=== PATIENT | female | born 1960 | race Caucasian/White ===

== ENCOUNTER 2018-09-20 00:44 | Outpatient (CLI) | payer OTHER, SELFPAY ==
--- NOTE | 2018-09-20 14:45 | DI.RAD_ITS ---
SYMPTOMS/DIAGNOSIS: SCREENING, POSTMENOPAUSAL, Z78.0 DEXA SCAN: No priors for comparison. Evaluation of the lateral spine shows no compression deformities. Evaluation of the left hip shows a total T score of -1.8 and a Z score of -1.0; this is consistent with osteopenia and an increased fracture risk. Evaluation of the lumbar spine shows a total T score of -1.8 and a Z score of - 0.5; this is also consistent with osteopenia and an increased fracture risk. IMPRESSION: Osteopenia in the lumbar spine and left hip.
--- NOTE | 2018-09-20 15:01 | DI.MAMMO_ITS ---
SYMPTOMS/DIAGNOSIS: SCREENING, Z12.31 MAMMOGRAMS: Mammograms were interpreted according to the usual protocol including computer analysis with CAD system, tomosynthesis and C view imaging. Comparison is with the prior examinations. No suspicious masses or microcalcifications are seen. There is no definite evidence of malignancy. IMPRESSION: Negative mammogram. Routine screening is recommended. Category 1, breast density B. MQSA ASSESSMENT OF FINDINGS: Negative. Category 1. Patient will receive a letter notifying them of these results. BI-RADS category B. There are scattered areas of fibroglandular density.
== END 2018-09-20 01:04 ==
PROVIDERS: PCP Family Medicine; Visit Provider Family Medicine
DX: M85.88 Other specified disorders of bone density and structure, other site (principal); Z78.0 Asymptomatic menopausal state; Z12.31 Encounter for screening mammogram for malignant neoplasm of breast
CPT/HCPCS: 77063; 77067; 77080

== ENCOUNTER 2019-05-19 18:00 | Emergency (ER) | payer OTHER, SELFPAY ==
[2019-05-19] VITALS (19 sets, daily range): BP systolic 110–129; BP diastolic 56–83; PULSE 58–69; RESP 11–22; TEMP 36.5; O2SAT 97–100
--- NOTE | 2019-05-19 18:23 | ED.GENADUL_ITS ---
Discharge Plan Disposition Patient Disposition: HOME Condition: Stable Discharge Details Chief Complaint: Dizzy/Sync Clinical Impression: Vertigo Primary Care Provider: Kaci Garcia ED Provider: Edwin Renner Home Meds and New Rx's Prescriptions: No Action No Known Home Meds RF: 0 Discharge Instructions Instructions: Vertigo (ED) Additional Instructions: Please follow-up with Dr. Garcia in clinic for recheck in next 1 to 2 weeks time. I recommended and offered admission tonight which you have elected to decline. Please return at any time for reevaluation. Return if you develop chest pain, palpitations, lightheadedness, recurrent vertigo, or any other acute concerns. Home to rest this evening. Small, frequent sips of fluids to maintain hydration. Your CAT scan of the head did not show any acute findings, this will be formally read by the in-house radiologist tomorrow. The on-call radiologist this evening recommended a nonemergent MRI follow-up that may be ordered by Dr. Garcia. Medical Decision Making 59-year-old female presents via EMS. She states that she developed a sensation of sinus pressure and drainage last night for which she took a sinus medicine. She felt generally weak today but this evening developed the abrupt onset of lightheaded sensation with spinning of the room, became diaphoretic, had a syncopal event which she sank to the ground but did not pass out. She did not turn blue, there was no tonic-clonic movements, no tongue biting, no incontinence. Family member took her blood pressure at 60/30. The patient vomited once. EMS found her in a normal sinus rhythm, they administered 300 cc of fluid and transported to the ED. Patient arrives with pulse 69, pressure 125/61. She is afebrile. Her exam is notable for 2-3 beat left horizontal nystagmus. No other focal neurologic deficits. Differential diagnosis includes sinusitis, peripheral labyrinthitis, must exclude underlying cardiogenic or vagal source of syncope. Patient placed on a shelter monitor, given a additional fluid bolus, referred for CT scan of the head, chest x-ray, laboratory testing and EKG. EKG: Normal sinus rhythm, rate of 68, the QRS is narrow, there is nonspecific half millimeter ST segment depression in leads V2 through through V6. Laboratories are notable for magnesium of 1.7, potassium of 3.2. Her troponin is negative, CBC reassuring. Patient given meclizine, parenteral magnesium and potassium supplementation. The CAT scan of her head reveals mild mucoperiosteal thickening in the paranasal sinuses but no air-fluid levels. Question of Chiari I malformation. Nonemergent MRI follow-up recommended. No other acute findings. Chest x-ray without acute disease. Patient is improved following fluids and meclizine. Her work-up has been reassuring. Nonetheless, I recommended admission overnight for monitoring on telemetry. Patient declines this. She has demonstrates decision-making capacity and clearly has the right to refuse admission. I will ask her to follow-up with primary care and place her on care management list to make an appointment. She understands return precautions to the ER. HPI General Mode of arrival: ambulatory . Date/Time Provider Initiated Documentation: 05/19/19 18:27 . Limitations to Documentation: no limitations . Information obtained by: patient . History of Present Illness 59 year old F presents to the emergency department with the chief complaint of Syncope and vertiginous feeling, improving, described as moderate, and is localized to the head. Patient reports no radiation. Patient started experiencing this minute(s) and it has been now resolved. No relieving factors improve symptom(s), No exacerbating factors reported . Patient notes diaphoresis, nausea/vomiting, syncope and weakness; denies confusion, chest pain, headaches and shortness of breath. Patient did receive the following treatments prior to arrival, other (300 cc IV fluid) Related Data Home Medications Medication Instructions Recorded Confirmed Unknown [No Known Home Meds] 05/19/19 05/19/19 Allergies Allergy/AdvReac Type Severity Reaction Status Date / Time No Known Allergies Allergy Unverified 05/19/19 18:17 General Stated Complaint: Dizzy/Sync RIVKA: 2 Review of Systems Narrative: 6 systems reviewed and otherwise negative [facility] Medical History Dermatitis DIVERTICULOSIS SESSILE SERATED ADENOMA Stress TUBULAR ADENOMA Surgical History (Updated 05/18/13 @ 09:57 by Ruth Magaña) Bone Graft & Pinning of Right Wrist Colonoscopy - IV Sedation (03/15/13) Lateral Retinacular Release, Open Right Family History Mother Heart disease Father Alcohol abuse Sister Heart disease Sister No problems noted. Brother No problems noted. Brother No problems noted. Social History Smoking/Tobacco Use Status: Current every day Alcohol Intake: current Alcohol Intake frequency: a few times a month Drug use: Never Substance use type: does not use Do you feel safe at home: Yes Exam Narrative Exam Narrative: GEN: awake, alert, oriented 3. Pleasant, well groomed, interactive. HEAD: Normocephalic, atraumatic ENT: Mucous membranes moist, oropharynx unremarkable, External ear exam unremarkable EYES: PERRL, EOMI NECK: Full ROM, no CHANEL, no menigismus CHEST/RESP: Nontender, clear to auscultation bilateral, no wheeze/rhonchi/rales CARDIOVASCULAR: RRR, no murmur, rub amarjit. 2+ Rad pulse bilateral ABDOMEN: Soft, nontender, no mass. +Bowel sounds EXT: Full ROM, no edema, no rash Neuro: Grossly normal neurologic exam, conversant, interactive. Cranial nerves II through XII intact. Left horizontal 2-3 beat nystagmus present. No dysmetria Psych: Speech fluent, thoughts congruent, affect normal Course Vital Signs Vital signs: Vital Signs Temperature 36.5 C 05/19/19 18:01 Pulse 69 05/19/19 18:01 Respiratory Rate 16 05/19/19 18:01 Blood Pressure 125/61 05/19/19 18:01 Temperature 36.5 C 05/19/19 18:01 Temperature Source Skin 05/19/19 18:01 Pulse 67 05/19/19 18:05 Pulse 67 05/19/19 18:05 Respiratory Rate 11 L 05/19/19 18:10 Respiratory Effort Non-Labored 05/19/19 18:10 Respiratory Depth Normal 05/19/19 18:10 Respiratory Pattern Normal 05/19/19 18:10 Blood Pressure 125/61 05/19/19 18:05 Blood Pressure Mean 77 05/19/19 18:05 Blood Pressure Position Supine 05/19/19 18:01 Oxygen Delivery Method Room Air 05/19/19 18:01 Oxygen Flow Rate 0 05/19/19 18:01
[2019-05-19 18:30] LABS: Abs Immature Grans 0.03 k/cumm (0.0-0.09); Absolute Basophil Count 0.03 k/cumm (0.0-0.2); Absolute Eosinophil Count 0.23 k/cumm (0.0-0.7); Absolute Lymphocyte Count 2.74 k/cumm (1.2-3.4); Absolute Monocyte Count 1.04 k/cumm (0.11-0.7); Absolute Neutrophil Count 3.89 k/cumm (1.2-6.7); Basophils % 0.4; Eosinophils % 2.9; HCT 37.8 % (36.0-46.0); HGB 12.8 g/dL (12.0-15.5); Immature Grans % 0.4; Lymphocytes % 34.4; Mean Corp. HGB Concentration 33.9 g/dL (32.0-36.0); Mean Corpuscular Hemoglobin 30.6 pg (27.0-33.0); Mean Corpuscular Volume 90.4 fL (80-95); Mean Platelet Volume 9.4 fL (8.0-11.0); Monocytes % 13.1; Neutrophils % 48.8; Platelet Count 295 x1000/uL (130-400); RBC 4.18 m/cumm (4.00-5.20); RBC Distribution Width 12.6 % (11.7-14.6); White Blood Cell Count 7.96 k/cumm (4.4-10.8)
[2019-05-19 18:43] LABS: ALT 21 U/L (14-59); AST 16 U/L (15-37); Albumin 3.6 g/dL (3.4-5.0); Alkaline Phosphatase 47 U/L (46-116); BUN 10 mg/dL (7-18); Bilirubin, Total 0.3 mg/dL (0.2-1.0); CREATININE 0.93 mg/dL (0.55-1.02); Calcium 8.8 mg/dL (8.5-10.1); Chloride 105 mmol/L (98-107); Glucose 100 mg/dL (74-106); Potassium 3.2 mmol/L (3.5-5.1); Sodium 142 mmol/L (136-145)
[2019-05-19] MEDS: Normal Saline 1,000 ML 1000 ML IV (18:47)
[2019-05-19] MEDS: Ondansetron 4 MG/2 ML VIAL IVP (18:47)
[2019-05-19] MEDS: Normal Saline Flush 10 ML SYR IVP (18:49)
[2019-05-19 18:50] LABS: Magnesium 1.7 mg/dL (1.8-2.4); Troponin I < 0.05 ng/Ml (<0.06)
[2019-05-19] MEDS: Meclizine 25 MG TAB PO (18:57)
--- NOTE | 2019-05-19 19:20 | DI.CT_ITS ---
EXAM: CT HEAD SINUS WO CLINICAL HISTORY: Frontal sinus pressure, dizziness TECHNIQUE: The exam was performed according to the usual protocol without contrast. COMPARISON: No exams were available for comparison FINDINGS: CT head: The right cerebellar tonsil extends approximately 7 millimeters below the foramen magnum. There is a normal fajardo-white matter differentiation. No intracranial hemorrhage, midline shift or mass effect is present. The ventricles are intact. The basilar cisterns are patent. The calvarium is intact. There is mild mucosal thickening in the visualized paranasal sinuses to be discussed on the CT scan o f the sinuses. The mastoid air cells are well pneumatized. CT sinus: There is mild mucosal thickening in the right frontal sinus. There is opacification of several ethmoid air cells bilaterally. There is mucosal thickening in the maxillary sinuses bilaterally right greater than left. The sphenoid sinuses are clear. Nasal septum is midline. There is obstruction of the left ostiomeatal complex. The right ostiomeata l complex is unremarkable. The orbits and retro-orbital soft tissues are unremarkable. There is artifact from the patient's dental amalgam. IMPRESSION: 1. No acute intracranial process. 2. Findings suggestive of a Chiari 1 malformation. Nonemergent MRI should be considered for further evaluation. 3. Findings suggesting chronic sinusitis. No air-fluid levels are present in the sinuses.
--- NOTE | 2019-05-19 19:30 | DI.RAD_ITS ---
EXAM: XR CHEST 2V PA LATERAL INDICATION: Syncope, dizziness. COMPARISON: RIGHT RIBS TO INCLUDE CXR from 12/08/2010 TECHNIQUE: 2D digital imaging was performed. FINDINGS: The heart size and pulmonary vasculature are within normal limits. The lungs are clear. No effusion or pneumothorax is identified. Degenerative changes are seen in the spine. There is an unchanged s coliosis of the thoracic spine. IMPRESSION: No acute pulmonary process.
[2019-05-19] MEDS: MAGNESIUM SULFATE 1 GM/100 ML BAG IVPB (19:32)
[2019-05-19] MEDS: POTASSIUM CHLORIDE/0.9% NACL 1,000 ML 150 MEQ IV (19:58)
--- NOTE | 2019-05-19 20:02 | DI.VRAD_ITS ---
PROCEDURE INFORMATION: Exam: CT Maxillofacial Without Contrast, Sinus Exam date and time: 05/19/2019 7:14 PM Age: 59 years old Clinical indication: Dizziness; Other: Frontal sinus pressure TECHNIQUE: Imaging protocol: CT Maxillofacial without contrast. Focus on the sinuses. Radiation optimization: All CT scans at this facility use at least one of these dose optimization techniques: automated exposure control; mA and/or kV adjustment per patient size (includes targeted exams where dose is matched to clinical indication); or iterative reconstruction. COMPARISON: No relevant prior studies available. FINDINGS: Frontal sinuses: There is mild mucoperiosteal thickening in the frontal sinus. Ethmoid air cells: There is mild mucoperiosteal thickening in the ethmoid sinuses. Sphenoid sinuses: The sphenoid sinuses appear clear. Maxillary sinuses: There is mild mucoperiosteal thickening in the maxillary sinuses. Orbits: The globes and intraorbital structures appear grossly intact. Nasal cavity/Septum: The nasal passages appear grossly clear. The nasal septum appears midline. Dental: The teeth are partially obscured by artifact from metallic dental work. There are large periapical lucencies in the maxilla bilaterally. Soft tissues: No asymmetric soft tissue swelling is seen in the face. Bones/joints: No acute fracture is seen through the visualized facial bones. The lower mandible is partially excluded from view. IMPRESSION: 1. Mild mucoperiosteal thickening in the paranasal sinuses but no air-fluid levels. Chronic sinusitis could have this appearance although clinical correlation is recommended. 2. Periapical lucencies in the maxilla bilaterally. Follow-up with a dentist is recommended to distinguish periapical cysts from periapical abscesses. PROCEDURE INFORMATION: Exam: CT Head Without Contrast Exam date and time: 05/19/2019 7:14 PM Age: 59 years old Clinical indication: Dizziness; Other: Frontal sinus pressure TECHNIQUE: Imaging protocol: Computed tomography of the head without contrast. Radiation optimization: All CT scans at this facility use at least one of these dose optimization techniques: automated exposure control; mA and/or kV adjustment per patient size (includes targeted exams where dose is matched to clinical indication); or iterative reconstruction. COMPARISON: No relevant prior studies available. FINDINGS: Brain: The right cerebellar tonsil extends approximately 7 mm below the foramen magnum. There is crowding of the structures at the foramen magnum, image 6 of series 2. There is mass effect upon the brainstem which demonstrates distorted morphology. No acute intracranial hemorrhage, supratentorial mass effect, supratentorial midline shift, or extra-axial collection is seen. The fajardo-white matter differentiation appears preserved. Ventricles: The ventricular system and basilar cisterns appear appropriate in size and configuration. Bones/joints: The bony calvarium appears intact. No depressed skull fracture is seen. Sinuses: There is mild mucoperiosteal thickening in the paranasal sinuses. No air-fluid levels are seen through the visualized paranasal sinuses. Mastoid air cells: The mastoid air cells appear well-aerated. Auditory system: The middle ear cavities appear clear. Orbits: The globes and intraorbital structures appear grossly intact. The globes and intraorbital structures appear grossly intact. Soft tissues: No significant scalp lesion is seen. IMPRESSION: 1. Approximately 7 mm inferior extension of the right cerebellar tonsil below the foramen magnum with crowding of structures at the foramen magnum and mass effect upon the brainstem. This appearance suggests a Chiari 1 malformation. Non emergent follow up MRI is recommended for additional evaluation. 2. No acute intracranial hemorrhage. Dictated and Authenticated by: Bryn Sifuentes MD. Ordering:NIRMALA Pineda MD
--- NOTE | 2019-05-19 20:09 | DI.VRAD_ITS ---
PROCEDURE INFORMATION: Exam: XR Chest, 2 Views Exam date and time: 05/19/2019 7:29 PM Age: 59 years old Clinical indication: Other: Dizziness TECHNIQUE: Imaging protocol: XR of the chest Views: 2 views. COMPARISON: No relevant prior studies available. FINDINGS: Lungs: The lung bhatt appear clear bilaterally. Pleural space: No pleural effusion or pneumothorax is seen. Heart/Mediastinum: Heart size is normal. The mediastinal contours appear normal. Bones/joints: There is S shaped scoliotic curvature through the visualized spine. There is focal deformity along the anterolateral aspect of the right 9th rib, suspected to represent an old fracture. IMPRESSION: No active disease is seen in the chest. Dictated and Authenticated by: Bryn Sifuentes MD. Ordering:NIRMALA Pineda MD
[2019-05-19 20:10] LABS: Bilirubin Negative (Negative); Blood Small (Negative); Clarity Clear (Clear); Glucose Negative (Negative); Ketones Negative (Negative); Leukocyte Esterase Negative (Negative); Nitrite Negative (Negative); Urobilinogen 0.2 EU/dL (Up TO 0.2)
[2019-05-19 20:27] LABS: Epithelial Cells Few HPF (Negative); WBC 0-2 HPF (0-5)
[2019-05-19 20:28] LABS: Bacteria Negative HPF (Negative); C & S Indicated? No; Casts 20-50 Hyaline LPF (Negative); Crystals Negative HPF (Negative); Mucus Moderate (Negative)
== END 2019-05-19 20:40 | disposition home or self-care (01) ==
PROVIDERS: Emergency Provider Emergency Medicine; PCP Family Medicine
DX: R42 Dizziness and giddiness (principal); R11.2 Nausea with vomiting, unspecified; H55.09 Other forms of nystagmus; E83.42 Hypomagnesemia; E87.6 Hypokalemia
CPT/HCPCS: 36415; 80053; 93005; 96361; 96365; 96375; 99285; 70450; 70486; 71046; 81003; 81015; 83735; 84443; 84484; 85025; 93010; 99284; J2405; J3360; J3475

== ENCOUNTER 2019-05-29 03:18 | Outpatient (CLI) | payer OTHER, SELFPAY ==
--- NOTE | 2019-07-03 11:20 | W.CARDEVENT ---
Date of service: 07/03/19 Time of Service: 11:20 Cardiac Event Recorder Cardiac Event Note: This is a 1 month event recorder ordered for the indication of syncope. ?Patient was in normal sinus rhythm for the majority of the recording. ?There was one episode of ventricular tachycardia which lasted 9 beats. This was not associated with the patient recorded symptoms. ?There were 6 patient triggered events which were all associated with sinus rhythm and occasional PVC. ?There were no episodes of atrial fibrillation, no pauses greater than 3 seconds and no evidence of high degree heart block.
== END 2019-05-29 03:38 ==
PROVIDERS: PCP Family Medicine; Visit Provider Family Medicine
DX: R55 Syncope and collapse (principal); I47.2 Ventricular tachycardia; I49.3 Ventricular premature depolarization
CPT/HCPCS: 93270

== ENCOUNTER 2019-06-04 15:39 | Emergency (ER) | payer OTHER, SELFPAY ==
[2019-06-04] VITALS (41 sets, daily range): BP systolic 109–142; BP diastolic 56–79; PULSE 59–75; RESP 12–23; TEMP 36.1–36.6; O2SAT 95–100
--- NOTE | 2019-06-04 16:05 | W.ED.GENAD ---
Discharge Plan Disposition Patient Disposition: HOME Condition: Good Discharge Details Chief Complaint: Palpitatns Clinical Impression: Cardiac abnormality Primary Care Provider: Kaci Garcia ED Provider: Hesham Wahl Home Meds and New Rx's Prescriptions: New metoprolol succinate 25 mg tablet extended release 24 hr 25 mg PO DAILY Qty: 30 RF: 0 No Action multivitamin Capsule 1 cap PO DAILY RF: 0 Calcium 600 + D(3) 600 mg calcium- 200 unit Capsule 2 cap PO DAILY RF: 0 Discharge Instructions Instructions: Telemetry Monitoring (GEN) Additional Instructions: At this time the correctional guard feels that the findings are new rhythm strip warrant further outpatient evaluation and do not merit inpatient admission at this time. Please take the metoprolol 25 mg daily as directed. This may certainly decrease your energy and stamina for the time being, but this is an expected side effect. Please follow-up closely at your scheduled cardiac echo test. We will be placing a cardiology referral for you. They will contact you with the appointment time. If you notice any worsening of your symptoms, or any new symptoms such as vomiting, diarrhea, fever, chills, shortness of breath, chest pain, numbness, weakness, or fainting , please return immediately to the emergency department for reevaluation. Please follow up with your primary care provider as soon as possible for reassessment and reevaluation. As always, it was a pleasure participating in your medical care today. Referrals: Fredy Ni MD [ CONSULTING PHYSICIAN] - Medical Decision Making This is a 59-year-old female with no past medical history to speak of aside for an episode of syncope 2-1/2 weeks ago. 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 Today while driving home she was contacted by her physician that there was a 9 beat run of V. tach. She had 0 symptoms whatsoever when all of this occurred. She was only made aware because of the call that was made to her. Currently she continues to remain totally asymptomatic with no episodes of no syncope or other abnormalities. Physical exam is unremarkable, bedside limited transthoracic echocardiogram does show what would appear to be a slightly dilated left ventricle, measurements being 10.2 cm x 6.6cm. While these findings may certainly be secondary to the limited nature of the study is certainly do elicit some concern for me. We will get a laboratory work-up to make sure her electrolytes are within normal limits, monitor closely while here, then contact her correctional guard. 5:41 PM Laboratory work-up has returned and is unremarkable. Magnesium, calcium, TSH, troponin and proBNP are all within normal limits. Potassium is 3.4. Will give some oral potassium supplement here. She continues to show no dysrhythmia on the monitor here. I did contact [facility] cardiology and spoke with Dr. Figueroa. I discussed the limited bedside ultrasound findings, laboratory work-up, he did review the rhythm strips and EKGs. He does feel that the dysrhythmia is certainly self-limiting and less concerning. At this time he recommends discharge with close outpatient follow-up. He does not see benefit from admission. He does recommend starting the patient on 25 mg of metoprolol succinate daily. We will start the patient on this year. Taking into account the specialist recommendations patient will be discharged, we will contact imaging to move up her scheduled echo, we will place referral for cardiology here. We will continue to monitor the patient get one repeat EKG and 3-hour troponin prior to discharge. 7:25 PM Serial EKGs are unchanged, serial troponins are normal. Patient remained stable here in the ED, no evidence of hypotension or bradycardia on the metoprolol. Per plan will discharge home, with close echo and cardiology follow-up. Discussed red flags which to return. At this time there is no clinical evidence of ACS. Discussed red flags which to return. I have extensively reviewed the treatment plan and discharge instructions with the patient. I have addressed all patient concerns at this time. The patient was made aware of what symptoms to monitor for that would warrant a return to the emergency department. Discussed the plan with the patient, they demonstrate verbal understanding and agreement with our assessment and plan at this time. EKG 15: 47 Rate 64, intervals normal, sinus rhythm, nonspecific ST depressions in V3 V4 V5 and V6, all less than 1 mm. Minimal less than 1 mm elevation in V1. Q waves appear to be present in lead II. Mild less than 1 mm elevation in aVR. No evidence of STEMI. Comparison of EKG from 03/19/2019 demonstrates near identical findings. No acute changes. EKG 18: 56 Rate 63, intervals normal, sinus rhythm, nonspecific less than 1 mm depression in V2 V3 V4 V5. Less than 1 mm of elevation in aVR. These findings are consistent with EKG both today and on 03/19/2019. EKGs were reviewed by [facility] cardiology and they are also unconcerned. HPI General Date/Time Provider Initiated Documentation: 06/04/19 15:49. HPI Narrative: This is a 59-year-old female with no past medical history to speak of except for a syncopal episode on May 19 of this past year which was less than a month ago who presents today for evaluation of cardiac monitoring abnormality. The patient was given a prolonged heart monitor after her episode of syncope. Today while driving home she was contacted by her physician stating that there was a recorded episode of 8 beats of ventricular tachycardia. The patient had no symptoms whatsoever, and states that she would not have known something occurred had no one contacted her. This all occurred roughly 4 hours ago. The patient denies any red flags of lightheadedness, chest pain, shortness of breath, arm neck or shoulder pain. She denies any other episodes of recent syncope. No other complaints at this time. She does have a sister who in her sleep in her 60s but no other family or personal history of exertional syncope or other complaints. Patient denies any IV or illicit drug use. She denies any excessive caffeine use. Related Data Home Medications Medication Instructions Recorded Confirmed calcium carbonate-vitamin D3 2 cap PO DAILY 06/04/19 06/04/19 [Calcium 600 + D(3)] metoprolol succinate 25 mg PO DAILY #30 tab 06/04/19 multivitamin 1 cap PO DAILY 06/04/19 06/04/19 Previous Rx's Medication Instructions Recorded metoprolol succinate 25 mg PO DAILY #30 tab 06/04/19 Allergies Allergy/AdvReac Type Severity Reaction Status Date / Time No Known Allergies Allergy Unverified 06/04/19 15:49 General Stated Complaint: Palpitatns RIVKA: 2 Review of Systems All systems reviewed & are unremarkable except as noted in HPI and below [facility] Surgical History (Updated 05/18/13 @ 09:57 by Ruth Magaña) Bone Graft & Pinning of Right Wrist Colonoscopy - IV Sedation (03/15/13) Lateral Retinacular Release, Open Right Social History Smoking/Tobacco Use Status: Current every day Tobacco Type: cigarettes Smoking packs per day: 0.5 Smoking cigarettes per day: 10.0 Alcohol Intake: current Alcohol Intake frequency: a few times a month Drug use: Never Substance use type: does not use Do you feel safe at home: Yes Exam Narrative Exam Narrative: 1.Const: Well-nourished, Well-developed, appearing stated age 2.Eyes: PERRL, no conjunctival injection, and symmetrical lids. 3.ENT: Atraumatic external nose and ears. Moist MM. Neck: Symmetric, trachea midline, No thyromegaly. 4.CVS: +S1/S2, No murmurs or gallops. Peripheral pulses 2+ and equal in all extremities. Brisk capillary refill in all extremities. No rubs or bruits in the carotid arteries. air saw operator is in place. 5.RESP: Unlabored respiratory effort. Clear to auscultation bilaterally. No wheezes rales or rhonchi 6.GI: Soft, Nontender/Nondistended, No hepatosplenomegaly. No guarding or rebound. 7.MSK: Normocephalic/Atraumatic, Extremities w/o deformity or ttp No cyanosis or clubbing, Normal movement of all extremities 8.Skin: Warm, Dry. No rashes or lesions. 9.Neuro: validation leader II-XII grossly intact. Sensation grossly intact, no focal neurologic deficits. 10.Psych: (AAO) x3. Appropriate mood and affect Course Vital Signs Vital signs: Vital Signs Temperature 36.6 C 06/04/19 15:45 Pulse 74 06/04/19 15:45 Respiratory Rate 17 06/04/19 15:45 Blood Pressure 126/70 06/04/19 15:45 Pulse Oximetry 100 06/04/19 15:45 Temperature 36.6 C 06/04/19 15:45 Temperature Source Temporal Artery Scan 06/04/19 15:45 Pulse 74 06/04/19 15:45 Respiratory Rate 17 06/04/19 15:45 Respiratory Effort Non-Labored 06/04/19 15:48 Blood Pressure 126/70 06/04/19 15:45 Blood Pressure Position Supine 06/04/19 15:45 Pulse Oximetry 100 06/04/19 15:45 Oxygen Delivery Method Room Air 06/04/19 15:45 Oxygen Flow Rate 0 06/04/19 15:45
[2019-06-04 16:17] LABS: Abs Immature Grans 0.02 k/cumm (0.0-0.09); Absolute Basophil Count 0.04 k/cumm (0.0-0.2); Absolute Eosinophil Count 0.24 k/cumm (0.0-0.7); Absolute Monocyte Count 0.84 k/cumm (0.11-0.7); Absolute Neutrophil Count 4.61 k/cumm (1.2-6.7); Basophils % 0.4; Eosinophils % 2.7; HCT 41.3 % (36.0-46.0); HGB 13.9 g/dL (12.0-15.5); Immature Grans % 0.2 %; Lymphocytes % 36.5; Mean Corp. HGB Concentration 33.7 g/dL (32.0-36.0); Mean Corpuscular Hemoglobin 30.9 pg (27.0-33.0); Mean Corpuscular Volume 91.8 fL (80-95); Mean Platelet Volume 9.6 fL (8.0-11.0); Monocytes % 9.3; Neutrophils % 50.9; Platelet Count 336 x1000/uL (130-400); RBC Distribution Width 12.9 % (11.7-14.6); White Blood Cell Count 9.05 k/cumm (4.4-10.8)
[2019-06-04 16:29] LABS: PTT Activated 23.1 sec (21.0-31.4)
[2019-06-04 16:31] LABS: Troponin I < 0.05 ng/Ml (<0.06)
[2019-06-04 16:36] LABS: ALT 22 U/L (14-59); AST 18 U/L (15-37); Albumin 4.1 g/dL (3.4-5.0); Alkaline Phosphatase 60 U/L (46-116); Anion Gap 9.1 mmol/L (3-11); BUN 13 mg/dL (7-18); Bilirubin, Total 0.2 mg/dL (0.2-1.0); CO2 28.9 mmol/L (21.0-32.0); CREATININE 0.76 mg/dL (0.55-1.02); Calcium 9.2 mg/dL (8.5-10.1); Chloride 105 mmol/L (98-107); Glucose 72 mg/dL (74-106); Magnesium 2.2 mg/dL (1.8-2.4); NT-proBNP 160 pg/mL (<300); Potassium 3.4 mmol/L (3.5-5.1); Sodium 143 mmol/L (136-145); TSH (W/Ref FT4) 1.98 uIU/mL (0.36-3.74)
--- NOTE | 2019-06-04 17:23 | NUR.NOTE ---
Nursing Note: [facility] Cardiology referral for this week for follow up. Also faxed the report from the holter monitor for their review. Dunia Brennan.
--- NOTE | 2019-06-04 17:40 | NUR.NOTE ---
pt provided with meal tray Nursing Note:
[2019-06-04] MEDS: Metoprolol CR 25 MG TABCR PO (17:57)
[2019-06-04 19:20] LABS: Troponin I < 0.05 ng/Ml (<0.06)
[2019-06-04] MEDS: Potassium Chloride 20 MEQ TABCR 40 MEQ PO (19:32)
== END 2019-06-04 19:45 | disposition home or self-care (01) ==
PROVIDERS: Emergency Provider Student in an Organized Health Care Education/Training Program; PCP Family Medicine
DX: I47.2 Ventricular tachycardia (principal)
CPT/HCPCS: 80053; 93005; 99285; 83735; 83880; 84443; 84484; 85025; 85610; 85730; 93010; 99284

== ENCOUNTER 2019-06-05 09:09 | Outpatient (CLI) | payer OTHER, SELFPAY ==
--- NOTE | 2019-06-05 08:07 | DI.US_ITS ---
APPROVED REPORT EXAM: Comprehensive 2D, Doppler, and color-flow Echocardiogram Patient Location: Out-Patient Investment Banking Analyst: Shani Jones RDCS (AE) Rhythm: Bradycardia Indications: Syncope R55 Conclusion Left Ventricle : Left ventricle is mildly dilated. The left ventricle is mildly dilated. There is nor mal left ventricular wall thickness. Left ventricular systolic function is borderline normal. There is normal LV segmental wall motion. LVEF is estiamted to be 50-55%. The left ventricular diastolic f unction is normal. Right Ventricle : The right ventricle is normal size. The right ventricular systolic function appears normal. Atria : The left atrium size is normal. The right atrium size is normal. Aortic Valve : Aortic valve is trileaflet. Trace aortic regurgitation. There is no aortic valvular st enosis. Mitral Valve : Mitral valve leaflets are mildly thickened. Mild mitral regurgitation. No evidence of mitral valve stenosis. Tricuspid Valve : Tricuspid valve leaflets are mildly thickened but open well. There is no tricuspid valve regurgitation noted. Great Vessels : The IVC is but collapses >50% with inspiration. Estimated RVSP is 25-32 mmHg. There is no prior echocardiogram available for comparison. Wall motion Left Ventricle Left ventricle is mildly dilated. The left ventricle is mildly dilated. Left ventricular systolic fun ction is borderline normal. There is normal left ventricular wall thickness. There is normal LV segme ntal wall motion. The left ventricular diastolic function is normal. LVEF is estiamted to be 50-55%. Right Ventricle The right ventricle is normal size. The right ventricular systolic function appears normal. Atria The left atrium size is normal. The right atrium size is normal. Aortic Valve Aortic valve is trileaflet. There is no aortic valvular stenosis. Trace aortic regurgitation. Mitral Valve Mitral valve leaflets are mildly thickened. No evidence of mitral valve stenosis. Mild mitral regurgi tation. There is bowing without prolapse of the posterior leaflet of the mitral valve. Tricuspid Valve Tricuspid valve leaflets are mildly thickened but open well. There is no tricuspid valve regurgitatio n noted. Great Vessels The aortic root is normal in size. The ascending aorta size is normal. The IVC is but collapses >50% with inspiration. Estimated RVSP is 25-32 mmHg. Pericardium There is no pericardial effusion. 2D Dimensions IVSd 0.95 cm F: 0.6-1.0 LV EDV A2C 106.60 mL PWd 0.85 cm F: 0.6 - 1.0 LV EDV A4C 92.30 mL LVDd 5.60 cm F: 3.8 - 5.2 LA Volume Index A2C 31.17 mL/m2 LVDs 3.80 cm F: 2.2 - 3.5 LA Volume Index A4C 30.26 mL/m2 Aortic Root 2.60 cm F: 2.7 - 3.3 LA Volume Index Biplane 32.33 mL/m2 RA Area A4C 15.17 cm2 LA Area A4C 18.15 cm2 LVOT 2.00 cm (M/F) 1.5-2.5 LA Area A2C 19.40 cm2 Ascending Aorta 3.00 cm F: 2.3 - 3.1 EF AP4 51.46 % LVEF (Teich) 60.06 % EF AP2 53.56 % LVEF (Martinez's) 53.07 % F: 54 - 74 EF BP 53.07 % LV Volume 77.53 mL F: 46 - 106 LV Volume Index 42.13 mL/m2 F: 29 - 61 FS 32.40 % LV Diastology E/A Ratio 0.8 MED E' 0.07 (>0.07 m/s) LV E/e MED 7.40 (<14) LAT E' 0.09 (>0.1 m/s) LV E/e LAT 5.55 (<14) Pulm Vein s 0.57 m/s PV S/D Ratio 1.15 Pulm Vein d 0.49 m/s Pulm Vein a 0.75 m/s Aortic Valve LVOT Area 3.24 cm2 LVOT Vmax 1.05 m/s LVOT Mean Rashel. 0.77 m/s LVOT Peak Gr. 4.4 mmHg LVOT Mean Gr. 2.6 mmHg AoV Area/ BSA (Vmax) 1.07 cm2/m2 LVOT VTI 0.200 m AoV Vmax 1.70 (0.5-1.3 m/s) MIR Mean Rashel. Index 1.20 cm2/m2 AoV Mean Rashel. 1.13 m/s AoV Peak Grad 11.6 mmHg AoV Mean Grad 5.9 (<5 mmHg) AoV VTI 0.360 (0.18-0.25 m) AoV Area VTI 2.06 (2.5-4.5 cm2) AoV Area/ BSA (VTI) 1.12 cm/m2 Mitral Valve MV E Max Rashel. 0.50 (0.4-1.3 m/s) MVA VTI 5.84 (4.0-6.0 cm2) MV A Velocity 0.65 (0.4-1.3 m/s) E/A Ratio 0.72 MV Decel. Time 256.00 (160-240 msec) MV PHT 74.24 msec MVA PHT 2.95 cm2 Pulmonary Valve PV Peak Velocity 0.86 (0.5-1.5 m/s) RVOT Peak Gr. 2.49 mmHg RVOT Peak Rashel. 0.79 m/s RVOT Mean Gr. 1.70 mmHg RVOT VTI 0.15 m Tricuspid Valve TR P. Velocity 2.49 m/s TV Regurg Vmax 2.49 m/s RAP Estimate 8.00 mmHg RVSP 32.87 mmHg TR P. Gradient 24.85 mmHg
== END 2019-06-05 09:29 ==
PROVIDERS: PCP Family Medicine; Visit Provider Family Medicine
DX: R55 Syncope and collapse (principal); R42 Dizziness and giddiness; I34.8 Other nonrheumatic mitral valve disorders; I51.7 Cardiomegaly
CPT/HCPCS: 93306

== ENCOUNTER 2019-07-10 08:45 | Outpatient (CLI) | payer OTHER, SELFPAY | END 2019-07-10 09:05 | PROVIDERS: PCP Family Medicine; Visit Provider Internal Medicine Cardiovascular Disease | DX: R55 Syncope and collapse (principal); I47.2 Ventricular tachycardia | CPT/HCPCS: 93005; 93010 ==

== ENCOUNTER 2020-03-29 09:58 | Outpatient (REF) | payer OTHER, SELFPAY ==
[2020-03-31 11:51] LABS: SARS-CoV-2 RNA Not Detected (NotDetected); SARS-CoV-2 RNA Source Nasal/Nares
== END 2020-03-29 10:18 ==
LOC: NCHCN 09:58
PROVIDERS: PCP Family Medicine; Visit Provider Nurse Practitioner Family
DX: Z20.828 Contact with and (suspected) exposure to other viral communicable diseases (principal)
CPT/HCPCS: U0003

== ENCOUNTER 2020-04-17 15:20 | Outpatient (REF) | payer OTHER, SELFPAY ==
--- NOTE | 2020-04-17 14:30 | PAPFT_PTH ---
PATIENT: Irma Domingo LOC: [facility] U#:[id number] AGE/SX: 60/F ROOM: RE04/17/[address]: Kaci Garcia : 1960 BED: DIS: 04/17/2020 SPEC #: [id number] RECD: 04/22/20 13:01 STATUS: GASPER REQ #: [id number] HAL: 04/17/20 14:[address]: Kaci Garcia DEPT: [facility] Cytology RECD BY: Chelsea Combs Tissues: 1 - CX/ENDOCX FOR PAP SMEARS Procedures: PAP THIN PREP/UVM Screening HPV DNA PROBE Comments: [id number]
== END 2020-04-17 15:40 ==
LOC: NCHCN 15:20
PROVIDERS: PCP Family Medicine; Visit Provider Family Medicine
DX: Z00.00 Encounter for general adult medical examination without abnormal findings (principal); Z12.4 Encounter for screening for malignant neoplasm of cervix; Z01.419 Encounter for gynecological examination (general) (routine) without abnormal findings
CPT/HCPCS: 88142; 87624

== ENCOUNTER 2020-06-11 01:35 | Outpatient (CLI) | payer OTHER, SELFPAY ==
--- NOTE | 2020-06-11 | DI.MAMMO_ITS ---
EXAM: MG MAMMO SCREENING CLINICAL HISTORY: SCREENING, Z12.31 TECHNIQUE: Bilateral full field digital CC and MLO mammographic images were obtained with 3D tomosyn thesis and utilizing computer aided detection (CAD). COMPARISON: Available for comparison. FINDINGS: Masses/Architectural Distortion: None seen. Microcalcifications: No suspicious pleomorphic-type are seen. Skin Thickening/Nipple Retraction: None. IMPRESSION: 1. No significant interval change with no specific features of malignancy noted. 2. Unless there is more urgent need, screening mammography is recommended, as per [place] [employer] guidelines. BI-RADS Category 1 - Negative Breast Density - Category C - Heterogeneously dense Breast density category C or D implies that the patient has dense breast tissue. Dense breast tissue is very common and is not abnormal but dense breast tissue can make it harder to find cancer on a ma mmogram. Also, dense breast tissue may increase their breast cancer risk. This information about the result of the mammogram report was provided to the patient to raise their awareness. Use this report when you speak with the patient about their risks for breast cancer, which includes their family hist ory. At that time, you may recommend for more screening tests (Ultrasound or MRI) as they might be us eful based on their risk. A negative radiographic report should not delay biopsy if a dominant or clinically suspicious mass is present. Up to ten percent of cancers are not identified on mammography. A negative report may reinforce clinical impression. Adenosis and dense breasts may obscure an underlying neoplasm. False positive reports average 6 to 10%. Patient will receive a letter notifying them of these results.
== END 2020-06-11 01:55 ==
PROVIDERS: PCP Family Medicine; Visit Provider Family Medicine
DX: Z12.31 Encounter for screening mammogram for malignant neoplasm of breast (principal)
CPT/HCPCS: 77063; 77067

== ENCOUNTER 2021-04-16 20:32 | Outpatient (REF) | payer OTHER, SELFPAY ==
[2021-04-16 21:04] LABS: ALT 23 U/L (14-59); AST 14 U/L (15-37); Albumin 3.8 g/dL (3.4-5.0); Alkaline Phosphatase 53 U/L (46-116); Anion Gap 6.5 mmol/L (3-11); BUN 22 mg/dL (7-18); Bilirubin, Total 0.4 mg/dL (0.2-1.0); CO2 30.5 mmol/L (21.0-32.0); CREATININE 0.8 mg/dL (0.55-1.02); Calcium 9.3 mg/dL (8.5-10.1); Chloride 108 mmol/L (98-107); Glucose 86 mg/dL (74-106); Potassium 4.9 mmol/L (3.5-5.1); Sodium 145 mmol/L (136-145)
[2021-04-16 21:15] LABS: Calculated LDL 100 mg/dL (<100); Cholesterol 187 mg/dL (<200); HDL Cholesterol 69 mg/dL (40-60); Triglyceride 93 mg/dL (<150)
== END 2021-04-16 20:33 | disposition home or self-care (01) ==
LOC: NCHCN 20:32
PROVIDERS: PCP Family Medicine; Visit Provider Family Medicine
DX: I95.9 Hypotension, unspecified (principal); R55 Syncope and collapse; I49.9 Cardiac arrhythmia, unspecified; Z00.00 Encounter for general adult medical examination without abnormal findings
CPT/HCPCS: 80053; 80061

== ENCOUNTER → 2022-02-10 00:46 | Outpatient (CLI) | payer OTHER, SELFPAY ==
--- NOTE | 2022-02-10 09:00 | ETT_ITS ---
APPROVED REPORT Exam: Exercise Treadmill Patient Location: Out-Patient Room/Bed: Stress Nurse: Bushra Beebe RN Ordering Provider:TYLER VANEGAS, Contact Number: [phone] BMI: 23.09 Baseline Rhythm: Sinus Bradycardia Comment: T wave inversion in lead III when standing. Diffuse ST depressions noted at baseline. Indications: LEFT VENTRICULAR ENLARGEMENT, SYNCOPE, HYPOTENSION, CARDIAC ARRHYTHMIA Medical History Medical History: Left ventricular enlargement, Syncope, Arrhythmia, Diverticulosis, Smoking, Hypotens ion, Stress Cardiac Medications: None Allergies: No known drug allergies Cardiac Risk Factors: FHX of CAD, Smoking (current) Previous Cardiac Procedures: None Pretest Chest Pain Characteristics: None Exercise History: Physically active Physical Disabilities: None Lung Sounds: Clear to auscultation Heart Sounds: Regular Stress Test Details Test: Exercise stress testing was performed using a Alexandru protocol. Rest Stress HR Resting HR Supine: 50 bpm Max Heart Rate (APMHR): 158 bpm Resting HR Standin bpm Target HR (85% APMHR): 134 bpm Max HR Achieved: 148 bpm % of APMHR: 93 Recovery HR: 60 bpm HR response to stress: Normal HR response to stress BP Resting BP Supine: 140/78 mmHg Resting BP Standin/78 mmHg Max BP: 188/88 mmHg Recovery BP: 140/78 mmHg BP response to stress: Normal blood pressure response to stress. ECG Resting ECG: Sinus Bradycardia Comment: T wave inversion in lead III when standing. 1mm diffuse ST depressions noted at baseline. Stress ECG: Sinus Tachycardia ST Change: Downsloping ST depression Lead(s): inferolateral leads Stage: [address] Deviation: 2-3 from isoelectric line mm Arrhythmia: mutifocal PVCs, couplets, 3 beat PVC runs, intermittent bigeminy Comment: PVC burden increasing with increased exercise duration. Recovery ECG: Sinus Rhythm Recovery ST Change: Horizonta/Upslopingl ST depression Lead(s): inferolateral leads Recovery ST Deviation: 1-2 from isoelectric line mm Recovery Arrhythmia: PACs, PAC pairs, mutifocal PVCs, PVC couplets, 3 beat PVC runs, 4 beat PVC runs, intermittent bigeminy Clinical Reason for Termination: stopped by RN d/t concern for increased PVC burden Stress Symptoms: Dyspnea, General Fatigue Exercise duration: 6 min00 sec Highest Stage Reached: Stage 2: 2.5 mph at 12% grade. Exercise capacity: 7.05 METs Duque Treadmill Score: 5.1 Rate Pressure Product: [id number] Stress ECG Conclusion 1. Resting electrocardiogram was abnormal, demonstrating minor diffuse ST depression and long QT inte rval 2. Patient exercised on the Alexandru protocol and completed a workload of 7 METS, stopping due to fatigu e 3. Normal heart rate and blood pressure response to exercise. Patient achieved 93% of predicted hear t rate for age 4. At peak exercise the electrocardiographic portion of the test did not demonstrate changes of myoca rdial ischemia 5. In recovery the electrocardiogram again became notable for diffuse nondiagnostic ST abnormalities 6. PVCs couplets and triplets were noted Duque Treadmill Score is 5.1 which is Low risk. Stress Test Summary STAGE Time (mins) Speed (mph) Grade (%) HR BP SpO2 SYMPTOMS METS Supine 50 140/78 Standing 63 142/78 1 3 1.7 10 88 140/78 97% 4.5 2 6 2.5 12 146 164/82 7 1 min recovery 105 188/88 3 min recovery 71 152/82 6 min recovery 60 140/78
== END ==
PROVIDERS: PCP Family Medicine; Visit Provider Surgery
DX: I51.7 Cardiomegaly (principal); R55 Syncope and collapse; I49.9 Cardiac arrhythmia, unspecified; I95.9 Hypotension, unspecified
CPT/HCPCS: 93017

== ENCOUNTER 2022-03-05 02:04 | Outpatient (CLI) | payer OTHER, SELFPAY ==
--- NOTE | 2022-03-05 07:30 | DI.NM_ITS ---
APPROVED REPORT Exam: Exercise Treadmill Patient Location: Out-Patient Room/Bed: Stress Nurse: Nuvia Finely RN Ordering Provider:TYLER VANEGAS, Contact Number: [phone] BMI: 22.95 Baseline Rhythm: Sinus Rhythm Indications: Cardiomegaly. Arrythmia. Cardiac clearance prior to colonoscopy. Medical History Medical History: Cardiac arrhthmia. Hypotension. Smoker. LVH. Syncope. Cardiac Medications: None. Allergies: No known drug allergies Cardiac Risk Factors: Active smoker for 35 years. Family history. Previous Cardiac Procedures: None. Pretest Chest Pain Characteristics: None. Exercise History: Indeterminate Physical Disabilities: None. Lung Sounds: Clear to auscultation Heart Sounds: Regular. Stress Test Details Test: Exercise stress testing was performed using a Alexandru protocol. Nuclear Acquisition: Rest Tc-99m/Stress Tc-99m 1 day Rest Isotope: Tc-99m Sestamibi. Dose: 10.3 Date: 03/05/2022 Injection Time: 1110 Stress Isotope: Tc-99m Sestamibi. Dose: 31.2 Date: 03/05/2022 Injection Time: 1245 HR Resting HR Supine: 54 bpm Max Heart Rate (APMHR): 158.375916 bpm Resting HR Standin bpm Target HR (85% APMHR): 134.799089 bpm Max HR Achieved: 143 bpm % of APMHR: 90.51 Recovery HR: 63 bpm HR response to stress: Normal HR response to stress BP Resting BP Supine: 108/62 mmHg Resting BP Standin/70 mmHg Max BP: 138/70 mmHg Recovery BP: 112/68 mmHg BP response to stress: Normal blood pressure response to stress. ECG Resting ECG: Sinus Rhythm Ectopy: Ventricular bigeminy pattern seen. Comment: Minimal ST depression, diffuse leads. Stress ECG: Sinus Tachycardia ST Change: Horizontal ST depression Lead(s): , V5 Arrhythmia: VPC's. Ventricular couplets. Recovery ECG: Sinus Rhythm, , Clear, Sinus Rhythm, Sinus Bradycardia, Sinus Rhythm, normal EKG, Sinus Rhythm with early repolarization changes Recovery ST Change: Horizontal ST depression Lead(s): II, III, aVF, V4 Recovery Arrhythmia: VPC Clinical Reason for Termination: Target HR Achieved Stress Symptoms: General Fatigue Exercise duration: 8 min01 sec Highest Stage Reached: Stage 3: 3.4 mph at 14% grade. Exercise capacity: 10 METs Scale: Sedentary Angina Score: None Rate Pressure Product: 15626 Stress ECG Conclusion 1. Resting electrocardiogram showed long QT interval, nondiagnostic ST-T abnormalities 2. Patient exercised on the Alexandru protocol and completed a workload of 10 METS 3. Normal heart rate and blood pressure response to exercise. Patient achieved 90% of predicted hear t rate for age 4. EKG at peak exercise showed no evidence of myocardial ischemia 5. PVCs were noted 6. See MPI report Stress Test Summary STAGE Time (mins) Speed (mph) Grade (%) HR BP SpO2 SYMPTOMS METS Supine 98 104/80 Standing 129 128/80 1 min recovery 109 138/70 3 min recovery 70 122/72 6 min recovery 63 112/68 MPI Conclusion Myocardial perfusion is normal. There is no evidence of ischemia or prior infarction EF is 54%, normal wall motion Radiologist Interpretation Radiologist Interpretation by: Jag Loaiza MD Interpretation Date/Time: 03/05/2022 16:53:37
== END 2022-03-05 02:24 ==
LOC: DI 02:04
PROVIDERS: PCP Family Medicine; Visit Provider Surgery
DX: I49.8 Other specified cardiac arrhythmias (principal); I51.7 Cardiomegaly; F17.210 Nicotine dependence, cigarettes, uncomplicated
CPT/HCPCS: 78452; 93017; J2785

== ENCOUNTER 2022-03-20 08:23 | Day surgery (SDC) | payer OTHER, SELFPAY ==
--- NOTE | 2022-03-20 04:58 | W.ANESPRE ---
General Info Date of Service Date Performed: 03/20/22 Height: 5 ft 10 in Weight: 73.08 kg Body Mass Index (BMI): 23.1 Surgical Procedure: Operation Date: 03/20/22 09:50 Proposed Procedure Side Surgeon john Kwong, DO Meds Allergies and Home Medications Allergies Allergy/AdvReac Type Severity Reaction Status Date / Time No Known Allergies Allergy Unverified 03/20/22 08:46 Home Medication Medication Instructions Recorded calcium carbonate 600 mg-vitamin 2 cap PO DAILY 06/04/19 D3 5 mcg (200 unit) capsule (Calcium 600 + D(3)) multivitamin 1 cap PO DAILY 06/04/19 triamcinolone acetonide 0.1 % 1 applic topical BID 06/20/21 topical ointment bisacodyl 5 mg tablet,delayed 5 mg PO ONCE #4 tabs 03/17/22 release (Dulcolax (bisacodyl)) polyethylene glycol 3350 17 17 g PO ONCE #238 grams 03/17/22 gram/dose oral powder Current Visit Medications: Current Medications Generic Name Dose Route Start Last Admin Trade Name Freq PRN Reason Stop Dose Admin Hyoscyamine Sulfate 0.125 mg 03/20/22 00:56 Hyoscyamine 0.125 Mg Sl/Oral/Chew SL DIRECTED PRN Ringer's Solution 1,000 mls @ 80 mls/hr 03/20/22 06:00 IV 03/20/22 23:59 INFUSION [facility] IV Miscellaneous Supplies 1 each 03/20/22 06:00 Iv Access IV 03/20/22 23:59 DIRECTED [facility] Ondansetron HCl 4 mg 03/20/22 07:56 Ondansetron 4 Mg/2 Ml Vial IVP Q4H PRN PRN Nausea / Vomiting Sodium Chloride 0 ml 03/20/22 06:00 Normal Saline Flush 10 Ml Syr IV 03/20/22 23:59 PRN PRN Sodium Chloride 0 ml 03/20/22 06:00 Normal Saline 10 Ml Vial IJ 03/20/22 23:59 DIRECTED PRN Sterile Water 0 ml 03/20/22 06:00 Water,Injection,Sterile 10 Ml Vial IJ 03/20/22 23:59 DIRECTED PRN PFSH Active Problems Active Problems: Problem Status Onset Code Hx of adenomatous colonic polyps Z86.010 Screening for colon cancer Z12.11 LVE (left ventricular enlargement) I51.7 Syncope R55 Medical History Medical History Cardiac arrhythmia Dermatitis DIVERTICULOSIS Herpes zoster Hypotension Menopause SESSILE SERATED ADENOMA Smoker Stress TUBULAR ADENOMA Surgical History Surgical History Bone Graft & Pinning of Right Wrist Colonoscopy - IV Sedation (03/15/13) Lateral Retinacular Release, Open Right Tobacco Smoking/Tobacco Use Status: Current every day Tobacco Type: cigarettes Smoking packs per day: 0.5 Smoking cigarettes per day: 10.0 Alcohol Alcohol Intake: current Alcohol intake frequency: a few times a week Alcohol type: wine Substance Use Substance use: Never Substance use type: does not use Vital Signs and Lab Results Vital Signs Comment Vital Signs Comment:: Temp Pulse Resp BP Pulse Ox 36.3 C L 61 16 104/78 98 03/20/22 08:35 03/20/22 08:35 03/20/22 08:35 03/20/22 08:35 03/20/22 08:35 Lab Results Blood Type / Crossmatch: No Data to Display Complete Blood Count: No Data to Display Complete Metabolic Panel: No Data to Display Liver Function Panel: No Data to Display Coagulation Panel: No Data to Display Cardiac Panel: No Data to Display Arterial Blood Gas: No Data to Display Venous Blood Gas: No Data to Display Pancreas Panel: No Data to Display Thyroid Panel: No Data to Display Infectious Disease: No Data to Display Blood Cultures: No Data to Display Toxicology Panel: No Data to Display Imaging and Studies Imaging and Studies Study information below may be from another EMR and interpreted by another provider. Please see original notes in EMR for more complete details. Stress Test Summary: 03/14: 10 METS. no ekg changes of ischemia. normal perfusion, no evidence of ischemia or previous infarction. EF 54%. Echocardiogram Summary: 05/2019: LVEF 50-55%, LV mildly dilated. trace AR, mild MR, Other Study Summary:: event recorder: sinus, one episode of 9 beats VT, no a fib. Anesthesia Assessment and Plan Anesthesia History Personal History: No History of Anesthesia Complications Family History: No Family History of Anesthesia Complications Exercise Tolerance Exercise Tolerance: Metabolic Equivalents>4 Pertinent Negatives Pertinent Negatives: No Symptoms of GERD, No Major Cardiovascular Symptoms or Complaints, No Major Pulmonary Symptoms or Complaints and No History of CVA/TIA Cardiac & Pulmonary Exam Cardiac Exam: Normal S1/S2 Heart Sounds Pulmonary Exam: Clear Bilateral Breath Sounds Implantable Cardiac Device Does patient have a Pacemaker or an ICD?: No Airway Exam Known Difficult Airway: No Mallampati Class: 2 Mouth Opening: Normal (> 3cm) Thyromental Distance: Greater than 3 cm Neck Range of Motion: Full ROM Neck Circumference: Normal Teeth Condition: Normal Dentition and Removable Dentures/Plates Upper (Partial upper) ASA Classification ASA Score: ASA 2 Emergency Case?: No NPO Status NPO Status: NPO Clears >2 hours, Solids >8 hours Anesthesia Plan Resuscitation Status: Full Code Anesthesia Technique: General Anesthesia Airway Planned: Natural Airway Monitors Used: Standard Monitors Preoperative Comments:: 62 yo female with history of polyps for colonoscopy. Sig PMHx: syncope (per cardiology likely vasovagal), LV dilation, smoker, occ EtOH. [place] [facility] [place]
[2022-03-20 08:35] VITALS: BP 104/78; PULSE 61; RESP 16; TEMP 36.3; O2SAT 98
[2022-03-20] MEDS: Lactated Ringers 1,000 ML 80 ML IV (09:00)
--- NOTE | 2022-03-20 11:00 | W.PM.HP.N ---
Date of service: 03/20/22 Time of Service: 11:03 Assessment and Plan Assessment and plan (1) Hx of adenomatous colonic polyps: Status: Acute Assessment and plan: Plan: Colonoscopy w/ general & natural airway. The?patient will be scheduled by my office. The pt understands that they need to do a bowel prep and the importance of hydration during this.? The patient understands there is a theoretical risk of renal failure.? For healthy patients we use Gatorade/Miralax Prep.? ?For anyone with renal concerns- GoLytely will be used. Plavix and coumadin will need to be held except in unusual circumstances. ? Patients in A. Fib do not need to be bridged with Lovenox or on CVA prophylaxis.? A baby ASA can be continued but full dose ASA needs to be stopped for 10 days prior to the procedure. A complete H & P is required within 30 days of the procedure.? GETA w/natural airway is used for the colonoscopy.? Informed consent is obtained for the procedural (explained in simple layman's terms that?the pt and/or family could understand) explaining risks vs benefits and alternatives to the procedure and consequences if we do not do the procedure and need/rational for the procedure. Risks include but are not limited to: bleeding, infection, perforation of colon.? This would necessitate emergency surgery to repair the damage w/ possible ostomy; and other associated complications w/ the required surgery. ? Also complications of anesthesia including aspiration, CA/CVA/. I discussed with the?patient would they could expect during the procedure, post procedure and recovery time and risks.? The patient understands that they need to have a ride home after the procedure.? The patient was given all this information in writing and expressed understanding. If there are any questions or concerns please feel free to contact our office.? Generally Colonoscopy does not require antibiotics prophylaxis, (2) DIVERTICULOSIS: (3) SESSILE SERATED ADENOMA: (4) Smoker: History of Present Illness Narrative: screening colonoscopy. States that following her last colo here at [facility] in 2013 Pt seen at the request of PCP regarding colon cancer screening. Pt has? had a colon cancer screening before.? She does have a history of colon polyps.? I do not have access to the colonoscopies or the path reports from these scopes.? Denies problems with constipation, diarrhea.? No pain or difficulty with bowel movements.? Denies rectal bleeding.? There is no family history of any colon cancer.? Pt has not had any weight loss.? Their appetite is good.? No heart, lung, or kidney problems. No heartburn or indigestion. No prior colo-rectal surgery.? No prior KARIS.? No problems with anesthesia in the past. -She has not had any further syncope/shortness of breath/chest pain/dizziness.? She is a smoker.? She is no longer on the metoprolol. Patient did have a stress test. Dr. Andrews said she was stable for colonoscopy today. she completed her bowel prep today. She is not having any abdominal pain or nausea. She is not having any chest pain/chest pressure or shortness of breath. She has no fevers or URI type symptoms. all questions are answered to her satisfaction and she is stable for the procedure today. p Hannah has a history of: DM:? no CVA/CA:? no CPAP use:? no? +smoker Blood thinners:?no Kidney disease:?no -Her last colonoscopy was at [facility] in 07/08 and was significant significant for diverticulosis in the sigmoid colon?mild, internal hemorrhoids, and hyperplastic polyps in the rectum and sigmoid.? They recommended she have a repeat colonoscopy in 2018.? She is due to personal issues and COVID just getting around to having a repeat colonoscopy at this time. ? Review of Systems All systems reviewed & are unremarkable except as noted in HPI and below PFSH All Active Problems Hx of adenomatous colonic polyps (Acute) Screening for colon cancer (Acute) LVE (left ventricular enlargement) (Acute) Syncope (Chronic) Medical History Cardiac arrhythmia Dermatitis DIVERTICULOSIS Herpes zoster Hypotension Menopause SESSILE SERATED ADENOMA Smoker Stress TUBULAR ADENOMA Surgical History Bone Graft & Pinning of Right Wrist Colonoscopy - IV Sedation (03/15/13) Lateral Retinacular Release, Open Right Family History Mother Heart disease Father Alcohol abuse Sister Heart disease Sister No problems noted. Brother No problems noted. Brother No problems noted. Social History Smoking/Tobacco Use Status: Current every day Tobacco Type: cigarettes Smoking packs per day: 0.5 Smoking cigarettes per day: 10.0 Tobacco: How many years used: 29 Smoking risk assessment performed?: Yes Alcohol Intake: current Alcohol Intake frequency: a few times a month Alcohol type: wine Drug use: Never Substance use type: does not use Current gender identity: female What type of physical activity do you participate in: none Do you feel safe at home: Yes Do you feel safe in your relationship?: Yes Meds Allergies and Home Medications Allergies Allergy/AdvReac Type Severity Reaction Status Date / Time No Known Allergies Allergy Unverified 03/20/22 08:46 Home Medications Medication Instructions Recorded Confirmed Type calcium carbonate 600 mg-vitamin 2 cap PO DAILY 06/04/19 03/20/22 History D3 5 mcg (200 unit) capsule (Calcium 600 + D(3)) multivitamin 1 cap PO DAILY 06/04/19 03/20/22 History triamcinolone acetonide 0.1 % 1 applic topical BID 06/20/21 03/20/22 History topical ointment bisacodyl 5 mg tablet,delayed 5 mg PO ONCE #4 tabs 03/17/22 03/20/22 Rx release (Dulcolax (bisacodyl)) polyethylene glycol 3350 17 17 g PO ONCE #238 grams 03/17/22 03/20/22 Rx gram/dose oral powder Exam Narrative Exam Narrative: PHYSICAL EXAM GENERAL APPEARANCE: Alert, healthy appearance, oriented, x 3,? in no acute distress HYDRATION: Well hydrated HEAD, EYES, EARS, NECK, THROAT: Head is normocephalic, pupils equal, round, reactive to light and accommodation, ocular movement intact, sclera clear and no jaundice. ?Dentition intact. No sore throat.? LUNGS: normal respiration/normal chest excursion. ?Clear to auscultation bilaterally. ?No R/R/W ?HEART: Regular rate and rhythm. no murmurs EXTREMITY: No edema or cyanosis.? no leg pain, redness, swelling.? No IV infiltration ABDOMEN: soft and non-tender to palpation.? Results Last Vital Signs Temp 36.3 C L 03/20/22 08:35 Pulse 61 03/20/22 08:35 Resp 16 03/20/22 08:35 BP 104/78 03/20/22 08:35 Pulse Ox 98 03/20/22 08:35
[2022-03-20 11:07] VITALS: BMI 23.1
--- NOTE | 2022-03-20 11:28 | BOWEL_PTH ---
PATIENT: Irma Domingo LOC: [facility] U#:[id number] AGE/SX: 62/F ROOM: RE03/20/[address]: Rocio Kwong : 1960 BED: DIS: 03/20/2022 SPEC #: [id number] RECD: 03/20/22 13:10 STATUS: GASPER RE #: [id number] HAL: 03/20/22 11:[address]: Rocio Kwong DEPT: Surgical Specimen RECD BY: Chelsea Combs ENTERED: 03/20/22 13:11 SP TYPE: Bowel OTHR DR: Kaci Garcia Tissues: 1 - BIOPSY BOWEL 2 - BIOPSY BOWEL 3 - BIOPSY BOWEL 4 - BIOPSY BOWEL 5 - BIOPSY BOWEL 6 - BIOPSY BOWEL 7 - BIOPSY BOWEL Procedures: GROSS AND MICRO LEVEL 4 Comments: [id number]
[2022-03-20 11:57] VITALS: BP 100/69; PULSE 55; RESP 18; TEMP 36.5; O2SAT 97
--- NOTE | 2022-03-20 12:03 | COLE_ITS ---
Date of service: 03/20/22 Time of Service: 12:03 Colonoscopy Report Date of procedure: 03/20/22 Pre-op diagnosis general: adenomatous polyps Post-op diagnosis procedure note: other (multiple polyps/sigmoid diverticula/grade I internal hemorrhoids) Surgeon: Rocio Kwong Anesthesia Type: General:No Airway Estimated blood loss (mL): 3 Pathology: other Complications: None Disposition: same day Prep: Miralax/Dulcolax Retraction Time: 40 Procedure Description: After informed consent was obtained the patient was taken to the procedure room and placed in a left decubitous position. Monitors were applied and a time out was done. The patients name, date of , procedure, allergies to medications and metal in their body was reviewed. The patient was then sedated. Once sedated and comfortable a rectal exam was done. External exam was normal. Internal exam revealed a normal sphincter tone and no palpable masses. The scope was then introduced and retrofelexed. Grade 1 internal hemorrhoids were identified. The scope was then advanced to the cecum without difficulty. The TI and appendiceal orifice were identified. The prep was BB PS 3 in all segments for a total of 9. The scope was then slowly retracted over 40 minutes back into the rectum. She had 15 polyps removed. She had a flat 5 mm polyp in the cecum that is removed with a cold biting forcep. She had x2, 5 mm flat polyps at 80 cm removed with cold biting forcep x2. She had x3 polyps at 70 cm. 2 are 0.75 cm and pedunculated and 1 is 5 mm and flat. These are removed with a combination of 1 cold snare ans x2 cold biting forcep. She had a 0.75 cm flat polyp at 60 cm that is removed with cold snare. She had 4 polyps at 40 cm each of these is 5 mm and flat and is removed with a cold forcep. She had 2 polyps at 30 cm that are 5 mm and flat and both removed with a cold forcep. She had 2 polyps in the rectum that are 5 mm and flat and are removed with a cold forcep. She does have a few small scattered diverticula in the sigmoid colon. There is no signs of active bleeding or infection. All specimens are retrieved and no bleeding is noted. We did not place any clips today. The mucosa is pink and healthy with a normal vascular pattern. The scope was removed and the patient was woken up and taken back to Same day surgery in stable condition. The patient tolerated the procedure well and there were no immediate complicati ons. Follow up: The patient should follow up in 2-3 years, path pending, unless they develop changes in bowel habits or other new gastrointestinal complaints.
--- NOTE | 2022-03-20 12:06 | PDOC.DSDIS_ITS ---
Date of service: 03/20/22 Time of Service: 12:06 Discharge Plan Disposition Patient Disposition: HOME Condition: Good Discharge Details Reason For Visit: colon scope Attending Provider: Rocio Kwong Primary Care Provider: Kaci Garcia Home Meds and New Rx's Prescriptions: New levofloxacin 500 mg tablet 500 mg PO DAILY 3 Days Qty: 3 0RF Rx Instructions: start 03/21. Yogurt daily while on antibiotics Continued triamcinolone acetonide 0.1 % ointment 1 applic topical BID multivitamin Capsule 1 cap PO DAILY Calcium 600 + D(3) 600 mg calcium- 200 unit Capsule 2 cap PO DAILY Discontinued bisacodyl [Dulcolax (bisacodyl)] 5 mg tablet,delayed release (DR/EC) 5 mg PO ONCE Qty: 4 0RF Rx Instructions: Take according to provider's instructions for colonoscopy prep. polyethylene glycol 3350 17 gram/dose powder 17 g PO ONCE Qty: 238 0RF Rx Instructions: To be taken as directed by prescriber's office for colonoscopy prep. Discharge Instructions Additional Instructions: DSU Colonoscopy Post- Op Instructions Instructions for Everyone who is given Anesthesia: For your safety, please do the following for the next twenty-four (24) hours: *Do Not operate a motor vehicle (car, truck, motorcycle, etc.) *Do Not drink alcoholic beverages or use any recreational drugs for the first 24 hours or while taking pain medications. The medications in your body may have a reaction that can be dangerous. *Do Not make any important decisions or sign any important papers. Findings: 15 polyps diverticula- Make sure you are moving your bowels on a regular basis and not straining. No ASA/NSAID's for 14 days The first time you move your bowels, you will probably notice a small amount of blood. If it continues or you are passing large clots, please come to the emergency. Follow up: My office will send a letter in 2 to 3 weeks time with the pathology reports and when we want you to repeat the colonoscopy, most likely 2 to 3 years time. 1. No lifting over 20 pounds or strenuous activity for the first 24 hours after your procedure. After 24 hours there are no restrictions on your activity but you may feel fatigued for a few days. 2. After you arrive home you may have a light meal and return to your normal diet as you can tolerate it without feeling sick to your stomach. 3. You may have a bloated, gaseous feeling in your belly (abdomen) after a colonoscopy. Passing gas and belching will help. Walking or lying down on your left side with your knees flexed may relieve the discomfort. Call the office at [phone] (Office) or [phone] (Hospital) right away if you notice any of the following: a.Vomiting of blood or ?coffee ground stools?. b.Rectal bleeding 1Tbsp, blood clots or continuous bleeding. c.Severe belly (abdominal) pain. d.A hard distended belly (abdomen) and an inability to pass gas. 4. Please don?t expect to have a normal BM (bowel movement) for 2-3 days after your procedure. 5. If there are questions regarding the findings of your procedure, please contact your doctor 6. If you are unable to contact your doctor with a problem, contact the hospital at [phone]. 7. Continue all your regular medications unless directed otherwise. I understand the above instructions and have no questions. Signature of Patient or Adult Escort Name of Responsible Adult Escort Signature of Nurse Date/Time Activity:: see above Diet:: see above Discharge Orders Discharge Orders: Discharge Order (Routine); Ordered 03/19/22 Ordered By: Rocio Kwong DS: Diagnosis Discharge Diagnosis (1) Hx of adenomatous colonic polyps: Status: Acute (2) DIVERTICULOSIS: (3) SESSILE SERATED ADENOMA: (4) Smoker:
[2022-03-20] MEDS: levoFLOXacin 750 MG/150 ML BAG 100 MG IVPB (12:15)
[2022-03-20 12:30] VITALS: BP 123/64; PULSE 52; RESP 18; TEMP 36.5; O2SAT 98
--- NOTE | 2022-03-20 13:31 | W.ANESPOSTOP ---
Postoperative Evaluation Date, Time and Location Date Performed: 03/20/22 Time Performed: 12:30 Patient Location: Day Surgery Unit Vital Signs Most Recent Imported Vital Signs: Most Recent Vital Signs Temp Pulse Resp BP Pulse Ox 36.5 C 52 L 18 123/64 98 03/20/22 12:30 03/20/22 12:30 03/20/22 12:30 03/20/22 12:30 03/20/22 12:30 Assessment Mental Status: Awake (Alert & Oriented to Patient Baseline) Airway and Respiratory Function: Patent airway with normal (patient baseline) respiratory exam Cardiovascular Function: Hemodynamically Stable Hydration Status: Adequately Hydrated Nausea & Vomiting: No Nausea or Vomiting Pain: Pt. Denies Any Pain Peripheral Nerve Block: Patient did not receive a nerve block
== END 2022-03-20 13:52 | disposition home or self-care (01) ==
PROVIDERS: PCP Family Medicine; Visit Provider Surgery
PROC: 0DJD8ZZ Inspection of Lower Intestinal Tract, Via Natural or Artificial Opening Endoscopic (ICD-10-PCS; CPT 45378; principal; 2022-03-20 09:45)
DX: Z12.11 Encounter for screening for malignant neoplasm of colon (principal); Z86.010 Personal history of colon polyps; K63.5 Polyp of colon; K64.0 First degree hemorrhoids; K57.30 Diverticulosis of large intestine without perforation or abscess without bleeding; K63.89 Other specified diseases of intestine
CPT/HCPCS: 45385; 45380; 88305; J1956

== ENCOUNTER 2022-07-31 08:36 | Emergency (ER) | payer BC, SELFPAY ==
[2022-07-31] VITALS (37 sets, daily range): BP systolic 110–152; BP diastolic 74–107; PULSE 53–179; RESP 12–33; TEMP 36.6; O2SAT 94–99
--- NOTE | 2022-07-31 08:45 | RT.EKG_ITS ---
APPROVED REPORT Exam: Resting ECG Reason for Exam: Chest pain Patient Location: E HR:61 bpm ECG Measurements Heart Rate 61 AXIS RI 150 P 70 QRSd 95 QRS -19 QT 455 T 21 QTc 461 Conclusion Sinus rhythm...normal P axis, V-rate 60- 99 Ventricular trigeminy...trigeminy string>6 w/ V complexes Repol abnrm nondiagnostic
--- NOTE | 2022-07-31 09:15 | DI.CT_ITS ---
Exam(s) CT HEAD WO EXAM: CT HEAD WO CLINICAL HISTORY: left arm and leg weakness, difficulty w/ rapid alt. TECHNIQUE: Imaging Protocol: Axial computed tomography images with coronal and sagittal reformatted images were created and reviewed COMPARISON: CT CT HEAD SINUS WO from 05/19/2019 FINDINGS: Ventricles and Extra axial spaces: Normal in size and morphology for the patient's age. Hemorrhage: None. Cerebral parenchyma: There is an area of decreased attenuation in the right parietal lobe with a roun ded area centrally suspicious for a a mass/metastasis. There is otherwise a normal fajardo-white matter differentiation. Midline shift: None. Brainstem/Cerebellum: Normal. Calvarium: Normal. Visualized Paranasal sinuses/Mastoids: Clear. Soft Tissues: Unremarkable. IMPRESSION: 1. Findings suspicious for a 1.5 cm right parietal mass with adjacent edema. Metastatic disease is s uspected. Primary brain tumor cannot be entirely excluded. Acute intracranial infarct may also be c onsidered. An MRI of the brain without and with contrast is recommended for further evaluation. 2. Findings were discussed with Dr. Richard at 10:34 a.m. on 07/31/2022. RADIATION DOSE DELIVERED: 674.32mGy.cm Total DLP DATA REPOSITORY: All CT scans at this facility are submitted to the National Radiology Data Registry (NRDR) Dose Index Registry (DIR) with the [employer] (ACR). RADIATION OPTIMIZATION: All CT scans at this facility use at least one of these dose optimization te chniques: automated exposure control; mA and/or kV adjustment per patient size (includes targeted exa ms where dose is matched to clinical indication); or iterative reconstruction.
[2022-07-31 09:27] LABS: Abs Immature Grans 0.01 10^3/uL (0.0-0.06); Absolute Basophil Count 0.13 10^3/uL (0.0-0.2); Absolute Eosinophil Count 0.17 10^3/uL (0.0-0.7); Absolute Lymphocyte Count 1.45 10^3/uL (1.2-3.4); Absolute Monocyte Count 0.55 10^3/uL (0.1-0.8); Absolute Neutrophil Count 4.27 10^3/uL (1.2-6.7); Eosinophils % 2.6; HCT 40.4 % (36.0-46.0); HGB 13.7 g/dL (11.2-15.7); Immature Grans % 0.2; MCH 30.2 pg (27.0-33.0); MCHC 33.9 % (32.0-36.0); MCV 89 fL (80-95); MPV 10.1 fL (8.0-11.0); Monocytes % 8.4; Neutrophils % 64.8; Platelet Count 259 10^3/uL (130-400); RBC 4.54 10^6/uL (3.93-5.22); RDW 12.8 % (11.7-14.6); RDW-SD 41.8 fL; WBC 6.58 10^3/uL (4.4-10.8)
[2022-07-31 09:41] LABS: PTT Activated 22.1 sec (21.5-31.9)
[2022-07-31 09:54] LABS: ALT 20 U/L (14-59); AST 16 U/L (15-37); Albumin 3.8 g/dL (3.4-5.0); Alkaline Phosphatase 55 U/L (46-116); Anion Gap 8.5 mmol/L (3-11); BUN 17 mg/dL (7-18); Bilirubin, Total 0.3 mg/dL (0.2-1.0); CO2 27.5 mmol/L (21.0-32.0); CREATININE 0.9 mg/dL (0.55-1.02); Calcium 9.3 mg/dL (8.5-10.1); Chloride 106 mmol/L (98-107); Estimated GFR 72.28 (mL/min/1.73m2); Glucose 98 mg/dL (74-106); Magnesium 2.2 mg/dL (1.8-2.4); NT-proBNP 585 pg/mL (<300); Potassium 4.1 mmol/L (3.5-5.1); Sodium 142 mmol/L (136-145); Total Protein 7.6 g/dL (6.4-8.2); Troponin I < 50 ng/L (<or=60)
[2022-07-31 10:02] LABS: D-Dimer 477 ng/mlFEU (<500)
--- NOTE | 2022-07-31 10:16 | ED.GENADUL_ITS ---
Discharge Plan Disposition Patient Disposition: Home Condition: Stable Discharge Details Clinical Impression: Hilar mass, Brain metastases Primary Care Provider: Kaci Garcia ED Provider: Parmjit Richard Home Meds and New Rx's Prescriptions: New levetiracetam [Keppra] 500 mg tablet 500 mg PO BID Qty: 60 0RF dexamethasone 4 mg tablet 4 mg PO .q6 hr Qty: 120 0RF Continued triamcinolone acetonide 0.1 % ointment 1 applic topical BID multivitamin Capsule 1 cap PO DAILY ergocalciferol (vitamin D2) 1,250 mcg (50,000 unit) capsule 50,000 mcg PO DAILY calcium 500 mg Tablet 1,000 mg PO DAILY Discharge Instructions Additional Instructions: Please follow-up with [facility] neurosurgery, cardiothoracic and oncology. Please contact your primary care physician to arrange follow-up. Return to the ER immediately for any worsening or new concerning symptoms. Stand Alone Forms: Work Release Referrals: [facility] [Outside] Kaci Garcia [Primary Care Provider] - Discharge Data Discharge Date/Time-TO BE ENTERED AT DEPARTURE: 07/31/22 13:48 Medical Decision Making 9:00??62-year-old female presenting with dyspnea on exertion and chest discomfort with mild exertion over the past 2 weeks as well as subjective weakness in her left arm and leg with lack of coordination in the left arm over the past 24 hours. Concern for unstable angina and ACS as well as CHF. EKG was reviewed and interpreted by me: Sinus rhythm 61 bpm, frequent PVCs, subtle ST depression noted lead I, II, plan to trend troponin. Consider acute life-threatening pulmonary embolism. D-dimer is negative. Patient is positive Romberg and difficulty with rapid alternating movements left arm. Consider CVA. Plan to obtain CT of the head. 10:24 -- Labs reviewed initial troponin negative. BNP is elevated at 585. -- CT of the head interpreted by radiology: Right parietal mass versus CVA. MRI recommended. 12:32 -- CT of the chest to assess for pulmonary embolism was interpreted by radiology: 1. No evidence pulmonary embolism, thoracic aortic aneurysm.? 2. Right hilar mass encasing and narrowing the adjacent right middle and right lower lobe airway and pulmonary vessels.? The findings are suspicious for a primary pulmonary carcinoma.? Mediastinal adenopathy is present. 3. Peripheral infiltrates are seen in the right middle and right lower lobe suspicious for postobstructive pneumonia or atelectasis.? 4. No evidence of abdominal or pelvic metastatic disease.? MRI of the brain was interpreted by radiology: CEREBRAL PARENCHYMA: No focus of restricted diffusion to suggest acute infarct. There are few scattered hyperintense foci in the white matter on the FLAIR and T2 weighted images consistent with small vessel ischemic disease.? There is a 1.6 x 1.7 cm peripherally enhancing mass in the right parietal lobe with associated edema.? There is no midline shift or mass effect on the adjacent lateral ventricle.? There is mild effacement of the adjacent sulci.? There is a 0.9 cm peripherally enhancing mass in the high left parietal lobe with minimal edema.? There is a 0.5 cm enhancing mass in the right parietal lobe.? No significant edema is noted. Results were discussed with the patient. I have called [facility] to request transfer and awaiting callback from neurology. I will initiate treatment with Keppra 1 g IV and seizure prophylaxis. 13:18 --I spoke with [facility] transfer center who discussed case with on-call cardiothoracic surgeon who recommends outpatient follow-up. I called and spoke with [place] nurse practitioner at [facility] for Dr. Garcia, discussed ED presentation and course, they will ensure timely follow-up and assist with referrals. Lab Data Lab results reviewed: Yes I reviewed the patient's lab results. Labs: Laboratory Tests Range/Units 07/31/22 07/31/22 07/31/22 09:05 09:05 09:05 WBC (4.4-10.8) 10^3/uL 6.58 RBC (3.93-5.22) 10^6/uL 4.54 Hgb (11.2-15.7) g/dL 13.7 Hct (36.0-46.0) % 40.4 MCV (80-95) fL 89 MCH (27.0-33.0) pg 30.2 MCHC (32.0-36.0) % 33.9 RDW (11.7-14.6) % 12.8 Plt Count (130-400) 10^3/uL 259 MPV (8.0-11.0) fL 10.1 Immature Gran % 0.2 Neutrophils % 64.8 Lymphocytes % 22.0 Monocytes % 8.4 Eosinophils % 2.6 Basophils % 2.0 Nucleated RBC % (0.0-0.3) % 0.0 Absolute Neutrophils (1.2-6.7) 10^3/uL 4.27 Absolute Lymphocytes (1.2-3.4) 10^3/uL 1.45 Absolute Monocytes (0.1-0.8) 10^3/uL 0.55 Absolute Eosinophils (0.0-0.7) 10^3/uL 0.17 Absolute Basophils (0.0-0.2) 10^3/uL 0.13 APTT (21.5-31.9) sec 22.1 D-Dimer (<500) ng/mlFEU 477 Sodium (136-145) mmol/L 142 Potassium (3.5-5.1) mmol/L 4.1 Chloride (98-107) mmol/L 106 Carbon Dioxide (21.0-32.0) mmol/L 27.5 Anion Gap (3-11) mmol/L 8.5 BUN (7-18) mg/dL 17 Creatinine (0.55-1.02) mg/dL 0.9 Est GFR (CKD-EPI 2020) (mL/min/1.73m2) 72.28 Glucose (74-106) mg/dL 98 Calcium (8.5-10.1) mg/dL 9.3 Magnesium (1.8-2.4) mg/dL 2.2 Total Bilirubin (0.2-1.0) mg/dL 0.3 AST (15-37) U/L 16 ALT (14-59) U/L 20 Alkaline Phosphatase (46-116) U/L 55 Troponin I (<or=60) ng/L < 50 NT-Pro-B Natriuret Pep (<300) pg/mL 585 H Total Protein (6.4-8.2) g/dL 7.6 Albumin (3.4-5.0) g/dL 3.8 TSH (0.36-3.74) uIU/mL Range/Units 07/31/22 07/31/22 09:05 12:05 WBC (4.4-10.8) 10^3/uL RBC (3.93-5.22) 10^6/uL Hgb (11.2-15.7) g/dL Hct (36.0-46.0) % MCV (80-95) fL MCH (27.0-33.0) pg MCHC (32.0-36.0) % RDW (11.7-14.6) % Plt Count (130-400) 10^3/uL MPV (8.0-11.0) fL Immature Gran % Neutrophils % Lymphocytes % Monocytes % Eosinophils % Basophils % Nucleated RBC % (0.0-0.3) % Absolute Neutrophils (1.2-6.7) 10^3/uL Absolute Lymphocytes (1.2-3.4) 10^3/uL Absolute Monocytes (0.1-0.8) 10^3/uL Absolute Eosinophils (0.0-0.7) 10^3/uL Absolute Basophils (0.0-0.2) 10^3/uL APTT (21.5-31.9) sec D-Dimer (<500) ng/mlFEU Sodium (136-145) mmol/L Potassium (3.5-5.1) mmol/L Chloride (98-107) mmol/L Carbon Dioxide (21.0-32.0) mmol/L Anion Gap (3-11) mmol/L BUN (7-18) mg/dL Creatinine (0.55-1.02) mg/dL Est GFR (CKD-EPI 2020) (mL/min/1.73m2) Glucose (74-106) mg/dL Calcium (8.5-10.1) mg/dL Magnesium (1.8-2.4) mg/dL Total Bilirubin (0.2-1.0) mg/dL AST (15-37) U/L ALT (14-59) U/L Alkaline Phosphatase (46-116) U/L Troponin I (<or=60) ng/L < 50 NT-Pro-B Natriuret Pep (<300) pg/mL Total Protein (6.4-8.2) g/dL Albumin (3.4-5.0) g/dL TSH (0.36-3.74) uIU/mL 2.68 HPI General Mode of arrival: ambulatory . Date/Time Provider Initiated Documentation: 07/31/22 09:03 . Limitations to Documentation: no limitations . Information obtained by: patient . HPI Narrative: 62-year-old female presents with chief complaint of chest discomfort. Patient notes 2 weeks of intermittent dyspnea on exertion with associated left parasternal chest discomfort described as pressure. Patient notes anytime she exerts herself she develops symptoms. Symptoms improve when she rests. Patient on also notes new left-sided arm heaviness and feeling like lack of coordination with use of her arm that started yesterday and has persisted. She also notes some similar although less severe symptoms in her left leg. Patient does note she had COVID in May. She has a significant smoking history but did quit 2 weeks ago. Patient has no chest pain now at rest. Related Data Home Medications Medication Instructions Recorded Confirmed multivitamin 1 cap PO DAILY 06/04/19 07/31/22 triamcinolone acetonide 0.1 % 1 applic topical BID 06/20/21 07/31/22 topical ointment calcium 500 mg tablet 1,000 mg PO DAILY 07/31/22 07/31/22 dexamethasone 4 mg tablet 4 mg PO .q6 hr #120 tabs 07/31/22 ergocalciferol (vitamin D2) 1,250 50,000 mcg PO DAILY 07/31/22 07/31/22 mcg (50,000 unit) capsule levetiracetam 500 mg tablet 500 mg PO BID #60 tabs 07/31/22 (Keppra) Previous Rx's Medication Instructions Recorded dexamethasone 4 mg tablet 4 mg PO .q6 hr #120 tabs 07/31/22 levetiracetam 500 mg tablet 500 mg PO BID #60 tabs 07/31/22 (Keppra) Allergies Allergy/AdvReac Type Severity Reaction Status Date / Time No Known Allergies Allergy Unverified 07/31/22 09:02 General Stated Complaint: SOB RIVKA: 2 Review of Systems All systems reviewed & are unremarkable except as noted in HPI and below Constitutional Constitutional: Denies fever(s) Cardiovascular Cardiovascular: Reports as per HPI Respiratory Respiratory: Reports as per HPI Gastrointestinal Gastrointestinal: Reports nausea and Denies vomiting Musculoskeletal Musculoskeletal: Denies numbness Neurologic Neurologic: Reports as per HPI, Denies numbness and Denies convulsions PFSH All Active Problems (Updated 07/31/22 @ 13:20 by Parmjit Richard MD) Hilar mass (Acute) Brain metastases (Acute) SESSILE SERATED ADENOMA (Acute ~03/20/22) stoiber, multiple, repeat 2 yrs Hx of adenomatous colonic polyps (Acute) Screening for colon cancer (Acute) LVE (left ventricular enlargement) (Acute) Syncope (Chronic) Medical History Cardiac arrhythmia Dermatitis DIVERTICULOSIS Herpes zoster Hypotension Menopause Smoker Stress TUBULAR ADENOMA Surgical History Bone Graft & Pinning of Right Wrist Colonoscopy - IV Sedation (03/15/13) History of colonoscopy with polypectomy (~03/20/22) Lateral Retinacular Release, Open Right Family History Mother Heart disease Father Alcohol abuse Sister Heart disease Sister No problems noted. Brother No problems noted. Brother No problems noted. Social History Smoking/Tobacco Use Status: Current every day Tobacco Type: cigarettes Smoking packs per day: 0.5 Smoking cigarettes per day: 10.0 Tobacco: How many years used: 29 Smoking risk assessment performed?: Yes Alcohol Intake: current Alcohol Intake frequency: a few times a month Alcohol type: wine Drug use: Never Substance use type: does not use Details: states no cigarette in 2 weeks since being sick Current gender identity: female What type of physical activity do you participate in: none Do you feel safe at home: Yes Do you feel safe in your relationship?: Yes Exam Const General: cooperative and no acute distress HENMT Head: normocephalic Eyes Conjunctivae: normal conjunctivae Sclera: normal sclerae Neck Neck: trachea midline and supple Resp Effort & Inspection: normal respiratory effort, not labored and not tachypneic Auscultation: clear to auscultation bilaterally, rales bilaterally, no rhonchi and no wheezes Cardio Rate: regular rate and not tachycardic Rhythm: regular rhythm Heart Sounds: no gallops, no murmurs and no rubs GI Palpation: soft, not firm, no guarding, no masses, not rigid and nontender Skin General skin exam: no rashes or lesions noted Neuro General: patient alert, patient awake and tone normal Cranial Nerves: CN's II-XI intact bilaterally Motor: strength 5/5 throughout Sensory Exam: no sensory deficits noted Other: Patient notes some subjective weakness in left arm and difficulty with rapid alternating movements of the left arm, positive Romberg on the left Extrem General: no calf tenderness and no edema Psych Appearance: grossly normal Mental Status: mental status grossly normal Course Vital Signs Vital signs: Vital Signs Temperature 36.6 C 07/31/22 08:51 Pulse 66 07/31/22 08:51 Respiratory Rate 24 07/31/22 08:51 Blood Pressure 140/94 H 07/31/22 08:51 Pulse Oximetry 99 07/31/22 08:51 Temperature 36.6 C 07/31/22 08:51 Temperature Source Oral 07/31/22 08:51 Pulse 53 L 07/31/22 10:01 Pulse 61 07/31/22 10:00 Respiratory Rate 15 07/31/22 10:00 Respiratory Effort Short of Breath 07/31/22 09:05 Respiratory Depth Normal 07/31/22 09:05 Respiratory Pattern Normal 07/31/22 09:05 Blood Pressure 130/76 07/31/22 10:01 Blood Pressure Mean 89 07/31/22 10:01 Pulse Oximetry 96 07/31/22 10:01 Oxygen Delivery Method Room Air 07/31/22 08:51 Oxygen Flow Rate 0 07/31/22 08:51 Pain Level 1 07/31/22 09:05 Lab/Test Results Lab/Test Results: Laboratory Tests Range/Units 07/31/22 07/31/22 07/31/22 09:05 09:05 09:05 WBC (4.4-10.8) 10^3/uL 6.58 RBC (3.93-5.22) 10^6/uL 4.54 Hgb (11.2-15.7) g/dL 13.7 Hct (36.0-46.0) % 40.4 MCV (80-95) fL 89 MCH (27.0-33.0) pg 30.2 MCHC (32.0-36.0) % 33.9 RDW (11.7-14.6) % 12.8 Plt Count (130-400) 10^3/uL 259 MPV (8.0-11.0) fL 10.1 Immature Gran % 0.2 Neutrophils % 64.8 Lymphocytes % 22.0 Monocytes % 8.4 Eosinophils % 2.6 Basophils % 2.0 Nucleated RBC % (0.0-0.3) % 0.0 Absolute Neutrophils (1.2-6.7) 10^3/uL 4.27 Absolute Lymphocytes (1.2-3.4) 10^3/uL 1.45 Absolute Monocytes (0.1-0.8) 10^3/uL 0.55 Absolute Eosinophils (0.0-0.7) 10^3/uL 0.17 Absolute Basophils (0.0-0.2) 10^3/uL 0.13 APTT (21.5-31.9) sec 22.1 D-Dimer (<500) ng/mlFEU 477 Sodium (136-145) mmol/L 142 Potassium (3.5-5.1) mmol/L 4.1 Chloride (98-107) mmol/L 106 Carbon Dioxide (21.0-32.0) mmol/L 27.5 Anion Gap (3-11) mmol/L 8.5 BUN (7-18) mg/dL 17 Creatinine (0.55-1.02) mg/dL 0.9 Est GFR (CKD-EPI 2020) (mL/min/1.73m2) 72.28 Glucose (74-106) mg/dL 98 Calcium (8.5-10.1) mg/dL 9.3 Magnesium (1.8-2.4) mg/dL 2.2 Total Bilirubin (0.2-1.0) mg/dL 0.3 AST (15-37) U/L 16 ALT (14-59) U/L 20 Alkaline Phosphatase (46-116) U/L 55 Troponin I (<or=60) ng/L < 50 NT-Pro-B Natriuret Pep (<300) pg/mL 585 H Total Protein (6.4-8.2) g/dL 7.6 Albumin (3.4-5.0) g/dL 3.8 PAWSS Have you Been Recently Intoxicated or Drunk Within the Last 30 days?: No Have you Ever Experienced Previous Episodes of Alcohol Withdrawal?: No Have you ever Experienced Withdrawal Seizures?: No Have you ever Experienced Delirium Tremens(DT)s?: No Have you ever undergone Alcohol Rehabilitation Treatment (i.e, inpt ot outpatient treatment programs)?: No Have you ever Experienced Blackouts?: No Have you ever Combined Alcohol with other Downers within the last 90 days?: No Have you ever Combined Alcohol with any other Substance of Abuse during the last 90 days?: No Positive Blood Alcohol level on Presentation? [PCS.BAL]: No Evidence of Increased Autonomic Activity (i.e. HR>120, tremor, sweating, agitation, nausea)?: No Result: 0
--- NOTE | 2022-07-31 10:31 | DI.MRI_ITS ---
Exam(s) MR BRAIN WO/W EXAM: MR BRAIN WO/W CLINICAL HISTORY: mass vs cva, rt parietal on CT TECHNIQUE: Multiplanar multisequence MRI of the brain was performed. CONTRAST MATERIAL: IV Contrast: 13 mL of Dotarem contrast administered. COMPARISON: CT CT HEAD WO from 07/31/2022 FINDINGS: VENTRICLES AND EXTRA AXIAL SPACES: Normal in size and morphology for the patient's age. HEMORRHAGE: None. CEREBRAL PARENCHYMA: No focus of restricted diffusion to suggest acute infarct. There are few scatter ed hyperintense foci in the white matter on the FLAIR and T2 weighted images consistent with small ve ssel ischemic disease. There is a 1.6 x 1.7 cm peripherally enhancing mass in the right parietal lob e with associated edema. There is no midline shift or mass effect on the adjacent lateral ventricle. There is mild effacement of the adjacent sulci. There is a 0.9 cm peripherally enhancing mass in t he high left parietal lobe with minimal edema. There is a 0.5 cm enhancing mass in the right parieta l lobe. No significant edema is noted. MIDLINE SHIFT: None. BRAINSTEM/CEREBELLUM: Normal. CALVARIUM: Normal. ENHANCEMENT: Please see the above section under cerebral parenchyma. VISUALIZED PARANASAL SINUSES/MASTOIDS: Clear. EWII[place]APAAYP OF KELLER: Normal flow void. PITUITARY GLAND: Unremarkable. OTHER FINDINGS: IMPRESSION: 1. Findings consistent with intracranial metastases. The largest is in the right parietal lobe measu res 1.6 x 1.7 cm. 2. No evidence of an acute infarct. 3. Findings were discussed with Dr. Richard at 12:20 p.m. on 07/31/2022. DATA REPOSITORY:
--- NOTE | 2022-07-31 10:31 | DI.CT_ITS ---
Exam(s) CT CHEST PE ABD PELVIS W EXAM: CT CHEST PE ABD PELVIS W CLINICAL HISTORY: chest pain, sob. TECHNIQUE: Imaging Protocol: Axial CT angiography was performed with multi-slice acquisition and mu lti-planar and/or 3D reconstructions. CONTRAST MATERIAL: Intravenous: Omnipaque 350contrast volume:100 mL COMPARISON: None. FINDINGS: CHEST: Tracheobronchial tree: Patent where visualized. Pulmonary parenchyma: There is a central mass in the right infrahilar region. It causes narrowing of the airways and pulmonary vessels to the right middle and right lower lobes. It measures at least 4 .3 x 5.4 cm. There are peripheral infiltrates seen in the right lower and right middle lobes which m ay represent postobstructive atelectasis or pneumonia. The left lung is clear. The right upper lobe is clear. Pulmonary Arteries: No evidence of filling defect to suggest pulmonary emboli. There is poor opacific ation of some of the subsegmental peripheral pulmonary arteries. Mediastinum and Susi: There is mediastinal and right hilar adenopathy. There is soft tissue in the s ubcarinal region indistinguishable from the esophagus. While this may represent adenopathy, an esoph ageal mass cannot be excluded. There is no proximal esophageal dilatation present. Visualized thyroid gland: Unremarkable. Pleura: No effusion or pneumothorax. Heart: Cardiomegaly. Mild coronary artery calcification. No pericardial effusion. Aorta: Thoracic aorta non-dilated. The thoracic aorta is not well opacified. Atherosclerosis. Bones: Within normal limits for the patient's age. No aggressive osseous lesions are identified. Soft tissues: Unremarkable. ABDOMEN: Liver: Normal density. There is a 0.8 cm simple cyst in the left lobe of the liver. No suspicious he patic masses are present. Portal, Superior Mesenteric, and Splenic Veins: Unremarkable. Gallbladder and Biliary Tract: No radiodense calculus or dilation. Pancreas: Normal density, no abnormal calcifications or inflammatory process. Spleen: Normal. Small 5 mm simple cyst in the spleen. Adrenals: No masses seen. Kidneys: Normal size, contour and axis. No radiodense stones or obstructive uropathy. There is a 0.8 cm simple cyst in the midpole of the left kidney. No follow-up is recommended. Abdominal Aorta: Abdominal portion non-dilated. Mild atherosclerosis. Bowel: No obstruction or bowel wall thickening. Appendix is unremarkable. Peritoneal Cavity: No ascites, collection or mesenteric inflammatory response. No free air. Lymph Nodes: Within normal limits. Bones: Within normal limits for the patient's age. No aggressive osseous lesions are present. Soft Tissues: Unremarkable. PELVIS: Bladder: Symmetric distention, no gross wall thickening. Reproductive Organs: Unremarkable as visualized. Lymph Nodes: Within normal limits. Bones: Within normal limits. IMPRESSION: 1. No evidence pulmonary embolism, thoracic aortic aneurysm. 2. Right hilar mass encasing and narrowing the adjacent right middle and right lower lobe airway and pulmonary vessels. The findings are suspicious for a primary pulmonary carcinoma. Mediastinal adeno alice is present. 3. Peripheral infiltrates are seen in the right middle and right lower lobe suspicious for postobstru ctive pneumonia or atelectasis. 4. No evidence of abdominal or pelvic metastatic disease. 5. Findings were discussed with Dr. Richard at 11:32 a.m. on 07/31/2022. RADIATION DOSE DELIVERED: 1,044.67mGy.cm Total DLP DATA REPOSITORY: All CT scans at this facility are submitted to the National Radiology Data Registry (NRDR) Dose Index Registry (DIR) with the [employer] (ACR). RADIATION OPTIMIZATION: All CT scans at this facility use at least one of these dose optimization te chniques: automated exposure control; mA and/or kV adjustment per patient size (includes targeted exa ms where dose is matched to clinical indication); or iterative reconstruction.
[2022-07-31] MEDS: Normal Saline - Diluent 50 ML VIAL IJ (10:42)
[2022-07-31] MEDS: Normal Saline Flush 10 ML SYR IVP ×2 (10:42→11:28)
[2022-07-31] MEDS: Omnipaque 350 MG/ML 500 ML BTL-Imaging package 100 ML IJ (10:43)
[2022-07-31] MEDS: Gadoterate meglumine 20 ML VIAL IVP (11:27)
[2022-07-31 11:43] LABS: TSH (W/Ref FT4) 2.68 uIU/mL (0.36-3.74)
[2022-07-31] MEDS: Normal Saline 250 ML 150 ML IV (12:26)
[2022-07-31 12:31] LABS: Troponin I < 50 ng/L (<or=60)
[2022-07-31] MEDS: levETIRAcetam 1,000 MG in Normal Saline 100 ML 400 MG IVPB (12:41)
[2022-07-31] MEDS: Dexamethasone 4 MG TAB PO (13:12)
--- NOTE | 2022-08-02 14:37 | CMPROGNOTE_ITS ---
- If Service Date Differs Date of service: 08/02/22 Time of Service: 14:37 Care Management Progress Note CM consult received from ED re: urgent follow up with [facility] Neurosurgery, Cardio- thoracic Surgery, Oncology. CM faxed referral to following offices as requested: [facility] Neurosurgery: F#[phone] Cardio-thoracic Surgery: F#[phone] Oncology: F#[phone]
--- NOTE | 2022-08-02 14:37 | PDOC.ERCMPRO ---
- If Service Date Differs Date of service: 08/02/22 Time of Service: 14:37 Care Management Progress Note CM consult received from ED re: urgent follow up with [facility] Neurosurgery, Cardio-thoracic Surgery, Oncology. CM faxed referral to following offices as requested: [facility] Neurosurgery: F#[phone] Cardio-thoracic Surgery: F#[phone] Oncology: F#[phone]
== END 2022-07-31 13:48 | disposition home or self-care (01) ==
PROVIDERS: Emergency Provider Student in an Organized Health Care Education/Training Program; PCP Family Medicine
DX: C71.9 Malignant neoplasm of brain, unspecified (principal); R91.8 Other nonspecific abnormal finding of lung field; I49.3 Ventricular premature depolarization; R79.89 Other specified abnormal findings of blood chemistry
CPT/HCPCS: 70553; 71275; 74177; 80053; 93005; 96361; 96365; 99285; 70450; 83735; 83880; 84443; 84484; 85025; 85379; 85730; 93010; 99284; J1953; J8540

== ENCOUNTER 2022-09-11 09:23 | Outpatient (CLI) | payer BC, SELFPAY | END 2022-09-11 09:24 | disposition home or self-care (01) | PROVIDERS: PCP Family Medicine; Visit Provider Family Medicine | DX: I49.9 Cardiac arrhythmia, unspecified (principal) | CPT/HCPCS: 93270 ==

== ENCOUNTER 2022-09-14 13:51 | Emergency (ER) | payer BC, SELFPAY ==
[2022-09-14] VITALS (51 sets, daily range): BP systolic 96–108; BP diastolic 68–73; PULSE 69–74; RESP 14–21; TEMP 36.9; O2SAT 94–96
--- NOTE | 2022-09-14 13:45 | RT.EKG_ITS ---
APPROVED REPORT Exam: Resting ECG Reason for Exam: arrythmia Patient Location: E HR:83 bpm ECG Measurements Heart Rate 83 AXIS TN 142 P 60 QRSd 81 QRS -36 QT 392 T 38 QTc 432 Conclusion Sinus rhythm...normal P axis, V-rate 60- 99 Ventricular tachycardia, unsustained...sequence of 3 or more V complexes Left axis deviation...QRS axis (-30,-90)
--- NOTE | 2022-09-14 14:12 | W.ED.GENAD ---
Discharge Plan Disposition Patient Disposition: Home Condition: Stable Discharge Details Clinical Impression: Atrial fibrillation with RVR Primary Care Provider: Kaci Garcia ED Provider: Tyler Alonzo Home Meds and New Rx's Prescriptions: New metoprolol succinate 25 mg tablet extended release 24 hr 25 mg PO DAILY Qty: 30 0RF Continued triamcinolone acetonide 0.1 % ointment 1 applic topical BID multivitamin Capsule 1 cap PO DAILY ergocalciferol (vitamin D2) 1,250 mcg (50,000 unit) capsule 50,000 mcg PO DAILY calcium 500 mg Tablet 1,000 mg PO DAILY levetiracetam [Keppra] 500 mg tablet 500 mg PO BID Qty: 60 0RF memantine 10 mg tablet See Rx Instructions .ROUTE .COMPLEX Rx Instructions: Take 10 mg in AM and 5 mg in PM dexamethasone 4 mg tablet 2 mg PO BID Discharge Instructions Instructions: A-fib (Atrial Fibrillation) (ED) Additional Instructions: you were in sinus rhythm with normal rates in the emergency department, your blood work did not show concerning findings follow up with your oncologist and primary care provider. 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 She had no symptoms during this, denies chest pain, dyspnea, palpitations, weakness, lightheadedness or dizziness. She was called by her pcp's office to come here for an eval. She is still asymptomatic and currently in sinus with rate of 8, no acute ischemic findings. She appears well, caox4 speaking clearly in no distress. She has clear lungs, no murmurs, no jvd, noleg swelling. Her holter strips were uplooaded into [employer] and do show afib with rvr. Given this earlier findings will keep on tele monitor, check cbc, cmp, mag and though she had no chest pain check troponin. pt stable, in no distress and sinus with rates of 70. Labs unremarkable, afib with rvr was over 3 hours ago so do not feel delta troponin indicated. She has been on metoprolol in the past and states she tolerated this well, will restart her on this. she is stable for d/c, will f/u with her pcp/oncologist, return preacutions given Differential Diagnosis Differential Diagnosis: electrolyte abnormality, afib, nstemi ECG Data Attestation: I personally reviewed and interpreted this ECG (s) as follows: Prior ECG tracings: available for review Interpretation: sinus rate of 83, pr 142, pvc's, no stemi HPI General Mode of arrival: ambulatory. Date/Time Provider Initiated Documentation: 09/14/22 13:54. Limitations to Documentation: no limitations. Information obtained by: patient. History of Present Illness 62 year old F presents to the emergency department with the chief complaint of holter monitor showed afib with rvr, described as moderate, Patient started experiencing this hour(s) (3) and it has been now resolved. No relieving factors improve symptom(s), No exacerbating factors reported . Patient notes no other symptoms.; denies chest pain and shortness of breath. Patient did receive the following treatments prior to arrival, none Related Data Home Medications Medication Instructions Recorded Confirmed multivitamin 1 cap PO DAILY 06/04/19 09/14/22 triamcinolone acetonide 0.1 % 1 applic topical BID 06/20/21 09/14/22 topical ointment calcium 500 mg tablet 1,000 mg PO DAILY 07/31/22 09/14/22 ergocalciferol (vitamin D2) 1,250 50,000 mcg PO DAILY 07/31/22 09/14/22 mcg (50,000 unit) capsule levetiracetam 500 mg tablet 500 mg PO BID #60 tabs 07/31/22 09/14/22 (Keppra) dexamethasone 4 mg tablet 2 mg PO BID 09/14/22 09/14/22 memantine 10 mg tablet See Rx Instructions .Route .COMPLEX 09/14/22 09/14/22 metoprolol succinate 25 mg 25 mg PO DAILY #30 tabs 09/14/22 tablet,extended release 24 hr Previous Rx's Medication Instructions Recorded levetiracetam 500 mg tablet 500 mg PO BID #60 tabs 07/31/22 (Keppra) metoprolol succinate 25 mg 25 mg PO DAILY #30 tabs 09/14/22 tablet,extended release 24 hr Allergies Allergy/AdvReac Type Severity Reaction Status Date / Time No Known Allergies Allergy Unverified 09/14/22 13:58 General Stated Complaint: Arrhythmia RIVKA: 3 Review of Systems All systems reviewed & are unremarkable except as noted in HPI and below Constitutional Constitutional: Denies chills, Denies fever(s) and Denies weakness Cardiovascular Cardiovascular: Denies chest pain and Denies dyspnea Respiratory Respiratory: Denies cough and Denies dyspnea Gastrointestinal Gastrointestinal: Denies abdominal pain, Denies nausea and Denies vomiting Integumentary/Breasts Skin/Breast: Denies rash Neurologic Neurologic: Denies weakness PFSH All Active Problems (Updated 09/14/22 @ 14:55 by Tyler Alonzo MD) Atrial fibrillation with RVR (Acute) SESSILE SERATED ADENOMA (Acute ~03/20/22) stoiber, multiple, repeat 2 yrs Hx of adenomatous colonic polyps (Acute) Screening for colon cancer (Acute) LVE (left ventricular enlargement) (Acute) Syncope (Chronic) Medical History Cardiac arrhythmia Dermatitis DIVERTICULOSIS Herpes zoster Hypotension Menopause Smoker Stress TUBULAR ADENOMA Surgical History Bone Graft & Pinning of Right Wrist Colonoscopy - IV Sedation (03/15/13) History of colonoscopy with polypectomy (~03/20/22) Lateral Retinacular Release, Open Right Family History Mother Heart disease Father Alcohol abuse Sister Heart disease Sister No problems noted. Brother No problems noted. Brother No problems noted. Social History Smoking/Tobacco Use Status: Former Tobacco Use Tobacco: How many years used: 29 Smoking risk assessment performed?: Yes Alcohol Intake: current Alcohol Intake frequency: a few times a month Alcohol type: wine Drug use: Never Substance use type: does not use Details: states no cigarette in 2 weeks since being sick Current gender identity: female What type of physical activity do you participate in: none Do you feel safe at home: Yes Do you feel safe in your relationship?: Yes Exam Const General: no acute distress Orientation: alert HENMT Head: normal to inspection Ears: external ears normal General nose exam: external nose normal Mouth: moist mucous membranes Resp Effort & Inspection: normal respiratory effort and able to speak in complete sentences Auscultation: clear to auscultation bilaterally Cardio Jugular venous pressure: no JVD Rate: regular rate Skin General skin exam: no rashes or lesions noted Neuro General: patient alert and patient oriented x3 Extrem General: normal to inspection Psych Mental Status: mental status grossly normal Course Vital Signs Vital signs: Vital Signs Temperature 36.9 C 09/14/22 13:54 Pulse 74 09/14/22 13:54 Respiratory Rate 16 09/14/22 13:54 Blood Pressure 108/68 09/14/22 13:54 Pulse Oximetry 96 09/14/22 13:54 Temperature 36.9 C 09/14/22 13:54 Temperature Source Oral 09/14/22 13:54 Pulse 74 09/14/22 13:54 Respiratory Rate 16 09/14/22 13:54 Respiratory Effort Normal 09/14/22 13:56 Blood Pressure 108/68 09/14/22 13:54 Blood Pressure Position Sitting 09/14/22 13:54 Pulse Oximetry 96 09/14/22 13:54 Oxygen Delivery Method Room Air 09/14/22 13:54 Oxygen Flow Rate 0 09/14/22 13:54 Pain Level 0 09/14/22 13:54 PAWSS Have you Been Recently Intoxicated or Drunk Within the Last 30 days?: No Have you Ever Experienced Previous Episodes of Alcohol Withdrawal?: No Have you ever Experienced Withdrawal Seizures?: No Have you ever Experienced Delirium Tremens(DT)s?: No Have you ever undergone Alcohol Rehabilitation Treatment (i.e, inpt ot outpatient treatment programs)?: No Have you ever Experienced Blackouts?: No Have you ever Combined Alcohol with other Downers within the last 90 days?: No Have you ever Combined Alcohol with any other Substance of Abuse during the last 90 days?: No Result: 0
[2022-09-14 14:18] LABS: Abs Immature Grans 0.39 10^3/uL (0.0-0.06); Absolute Basophil Count 0.18 10^3/uL (0.0-0.2); Absolute Eosinophil Count 0.13 10^3/uL (0.0-0.7); Absolute Lymphocyte Count 0.83 10^3/uL (1.2-3.4); Absolute Monocyte Count 0.59 10^3/uL (0.1-0.8); Absolute Neutrophil Count 8.19 10^3/uL (1.2-6.7); Basophils % 1.7; Eosinophils % 1.3; HCT 40.4 % (36.0-46.0); HGB 13.5 g/dL (11.2-15.7); Immature Grans % 3.8; Lymphocytes % 8.1; MCH 30.2 pg (27.0-33.0); MCHC 33.4 % (32.0-36.0); MCV 90 fL (80-95); MPV 8.4 fL (8.0-11.0); Monocytes % 5.7; Neutrophils % 79.4; Platelet Count 268 10^3/uL (130-400); RBC 4.47 10^6/uL (3.93-5.22); RDW 13.6 % (11.7-14.6); RDW-SD 44.3 fL; WBC 10.31 10^3/uL (4.4-10.8)
[2022-09-14 14:36] LABS: ALT 31 U/L (14-59); AST 13 U/L (15-37); Albumin 2.8 g/dL (3.4-5.0); Alkaline Phosphatase 73 U/L (46-116); Anion Gap 5.6 mmol/L (3-11); BUN 27 mg/dL (7-18); Bilirubin, Total 0.3 mg/dL (0.2-1.0); CO2 27.4 mmol/L (21.0-32.0); CREATININE 0.7 mg/dL (0.55-1.02); Calcium 8.9 mg/dL (8.5-10.1); Chloride 104 mmol/L (98-107); Estimated GFR 97.72 (mL/min/1.73m2); Glucose 121 mg/dL (74-106); Lipase 157 U/L (16-77); Magnesium 2.2 mg/dL (1.8-2.4); Potassium 4.3 mmol/L (3.5-5.1); Sodium 137 mmol/L (136-145); Total Protein 6.7 g/dL (6.4-8.2); Troponin I < 50 ng/L (<or=60)
[2022-09-14 14:39] LABS: PTT Activated 21.4 sec (21.5-31.9)
== END 2022-09-14 15:02 | disposition home or self-care (01) ==
PROVIDERS: Emergency Provider Emergency Medicine; PCP Family Medicine
DX: I48.91 Unspecified atrial fibrillation (principal); C79.31 Secondary malignant neoplasm of brain; C34.90 Malignant neoplasm of unspecified part of unspecified bronchus or lung; Z87.891 Personal history of nicotine dependence; Z92.3 Personal history of irradiation
CPT/HCPCS: 36415; 80053; 83690; 93005; 99283; 83735; 84484; 85025; 85610; 85730; 93010; 99284

== ENCOUNTER 2022-09-15 13:36 | Outpatient (REF) | payer BC, SELFPAY ==
[2022-09-15 15:29] LABS: ALT 30 U/L (14-59); AST 13 U/L (15-37); Albumin 2.9 g/dL (3.4-5.0); Alkaline Phosphatase 69 U/L (46-116); Anion Gap 6.6 mmol/L (3-11); BUN 20 mg/dL (7-18); Bilirubin, Total 0.3 mg/dL (0.2-1.0); CO2 31.4 mmol/L (21.0-32.0); CREATININE 0.8 mg/dL (0.55-1.02); Calcium 9.3 mg/dL (8.5-10.1); Calculated LDL 122 mg/dL (<100); Chloride 103 mmol/L (98-107); Cholesterol 206 mg/dL (<200); Estimated GFR 83.26 (mL/min/1.73m2); Glucose 77 mg/dL (74-106); HDL Cholesterol 67 mg/dL (40-60); Potassium 4.6 mmol/L (3.5-5.1); Sodium 141 mmol/L (136-145); Total Protein 6.4 g/dL (6.4-8.2); Triglyceride 86 mg/dL (<150)
[2022-09-15 15:35] LABS: Vitamin D 25 Total 46.1 ng/mL (30-100)
== END 2022-09-15 13:37 | disposition home or self-care (01) ==
LOC: NCHCN 13:36
PROVIDERS: PCP Family Medicine; Visit Provider Family Medicine
DX: Z00.00 Encounter for general adult medical examination without abnormal findings (principal); I95.9 Hypotension, unspecified; C34.91 Malignant neoplasm of unspecified part of right bronchus or lung; C79.31 Secondary malignant neoplasm of brain; R79.89 Other specified abnormal findings of blood chemistry
CPT/HCPCS: 80053; 80061; 82306

== ENCOUNTER 2022-09-18 18:05 | Emergency (ER) | payer BC, SELFPAY ==
[2022-09-18] VITALS (12 sets, daily range): BP systolic 103–105; BP diastolic 60–62; PULSE 42–99; RESP 12–25; TEMP 37.1; O2SAT 92–97
--- NOTE | 2022-09-18 18:00 | RT.EKG_ITS ---
APPROVED REPORT Exam: Resting ECG Reason for Exam: chest pain Patient Location: E HR:69 bpm ECG Measurements Heart Rate [address] 137 P 57 QRSd 85 QRS -32 QT 392 T 35 QTc 417 Conclusion Sinus rhythm...normal P axis, V-rate 60- 99 Multiform ventricular premature complexes...short R-R, variable morphology Left axis deviation...QRS axis (-30,-90) Borderline ST depression, anterolateral leads...ST <-0.07mV, I aVL V2-V6 sinus rhythm, left axis, PVCs
--- NOTE | 2022-09-18 18:28 | ED.GENADUL_ITS ---
Discharge Plan Disposition Patient Disposition: Home Discharge Details Clinical Impression: Arrhythmia, Palpitations Primary Care Provider: Kaci Garcia ED Provider: Elly Warner Home Meds and New Rx's Prescriptions: Continued triamcinolone acetonide 0.1 % ointment 1 applic topical BID Xarelto 20 mg tablet 20 mg PO QPM Patient Comments: has not picked rx up yet multivitamin Capsule 1 cap PO DAILY ergocalciferol (vitamin D2) 1,250 mcg (50,000 unit) capsule 50,000 mcg PO DAILY calcium 500 mg Tablet 1,000 mg PO DAILY levetiracetam [Keppra] 500 mg tablet 500 mg PO BID Qty: 60 0RF memantine 10 mg tablet See Rx Instructions .ROUTE .COMPLEX Rx Instructions: Take 10 mg in AM and 5 mg in PM dexamethasone 4 mg tablet 2 mg PO BID metoprolol succinate 25 mg tablet extended release 24 hr 25 mg PO DAILY Qty: 30 0RF Discharge Instructions Instructions: Heart Palpitations (ED) Additional Instructions: Please get the Xarelto which was formally prescribed for you. Please continue to wear the Holter monitor. I have placed a care management order to help expedite cardiology follow-up. Please return to the ER for any chest pain, shortness of breath, dizziness lightheadedness or any concerns. During your stay here in the ER your heart rate has remained 90 or less for the most part. No evidence of heart injury your labs are largely within normal limits. Follow up with primary care provider in 3-5 days. Return to ED sooner if any worsening or concerns. Increase oral fluids. Referrals: Kaci Garcia [Primary Care Provider] - 3 days Medical Decision Making 62-year-old female presents to the ER with chief complaint of help to her monitor alert. Patient was seen here on Wednesday for similar complaint. She has no systemic symptoms denies any chest pain shortness of breath dizziness lightheadedness. She was recently put on Xarelto which she has not picked up from the pharmacy yet. She is also taking metoprolol which she was prescribed on Wednesday. Upon arrival her rate is 78 and irregular. She does have a past medical history of lung cancer with mets to the brain, hypotension and she is a previous smoker. She also is taking Keppra and tapering off dexamethasone for the brain mets. She is questioning whether the Keppra could be contributing to the palpitations and high heart rate. CBC shows no leukocytosis, CMP largely within normal limits, initial troponin less than 50 TSH also within normal limits. On cardiac monitoring patient is having some arrhythmia with occasional PVCs and PACs. Her rate has remained 93 or less for the majority of her stay. She has remained asymptomatic. Discussed results with patient who verbalized understanding. Patient does have a Holter monitor on for 30 days. She reports that her PCP has put in for a cardiology consult. I will place her on a care management list to assist in expediting this. This text was generated using [employer] system, please disregard any oddities of phrase or misspellings. Medical Records Medical records reviewed: Yes I reviewed the patient's medical records. Lab Data Lab results reviewed: Yes I reviewed the patient's lab results. Labs: Laboratory Tests Range/Units 09/18/22 09/18/22 18:35 18:35 WBC (4.4-10.8) 10^3/uL 9.20 RBC (3.93-5.22) 10^6/uL 4.62 Hgb (11.2-15.7) g/dL 13.8 Hct (36.0-46.0) % 42.1 MCV (80-95) fL 91 MCH (27.0-33.0) pg 29.9 MCHC (32.0-36.0) % 32.8 RDW (11.7-14.6) % 13.5 Plt Count (130-400) 10^3/uL 272 MPV (8.0-11.0) fL 8.6 Immature Gran % 3.5 Neutrophils % 69.5 Lymphocytes % 17.0 Monocytes % 6.0 Eosinophils % 2.3 Basophils % 1.7 Nucleated RBC % (0.0-0.3) % 0.0 Absolute Neutrophils (1.2-6.7) 10^3/uL 6.40 Absolute Lymphocytes (1.2-3.4) 10^3/uL 1.56 Absolute Monocytes (0.1-0.8) 10^3/uL 0.55 Absolute Eosinophils (0.0-0.7) 10^3/uL 0.21 Absolute Basophils (0.0-0.2) 10^3/uL 0.16 Sodium (136-145) mmol/L 139 Potassium (3.5-5.1) mmol/L 3.9 Chloride (98-107) mmol/L 103 Carbon Dioxide (21.0-32.0) mmol/L 29.8 Anion Gap (3-11) mmol/L 6.2 BUN (7-18) mg/dL 19 H Creatinine (0.55-1.02) mg/dL 0.7 Est GFR (CKD-EPI 2020) (mL/min/1.73m2) 97.72 Glucose (74-106) mg/dL 89 Calcium (8.5-10.1) mg/dL 8.9 Magnesium (1.8-2.4) mg/dL 2.1 Total Bilirubin (0.2-1.0) mg/dL 0.3 AST (15-37) U/L 15 ALT (14-59) U/L 32 Alkaline Phosphatase (46-116) U/L 76 Troponin I (<or=60) ng/L < 50 Total Protein (6.4-8.2) g/dL 7.4 Albumin (3.4-5.0) g/dL 2.9 L TSH (0.36-3.74) uIU/mL 2.74 HPI General Mode of arrival: ambulatory . Date/Time Provider Initiated Documentation: 09/18/22 18:06 . Limitations to Documentation: no limitations . Information obtained by: patient, RN notes reviewed and old records reviewed . HPI Narrative: 62-year-old female presents to the ER with chief complaint of help to her monitor alert. Patient was seen here on Wednesday for similar complaint. She has no systemic symptoms denies any chest pain shortness of breath dizziness lightheadedness. She was recently put on Xarelto which she has not picked up from the pharmacy yet. She is also taking metoprolol which she was prescribed on Wednesday. Upon arrival her rate is 78 and irregular. She does have a past medical history of lung cancer with mets to the brain, hypotension and she is a previous smoker. She also is taking Keppra and tapering off dexamethasone for the brain mets. She is questioning whether the Keppra could be contributing to the palpitations and high heart rate. Related Data Home Medications Medication Instructions Recorded Confirmed multivitamin 1 cap PO DAILY 06/04/19 09/18/22 triamcinolone acetonide 0.1 % 1 applic topical BID 06/20/21 09/18/22 topical ointment calcium 500 mg tablet 1,000 mg PO DAILY 07/31/22 09/18/22 ergocalciferol (vitamin D2) 1,250 50,000 mcg PO DAILY 07/31/22 09/18/22 mcg (50,000 unit) capsule levetiracetam 500 mg tablet 500 mg PO BID #60 tabs 07/31/22 09/18/22 (Keppra) dexamethasone 4 mg tablet 2 mg PO BID 09/14/22 09/18/22 memantine 10 mg tablet See Rx Instructions .Route .COMPLEX 09/14/22 09/18/22 metoprolol succinate 25 mg 25 mg PO DAILY #30 tabs 09/14/22 09/18/22 tablet,extended release 24 hr rivaroxaban 20 mg tablet (Xarelto) 20 mg PO QPM 09/18/22 09/18/22 Previous Rx's Medication Instructions Recorded levetiracetam 500 mg tablet 500 mg PO BID #60 tabs 07/31/22 (Keppra) metoprolol succinate 25 mg 25 mg PO DAILY #30 tabs 09/14/22 tablet,extended release 24 hr Allergies Allergy/AdvReac Type Severity Reaction Status Date / Time No Known Allergies Allergy Unverified 09/18/22 18:19 General Stated Complaint: Palpitatns RIVKA: 3 Review of Systems All systems reviewed & are unremarkable except as noted in HPI and below Cardiovascular Cardiovascular: Denies chest pain, Reports rapid heart rate and Denies dyspnea on exertion Respiratory Respiratory: Denies dyspnea on exertion PFSH All Active Problems (Updated 09/18/22 @ 19:31 by Elly Warner NP) Atrial fibrillation with RVR (Acute) Arrhythmia (Acute) Palpitations (Acute) SESSILE SERATED ADENOMA (Acute ~03/20/22) stoiber, multiple, repeat 2 yrs Hx of adenomatous colonic polyps (Acute) Screening for colon cancer (Acute) LVE (left ventricular enlargement) (Acute) Syncope (Chronic) Medical History Cardiac arrhythmia Dermatitis DIVERTICULOSIS Herpes zoster Hypotension Menopause Smoker Stress TUBULAR ADENOMA Surgical History Bone Graft & Pinning of Right Wrist Colonoscopy - IV Sedation (03/15/13) History of colonoscopy with polypectomy (~03/20/22) Lateral Retinacular Release, Open Right Family History Mother Heart disease Father Alcohol abuse Sister Heart disease Sister No problems noted. Brother No problems noted. Brother No problems noted. Social History Smoking/Tobacco Use Status: Former Tobacco Use Tobacco: How many years used: 29 Smoking risk assessment performed?: Yes Alcohol Intake: current Alcohol Intake frequency: a few times a month Alcohol type: wine Drug use: Never Substance use type: does not use Details: states no cigarette in 2 weeks since being sick Current gender identity: female What type of physical activity do you participate in: none Do you feel safe at home: Yes Do you feel safe in your relationship?: Yes Exam Narrative Exam Narrative: Constitutional: Alert and oriented x3. Appears stated age. Normal body habitus. Head: Normocephalic, no trauma. Eyes: Pupils PERRL, Red reflex noted, EOM's intact. Eyelids symmetrical without lesions, discharge, or swelling. ENT: Bilateral TM's WNL, External ear normal to inspection, no mastoid TTP, swelling, or erythema, Nasal turbinates WNL, no nasal discharge. Normal dentition, Posterior pharynx WNL, no exudate. Chest: RRR, Normal S1, S2, distal pulses intact. Resp: Lungs clear to auscultation bilaterally, no wheezes, rales, or rhonchi. Abdomen: Soft, non-distended, Normoactive bowel sounds all 4 quads. Musculoskeletal: Normal gait, 5/5 strength to all four extremities. Skin: No suspicious rashes or lesions. Capillary refill less than 2 sec. Neurologic: Cranial nerves II-XII intact. Alert and oriented x 3. Motor: No deficits noted. Sensory: Intact bilaterally all 4 extremities. Reflexes: DTR's intact bilaterally.. Hematologic/Lymphatic: No ecchymosis, no lymphadenopathy. Course Vital Signs Vital signs: Vital Signs Temperature 37.1 C 09/18/22 18:10 Pulse 78 09/18/22 18:10 Respiratory Rate 12 09/18/22 18:10 Blood Pressure 103/60 09/18/22 18:10 Pulse Oximetry 97 09/18/22 18:10 Temperature 37.1 C 09/18/22 18:10 Temperature Source Oral 09/18/22 18:10 Pulse 78 09/18/22 18:10 Respiratory Rate 12 09/18/22 18:10 Respiratory Effort Normal 09/18/22 18:20 Blood Pressure 103/60 09/18/22 18:10 Pulse Oximetry 97 09/18/22 18:10 Oxygen Delivery Method Room Air 09/18/22 18:10 Oxygen Flow Rate 0 09/18/22 18:10 Pain Level 0 09/18/22 18:10
[2022-09-18 18:44] LABS: Abs Immature Grans 0.32 10^3/uL (0.0-0.06); Absolute Basophil Count 0.16 10^3/uL (0.0-0.2); Absolute Eosinophil Count 0.21 10^3/uL (0.0-0.7); Absolute Lymphocyte Count 1.56 10^3/uL (1.2-3.4); Absolute Monocyte Count 0.55 10^3/uL (0.1-0.8); Basophils % 1.7; Eosinophils % 2.3; HCT 42.1 % (36.0-46.0); HGB 13.8 g/dL (11.2-15.7); Immature Grans % 3.5; MCH 29.9 pg (27.0-33.0); MCHC 32.8 % (32.0-36.0); MCV 91 fL (80-95); MPV 8.6 fL (8.0-11.0); Neutrophils % 69.5; Platelet Count 272 10^3/uL (130-400); RBC 4.62 10^6/uL (3.93-5.22); RDW 13.5 % (11.7-14.6); RDW-SD 44.7 fL
[2022-09-18 19:06] LABS: ALT 32 U/L (14-59); AST 15 U/L (15-37); Albumin 2.9 g/dL (3.4-5.0); Alkaline Phosphatase 76 U/L (46-116); Anion Gap 6.2 mmol/L (3-11); BUN 19 mg/dL (7-18); Bilirubin, Total 0.3 mg/dL (0.2-1.0); CO2 29.8 mmol/L (21.0-32.0); CREATININE 0.7 mg/dL (0.55-1.02); Calcium 8.9 mg/dL (8.5-10.1); Chloride 103 mmol/L (98-107); Estimated GFR 97.72 (mL/min/1.73m2); Glucose 89 mg/dL (74-106); Magnesium 2.1 mg/dL (1.8-2.4); Potassium 3.9 mmol/L (3.5-5.1); Sodium 139 mmol/L (136-145); TSH (W/Ref FT4) 2.74 uIU/mL (0.36-3.74); Total Protein 7.4 g/dL (6.4-8.2); Troponin I < 50 ng/L (<or=60)
--- NOTE | 2022-09-18 19:32 | NUR.NOTE ---
Referral per Elly Warner with Cardiology in 2 weeks for Arrhythmia. Put the referral in the care management's box for followup assistance. Nursing Note:
== END 2022-09-18 19:39 | disposition home or self-care (01) ==
PROVIDERS: Emergency Provider Registered Nurse Emergency; PCP Family Medicine
DX: I49.1 Atrial premature depolarization; I49.3 Ventricular premature depolarization
CPT/HCPCS: 80053; 93005; 99283; 83735; 84443; 84484; 85025; 93010

== ENCOUNTER 2022-09-22 08:19 | Outpatient (CLI) | payer BC, SELFPAY ==
--- NOTE | 2022-09-22 08:15 | RT.EKG_ITS ---
APPROVED REPORT Exam: Resting ECG Reason for Exam: afib Patient Location: O HR:84 bpm ECG Measurements Heart Rate 84 AXIS WI 132 P 65 QRSd 95 QRS -19 QT 350 T 29 QTc 414 Conclusion Sinus rhythm...normal P axis, V-rate 50- 99 Atrial premature complexes...SV complexes w/ short R-R intvls Biatrial enlargement...P, P'>60mS, <-0.15mV V1 Borderline left axis deviation...QRS axis (-15,-29) Borderline ST depression, anterolateral leads...ST <-0.07mV, I aVL V2-V6
== END 2022-09-22 08:20 | disposition home or self-care (01) ==
LOC: DI.CARD 08:20
PROVIDERS: PCP Family Medicine; Visit Provider Internal Medicine Cardiovascular Disease
DX: I48.91 Unspecified atrial fibrillation (principal); I49.9 Cardiac arrhythmia, unspecified
CPT/HCPCS: 93010

== ENCOUNTER 2022-09-24 18:28 | Inpatient (IN) | payer BC, SELFPAY ==
[2022-09-24] VITALS (67 sets, daily range): BP systolic 89–115; BP diastolic 36–74; PULSE 40–147; RESP 11–30; TEMP 37.6; O2SAT 85–97
--- NOTE | 2022-09-24 18:30 | RT.EKG_ITS ---
APPROVED REPORT Exam: Resting ECG Reason for Exam: dizziness Patient Location: E HR:80 bpm ECG Measurements Heart Rate 80 AXIS W[place] 129 P 70 QRSd 81 QRS -19 QT 378 T -25 QTc 436 Conclusion Sinus rhythm...normal P axis, V-rate 60- 99 Ventricular bigeminy...bigeminy string>4 w/ V complexes Sinus. Normal axis. No STEMI. I have reviewed and interpreted ECG and agree with software generated interpretation.
[2022-09-24] MEDS: Normal Saline 500 ML IV (19:05)
[2022-09-24 19:06] LABS: Abs Immature Grans 0.44 10^3/uL (0.0-0.06); Absolute Basophil Count 0.19 10^3/uL (0.0-0.2); Absolute Eosinophil Count 0.28 10^3/uL (0.0-0.7); Absolute Lymphocyte Count 1.79 10^3/uL (1.2-3.4); Absolute Monocyte Count 0.53 10^3/uL (0.1-0.8); Absolute Neutrophil Count 6.17 10^3/uL (1.2-6.7); HGB 12.3 g/dL (11.2-15.7); Immature Grans % 4.7; MCH 30.4 pg (27.0-33.0); MCHC 34.2 % (32.0-36.0); MCV 89 fL (80-95); MPV 8.7 fL (8.0-11.0); Monocytes % 5.6; Neutrophils % 65.7; Platelet Count 295 10^3/uL (130-400); RBC 4.05 10^6/uL (3.93-5.22); RDW 13.4 % (11.7-14.6); RDW-SD 43.8 fL
--- NOTE | 2022-09-24 19:09 | ED.GENADUL_ITS ---
Discharge Plan Discharge Details Chief Complaint: Dizzy/Sync Clinical Impression: Atrial fibrillation with RVR, Arrhythmia, Small cell lung cancer Primary Care Provider: Kaci Garcia ED Provider: Quincy Pedroza Home Meds and New Rx's Prescriptions: No Action amiodarone 200 mg tablet 200 mg PO BID Qty: 180 5RF Patient Comments: Pt is not taking per her cancer doctor 09/24/22 CT triamcinolone acetonide 0.1 % ointment 1 applic topical BID Xarelto 20 mg tablet 20 mg PO QPM Patient Comments: has not picked rx up yet multivitamin Capsule 1 cap PO DAILY ergocalciferol (vitamin D2) 1,250 mcg (50,000 unit) capsule 50,000 mcg PO DAILY calcium 500 mg Tablet 1,000 mg PO DAILY metoprolol succinate 25 mg tablet extended release 24 hr 25 mg PO DAILY Qty: 30 0RF dexamethasone 4 mg tablet 2 mg PO DAILY Patient Comments: med will be stopped tomorrow 09/22/22 RH memantine 10 mg tablet 10 mg PO BID levetiracetam [Keppra] 500 mg tablet 500 mg PO DAILY Medical Decision Making Patient presenting to the emergency department for chief complaint of dizziness and low blood pressure. She states that this started over the past couple hours. 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 She states that she has not had symptoms similar to this previously. Patient does have history of A-fib and takes metoprolol in the morning but denies any medication usage prior to symptoms starting. She was prescribed amiodarone but oncologist told her not to take this medication. Only other medication changes were that patient finished dexamethasone state taper yesterday which she had been on medication for 4 weeks. Patient denies any pain or discomfort. Physical exam does show some bradycardia but patient has full mental function, no focal neurological deficits on gross exam, clear lung sounds. We will plan on checking EKG given patient's history of A-fib, checking blood work and high potential for CTA imaging of the chest. Differential diagnosis includes adrenal insufficiency, thoracic mass causing vascular compression, occult anemia, rhythm abnormality. We will start patient on fluid bolus 500 mL normal saline pending results. Please see physician interpretation for full interpretation of EKG. Patient appears to be in sinus rhythm, no acute signs of STEMI, machine read of rodger tricular bigeminy with a rate of 80. Pending lab results patient went from bradycardic to A-fib with RVR with heart rates 140s to 160. We ended up giving 3 push doses of 2.5 mg of metoprolol which finally was able to rate control patient. Patient's blood pressure was able to tolerate the medication pending further results. Reviewed patient's labs and patient has normal unremarkable CBC, VBG does show slightly elevated pH at 7.49, with low CO2 of 34. Sodium is 135 and albumin of 2.2 otherwise unremarkable CMP. TSH is 2.38. Did perform CTA imaging of the chest given appropriate creatinine and patient has no signs of pulmonary embolismExtensive hilar and mediastinal adenopathy greater on the right with partial encasement of the right pulmonary veins and partial airway obstruction as described. Right upper lobe pulmonary mass versus consolidation. Postobstructive atelectasis in the right middle lobe. Given some CT changes, patient's bradycardia with quick change to A-fib with RV R, dizziness, and hypotension we will consult with [facility] cardiology in regards to potential patient transfer and admission for further observation. Medical Records Medical records reviewed: Yes I reviewed the patient's medical records. Imaging Data Radiologic Study: Imaging: CT Scan Radiologist's impression: Exam(s) PROCEDURE INFORMATION: Exam: CTA Chest With Contrast Exam date and time: 09/24/2022 8:43 PM Age: 62 years old Clinical indication: Other: SOB TECHNIQUE: Imaging protocol: Computed tomographic angiography of the chest with contrast. 3D rendering (Not supervised by radiologist): MIP and/or 3D reconstructed images were created by the technologist. Contrast material: 350; Contrast volume: 100 ml; Contrast route: INTRAVENOUS (IV); COMPARISON: CT CHEST PE ABD PELVIS W 07/31/2022 10:45 AM FINDINGS: No pulmonary emboli detected Mildly enlarged main pulmonary arteries No aortic aneurysm Consolidation right upper lobe posteriorly with adjacent ground-glass and interstitial opacities. There is subsegmental atelectasis in the right middle lobe. Abnormal nodularity and mild interstitial thickening in the right lower lobe. The heart is enlarged without pericardial effusion. There is extensive adenopathy in the mediastinum and right greater than left hilum. There is encasement of portions of the right pulmonary veins and obstruction/narrowing of the right middle lobe and lower lobe airways Minimal right pleural fluid. No pneumothorax Degenerative changes in the spine Simple cyst in the liver IMPRESSION: No pulmonary emboli observed Extensive hilar and mediastinal adenopathy greater on the right with partial encasement of the right pulmonary veins and partial airway obstruction as described. Right upper lobe pulmonary mass versus consolidation. Postobstructive atelectasis in the right middle lobe Lab Data Lab results reviewed: Yes I reviewed the patient's lab results. HPI General Mode of arrival: ambulatory . Date/Time Provider Initiated Documentation: 09/24/22 18:30 . Limitations to Documentation: no limitations . Information obtained by: patient and RN notes reviewed . History of Present Illness 62 year old F presents to the emergency department with the chief complaint of Dizziness, low blood pressure, described as moderate, Quality is described as other (Denies pain), Patient started experiencing this hour(s) (2) and it has been constant. No relieving factors improve symptom(s), No exacerbating factors reported . Patient notes shortness of breath. Patient did receive the following treatments prior to arrival, none Related Data Home Medications Medication Instructions Recorded Confirmed multivitamin 1 cap PO DAILY 06/04/19 09/24/22 triamcinolone acetonide 0.1 % 1 applic topical BID 06/20/21 09/24/22 topical ointment calcium 500 mg tablet 1,000 mg PO DAILY 07/31/22 09/24/22 ergocalciferol (vitamin D2) 1,250 50,000 mcg PO DAILY 07/31/22 09/24/22 mcg (50,000 unit) capsule metoprolol succinate 25 mg 25 mg PO DAILY #30 tabs 09/14/22 09/24/22 tablet,extended release 24 hr rivaroxaban 20 mg tablet (Xarelto) 20 mg PO QPM 09/18/22 09/24/22 amiodarone 200 mg tablet 200 mg PO BID #180 tabs 09/22/22 09/22/22 dexamethasone 4 mg tablet 2 mg PO DAILY 09/22/22 09/22/22 memantine 10 mg tablet 10 mg PO BID 09/22/22 09/24/22 levetiracetam 500 mg tablet 500 mg PO DAILY 09/24/22 09/24/22 (Keppra) Previous Rx's Medication Instructions Recorded metoprolol succinate 25 mg 25 mg PO DAILY #30 tabs 09/14/22 tablet,extended release 24 hr amiodarone 200 mg tablet 200 mg PO BID #180 tabs 09/22/22 Allergies Allergy/AdvReac Type Severity Reaction Status Date / Time No Known Allergies Allergy Verified 09/24/22 18:34 General Stated Complaint: Dizzy/Sync RIVKA: 3 Review of Systems Constitutional Constitutional: Denies chills, Denies fever(s) and Denies headache(s) ENT Ears, Nose, Mouth, and Throat: Reports dizziness and Denies headache(s) Cardiovascular Cardiovascular: Reports as per HPI, Denies chest pain, Denies syncope, Denies edema, Denies irregular heart rhythm, Denies leg edema, Reports lightheadedness and Reports dyspnea Respiratory Respiratory: Denies cough and Reports dyspnea Gastrointestinal Gastrointestinal: Denies abdominal pain Musculoskeletal Musculoskeletal: Denies abnormal gait Neurologic Neurologic: Denies abnormal gait, Denies confusion, Reports dizziness, Denies syncope and Denies headache(s) Psychiatric Psychiatric: Denies confusion PFSH All Active Problems (Updated 09/24/22 @ 23:07 by Quincy Pedroza NP) Small cell lung cancer (Acute) Paroxysmal atrial fibrillation (Acute) Atrial fibrillation with RVR (Acute) Arrhythmia (Acute) Palpitations (Acute) SESSILE SERATED ADENOMA (Acute ~03/20/22) stoiber, multiple, repeat 2 yrs Hx of adenomatous colonic polyps (Acute) Screening for colon cancer (Acute) LVE (left ventricular enlargement) (Acute) Syncope (Chronic) Medical History Cardiac arrhythmia Dermatitis DIVERTICULOSIS Herpes zoster Hypotension Menopause Smoker Stress TUBULAR ADENOMA Surgical History Bone Graft & Pinning of Right Wrist Colonoscopy - IV Sedation (03/15/13) History of colonoscopy with polypectomy (~03/20/22) Lateral Retinacular Release, Open Right Family History Mother Heart disease Father Alcohol abuse Sister Heart disease Sister No problems noted. Brother No problems noted. Brother No problems noted. Social History Smoking/Tobacco Use Status: Former Tobacco Use Tobacco: How many years used: 29 Smoking risk assessment performed?: Yes Alcohol Intake: current Alcohol Intake frequency: a few times a month Alcohol type: wine Drug use: Never Substance use type: does not use Details: states no cigarette in 2 weeks since being sick Current gender identity: female What type of physical activity do you participate in: none Do you feel safe at home: Yes Do you feel safe in your relationship?: Yes Exam Const General: cooperative Orientation: alert, awake and oriented x3 Resp Effort & Inspection: normal respiratory effort and able to speak in complete sentences Auscultation: clear to auscultation bilaterally Cardio Jugular venous pressure: no JVD Rate: bradycardic Rhythm: abnormal rhythm regularly irregular GI Palpation: soft, not firm, no guarding, no masses, no pulsatile masses, not rigid and no splenomegaly Auscultation: normal bowel sounds Neuro General: patient alert, patient awake, patient oriented x3, gait normal and moves all extremities Course Vital Signs Vital signs: Vital Signs Temperature 37.6 C 09/24/22 18:32 Pulse 43 L 09/24/22 18:32 Respiratory Rate 15 09/24/22 18:32 Blood Pressure 111/60 09/24/22 18:32 Pulse Oximetry 93 09/24/22 18:32 Temperature 37.6 C 09/24/22 18:32 Temperature Source Oral 09/24/22 18:32 Pulse 43 L 09/24/22 18:32 Respiratory Rate 15 09/24/22 18:32 Respiratory Effort Short of Breath 09/24/22 18:33 Blood Pressure 111/60 09/24/22 18:32 Blood Pressure Position Sitting 09/24/22 18:32 Pulse Oximetry 93 09/24/22 18:32 Oxygen Delivery Method Room Air 09/24/22 18:32 Oxygen Flow Rate 0 09/24/22 18:32 Pain Level 0 09/24/22 18:32 Lab/Test Results Lab/Test Results: Laboratory Tests Range/Units 09/24/22 18:58 WBC (4.4-10.8) 10^3/uL 9.40 RBC (3.93-5.22) 10^6/uL 4.05 Hgb (11.2-15.7) g/dL 12.3 Hct (36.0-46.0) % 36.0 MCV (80-95) fL 89 MCH (27.0-33.0) pg 30.4 MCHC (32.0-36.0) % 34.2 RDW (11.7-14.6) % 13.4 Plt Count (130-400) 10^3/uL 295 MPV (8.0-11.0) fL 8.7 Immature Gran % 4.7 Neutrophils % 65.7 Lymphocytes % 19.0 Monocytes % 5.6 Eosinophils % 3.0 Basophils % 2.0 Nucleated RBC % (0.0-0.3) % 0.0 Absolute Neutrophils (1.2-6.7) 10^3/uL 6.17 Absolute Lymphocytes (1.2-3.4) 10^3/uL 1.79 Absolute Monocytes (0.1-0.8) 10^3/uL 0.53 Absolute Eosinophils (0.0-0.7) 10^3/uL 0.28 Absolute Basophils (0.0-0.2) 10^3/uL 0.19 Critical Care Time Critical Care Time Critical Care Time: Yes Total Critical Care Time: 45 Attestation: Due to initial symptomatic bradycardia with conversion to A-fib with RVR with high probability of imminent or life threatening deterioration in the patient?s condition without intervention and treatment. Time spent documenting, reviewing labs and radiographs, monitoring titration/ Vital signs, and initiating consult with tertiary care center. Sign Out Sign Out Data: Sign Out Comment: Patient signed out pending tertiary care consult for A-fib with RVR and symptomatic bradycardia with radiation therapy that she is receiving for lung mass that does involve some airway and pulmonary veins. Last updated by Quincy Pedroza NP at 09/24/22 23:07 PAWSS Have you Been Recently Intoxicated or Drunk Within the Last 30 days?: No Have you Ever Experienced Previous Episodes of Alcohol Withdrawal?: No Have you ever Experienced Withdrawal Seizures?: No Have you ever Experienced Delirium Tremens(DT)s?: No Have you ever undergone Alcohol Rehabilitation Treatment (i.e, inpt ot outpatient treatment programs)?: No Have you ever Experienced Blackouts?: No Have you ever Combined Alcohol with other Downers within the last 90 days?: No Have you ever Combined Alcohol with any other Substance of Abuse during the last 90 days?: No Result: 0
[2022-09-24 19:24] LABS: BE (Venous) 3 mmol/L (-2-3); HCO3 (Venous) 26 mmol/L (23-28); O2 Sat (Venous) 84 %; TCO2 (Venous) 24 mmol/L (24-29); pCO2 (Venous) 34 mmHg (41-51); pH (Venous) 7.49 (7.31-7.41); pO2 (Venous) 44 mmHg
[2022-09-24 19:32] LABS: ALT 28 U/L (14-59); AST 21 U/L (15-37); Albumin 2.2 g/dL (3.4-5.0); Alkaline Phosphatase 67 U/L (46-116); Anion Gap 8.2 mmol/L (3-11); BUN 17 mg/dL (7-18); Bilirubin, Total 0.3 mg/dL (0.2-1.0); CO2 25.8 mmol/L (21.0-32.0); CREATININE 0.7 mg/dL (0.55-1.02); Chloride 101 mmol/L (98-107); Estimated GFR 97.72 (mL/min/1.73m2); Glucose 76 mg/dL (74-106); Sodium 135 mmol/L (136-145); TSH 2.38 uIU/mL (0.36-3.74); Total Protein 6.8 g/dL (6.4-8.2); Troponin I < 50 ng/L (<or=60)
[2022-09-24] MEDS: Metoprolol 5 MG/5 ML VIAL 2.5 MG IVP (19:42)
--- NOTE | 2022-09-24 20:15 | DI.CT_ITS ---
Exam(s) CT CHEST PE CTA EXAM: CT CHEST PE CTA CLINICAL HISTORY: shortness of breath. TECHNIQUE: Imaging Protocol: CT angiography of the chest was performed using pulmonary embolus lesa col. Multi planar reconstructions were performed. CONTRAST MATERIAL: Intravenous: Omnipaque 350 Contrast volume: 100 cc COMPARISON: CT CT CHEST PE ABD PELVIS W from 07/31/2022 FINDINGS: CHEST: PULMONARY ARTERIES: There are no intraluminal filling defects to suggest acute pulmonary emboli. LUNGS: There is a large area of pleural based infiltrate in the posterior segment of the right upper lobe measuring approximately 5 cm wide by 3 cm AP by 4 cm craniocaudal. There is also patchy infiltr ates throughout rest of right upper lobe. In addition, there is prominent infiltrate-mass in the rig ht lower lobe in the para and infrahilar region. This is contiguous with right hilar structures and surrounds the vasculature of the right hilum and with exclusion of the main right pulmonary vein. Th is mass is to be considered malignant and is contiguous with mass-adenopathy in the infrahilar region and right hilum and paratracheal mediastinal tissue.. There is a tiny amount of right pleural fluid . In the opposite-left lung there is some hazy mild infiltrate in the upper lobe but no large infiltrat es nor mass, as is evident on the opposite side. No pleural effusion on the left side.. MEDIASTINUM: Mass-adenopathy as described above. Visualized thyroid unremarkable. CARDIAC: Heart size is upper normal. There is no pericardial effusion.Caliber of the thoracic aorta is within normal limits. No dissection. There is no significant shift of the interventricular septum . PARTIALLY VISUALIZED UPPERMOST ABDOMEN: No adrenal masses. Few small lucencies are noted in the live r which have benign appearance-probable cyst. Also lucency in the upper some spleen may be a cyst. Spleen size normal. There is, however, some abnormal stranding in the mesentery adjacent to the ante rior aspect of the spleen. OSSEOUS: No significant osseous lesions.No fractures.. IMPRESSION: 1. No evidence of acute pulmonary emboli. However, there is prominent mass-infiltrate in the right h ilar-infrahilar right lower lobe which in cases right hilar vasculature including occlusion of the ma in right pulmonary vein. Highly suspicious for malignancy. There is also prominent area of infiltra te in the posterior segment of the right upper lobe as described above. Also patchy infiltrates in t he right upper lobe. Small amount of right pleural fluid. 2. Gross mediastinal and subcarinal adenopathy. 3. Incidentally noted is some partially included density in the left upper quadrant mesentery in the abdomen, seen on the lower most images of this study. This may possibly represent a segment of oment al caking. Recommend follow-up abdominal-pelvic CT scan. RADIATION DOSE DELIVERED: 317.68mGy.cm Total DLP DATA REPOSITORY: All CT scans at this facility are submitted to the National Radiology Data Registry (NRDR) Dose Index Registry (DIR) with the [employer] (ACR). RADIATION OPTIMIZATION: All CT scans at this facility use at least one of these dose optimization te chniques: automated exposure control; mA and/or kV adjustment per patient size (includes targeted exa ms where dose is matched to clinical indication); or iterative reconstruction.
[2022-09-24] MEDS: Metoprolol 5 MG/5 ML VIAL IVP (20:19)
[2022-09-24] MEDS: Normal Saline - Diluent 50 ML VIAL IJ (20:40)
[2022-09-24] MEDS: Omnipaque 350 MG/ML 100 ML BTL IJ (20:40)
--- NOTE | 2022-09-24 21:06 | NUR.NOTE ---
2005- Responded to to critical alarm w/ HR 155. A-fib RVR on monitor. FABIAN Cochran made aware. New ords received.
--- NOTE | 2022-09-24 21:07 | DI.VRAD_ITS ---
PROCEDURE INFORMATION: Exam: CTA Chest With Contrast Exam date and time: 09/24/2022 8:43 PM Age: 62 years old Clinical indication: Other: SOB TECHNIQUE: Imaging protocol: Computed tomographic angiography of the chest with contrast. 3D rendering (Not supervised by radiologist): MIP and/or 3D reconstructed images were created by the technologist. Contrast material: 350; Contrast volume: 100 ml; Contrast route: INTRAVENOUS (IV); COMPARISON: CT CHEST PE ABD PELVIS W 07/31/2022 10:45 AM FINDINGS: No pulmonary emboli detected Mildly enlarged main pulmonary arteries No aortic aneurysm Consolidation right upper lobe posteriorly with adjacent ground-glass and interstitial opacities. There is subsegmental atelectasis in the right middle lobe. Abnormal nodularity and mild interstitial thickening in the right lower lobe. The heart is enlarged without pericardial effusion. There is extensive adenopathy in the mediastinum and right greater than left hilum. There is encasement of portions of the right pulmonary veins and obstruction/narrowing of the right middle lobe and lower lobe airways Minimal right pleural fluid. No pneumothorax Degenerative changes in the spine Simple cyst in the liver IMPRESSION: No pulmonary emboli observed Extensive hilar and mediastinal adenopathy greater on the right with partial encasement of the right pulmonary veins and partial airway obstruction as described. Right upper lobe pulmonary mass versus consolidation. Postobstructive atelectasis in the right middle lobe Dictated and Authenticated by: Abhijit Olmedo MD. Ordering:MARY Mathew MD
--- NOTE | 2022-09-24 21:07 | NUR.NOTE ---
2017- Pt had run of V-tac (see specialty care EKG strip) Reported to FABIAN Cochran. Pt reports feeling dizzy but unchanged from initial assessment. No new ords received.
[2022-09-24 22:15] LABS: Bilirubin Negative (Negative); Blood Moderate (Negative); Clarity Clear (Clear); Glucose Negative (Negative); Ketones Negative (Negative); Leukocyte Esterase Negative (Negative); Nitrite Negative (Negative); Urobilinogen 0.2 mg/dL (Up to 0.2)
[2022-09-24 22:18] LABS: Bacteria Rare HPF (Negative); C & S Indicated? No; Casts Negative LPF (Negative); Crystals Negative HPF (Negative); Epithelial Cells Rare HPF (Negative); Mucus Negative (Negative); WBC Negative HPF (0-5)
[2022-09-25] VITALS (154 sets, daily range): BP systolic 77–134; BP diastolic 31–92; PULSE 40–169; RESP 12–32; TEMP 36.4–37.4; O2SAT 89–97
--- NOTE | 2022-09-25 00:13 | W.EDPROG ---
Date of service: 09/25/22 Time of Service: 00:14 Medical Decision Making Patient was signed out to me by my colleague Dimas Pedroza. Please refer to his HPI, physical exam, assessment and plan. At time of signout we are awaiting callback from [facility]. [facility] eventually did call back and I spoke with Dr. Arellano. After review of the case she recommends continued monitoring and admission at [facility], she will review the case with their chair pad maker, and recommends rediscussion with the cardiology team in the morning. Patient is otherwise stable currently. She does demonstrate subtle hypoxemia in the high 80s, we did give her 1 to 2 L of supplemental oxygen. She states that this is her baseline though. Patient is full code. I did contact the hospitalist Dr. Wen and discussed the case with him. He agrees with the assessment and plan. I will place admission orders on his behalf at his request. I have extensively reviewed the treatment plan with the patient. I have addressed all patient concerns at this time. I have also discussed the plan with the admitting physician and they agree with the current assessment and plan and have agreed to assume responsibility for the patient. All parties demonstrate verbal understanding and agreement with our assessment and plan at this time. The documentation in this chart was dictated using [employer] dictation software. Please excuse any dictation errors. Sign Out Sign Out Data: Sign Out Comment: Patient signed out pending tertiary care consult for A-fib with RVR and symptomatic bradycardia with radiation therapy that she is receiving for lung mass that does involve some airway and pulmonary veins. Last updated by Quincy Pedroza NP at 09/24/22 23:07 Discharge Plan Disposition Patient Disposition: Admit to [facility] Condition: Improving Discharge Details Chief Complaint: Dizzy/Sync Clinical Impression: Atrial fibrillation with RVR, Arrhythmia, Small cell lung cancer Primary Care Provider: Kaci Garcia ED Provider: Hesham Wahl Home Meds and New Rx's Prescriptions: No Action amiodarone 200 mg tablet 200 mg PO BID Qty: 180 5RF Patient Comments: Pt is not taking per her cancer doctor 09/24/22 CT triamcinolone acetonide 0.1 % ointment 1 applic topical BID Xarelto 20 mg tablet 20 mg PO QPM Patient Comments: has not picked rx up yet multivitamin Capsule 1 cap PO DAILY ergocalciferol (vitamin D2) 1,250 mcg (50,000 unit) capsule 50,000 mcg PO DAILY calcium 500 mg Tablet 1,000 mg PO DAILY metoprolol succinate 25 mg tablet extended release 24 hr 25 mg PO DAILY Qty: 30 0RF dexamethasone 4 mg tablet 2 mg PO DAILY Patient Comments: med will be stopped tomorrow 09/22/22 RH memantine 10 mg tablet 10 mg PO BID levetiracetam [Keppra] 500 mg tablet 500 mg PO DAILY
--- NOTE | 2022-09-25 00:37 | NUR.NOTE ---
@0035- HR between 130-153 on monitor. A-fib. Reported to DO Maryuri. Per DO notify him if HR remains the same for 10-15 min or if BP declines.
[2022-09-25] MEDS: Metoprolol 5 MG/5 ML VIAL IVP ×2 (00:52→17:58)
[2022-09-25 00:56] LABS: Troponin I < 50 ng/L (<or=60)
--- NOTE | 2022-09-25 01:38 | HPE_ITS ---
Date of service: 09/25/22 Time of Service: 01:38 Assessment and Plan Assessment and plan (1) Bradycardia: Start date: 09/24/22 Status: Acute Assessment and plan: Patient has bradycardia on low-dose metoprolol for treatment of paroxysmal atrial fibrillation. She is not tolerating very large doses and cannot be on amiodarone for atrial fibrillation because of planned chemotherapy. Observed patient with split lower dose of metoprolol orally once she stabilizes and for now small doses of metoprolol IV as needed for rate control. IV fluid resuscitation for hypotension if systolic blood pressures below 90. (2) Hypotension: Start date: 09/24/22 Status: Acute Assessment and plan: Associated with bradycardia with fluid resuscitation for now but long-term need better plan for treatment of atrial fibrillation with rapid ventricular response which would not affect blood pressure. Consider digoxin. She cannot take amiodarone. (3) Atrial fibrillation with RVR: Start date: 09/24/22 Status: Acute Assessment and plan: Manifested in the ED but recently diagnosed on low-dose metoprolol. Continues small doses of IV metoprolol as needed. Update echocardiogram. Consult cardiology if available and at least discussed with [facility] prior to discharge (4) Small cell lung cancer: Start date: 07/31/22 Status: Acute Assessment and plan: Patient diagnosed with small cell lung cancer in July 2022 with metastatic lesions in the brain now status post radiation and neurological deficits resolved and weaned off of dexamethasone. Continue follow-up with oncology. Discussed any cardiac meds with oncology to avoid conflict with planned chemotherapy. (5) Metastatic neoplasm: Start date: 07/31/22 Status: Acute Assessment and plan: Metastatic brain cancer presumed from small cell carcinoma of the lung. Status post radiation and off dexamethasone as of the last couple of days. Continue follow-up with oncology. 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 Since then she has received radiation to her brain mets and just recently weaned off dexamethasone and is planning a PET scan soon with chemotherapy to be initiated. Her original small cell carcinoma appears to be in the right lung. Tissue biopsies were received from that area. She also had paroxysmal atrial fibrillation with rapid ventricular response and was to start amiodarone but never did because of oncology's recommendations but had been on low-dose metoprolol taking her last dose of metoprolol early the morning of admission which was low-dose. Upon presentation to the ED the patient was complained of dizziness and low blood pressure measurements. This was w I was prior to presentation. She did not have any true syncope. Her neurological symptoms over left upper extremity had resolved status post radiation therapy. She offers no other complaints and had to have CTA of the chest which did not show any acute pulmonary emboli. She is on Xarelto with her paroxysmal atrial fibrillation. In the ED she responded to IV fluids 500 cc for a systolic blood pressure below 90 but then did go into rapid ventricular response atrial fibrillation which did respond to 2 doses of 2.5 mg metoprolol IV. She was in sinus rhythm and to come up to the [facility] floor when she began to have atrial fibrillation with rapid ventricular response again and did receive 4 mg of metoprolol but then was hypotensive with this stopped. She did receive further fluid resuscitation in the ICU upon transfer. She was not symptomatic with these measurements because she was in bed and lying down. She had no chest pain. Her troponin was negative. At the time I saw the patient she was in sinus rhythm with bradycardia which was a problem upon admission possibly causing hypotension along with metoprolol dose for atrial fibrillation. GI was having frequent unifocal PVCs. Once again she was not having chest pain or any symptoms. She will be admitted for further investigations and observation. She does have a Zio patch in place. She will need to see cardiology and there should be discussion with [facility] as to echocardiogram update with the last echocardiogram in this record being in 2020 with a preserved left ventricular tract fraction and no wall motion abnormalities with mild MR and normal size atria as well as normal PA pressures. Troponins will be trended and patient will be on cardiac monitoring. She will receive further fluid resuscitation as needed for hypotension. The patient is a full code. Review of Systems Narrative: 13 point review of systems otherwise unrevealing or stable. PFSH All Active Problems Hypotension (Acute) Abdominal pain (Acute) Metastatic neoplasm (Acute) Bradycardia (Acute) Small cell lung cancer (Acute) Paroxysmal atrial fibrillation (Acute) Atrial fibrillation with RVR (Acute) Arrhythmia (Acute) Palpitations (Acute) SESSILE SERATED ADENOMA (Acute ~03/20/22) stoiber, multiple, repeat 2 yrs Hx of adenomatous colonic polyps (Acute) Screening for colon cancer (Acute) LVE (left ventricular enlargement) (Acute) Syncope (Chronic) Medical History Cardiac arrhythmia Dermatitis DIVERTICULOSIS Herpes zoster Menopause Smoker Stress TUBULAR ADENOMA Surgical History Bone Graft & Pinning of Right Wrist Colonoscopy - IV Sedation (03/15/13) History of colonoscopy with polypectomy (~03/20/22) Lateral Retinacular Release, Open Right Family History Mother Heart disease Father Alcohol abuse Sister Heart disease Sister No problems noted. Brother No problems noted. Brother No problems noted. Social History Smoking/Tobacco Use Status: Former Tobacco Use Tobacco: How many years used: 29 Smoking risk assessment performed?: Yes Alcohol Intake: current Alcohol Intake frequency: a few times a month Alcohol type: wine Drug use: Never Substance use type: does not use Details: states no cigarette in 2 weeks since being sick Current gender identity: female What type of physical activity do you participate in: none Do you feel safe at home: Yes Do you feel safe in your relationship?: Yes Meds Allergies and Home Medications Allergies Allergy/AdvReac Type Severity Reaction Status Date / Time No Known Allergies Allergy Verified 09/24/22 18:34 Home Medications Medication Instructions Recorded Confirmed Type multivitamin 1 cap PO DAILY 06/04/19 09/24/22 History triamcinolone acetonide 0.1 % 1 applic topical BID 06/20/21 09/24/22 History topical ointment calcium 500 mg tablet 1,000 mg PO DAILY 07/31/22 09/24/22 History ergocalciferol (vitamin D2) 1,250 50,000 mcg PO DAILY 07/31/22 09/24/22 History mcg (50,000 unit) capsule metoprolol succinate 25 mg 25 mg PO DAILY #30 tabs 09/14/22 09/24/22 Rx tablet,extended release 24 hr rivaroxaban 20 mg tablet (Xarelto) 20 mg PO QPM 09/18/22 09/24/22 History amiodarone 200 mg tablet 200 mg PO BID #180 tabs 09/22/22 09/22/22 Rx dexamethasone 4 mg tablet 2 mg PO DAILY 09/22/22 09/22/22 History memantine 10 mg tablet 10 mg PO BID 09/22/22 09/24/22 History levetiracetam 500 mg tablet 500 mg PO DAILY 09/24/22 09/24/22 History (Nasim) Exam Narrative Exam Narrative: General: Patient appears older than stated age, alert and oriented x3 and in no acute distress lying in bed. HEENT: Normocephalic, coarsened facial features, eyes with pupils equal and react to light symmetrically, extraocular movement tact and sclera anicteric. Oropharynx with moist mucosa and poor dentition with missing teeth and discolored teeth. Neck: Supple without JVD. Lungs: Fair aeration with decreased aeration over the right hemithorax compared to left with some egophony but no focalizing rales or rhonchi. Percussion not performed. Back: Stooped posture without CVA tenderness. Breast: Exam deferred. Heart: Bradycardic rate with irregular rhythm, 2/6 to 3/6 holosystolic murmur apex, no gallop appreciated. Abdomen: Normal contour, soft and nontender to palpation with no palpable hepatosplenomegaly. Bowel sounds positive all quadrants Genitalia/rectal: Exam deferred. Extremities: Without clubbing, cyanosis or pitting edema. Fair capillary refill. Skin: Normal color, warm and dry. Neuro: Cranial nerves II through XII gross intact, no focalizing motor deficits with patient left hand grasp normal. No tremor. Psych: Normal affect and mood. No abnormal thought processes. Remote and recent memory grossly intact. Results Imaging Imaging Studies: Exam: CTA Chest With Contrast Exam date and time: 09/24/2022 8:43 PM Age: 62 years old Clinical indication: Other: SOB COMPARISON: CT CHEST PE ABD PELVIS W 07/31/2022 10:45 AM FINDINGS: No pulmonary emboli detected Mildly enlarged main pulmonary arteries No aortic aneurysm Consolidation right upper lobe posteriorly with adjacent ground-glass and interstitial opacities. There is subsegmental atelectasis in the right middle lobe. Abnormal nodularity and mild interstitial thickening in the right lower lobe. The heart is enlarged without pericardial effusion.? There is extensive adenopathy in the mediastinum and right greater than left hilum. There is encasement of portions of the right pulmonary veins and obstruction/narrowing of the right middle lobe and lower lobe airways Minimal right pleural fluid. No pneumothorax Degenerative changes in the spine Simple cyst in the liver IMPRESSION: No pulmonary emboli observed Exam(s) CT HEAD WO EXAM: ? CT HEAD WO CLINICAL HISTORY: ? left arm and leg weakness, difficulty w/ rapid alt. ? TECHNIQUE:? Imaging Protocol: Axial computed tomography images with coronal and sagittal reformatted images were created and reviewed COMPARISON:? CT CT HEAD ? SINUS WO from 05/19/2019 FINDINGS: Ventricles and Extra axial spaces: Normal in size and morphology for the patient's age. Hemorrhage: None. Cerebral parenchyma: There is an area of decreased attenuation in the right parietal lobe with a rounded area centrally suspicious for a a mass/metastasis.? There is otherwise a normal fajardo-white matter differentiation.? Midline shift: None. Brainstem/Cerebellum: Normal. Calvarium: Normal. Visualized Paranasal sinuses/Mastoids: Clear. Soft Tissues: Unremarkable. IMPRESSION: 1. Findings suspicious for a 1.5 cm right parietal mass with adjacent edema.? Metastatic disease is suspected.? Primary brain tumor cannot be entirely excluded.? Acute intracranial infarct may also be considered.? An MRI of the brain without and with contrast is recommended for further evaluation. 2. Findings were discussed with Dr. Richard at 10:34 a.m. on 07/31/2022. Labs 09/24/22 18:58 09/24/22 18:58 Labs: Laboratory Results - last 24 hr 09/24/22 09/24/22 09/24/22 18:58 18:58 19:20 WBC 9.40 RBC 4.05 Hgb 12.3 Hct 36.0 MCV 89 MCH 30.4 MCHC 34.2 RDW 13.4 Plt Count 295 MPV 8.7 Immature Gran % 4.7 Neutrophils % 65.7 Lymphocytes % 19.0 Monocytes % 5.6 Eosinophils % 3.0 Basophils % 2.0 Nucleated RBC % 0.0 Absolute Neutrophils 6.17 Absolute Lymphocytes 1.79 Absolute Monocytes 0.53 Absolute Eosinophils 0.28 Absolute Basophils 0.19 VBG pH 7.49 H VBG pCO2 34 L VBG pO2 44 VBG HCO3 26 VBG Total CO2 24 VBG O2 Saturation 84 VBG Base Excess 3 Sodium 135 L Potassium 4.0 Chloride 101 Carbon Dioxide 25.8 Anion Gap 8.2 BUN 17 Creatinine 0.7 Est GFR (CKD-EPI 2020) 97.72 Glucose 76 Calcium 9.0 Magnesium 2.0 Total Bilirubin 0.3 AST 21 ALT 28 Alkaline Phosphatase 67 Troponin I < 50 Total Protein 6.8 Albumin 2.2 L TSH 2.38 Urine Color Urine Clarity Urine pH Ur Specific [place] Urine Protein Urine Ketones Urine Blood Urine Nitrite Urine Bilirubin Urine Urobilinogen Ur Leukocyte Esterase Urine RBC Urine WBC Ur Epithelial Cells Urine Crystals Urine Bacteria Urine Casts Urine Mucus Ur Culture Indicated? Urine Glucose 09/24/22 09/25/22 21:51 00:30 WBC RBC Hgb Hct MCV MCH MCHC RDW Plt Count MPV Immature Gran % Neutrophils % Lymphocytes % Monocytes % Eosinophils % Basophils % Nucleated RBC % Absolute Neutrophils Absolute Lymphocytes Absolute Monocytes Absolute Eosinophils Absolute Basophils VBG pH VBG pCO2 VBG pO2 VBG HCO3 VBG Total CO2 VBG O2 Saturation VBG Base Excess Sodium Potassium Chloride Carbon Dioxide Anion Gap BUN Creatinine Est GFR (CKD-EPI 2020) Glucose Calcium Magnesium Total Bilirubin AST ALT Alkaline Phosphatase Troponin I < 50 Total Protein Albumin TSH Urine Color Yellow Urine Clarity Clear Urine pH 7.0 Ur Specific [place] 1.010 Urine Protein Negative Urine Ketones Negative Urine Blood Moderate H Urine Nitrite Negative Urine Bilirubin Negative Urine Urobilinogen 0.2 Ur Leukocyte Esterase Negative Urine RBC 10-20 H Urine WBC Negative Ur Epithelial Cells Rare Urine Crystals Negative Urine Bacteria Rare Urine Casts Negative Urine Mucus Negative Ur Culture Indicated? No Urine Glucose Negative Last Vital Signs Temp 37.6 C 09/24/22 18:32 Pulse 149 H 09/25/22 00:52 Resp 18 09/25/22 00:31 BP 95/72 L 09/25/22 00:52 Pulse Ox 96 09/25/22 00:31 PAWSS Have you Been Recently Intoxicated or Drunk Within the Last 30 days?: No Have you Ever Experienced Previous Episodes of Alcohol Withdrawal?: No Have you ever Experienced Withdrawal Seizures?: No Have you ever Experienced Delirium Tremens(DT)s?: No Have you ever undergone Alcohol Rehabilitation Treatment (i.e, inpt ot outpatient treatment programs)?: No Have you ever Experienced Blackouts?: No Have you ever Combined Alcohol with other Downers within the last 90 days?: No Have you ever Combined Alcohol with any other Substance of Abuse during the last 90 days?: No Result: 0 Time Spent Time spent with Patient: >75 minutes Time was spent: preparing to see the patient(eg.review tests), obtaining and/or reviewing separately otained hiistory, ordering medications,tests, procedures, referring, communicating with other health care team assistant, indepentently interpreting results and care coordination
--- NOTE | 2022-09-25 01:40 | W.EDPROG ---
Date of service: 09/25/22 Time of Service: 01:40 Medical Decision Making After the patient had been admitted but while he was still in the emergency department the patient's heart rate again went up to the 150s to 160s with A-fib with RVR. Patient was watched and monitored here in the ED. 4 mg of metoprolol IV were given which converted the patient. We will transition the patient's care to the ICU rather than MedSurg with telemetry out of an abundance of precaution. Critical Care Time Critical Care Time Critical Care Time: Yes Total Critical Care Time: 30 Attestation: Upon my evaluation, this patient had a high probability of imminent or life-threatening deterioration, which required my direct attention, intervention, and personal management. I have personally provided 45 minutes of critical care time exclusive of time spent on separately billable procedures. Time includes review of laboratory data, radiology results, discussion with consultants, and monitoring for potential decompensation. Interventions were performed as documented. Sign Out Sign Out Data: Sign Out Comment: Patient signed out pending tertiary care consult for A-fib with RVR and symptomatic bradycardia with radiation therapy that she is receiving for lung mass that does involve some airway and pulmonary veins. Last updated by Quincy Pedroza NP at 09/24/22 23:07 Discharge Plan Disposition Patient Disposition: Admit to [facility] Condition: Improving Discharge Details Clinical Impression: Atrial fibrillation with RVR, Arrhythmia, Small cell lung cancer Primary Care Provider: Kaci Garcia ED Provider: Hesham Wahl Home Meds and New Rx's Prescriptions: No Action amiodarone 200 mg tablet 200 mg PO BID Qty: 180 5RF Patient Comments: Pt is not taking per her cancer doctor 09/24/22 CT triamcinolone acetonide 0.1 % ointment 1 applic topical BID Xarelto 20 mg tablet 20 mg PO QPM Patient Comments: has not picked rx up yet multivitamin Capsule 1 cap PO DAILY ergocalciferol (vitamin D2) 1,250 mcg (50,000 unit) capsule 50,000 mcg PO DAILY calcium 500 mg Tablet 1,000 mg PO DAILY metoprolol succinate 25 mg tablet extended release 24 hr 25 mg PO DAILY Qty: 30 0RF dexamethasone 4 mg tablet 2 mg PO DAILY Patient Comments: med will be stopped tomorrow 09/22/22 RH memantine 10 mg tablet 10 mg PO BID levetiracetam [Keppra] 500 mg tablet 500 mg PO DAILY
--- NOTE | 2022-09-25 02:54 | NUR.NOTE ---
0052- 4mg metoprolol given over 20 minutes IVP. BP taken every 3 minutes and was persistently low w/ systolic in high 80's during admin. Pt cardioverted with HR 156 a-fib RVR to 73 NSR w/ occasional PVC. Systolic BP post admin recorded in VS spreadsheet. Pt is asymptomatic. [place], DO aware of med dose change and pt assessment.
[2022-09-25] MEDS: Normal Saline 500 ML 999 ML IV (03:00)
[2022-09-25] MEDS: Normal Saline 500 ML IV (03:00)
[2022-09-25 03:35] LABS: Troponin I < 50 ng/L (<or=60)
[2022-09-25 06:41] LABS: HGB 11.2 g/dL (11.2-15.7); MCH 30.6 pg (27.0-33.0); MCHC 33.9 % (32.0-36.0); MCV 90 fL (80-95); MPV 9.3 fL (8.0-11.0); Platelet Count 281 10^3/uL (130-400); RBC 3.66 10^6/uL (3.93-5.22); RDW 13.5 % (11.7-14.6); WBC 9.41 10^3/uL (4.4-10.8)
[2022-09-25 07:06] LABS: ALT 23 U/L (14-59); AST 20 U/L (15-37); Albumin 1.9 g/dL (3.4-5.0); Alkaline Phosphatase 66 U/L (46-116); Anion Gap 7.5 mmol/L (3-11); BUN 15 mg/dL (7-18); Bilirubin, Total 0.3 mg/dL (0.2-1.0); CO2 24.5 mmol/L (21.0-32.0); CREATININE 0.7 mg/dL (0.55-1.02); Calcium 8.2 mg/dL (8.5-10.1); Chloride 103 mmol/L (98-107); Estimated GFR 97.72 (mL/min/1.73m2); Glucose 95 mg/dL (74-106); Potassium 3.6 mmol/L (3.5-5.1); Sodium 135 mmol/L (136-145); Total Protein 6.1 g/dL (6.4-8.2)
[2022-09-25 07:12] LABS: Troponin I < 50 ng/L (<or=60)
--- NOTE | 2022-09-25 08:59 | INITIAL_ITS ---
- If Service Date Differs Date of service: 09/25/22 Time of Service: 08:59 Care Management Initial Assess REASON FOR HOSPITALIZATION:: Bradycardia, PAF with RVR, Lung Ca. PAST MEDICAL HISTORY/PAST SURGICAL HISTORY:: All Active Problems . Hypotension (Acute). Abdominal pain (Acute). Metastatic neoplasm (Acute). Bradycardia (Acute). Small cell lung cancer (Acute). Paroxysmal atrial fibrillation (Acute). Atrial fibrillation with RVR (Acute). Arrhythmia (Acute). Palpitations (Acute). SESSILE SERATED ADENOMA (Acute ~03/20/22). stoiber, multiple, repeat 2 yrs. Hx of adenomatous colonic polyps (Acute). Screening for colon cancer (Acute). LVE (left ventricular enlargement) (Acute). Syncope (Chronic). Medical History . Cardiac arrhythmia. Dermatitis. DIVERTICULOSIS. Herpes zoster. Menopause. Smoker. Stress. TUBULAR ADENOMA. Surgical History . Bone Graft & Pinning of Right Wrist. Colonoscopy - IV Sedation (03/15/13). History of colonoscopy with polypectomy (~03/20/22). Lateral Retinacular Release, Open. Right PREVIOUS FUNCTIONAL STATUS/SOCIAL/FAMILY SUPPORTS:: Mary resides at her home in [place]. Her sister Radha has been staying with her due to her recent health decline. Mary reports that although her children don't live in the area they are both very supportive. Her son Quang lives in [place] and daughter Dhara lives in [place], [place]. Mary was working full-time for Home [employer] as a [employer] but has been out of work since 07/31/22. Mary is currently receiving radiation at [facility], and was planning to start Chemo next week. At baseline, Mary is independent with her ADL's and drives. CURRENT FUNCTIONAL STATUS:: Mary was lying in bed when CM met with her. She is awake, pleasant and easily engages in conversation. Mary has her laptop and phone at her bedside and reports that she has very supportive family and friends and has been keeping them all up to date. Mary is planning on transferring to [facility]. ADVANCE DIRECTIVES:: None on file Has patient been provided with info about the portal/API?: Yes Did the patient sign up for the portal?: Yes (Prior to admission) CODE STATUS:: Full Code INSURANCE COVERAGE / FINANCIAL ISSUES:: BC/BS CURRENT HOME/COMMUNITY SERVICES/EQUIPMENT:: None PRIMARY CARE PHYSICIAN:: Kaci Garcia POTENTIAL DISCHARGE NEEDS:: Transfer to [facility], Palliative Consult PATIENT/FAMILY EDUCATION NEEDS:: Review transfer instructions TRANSPORTATION:: Dependent on dispo PLAN:: Mary is being closely monitored and treated. Transfer to [facility] is anticipated. CM will follow.
[2022-09-25] MEDS: Memantine 5 MG TAB 10 MG PO ×2 (09:09→20:47)
[2022-09-25] MEDS: Multivitamin TAB 1 TAB PO (09:09)
[2022-09-25] MEDS: levETIRAcetam 500 MG TAB PO (09:09)
[2022-09-25] MEDS: Calcium Carbonate 1.5 GM TAB PO (09:09)
[2022-09-25] MEDS: Cholecalciferol (Vitamin D3) 1,000 UNIT TAB 1000 UNITS PO (09:17)
--- NOTE | 2022-09-25 12:23 | NUR.NOTE ---
Patient is set up with her lunch tray. Patient has a good appetite.Nursing Note:
[2022-09-25] MEDS: Metoprolol 5 MG/5 ML VIAL 2.5 MG IVP ×2 (12:32→12:46)
--- NOTE | 2022-09-25 12:35 | NUR.NOTE ---
Patient suddenly has tachycardia having a heart rate escalate into the 160's but not sustained. Heart rate was anywhere between 125-165. 2.5mg of Metoprolo IVP is given with good effect.Nursing Note:
[2022-09-25] MEDS: Normal Saline Flush 10 ML SYR IVP ×2 (12:53→17:59)
--- NOTE | 2022-09-25 12:54 | NUR.NOTE ---
Additional dose of 2.5mg of Metoprolol given IVP per MD order.Nursing Note:
--- NOTE | 2022-09-25 13:20 | NUR.NOTE ---
Nursing Note: Patient's heart rate is constant at between 74-81. BP is 89/62.
[2022-09-25] MEDS: Rivaroxaban 10 MG TABLET 20 MG PO (17:59)
[2022-09-25] MEDS: Metoprolol CR 25 MG TABCR 12.5 MG PO (20:47)
[2022-09-26] VITALS (45 sets, daily range): BP systolic 88–110; BP diastolic 46–88; PULSE 70–163; RESP 13–25; TEMP 36.2–37.2; O2SAT 90–99
[2022-09-26] MEDS: Metoprolol 5 MG/5 ML VIAL 2.5 MG IVP ×3 (00:10→16:30)
[2022-09-26] MEDS: Normal Saline Flush 10 ML SYR IVP ×3 (00:14→17:07)
[2022-09-26] MEDS: Calcium Carbonate 1.5 GM TAB PO (08:09)
[2022-09-26] MEDS: Cholecalciferol (Vitamin D3) 1,000 UNIT TAB 1000 UNITS PO (08:09)
[2022-09-26] MEDS: Metoprolol CR 25 MG TABCR 12.5 MG PO ×2 (08:10→14:18)
[2022-09-26] MEDS: Multivitamin TAB 1 TAB PO (08:10)
[2022-09-26] MEDS: levETIRAcetam 500 MG TAB PO (08:10)
[2022-09-26] MEDS: Memantine 5 MG TAB 10 MG PO ×2 (08:10→21:56)
--- NOTE | 2022-09-26 12:15 | W.PM.PROGNOT ---
Date of Service Date of service: 09/26/22 Time of Service: 12:15 Assessment and Plan Assessment and plan (1) Bradycardia: Start date: 09/24/22 Status: Acute Assessment and plan: Presented with bradycardia but this hasn't recurred. (2) Hypotension: Start date: 09/24/22 Status: Acute Assessment and plan: Maintaining MAP > 65; goal. (3) Atrial fibrillation with RVR: Start date: 09/24/22 Status: Acute Assessment and plan: In and out of afib with RVR. On oral metoprolol and prn IV metoprolol. Increase po metoprolol long-acting to 12.5mg TID. Cont Xarelto. (4) Small cell lung cancer: Start date: 07/31/22 Status: Acute Assessment and plan: Patient diagnosed with small cell lung cancer in July 2022 with metastatic lesions in the brain now status post radiation and neurological deficits resolved and weaned off of dexamethasone. Had PET scan scheduled for yesterday so unfortunately missed this. She is scheduled to start chemotx this coming Wednesday (5) Metastatic neoplasm: Start date: 07/31/22 Status: Acute Assessment and plan: Metastatic brain cancer presumed from small cell carcinoma of the lung. Status post radiation and off dexamethasone as of the last couple of days. Continue follow-up with oncology. Subjective Subjective Patient reports: no new complaints and afebrile; denies nausea, vomiting or shortness of breath Interval history since last seen: Intermittently in afib with RVR; feels chest pressure during those periods then resolves when HR slows. In and out of afib. Now in sinus rhythm Exam Narrative Exam Narrative: General: Eating breakfast. Cooperative. NAD. Neck: Supple without JVD. Lungs: Clear w/o crackles/wheezes. Heart: RRR no murmur. Abdomen: Nontender ND. Extremities: No edema or calf tenderness. Skin: Normal color, warm and dry. Psych: Normal affect and mood. No abnormal thought processes. . Objective Last Vital Signs Temp 36.4 C L 09/26/22 10:15 Pulse 85 09/26/22 10:15 Resp 17 09/26/22 10:15 BP 90/59 L 09/26/22 10:15 Pulse Ox 92 09/26/22 10:15 PAWSS Have you Been Recently Intoxicated or Drunk Within the Last 30 days?: No Have you Ever Experienced Previous Episodes of Alcohol Withdrawal?: No Have you ever Experienced Withdrawal Seizures?: No Have you ever Experienced Delirium Tremens(DT)s?: No Have you ever undergone Alcohol Rehabilitation Treatment (i.e, inpt ot outpatient treatment programs)?: No Have you ever Experienced Blackouts?: No Have you ever Combined Alcohol with other Downers within the last 90 days?: No Have you ever Combined Alcohol with any other Substance of Abuse during the last 90 days?: No Positive Blood Alcohol level on Presentation? [PCS.BAL]: No Evidence of Increased Autonomic Activity (i.e. HR>120, tremor, sweating, agitation, nausea)?: No Result: 0 Time Spent with Patient Time Spent with Patient: 25-34 minutes Time was spent: preparing to see the patient(eg.review tests), ordering medications,tests, procedures, referring, communicating with other health clinical care manager, indepentently interpreting results and counseling the patient
--- NOTE | 2022-09-26 12:24 | NUR.NOTE ---
Patient placed on 1.5 liters of 02 via nasal cannula for 02 saturation of 89%. Patient after being placed on 1.5 liters of 02 has a saturation of 96%.Nursing Note:
[2022-09-26] MEDS: Rivaroxaban 10 MG TABLET 20 MG PO (16:25)
--- NOTE | 2022-09-26 18:57 | NUR.NOTE ---
RN will give patient's 20:00, 25mg Metoprolol dose early to address heart rate of 138. BP is 102/73.Nursing Note:
[2022-09-26] MEDS: Metoprolol CR 25 MG TABCR PO (19:04)
[2022-09-27] VITALS (30 sets, daily range): BP systolic 87–102; BP diastolic 57–70; PULSE 42–135; RESP 11–25; TEMP 36.3–37; O2SAT 88–97
[2022-09-27] MEDS: Cholecalciferol (Vitamin D3) 1,000 UNIT TAB 1000 UNITS PO (08:48)
[2022-09-27] MEDS: Memantine 5 MG TAB 10 MG PO (08:48)
[2022-09-27] MEDS: Calcium Carbonate 1.5 GM TAB PO (08:48)
[2022-09-27] MEDS: levETIRAcetam 500 MG TAB PO (08:48)
[2022-09-27] MEDS: Metoprolol CR 25 MG TABCR PO ×2 (08:49→14:37)
[2022-09-27] MEDS: Multivitamin TAB 1 TAB PO (08:49)
[2022-09-27] MEDS: Normal Saline Flush 10 ML SYR IVP (08:51)
--- NOTE | 2022-09-27 17:37 | DSE_ITS ---
Date of service: 09/27/22 Time of Service: 17:37 DS: Diagnosis Discharge Diagnosis (1) Bradycardia: Status: Acute Asessment and Plan: Pt converts to afib and back to sinus, often with bradycardia when in sinus, intermittently. This occured frequently during this course of this admission. Initially she received IV metoprolol when transitioned to afib with RVR with rate up to 140-150 at times. Because she would convert to NSR with bradycardia, the IV metoprolol was held and she was noted to be asymptomatic when in afib RVR and would convert back to sinus rhythm after appx 30-45 mins. When in sinus rhythm, bigemy was noted much of the time as well as the bradycardia. At times she felt lightheaded when in sinus bradycardia. Walk test indicated no supplemental O2 requirements with ambulation but she endorses feeling short of air when falling asleep. Cardiology at [facility] was consulted by the ED physician then on the day of discharge again by hospitalist. They will schedule an EP appt and suggested continuing her home medications. (2) Hypotension: Status: Acute Asessment and Plan: Low SBP but MAPs have been typically 65 or greater. (3) Atrial fibrillation with RVR: Status: Acute Asessment and Plan: See bradycardia. Amiodarone was suggested by cardiology but oncology did not want this medication d/t interactions with chemotherapeutics. Tikosyn might be another option. (4) Small cell lung cancer: Status: Acute Asessment and Plan: S/P radiation therapy to brain mets. Planned chemotx tomorrow, 09/28. (5) Metastatic neoplasm: Status: Acute Asessment and Plan: As above. 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 Since then she has received radiation to her brain mets and just recently weaned off dexamethasone. A planned PET scan not obtained; admitted to [facility] on day this was scheduled. Her chemotherapy to be initiated on 5/8/23. Her original small cell carcinoma is in the right lung.? Tissue biopsies were received from that area.? She also had paroxysmal atrial fibrillation with rapid ventricular response and was to start amiodarone but never did because of oncology's recommendations but had been on low-dose metoprolol taking her last dose of metoprolol early the morning of admission which was low-dose at 25mg sustained release BID.? Upon presentation to the ED the patient was complained of dizziness and low blood pressure measurements.?She did not have any true syncope.? Her neurological symptoms over left upper extremity had resolved status post radiation therapy.? She offers no other complaints and had to have CTA of the chest which did not show any acute pulmonary emboli.? She is on Xarelto with her paroxysmal atrial fibrillation.? In the ED she responded to IV fluids 500 cc for a systolic blood pressure below 90 but then did go into rapid ventricular response atrial fibrillation which did respond to 2 doses of 2.5 mg metoprolol IV.? She was in sinus rhythm and to come up to the [facility] floor when she began to have atrial f ibrillation with rapid ventricular response again and did receive 4 mg of metoprolol but then was hypotensive with this stopped.? She did receive further fluid resuscitation in the ICU upon transfer.? She was not symptomatic with these measurements because she was in bed and lying down.? She had no chest pain.? Her troponin was negative.? At the time hospitalist saw the patient she was in sinus rhythm with bradycardia which was a problem upon admission possibly causing hypotension along with metoprolol dose for atrial fibrillation.? GI was having frequent unifocal PVCs.? Once again she was not having chest pain or any symptoms.? She will be admitted for further investigations and observation.? She does have a Zio patch in place.? See Diagnosis Oncology appt tomorrow, 09/28, with oncologist and for 1st round of chemotherapy. [facility] cardiology scheduling appt with EP cardiology. Home Meds and New Rx's Prescriptions: New polyethylene glycol 3350 17 gram Powder In Packet 17 g PO DAILY PRN PRN (Reason: Constipation) Qty: 0 0RF Continued triamcinolone acetonide 0.1 % ointment 1 applic topical BID Xarelto 20 mg tablet 20 mg PO QPM Patient Comments: has not picked rx up yet multivitamin Capsule 1 cap PO DAILY calcium 500 mg Tablet 1,000 mg PO DAILY metoprolol succinate 25 mg tablet extended release 24 hr 25 mg PO DAILY Qty: 30 0RF levetiracetam [Keppra] 500 mg tablet 500 mg PO DAILY cholecalciferol (vitamin D3) 25 mcg (1,000 unit) Tablet 1,000 unit PO DAILY Discontinued amiodarone 200 mg tablet 200 mg PO BID Qty: 180 5RF Patient Comments: Pt is not taking per her cancer doctor 09/24/22 CT dexamethasone 4 mg tablet 2 mg PO DAILY Patient Comments: med will be stopped tomorrow 09/22/22 RH No Action memantine 10 mg tablet 10 mg PO BID Discharge Instructions Activity:: Activity as Tolerated Equipment/Supplies:: No Equipment Needed Diet:: As Tolerated Discharge Orders Discharge Orders: Discharge Order (Routine); Ordered 09/27/22 Ordered By: Maximo Turk DS: Summary Time Spent with Patient providing and/or coordinating discharge services: Greater than 30 minutes Status at Discharge Functional status at discharge: independent ambulation Overall status at discharge: patient is not back to baseline Mental Status: mental status grossly normal Speech and Movement: speech clear Mood: congruent mood Affect: normal affect Exam Narrative Exam Narrative: General: Sitting up in bed. Cooperative. NAD. Neck: Supple without JVD. Lungs: Clear w/o crackles/wheezes. Heart: Irreg Irreg. Tachy. Abdomen: Nontender ND. Extremities: No edema or calf tenderness. Skin: Normal color, warm and dry. Psych: Normal affect and mood. No abnormal thought processes. . Psych Mental Status: mental status grossly normal Speech and Movement: speech clear Mood: congruent mood Affect: normal affect DS: Data Vitals/I&O Vitals and I&O: Vital Signs Temperature 36.9 C 09/27/22 16:11 Temperature Source Tympanic 09/27/22 16:11 Pulse 60 09/27/22 16:11 Pulse 73 09/27/22 16:00 Respiratory Rate 20 09/27/22 16:11 Respiratory Effort Normal, Non-Labored 09/27/22 16:11 Respiratory Depth Normal 09/27/22 16:11 Respiratory Pattern Normal 09/27/22 16:11 Blood Pressure 102/63 09/27/22 16:11 Blood Pressure Mean 76 09/27/22 16:11 Blood Pressure Position Supine 09/27/22 16:11 Pulse Oximetry 92 09/27/22 16:11 Oxygen Delivery Method Room Air 09/27/22 16:11 Oxygen Flow Rate 0 09/27/22 16:11 Pain Level 0 09/27/22 16:11 Comment RN notified 09/25/22 05:35 Intake & Output 09/26/22 09/27/22 09/27/22 23:59 11:59 23:59 Intake Total 460 / 760 70 / 310 240 / 310 Output Total 850 / 2150 300 / 300 Balance -390 / -1390 -230 / 10 240 / 10 Weight 68.5 kg Intake: IV Oral 460 / 760 60 / 300 240 / 300 Output: Urine 850 / 2150 300 / 300 Other: Urine Color Yellow Yellow Yellow Urine Appearance Clear Clear Clear Urine Odor None None Comment pt is continent of B&B Stool Size Moderate Large Stool Characteristics Liquid Soft Formed Brown Voiding Methods Bedside Commode Bedside Commode Bedside Commode [facility] All Active Problems Hypotension (Acute) Abdominal pain (Acute) Metastatic neoplasm (Acute) Bradycardia (Acute) Small cell lung cancer (Acute) Paroxysmal atrial fibrillation (Acute) Atrial fibrillation with RVR (Acute) Arrhythmia (Acute) Palpitations (Acute) SESSILE SERATED ADENOMA (Acute ~03/20/22) stoiber, multiple, repeat 2 yrs Hx of adenomatous colonic polyps (Acute) Screening for colon cancer (Acute) LVE (left ventricular enlargement) (Acute) Syncope (Chronic) Medical History Cardiac arrhythmia Dermatitis DIVERTICULOSIS Herpes zoster Menopause Smoker Stress TUBULAR ADENOMA Surgical History Bone Graft & Pinning of Right Wrist Colonoscopy - IV Sedation (03/15/13) History of colonoscopy with polypectomy (~03/20/22) Lateral Retinacular Release, Open Right Family History Mother Heart disease Father Alcohol abuse Sister Heart disease Sister No problems noted. Brother No problems noted. Brother No problems noted. Social History Smoking/Tobacco Use Status: Former Tobacco Use Tobacco: How many years used: 29 Smoking risk assessment performed?: Yes Alcohol Intake: current Alcohol Intake frequency: a few times a month Alcohol type: wine Drug use: Never Substance use type: does not use Details: states no cigarette in 2 weeks since being sick Current gender identity: female What type of physical activity do you participate in: none Do you feel safe at home: Yes Do you feel safe in your relationship?: Yes Time Spent with Patient Time Spent with Patient: 45-69 minutes Time was spent: preparing to see the patient(eg.review tests), obtaining and/or reviewing separately otained hiistory, referring, communicating with other health critical care physician assistant, indepentently interpreting results, counseling the patient and care coordination
== END 2022-09-27 18:10 | disposition home or self-care (01) | DRG 309 ==
LOC: ER 09-25 00:22 → ICU 09-25 08:52
PROVIDERS: Nurse Practitioner Family; Admitting Provider Family Medicine; Emergency Provider Student in an Organized Health Care Education/Training Program; PCP Family Medicine; Visit Provider Family Medicine
DX: I49.3 Ventricular premature depolarization (principal); C34.31 Malignant neoplasm of lower lobe, right bronchus or lung; C79.31 Secondary malignant neoplasm of brain; I48.0 Paroxysmal atrial fibrillation; I95.9 Hypotension, unspecified; Z92.3 Personal history of irradiation; Z86.010 Personal history of colon polyps; Z87.891 Personal history of nicotine dependence
CPT/HCPCS: 36415; 71275; 80053; 82805; 85027; 93005; 94618; 99285; 81003; 81015; 83735; 84443; 84484; 85025; 93010; 99223; 99232; 99239; J3490

== ENCOUNTER 2022-09-28 03:01 | Outpatient (CLI) | payer BC, SELFPAY ==
[2022-09-28 09:59] LABS: Abs Immature Grans 0.41 10^3/uL (0.0-0.06); Absolute Basophil Count 0.19 10^3/uL (0.0-0.2); Absolute Eosinophil Count 0.33 10^3/uL (0.0-0.7); Absolute Lymphocyte Count 1.64 10^3/uL (1.2-3.4); Absolute Neutrophil Count 5.29 10^3/uL (1.2-6.7); Basophils % 2.2; Eosinophils % 3.9; HCT 35.1 % (36.0-46.0); HGB 12.1 g/dL (11.2-15.7); Immature Grans % 4.8; Lymphocytes % 19.4; MCH 30.6 pg (27.0-33.0); MCHC 34.5 % (32.0-36.0); MCV 89 fL (80-95); MPV 8.8 fL (8.0-11.0); Monocytes % 7.1; Neutrophils % 62.6; Platelet Count 346 10^3/uL (130-400); RBC 3.95 10^6/uL (3.93-5.22); RDW 13.1 % (11.7-14.6); RDW-SD 42.7 fL; WBC 8.46 10^3/uL (4.4-10.8)
[2022-09-28 10:32] LABS: ALT 32 U/L (14-59); AST 24 U/L (15-37); Alkaline Phosphatase 74 U/L (46-116); Anion Gap 7.8 mmol/L (3-11); BUN 11 mg/dL (7-18); Bilirubin, Total 0.2 mg/dL (0.2-1.0); CO2 26.2 mmol/L (21.0-32.0); CREATININE 0.7 mg/dL (0.55-1.02); Calcium 9.3 mg/dL (8.5-10.1); Chloride 99 mmol/L (98-107); Estimated GFR 97.72 (mL/min/1.73m2); FREE T4 1.13 ng/dL (0.76-1.46); Glucose 110 mg/dL (74-106); Potassium 4.1 mmol/L (3.5-5.1); Sodium 133 mmol/L (136-145); TSH 3.21 uIU/mL (0.36-3.74); Total Protein 7.2 g/dL (6.4-8.2)
== END 2022-09-28 03:02 | disposition home or self-care (01) ==
LOC: LBO 03:02
PROVIDERS: PCP Family Medicine; Visit Provider Internal Medicine Medical Oncology
DX: C34.31 Malignant neoplasm of lower lobe, right bronchus or lung (principal); C79.31 Secondary malignant neoplasm of brain; R00.2 Palpitations
CPT/HCPCS: 36415; 80053; 83735; 84439; 84443; 85025

== ENCOUNTER 2022-10-07 02:02 | Outpatient (CLI) | payer BC, SELFPAY ==
--- NOTE | 2022-10-07 15:00 | DI.US_ITS ---
APPROVED REPORT EXAM: Comprehensive 2D, Doppler, and color-flow Echocardiogram Patient Location: Out-Patient [facility] Occupational Therapist: Cristhian Jaramillo RDMS, RVT Indications: afib w/ RVR, palpitations, current chemo Other Information Study Quality: Fair. Technically limited study due to arrythmia throughout exam. Conclusion Normal left ventricular wall thickness and chamber size. Estimated ejection fraction is 55 to 60%. Wall motion appears normal Normal right ventricular size and systolic function Both atria are mildly dilated Trileaflet aortic valve without stenosis or regurgitation Normal mitral valve with mild to moderate regurgitation Normal tricuspid valve with moderate eccentric regurgitation. Estimated right ventricular systolic p ressure is 21 mmHg Patient was in sinus rhythm with frequent PVCs and ventricular bigeminy which confounded assessment o f degree of valvular regurgitation Wall motion Left Ventricle The left ventricle is normal size. The left ventricular systolic function is normal. The left ventric ular ejection fraction is within the normal range. There is normal left ventricular wall thickness. T here is normal LV segmental wall motion. There is no ventricular septal defect visualized. LVEF is 55 -60%. Right Ventricle The right ventricle is normal size. Right ventricular systolic function is grossly normal. The RVSP i s 21.1 mmHg. Atria Left atrium is mildly dilated. Right atrium is mildly dilated. The interatrial septum is intact with no evidence for an atrial septal defect. Aortic Valve The aortic valve is normal in structure. Aortic valve is trileaflet. There is no aortic valvular sten osis. Trace aortic regurgitation. Mitral Valve The mitral valve is normal in structure. No evidence of mitral valve stenosis. Mild to moderate antony l regurgitation. Tricuspid Valve The tricuspid valve is normal in structure. There is no tricuspid valve stenosis. Moderate eccentric tricuspid regurgitation. Pulmonic Valve The pulmonary valve is normal in structure. There is no pulmonic valvular stenosis. There is no pulmo latrell valvular regurgitation. Great Vessels The aortic root is normal in size. The ascending aorta is normal in size. Aortic arch is normal in ca liber. IVC is normal in size and collapses >50% with inspiration. Pericardium There is no pericardial effusion. 2D Dimensions IVSD d PLAX 0.71 cm F: 0.6-1.0 LV Vol A2C d MOD 110.4 mL LVPW d PLAX 0.78 cm F: 0.6 - 1.0 LV Vol A4C d MOD 110.0 mL LVID d PLAX 4.55 cm F: 3.8 - 5.2 LA vol/ BSA A4C s A-L 37.2 mL/m2 LVDs 3.05 cm F: 2.2 - 3.5 LA Area A4C s MOD 20.97 cm2 Ao Root d 2.72 cm F: 2.7 - 3.3 LV EF A4C MOD 60.7 % Ao Asc Diam d 2.88 cm F: 2.3 - 3.1 LV EF A2C MOD 56.1 % LV EF Teichholz 60.5 % LV EF Biplane MOD 58.6 % LVEF (Martinez's) 58.61 % F: 54 - 74 SV 65.67 mL LV Volume 86.68 mL F: 46 - 106 SV Index 35.93 mL/m2 LV Volume Index 47.36 mL/m2 F: 29 - 61 LV Vol Biplane MOD 112.1 mL FS 32.15 % M-Mode TAPSE 3.41 cm (M/F) >1.7 LV Diastology MV E Vmax 0.61 (0.4-1.3 m/s) Aortic Valve LVOT Area 2.99 cm2 AoV Area Vmax 2.09 cm2 LVOT Vmax 1.33 m/s AoV Area/ BSA (Vmax) 1.14 cm2/m2 LVOT Mean Rashel. 0.85 m/s MIR Mean Rashel. 2.16 cm2 LVOT Peak Grad 7.1 mmHg MIR Mean Rashel. Index 1.18 cm2/m2 LVOT Mean Grad 3.4 mmHg LVOT VTI 0.252 m LVOT Diam s 1.90 cm AoV Vmax 1.91 m/s Velocity Ratio 0.70 AoV Mean Rashel. 1.17 m/s AoV Peak Grad 14.5 mmHg LVOT SV 75.37 mL AoV Mean Grad 6.6 mmHg AoV VTI 0.318 m AoV Area VTI 2.37 cm2 AoV Area/ BSA (VTI) 1.30 cm/m2 Mitral Valve MV DT 196 (160-240 msec) MV PHT 57 msec MV Area PHT 3.87 cm2 Pulmonary Valve PV Vmax 1.14 (0.5-1.5 m/s) RVOT Peak Gr. 1.80 mmHg PV Peak Grad 5.2 mmHg RVOT Vmax 0.67 m/s PV Mean Grad 2.6 mmHg PV VTI 0.225 m Tricuspid Valve TR Peak Grad 18.0 mmHg TR Vmax 2.13 m/s RA Pressure 3.00 mmHg RVSP (TR) 21.1 mmHg
== END 2022-10-07 02:22 ==
LOC: DI 02:02
PROVIDERS: PCP Family Medicine; Visit Provider Internal Medicine Cardiovascular Disease
DX: I48.91 Unspecified atrial fibrillation (principal); R00.2 Palpitations
CPT/HCPCS: 93306

== ENCOUNTER 2022-10-12 02:10 | Outpatient (CLI) | payer BC, SELFPAY ==
[2022-10-12 12:29] LABS: Abs Immature Grans 0.02 10^3/uL (0.0-0.06); Absolute Basophil Count 0.06 10^3/uL (0.0-0.2); Absolute Eosinophil Count 0.04 10^3/uL (0.0-0.7); Absolute Lymphocyte Count 1.41 10^3/uL (1.2-3.4); Absolute Monocyte Count 0.41 10^3/uL (0.1-0.8); Basophils % 2.7; Eosinophils % 1.8; HGB 10.1 g/dL (11.2-15.7); Immature Grans % 0.9; Lymphocytes % 64.1; MCH 30.1 pg (27.0-33.0); MCHC 32.6 % (32.0-36.0); MCV 92 fL (80-95); MPV 8.9 fL (8.0-11.0); Monocytes % 18.6; Neutrophils % 11.9; Platelet Count 196 10^3/uL (130-400); RBC 3.36 10^6/uL (3.93-5.22); RDW 14.2 % (11.7-14.6); RDW-SD 45.8 fL
[2022-10-12 12:59] LABS: ALT 24 U/L (14-59); AST 16 U/L (15-37); Albumin 2.6 g/dL (3.4-5.0); Alkaline Phosphatase 73 U/L (46-116); Anion Gap 4.3 mmol/L (3-11); BUN 10 mg/dL (7-18); Bilirubin, Total 0.2 mg/dL (0.2-1.0); CO2 30.7 mmol/L (21.0-32.0); CREATININE 0.7 mg/dL (0.55-1.02); Calcium 8.9 mg/dL (8.5-10.1); Chloride 102 mmol/L (98-107); Estimated GFR 97.72 (mL/min/1.73m2); FREE T4 0.96 ng/dL (0.76-1.46); Glucose 91 mg/dL (74-106); Magnesium 1.7 mg/dL (1.8-2.4); Sodium 137 mmol/L (136-145); TSH 1.89 uIU/mL (0.36-3.74); Total Protein 6.9 g/dL (6.4-8.2)
[2022-10-12 13:06] LABS: Absolute Neutrophil Count 0.26 10^3/uL (1.2-6.7); Diff Comment Diff Reviewed; RBC Morphology Normal
== END 2022-10-12 02:11 | disposition home or self-care (01) ==
LOC: LBO 02:10
PROVIDERS: PCP Family Medicine; Visit Provider Internal Medicine Medical Oncology
DX: C34.31 Malignant neoplasm of lower lobe, right bronchus or lung (principal); C79.31 Secondary malignant neoplasm of brain
CPT/HCPCS: 36415; 80053; 83735; 84439; 84443; 85025

== ENCOUNTER 2022-10-20 12:48 | Outpatient (CLI) | payer BC, SELFPAY ==
--- NOTE | 2022-10-20 15:03 | CER_ITS ---
Date of service: 10/20/22 Time of Service: 15:03 Cardiac Event Recorder Referring Provider:: Kaci Garcia Indications:: Cardiac arrhythmia Cardiac Event Note: This is a 30-day cardiac event recorder. Patient was monitored for a total of 2 6 days and 3 hours Patient was in sinus rhythm for 77% of the recording. Atrial flutter/ fibrillation was present 23% of the time. Average heart rate in sinus rhythm was 80 There were frequent episodes of atrial flutter with heart rates between 150 and 170. Amount of atrial flutter may have been underestimated as the computer reported it to be sinus tachycardia There was frequent ventricular ectopic beats. There were multiple runs of nonsustained ventricular tachycardia, ranging from 3-12 beats in duration. Some of the ventricular runs were relatively slow ( 120s) and irregular and lasted from 11 to 13 seconds in duration. There was no high-grade AV block, no pauses greater than 3 seconds
== END 2022-10-20 12:49 | disposition home or self-care (01) ==
LOC: CARDOPNVT 12:48
PROVIDERS: PCP Family Medicine; Visit Provider Internal Medicine Cardiovascular Disease
DX: I49.9 Cardiac arrhythmia, unspecified (principal); I48.92 Unspecified atrial flutter; I47.20 Ventricular tachycardia, unspecified

== ENCOUNTER 2022-10-21 04:26 | Outpatient (CLI) | payer BC, SELFPAY ==
[2022-10-21 08:30] LABS: Abs Immature Grans 0.53 10^3/uL (0.0-0.06); Absolute Basophil Count 0.21 10^3/uL (0.0-0.2); Absolute Eosinophil Count 0.01 10^3/uL (0.0-0.7); Absolute Lymphocyte Count 2.36 10^3/uL (1.2-3.4); Absolute Monocyte Count 1.06 10^3/uL (0.1-0.8); Absolute Neutrophil Count 3.66 10^3/uL (1.2-6.7); Basophils % 2.7; Eosinophils % 0.1; HCT 36.2 % (36.0-46.0); HGB 11.9 g/dL (11.2-15.7); Immature Grans % 6.8; Lymphocytes % 30.1; MCH 30.7 pg (27.0-33.0); MCHC 32.9 % (32.0-36.0); MCV 93 fL (80-95); MPV 8.5 fL (8.0-11.0); Monocytes % 13.5; Neutrophils % 46.8; RBC 3.88 10^6/uL (3.93-5.22); RDW 15.8 % (11.7-14.6); RDW-SD 52.5 fL; WBC 7.83 10^3/uL (4.4-10.8)
[2022-10-21 08:45] LABS: Platelet Count 338 10^3/uL (130-400)
[2022-10-21 08:46] LABS: Diff Comment Agrees w/ Instrument; Polychromasia Present
[2022-10-21 09:00] LABS: ALT 19 U/L (14-59); AST 15 U/L (15-37); Albumin 3.3 g/dL (3.4-5.0); Alkaline Phosphatase 72 U/L (46-116); Anion Gap 7.7 mmol/L (3-11); BUN 14 mg/dL (7-18); Bilirubin, Total 0.3 mg/dL (0.2-1.0); CO2 29.3 mmol/L (21.0-32.0); CREATININE 0.9 mg/dL (0.55-1.02); Calcium 9.3 mg/dL (8.5-10.1); Chloride 104 mmol/L (98-107); Estimated GFR 72.28 (mL/min/1.73m2); FREE T4 0.91 ng/dL (0.76-1.46); Glucose 87 mg/dL (74-106); Potassium 3.9 mmol/L (3.5-5.1); Sodium 141 mmol/L (136-145); TSH 3.31 uIU/mL (0.36-3.74); Total Protein 7.7 g/dL (6.4-8.2)
== END 2022-10-21 04:27 | disposition home or self-care (01) ==
LOC: LBO 04:26
PROVIDERS: PCP Family Medicine; Visit Provider Internal Medicine Medical Oncology
DX: C34.31 Malignant neoplasm of lower lobe, right bronchus or lung (principal); C79.31 Secondary malignant neoplasm of brain; Z79.899 Other long term (current) drug therapy
CPT/HCPCS: 80053; 83735; 84439; 84443; 85025

== ENCOUNTER 2022-11-09 02:58 | Outpatient (CLI) | payer BC, SELFPAY ==
--- NOTE | 2022-11-09 | DI.CT_ITS ---
Exam(s) CT CHEST W EXAM: CT CHEST W CLINICAL HISTORY: LUNG CANCER C34.31 TECHNIQUE: Imaging Protocol: Axial computed tomography images with coronal and sagittal reformatted images were created and reviewed CONTRAST MATERIAL: Intravenous: Omnipaque 350 Contrast volume:70 ml. COMPARISON: CT CT CHEST PE CTA from 09/24/2022 FINDINGS: Pulmonary parenchyma: Marked interval decrease in size of previously noted mass in the right infrahil ar region. Some residual mass greatest in the medial right lower lobe where it measures roughly 2.1 by 1.1 x 4.2. Marked interval decrease in mass seen in posterior right upper lobe, now measuring 2.3 x 1.2 cm. Tracheobronchial tree: No bronchiectasis or mucous plugging. Mediastinum and Susi: Marked interval decrease in size of previously noted adenopathy. Pleura: No effusion or pneumothorax. Heart: The heart is not dilated. No coronary artery calcifications are seen. Aorta: Thoracic aorta non-dilated. Upper abdomen: Stable liver and splenic cysts. Gallbladder contracted. Bones: Scoliosis anddegenerative changes. Soft tissues: Stable appearance of a lipoma in right paraspinal region. IMPRESSION: Marked interval decrease in size of right-sided pulmonary masses and well as marked decrease in right hilar and subcarinal adenopathy. RADIATION DOSE DELIVERED: 459.91mGy.cm Total DLP DATA REPOSITORY: All CT scans at this facility are submitted to the National Radiology Data Registry (NRDR) Dose Index Registry (DIR) with the [employer] (ACR). RADIATION OPTIMIZATION: All CT scans at this facility use at least one of these dose optimization te chniques: automated exposure control; mA and/or kV adjustment per patient size (includes targeted exa ms where dose is matched to clinical indication); or iterative reconstruction.
[2022-11-09] MEDS: Normal Saline Flush 10 ML SYR IJ (15:14)
[2022-11-09] MEDS: Normal Saline - Diluent 50 ML VIAL IJ (15:17)
[2022-11-09] MEDS: Omnipaque 350 MG/ML 500 ML BTL-Imaging package 70 ML IJ (15:17)
== END 2022-11-09 03:18 ==
LOC: DI 02:58
PROVIDERS: PCP Family Medicine; Visit Provider Nurse Practitioner Family
DX: C34.31 Malignant neoplasm of lower lobe, right bronchus or lung (principal); R59.0 Localized enlarged lymph nodes
CPT/HCPCS: 71260

== ENCOUNTER 2022-11-16 16:38 | Outpatient (CLI) | payer BC, SELFPAY ==
[2022-11-16 12:30] LABS: Abs Immature Grans 0.09 10^3/uL (0.0-0.06); Absolute Basophil Count 0.08 10^3/uL (0.0-0.2); Absolute Eosinophil Count 0.04 10^3/uL (0.0-0.7); Absolute Lymphocyte Count 1.56 10^3/uL (1.2-3.4); Absolute Monocyte Count 0.64 10^3/uL (0.1-0.8); Absolute Neutrophil Count 2.28 10^3/uL (1.2-6.7); Basophils % 1.7; Eosinophils % 0.9; HCT 34.1 % (36.0-46.0); HGB 11.2 g/dL (11.2-15.7); Immature Grans % 1.9; Lymphocytes % 33.3; MCHC 32.8 % (32.0-36.0); MCV 95 fL (80-95); MPV 8.4 fL (8.0-11.0); Monocytes % 13.6; Neutrophils % 48.6; Platelet Count 253 10^3/uL (130-400); RBC 3.61 10^6/uL (3.93-5.22); RDW 14.9 % (11.7-14.6); RDW-SD 51.8 fL; WBC 4.69 10^3/uL (4.4-10.8)
[2022-11-16 12:57] LABS: ALT 16 U/L (14-59); AST 11 U/L (15-37); Albumin 3.5 g/dL (3.4-5.0); Alkaline Phosphatase 53 U/L (46-116); Anion Gap 7.2 mmol/L (3-11); BUN 7 mg/dL (7-18); Bilirubin, Total 0.2 mg/dL (0.2-1.0); CO2 29.8 mmol/L (21.0-32.0); CREATININE 0.9 mg/dL (0.55-1.02); Chloride 105 mmol/L (98-107); Estimated GFR 72.28 (mL/min/1.73m2); Glucose 87 mg/dL (74-106); Potassium 3.6 mmol/L (3.5-5.1); Sodium 142 mmol/L (136-145); TSH 3.73 uIU/mL (0.36-3.74); Total Protein 7.1 g/dL (6.4-8.2)
[2022-11-16 13:14] LABS: FREE T4 0.99 ng/dL (0.76-1.46)
== END 2022-11-16 16:39 | disposition home or self-care (01) ==
LOC: LBO 16:38
PROVIDERS: PCP Family Medicine; Visit Provider Internal Medicine Medical Oncology
DX: C34.31 Malignant neoplasm of lower lobe, right bronchus or lung (principal); C79.31 Secondary malignant neoplasm of brain
CPT/HCPCS: 36415; 80053; 83735; 84439; 84443; 85025

== ENCOUNTER 2022-12-21 01:55 | Outpatient (RCR) | payer BC, SELFPAY ==
[2022-12-21] MEDS: Normal Saline Flush 10 ML SYR IVP (07:52)
[2022-12-21 08:32] LABS: Abs Immature Grans 0.02 10^3/uL (0.0-0.06); Absolute Basophil Count 0.07 10^3/uL (0.0-0.2); Absolute Eosinophil Count 0.07 10^3/uL (0.0-0.7); Absolute Lymphocyte Count 1.49 10^3/uL (1.2-3.4); Absolute Monocyte Count 0.72 10^3/uL (0.1-0.8); Absolute Neutrophil Count 2.67 10^3/uL (1.2-6.7); Basophils % 1.4; Eosinophils % 1.4; HCT 34.6 % (36.0-46.0); HGB 11.8 g/dL (11.2-15.7); Immature Grans % 0.4; Lymphocytes % 29.6; MCH 31.7 pg (27.0-33.0); MCHC 34.1 % (32.0-36.0); MCV 93 fL (80-95); MPV 9.5 fL (8.0-11.0); Monocytes % 14.3; Neutrophils % 52.9; Platelet Count 288 10^3/uL (130-400); RBC 3.72 10^6/uL (3.93-5.22); RDW 14.1 % (11.7-14.6); RDW-SD 47.8 fL; WBC 5.04 10^3/uL (4.4-10.8)
[2022-12-21 09:03] LABS: ALT 17 U/L (14-59); AST 15 U/L (15-37); Albumin 3.7 g/dL (3.4-5.0); Alkaline Phosphatase 55 U/L (46-116); Anion Gap 9.4 mmol/L (3-11); BUN 9 mg/dL (7-18); Bilirubin, Total 0.4 mg/dL (0.2-1.0); CO2 27.6 mmol/L (21.0-32.0); CREATININE 0.9 mg/dL (0.55-1.02); Calcium 9.4 mg/dL (8.5-10.1); Chloride 104 mmol/L (98-107); Estimated GFR 72.28 (mL/min/1.73m2); Glucose 88 mg/dL (74-106); Magnesium 2.1 mg/dL (1.8-2.4); Sodium 141 mmol/L (136-145); TSH 5.87 uIU/mL (0.36-3.74); Total Protein 7.3 g/dL (6.4-8.2)
[2022-12-21 09:20] LABS: FREE T4 1.04 ng/dL (0.76-1.46)
== END 2022-12-21 23:59 | disposition home or self-care (01) ==
LOC: INF 01:55
PROVIDERS: PCP Family Medicine; Visit Provider Internal Medicine Medical Oncology
DX: C34.31 Malignant neoplasm of lower lobe, right bronchus or lung (principal); C79.31 Secondary malignant neoplasm of brain; Z45.2 Encounter for adjustment and management of vascular access device
CPT/HCPCS: 36591; 80053; 83735; 84439; 84443; 85025

== ENCOUNTER 2023-01-18 13:00 | Outpatient (RCR) | payer BC, SELFPAY ==
[2023-01-04] MEDS: Heparin 500 UNITS/5 ML SYRINGE IV (07:47)
[2023-01-04] MEDS: Normal Saline Flush 10 ML SYR IVP (07:47)
[2023-01-11] MEDS: Normal Saline Flush 10 ML SYR IVP (07:43)
[2023-01-11 07:58] LABS: Abs Immature Grans 0.06 10^3/uL (0.0-0.06); Absolute Basophil Count 0.03 10^3/uL (0.0-0.2); Absolute Eosinophil Count 0.04 10^3/uL (0.0-0.7); Absolute Monocyte Count 0.62 10^3/uL (0.1-0.8); Absolute Neutrophil Count 0.89 10^3/uL (1.2-6.7); Eosinophils % 1.3; HCT 35.8 % (36.0-46.0); HGB 12.1 g/dL (11.2-15.7); Immature Grans % 1.9; Lymphocytes % 47.8; MCH 31.3 pg (27.0-33.0); MCHC 33.8 % (32.0-36.0); MCV 93 fL (80-95); MPV 8.7 fL (8.0-11.0); Monocytes % 19.7; Neutrophils % 28.3; Platelet Count 225 10^3/uL (130-400); RBC 3.87 10^6/uL (3.93-5.22); RDW 14.1 % (11.7-14.6); RDW-SD 47.8 fL; WBC 3.14 10^3/uL (4.4-10.8)
[2023-01-11 08:14] LABS: Diff Comment Diff Reviewed; RBC Morphology Normal
[2023-01-11 08:26] LABS: ALT 18 U/L (14-59); AST 15 U/L (15-37); Albumin 3.7 g/dL (3.4-5.0); Alkaline Phosphatase 60 U/L (46-116); Anion Gap 7.9 mmol/L (3-11); BUN 11 mg/dL (7-18); Bilirubin, Total 0.2 mg/dL (0.2-1.0); CO2 28.1 mmol/L (21.0-32.0); Calcium 9.7 mg/dL (8.5-10.1); Chloride 103 mmol/L (98-107); FREE T4 0.98 ng/dL (0.76-1.46); Glucose 96 mg/dL (74-106); Magnesium 2.2 mg/dL (1.8-2.4); Sodium 139 mmol/L (136-145); TSH 5.52 uIU/mL (0.36-3.74); Total Protein 7.3 g/dL (6.4-8.2)
[2023-01-18] MEDS: Heparin 500 UNITS/5 ML SYRINGE IV (13:13)
[2023-01-18] MEDS: Normal Saline Flush 10 ML SYR IVP (13:13)
[2023-01-18 13:49] LABS: Abs Immature Grans 0.08 10^3/uL (0.0-0.06); Absolute Basophil Count 0.06 10^3/uL (0.0-0.2); Absolute Eosinophil Count 0.06 10^3/uL (0.0-0.7); Absolute Lymphocyte Count 1.79 10^3/uL (1.2-3.4); Absolute Monocyte Count 0.77 10^3/uL (0.1-0.8); Absolute Neutrophil Count 3.71 10^3/uL (1.2-6.7); Basophils % 0.9; Eosinophils % 0.9; HCT 35.9 % (36.0-46.0); HGB 12.2 g/dL (11.2-15.7); Immature Grans % 1.2; Lymphocytes % 27.7; MCH 31.3 pg (27.0-33.0); MCV 92 fL (80-95); MPV 9.1 fL (8.0-11.0); Monocytes % 11.9; Neutrophils % 57.4; Platelet Count 258 10^3/uL (130-400); RDW 13.9 % (11.7-14.6); WBC 6.47 10^3/uL (4.4-10.8)
[2023-01-18 14:03] LABS: ALT 19 U/L (14-59); AST 14 U/L (15-37); Albumin 3.8 g/dL (3.4-5.0); Alkaline Phosphatase 57 U/L (46-116); Anion Gap 10.5 mmol/L (3-11); BUN 11 mg/dL (7-18); Bilirubin, Total 0.2 mg/dL (0.2-1.0); CO2 27.5 mmol/L (21.0-32.0); CREATININE 0.9 mg/dL (0.55-1.02); Calcium 9.4 mg/dL (8.5-10.1); Chloride 101 mmol/L (98-107); Estimated GFR 71.83 (mL/min/1.73m2); Glucose 88 mg/dL (74-106); Potassium 3.8 mmol/L (3.5-5.1); Sodium 139 mmol/L (136-145); Total Protein 7.5 g/dL (6.4-8.2)
== END 2023-01-21 23:59 | disposition home or self-care (01) ==
LOC: INF 13:00
PROVIDERS: PCP Family Medicine; Visit Provider Internal Medicine Medical Oncology
DX: C34.31 Malignant neoplasm of lower lobe, right bronchus or lung (principal); C79.31 Secondary malignant neoplasm of brain; Z45.2 Encounter for adjustment and management of vascular access device
CPT/HCPCS: 36591; 80053; 96523; 83735; 84439; 84443; 85025

== ENCOUNTER 2023-02-01 01:43 | Outpatient (RCR) | payer BC, SELFPAY ==
[2023-02-01] MEDS: Normal Saline Flush 10 ML SYR IVP (08:17)
[2023-02-01 08:40] LABS: Abs Immature Grans 0.04 10^3/uL (0.0-0.06); Absolute Basophil Count 0.07 10^3/uL (0.0-0.2); Absolute Eosinophil Count 0.15 10^3/uL (0.0-0.7); Absolute Lymphocyte Count 1.29 10^3/uL (1.2-3.4); Absolute Monocyte Count 0.58 10^3/uL (0.1-0.8); Absolute Neutrophil Count 2.39 10^3/uL (1.2-6.7); Basophils % 1.5; Eosinophils % 3.3; HCT 34.3 % (36.0-46.0); HGB 11.9 g/dL (11.2-15.7); Immature Grans % 0.9; Lymphocytes % 28.5; MCH 31.9 pg (27.0-33.0); MCHC 34.7 % (32.0-36.0); MCV 92 fL (80-95); MPV 9.1 fL (8.0-11.0); Monocytes % 12.8; Platelet Count 240 10^3/uL (130-400); RBC 3.73 10^6/uL (3.93-5.22); RDW 13.9 % (11.7-14.6); RDW-SD 46.7 fL; WBC 4.52 10^3/uL (4.4-10.8)
[2023-02-01 09:07] LABS: ALT 18 U/L (14-59); AST 14 U/L (15-37); Albumin 3.6 g/dL (3.4-5.0); Alkaline Phosphatase 49 U/L (46-116); BUN 10 mg/dL (7-18); Bilirubin, Total 0.3 mg/dL (0.2-1.0); CREATININE 0.9 mg/dL (0.55-1.02); Calcium 9.2 mg/dL (8.5-10.1); Chloride 102 mmol/L (98-107); Estimated GFR 71.83 (mL/min/1.73m2); FREE T4 0.95 ng/dL (0.76-1.46); Glucose 96 mg/dL (74-106); Potassium 3.7 mmol/L (3.5-5.1); Sodium 137 mmol/L (136-145); Total Protein 7.1 g/dL (6.4-8.2)
== END 2023-02-20 23:59 | disposition home or self-care (01) ==
LOC: INF 01:43
PROVIDERS: PCP Family Medicine; Visit Provider Internal Medicine Medical Oncology
DX: C34.31 Malignant neoplasm of lower lobe, right bronchus or lung (principal); C79.31 Secondary malignant neoplasm of brain; Z45.2 Encounter for adjustment and management of vascular access device
CPT/HCPCS: 36591; 80053; 83735; 84439; 84443; 85025

== ENCOUNTER 2023-03-15 03:19 | Outpatient (RCR) | payer BC, SELFPAY ==
[2023-02-22] MEDS: Normal Saline Flush 10 ML SYR IVP (08:10)
[2023-02-22 08:54] LABS: Abs Immature Grans 0.01 10^3/uL (0.0-0.06); Absolute Basophil Count 0.04 10^3/uL (0.0-0.2); Absolute Eosinophil Count 0.12 10^3/uL (0.0-0.7); Absolute Lymphocyte Count 0.39 10^3/uL (1.2-3.4); Absolute Monocyte Count 0.47 10^3/uL (0.1-0.8); Absolute Neutrophil Count 2.16 10^3/uL (1.2-6.7); Basophils % 1.3; Eosinophils % 3.8; HGB 12.1 g/dL (11.2-15.7); Immature Grans % 0.3; Lymphocytes % 12.2; MCH 30.8 pg (27.0-33.0); MCHC 33.6 % (32.0-36.0); MCV 92 fL (80-95); MPV 8.8 fL (8.0-11.0); Monocytes % 14.7; Neutrophils % 67.7; Platelet Count 191 10^3/uL (130-400); RBC 3.93 10^6/uL (3.93-5.22); RDW 13.3 % (11.7-14.6); RDW-SD 45.2 fL; WBC 3.19 10^3/uL (4.4-10.8)
[2023-02-22 09:16] LABS: ALT 18 U/L (14-59); AST 16 U/L (15-37); Albumin 3.6 g/dL (3.4-5.0); Alkaline Phosphatase 56 U/L (46-116); Anion Gap 6.7 mmol/L (3-11); BUN 14 mg/dL (7-18); Bilirubin, Total 0.4 mg/dL (0.2-1.0); CO2 29.3 mmol/L (21.0-32.0); Calcium 9.8 mg/dL (8.5-10.1); Chloride 103 mmol/L (98-107); FREE T4 1.01 ng/dL (0.76-1.46); Glucose 97 mg/dL (74-106); Magnesium 2.1 mg/dL (1.8-2.4); Potassium 3.6 mmol/L (3.5-5.1); Sodium 139 mmol/L (136-145); Total Protein 7.4 g/dL (6.4-8.2)
[2023-03-15 09:23] LABS: Abs Immature Grans 0.03 10^3/uL (0.0-0.06); Absolute Basophil Count 0.05 10^3/uL (0.0-0.2); Absolute Eosinophil Count 0.07 10^3/uL (0.0-0.7); Absolute Lymphocyte Count 0.49 10^3/uL (1.2-3.4); Absolute Monocyte Count 0.65 10^3/uL (0.1-0.8); Basophils % 1.1; Eosinophils % 1.6; HCT 35.3 % (36.0-46.0); HGB 11.7 g/dL (11.2-15.7); Immature Grans % 0.7; Lymphocytes % 11.2; MCH 30.9 pg (27.0-33.0); MCHC 33.1 % (32.0-36.0); MCV 93 fL (80-95); MPV 8.7 fL (8.0-11.0); Monocytes % 14.8; Neutrophils % 70.6; Platelet Count 254 10^3/uL (130-400); RBC 3.79 10^6/uL (3.93-5.22); RDW 13.4 % (11.7-14.6); RDW-SD 45.8 fL; WBC 4.39 10^3/uL (4.4-10.8)
[2023-03-15] MEDS: Normal Saline Flush 10 ML SYR IVP (09:27)
[2023-03-15 09:47] LABS: ALT 21 U/L (14-59); AST 16 U/L (15-37); Albumin 3.4 g/dL (3.4-5.0); Alkaline Phosphatase 59 U/L (46-116); Anion Gap 7.8 mmol/L (3-11); BUN 13 mg/dL (7-18); Bilirubin, Total 0.3 mg/dL (0.2-1.0); CO2 25.2 mmol/L (21.0-32.0); CREATININE 1.1 mg/dL (0.55-1.02); Calcium 9.3 mg/dL (8.5-10.1); Chloride 105 mmol/L (98-107); Estimated GFR 56.46 (mL/min/1.73m2); Glucose 101 mg/dL (74-106); Potassium 3.8 mmol/L (3.5-5.1); Sodium 138 mmol/L (136-145); TSH 4.51 uIU/mL (0.36-3.74); Total Protein 7.2 g/dL (6.4-8.2)
[2023-03-15 09:53] LABS: Magnesium 2.1 mg/dL (1.8-2.4)
== END 2023-03-23 23:59 | disposition home or self-care (01) ==
LOC: INF 03:19
PROVIDERS: PCP Family Medicine; Visit Provider Internal Medicine Medical Oncology
DX: C34.31 Malignant neoplasm of lower lobe, right bronchus or lung (principal); C79.31 Secondary malignant neoplasm of brain; Z45.2 Encounter for adjustment and management of vascular access device
CPT/HCPCS: 36591; 80053; 83735; 84439; 84443; 85025

== ENCOUNTER → 2023-03-29 00:20 | Outpatient (CLI) | payer BC, SELFPAY ==
--- NOTE | 2023-03-29 | DI.MRI_ITS ---
Exam(s) MR BRAIN WO/W EXAM: MR BRAIN WO/W CLINICAL HISTORY: SMALL CELL LUNG CA, C34.90, RESTAGING, CHECK BRAIN EVERY 3-4 MOS TECHNIQUE: Multiplanar multisequence MRI of the brain was performed. CONTRAST MATERIAL: IV Contrast: 14 mL of Dotarem contrast administered. COMPARISON: MR MR BRAIN WO/W from 07/31/2022 FINDINGS: VENTRICLES AND EXTRA AXIAL SPACES: Normal in size and morphology for the patient's age. HEMORRHAGE: None. CEREBRAL PARENCHYMA: No focus of restricted diffusion to suggest acute infarct. No space-occupying le don identified. There are areas of hyperintense signal seen on the FLAIR and T2 weighted images in t he white matter consistent with small vessel ischemic disease. MIDLINE SHIFT: None. BRAINSTEM/CEREBELLUM: Normal. CALVARIUM: Normal. ENHANCEMENT: The enhancing right right parietal mass now measures 5 mm. There is minimal associated edema. The enhancing lesions seen in the left parietal and the 2nd right parietal lesion are not vis ualized on the current examination. There is a 5 mm enhancing lesion in the anterior aspect of the r ight temporal lobe which is new and best appreciated on the coronal images. (Series [id number], image 12) .. VISUALIZED PARANASAL SINUSES/MASTOIDS: There is opacification of the mastoid air cells bilaterally. The remaining visualized paranasal sinuses are clear. ATKA OF KELLER: Normal flow void. PITUITARY GLAND: Unremarkable. OTHER FINDINGS: IMPRESSION: 1. Interval decrease in size of the right parietal enhancing lesion previously measuring 1.6 x 1.7 cm . It currently measures 0.5 cm. 2. New anterior right temporal lobe metastasis measuring 5 mm. 3. The 2 other previously seen metastases are no longer visualized. DATA REPOSITORY:
[2023-03-29] MEDS: Normal Saline Flush 10 ML SYR IVP (07:56)
[2023-03-29] MEDS: Gadoterate meglumine 20 ML SYRINGE 14 ML IVP (07:57)
== END ==
PROVIDERS: PCP Family Medicine; Visit Provider Nurse Practitioner Family
DX: C34.90 Malignant neoplasm of unspecified part of unspecified bronchus or lung (principal); R94.02 Abnormal brain scan
CPT/HCPCS: 70553

== ENCOUNTER → 2023-03-30 00:12 | Outpatient (CLI) | payer BC, SELFPAY ==
--- NOTE | 2023-03-30 | DI.CT_ITS ---
Exam(s) CT CHEST/ABD/PEL W EXAM: CT CHEST/ABD/PEL W CLINICAL HISTORY: SCLC, C34.90, ASSESS RESPONSE TO TREATMENT. TECHNIQUE: Imaging Protocol: Axial computed tomography images with coronal and sagittal reformatted images were created and reviewed CONTRAST MATERIAL: Intravenous: Omnipaque 350 Contrast volume:100 ml Oral: Yes. Oral contrast was also administered for bowel opacification. COMPARISON: CT CT CHEST/ABD/PEL W from 01/04/2023 FINDINGS: CHEST: LUNGS: There has been further improvement with respect the right lung findings. The nodular infiltra te contiguous with the upper aspect of the right major fissure in the posterior segment of the right upper lobe has slightly further decreased in size. The right middle lobe infiltrate has mostly resol lorena. The previously described nodular infiltrate in the medial basal segment of the right lower lobe exhibits stable appearance. There are no new focal right lung findings. Also no pleural effusion. In the opposite-left lung there is some atelectasis-possible mild infiltrate in the superior and infe rior lingular segments, more so than previous. Mild increased markings in the left lower lobe also n oted with benign appearance. There are no pleural effusions on either side. No new findings in the trachea and mainstem bronchi. MEDIASTINUM: Further decrease in the amount of right hilar adenopathy. Increased density in the subc arinal region is unchanged. There is no paratracheal adenopathy. No adenopathy in the anterior medi astinal fat. Left hilum unremarkable. Visualized thyroid unremarkable.Visualized thyroid gland appe ars unremarkable. Distal tip of the right supra clavi in Port-A-Cath is in the right atrium CARDIAC: Heart size is normal. There is no pericardial effusion.Caliber of the thoracic aorta is wit hin normal limits. OSSEOUS: No significant osseous lesions.. ABDOMEN: There is no ascites. LIVER: There are no new focal hepatic lesions. Previously described small subcapsular cysts in the a nterior right hepatic lobe is unchanged as are few other tiny benign-appearing intrahepatic sub cm cy sts. There are no metastatic appearing lesions in the liver. GALLBLADDER/BILIARY: No obvious gallbladder pathology. CBD is not dilated. PANCREAS: No evidence of pancreatic mass nor dilatation of the pancreatic duct. SPLEEN: Spleen size remains normal. Small sub cm cyst again noted in the spleen. No new splenic les ions. Splenic and portal veins are patent. ADRENALS: There are no significant adrenal masses. KIDNEYS: No calculi nor hydronephrosis. No solid renal masses. No cysts evident. ABDOMINAL AORTA: Abdominal aorta is not enlarged. LYMPH NODES: There is no retroperitoneal nor paraaortic adenopathy. ABDOMINAL WALL: No evidence of significant anterior abdominal wall nor inguinal hernia. GI: There is no evidence of bowel obstruction.New mesenteric masses evident. PELVIS: LYMPH NODES: There is no intrapelvic nor inguinal adenopathy. GI: No evidence of appendicitis.No evidence of sigmoid diverticulitis. URINARY BLADDER: Relatively uniform thickening of the urinary bladder wall is again noted either rela marco a to under distension or possible cystitis, this finding unchanged from 01/04/2023. REPRODUCTIVE: Retroverted uterus and adnexal regions reveal no new significant findings. Again noted is an element of pelvic congestion syndrome with dilated veins in the left side adnexa draining into a slightly prominent but not thrombosed left gonadal vein which itself drains into a patent left lauryn al vein. OSSEOUS: No significant osseous lesions. IMPRESSION: 1. Compared to the prior CT scan of 01/04/2023 there has been further improvement but not resolution of right lung findings as detailed above. Also decrease but not resolution in the amount of right hi lar adenopathy and there also appears to be some persistent subcarinal adenopathy. There are no new right lung findings. No pleural effusions. 2. Some atelectasis or mild infiltrate is now evident in the lingular segment of the left lung, not p reviously present. No associated left pleural effusion. No left hilar adenopathy. 3. Stable findings in the abdomen and pelvis as described above with no evidence of new metastatic di sease in the abdomen pelvis and no ascites. 4. No new significant osseous lesions evident RADIATION DOSE DELIVERED: Total DLP DATA REPOSITORY: All CT scans at this facility are submitted to the National Radiology Data Registry (NRDR) Dose Index Registry (DIR) with the [employer] (ACR). RADIATION OPTIMIZATION: All CT scans at this facility use at least one of these dose optimization te chniques: automated exposure control; mA and/or kV adjustment per patient size (includes targeted exa ms where dose is matched to clinical indication); or iterative reconstruction.
[2023-03-30] MEDS: Normal Saline Flush 10 ML SYR IVP (09:56)
[2023-03-30] MEDS: Normal Saline - Diluent 50 ML VIAL IJ (09:57)
[2023-03-30] MEDS: Omnipaque 350 MG/ML 100 ML BTL IJ (09:57)
[2023-03-30] MEDS: Barium Sulfate 2% W/V-Berry Smoothie 450 ML BTL PO (09:59)
== END ==
PROVIDERS: PCP Family Medicine; Visit Provider Internal Medicine Medical Oncology
DX: C34.90 Malignant neoplasm of unspecified part of unspecified bronchus or lung (principal)
CPT/HCPCS: 74177; 71260; J3490

== ENCOUNTER 2023-04-05 02:08 | Outpatient (RCR) | payer BC, SELFPAY ==
[2023-03-30] MEDS: Normal Saline Flush 10 ML SYR IVP (07:43)
[2023-03-30] MEDS: Heparin 500 UNITS/5 ML SYRINGE IV (07:43)
[2023-04-05] MEDS: Normal Saline Flush 10 ML SYR IVP (07:41)
[2023-04-05 07:56] LABS: Abs Immature Grans 0.02 10^3/uL (0.0-0.06); Absolute Basophil Count 0.06 10^3/uL (0.0-0.2); Absolute Eosinophil Count 0.14 10^3/uL (0.0-0.7); Absolute Lymphocyte Count 0.71 10^3/uL (1.2-3.4); Absolute Monocyte Count 0.57 10^3/uL (0.1-0.8); Absolute Neutrophil Count 2.37 10^3/uL (1.2-6.7); Basophils % 1.6; Eosinophils % 3.6; HCT 33.4 % (36.0-46.0); HGB 11.4 g/dL (11.2-15.7); Immature Grans % 0.5; Lymphocytes % 18.3; MCH 31.7 pg (27.0-33.0); MCHC 34.1 % (32.0-36.0); MCV 93 fL (80-95); MPV 8.9 fL (8.0-11.0); Monocytes % 14.7; Neutrophils % 61.3; Platelet Count 220 10^3/uL (130-400); RDW 13.2 % (11.7-14.6); RDW-SD 44.8 fL; WBC 3.87 10^3/uL (4.4-10.8)
[2023-04-05 08:27] LABS: ALT 22 U/L (14-59); AST 16 U/L (15-37); Albumin 3.7 g/dL (3.4-5.0); Alkaline Phosphatase 53 U/L (46-116); Anion Gap 7.5 mmol/L (3-11); BUN 13 mg/dL (7-18); Bilirubin, Total 0.3 mg/dL (0.2-1.0); CO2 28.5 mmol/L (21.0-32.0); CREATININE 0.9 mg/dL (0.55-1.02); Calcium 9.5 mg/dL (8.5-10.1); Chloride 104 mmol/L (98-107); Estimated GFR 71.83 (mL/min/1.73m2); FREE T4 1.04 ng/dL (0.76-1.46); Glucose 91 mg/dL (74-106); Magnesium 2.2 mg/dL (1.8-2.4); Potassium 4.1 mmol/L (3.5-5.1); Sodium 140 mmol/L (136-145); TSH 6.08 uIU/mL (0.36-3.74); Total Protein 7.3 g/dL (6.4-8.2)
== END 2023-04-22 23:59 | disposition home or self-care (01) ==
LOC: INF 02:08
PROVIDERS: PCP Family Medicine; Visit Provider Internal Medicine Medical Oncology
DX: C34.31 Malignant neoplasm of lower lobe, right bronchus or lung (principal); C79.31 Secondary malignant neoplasm of brain
CPT/HCPCS: 36591; 80053; 96523; 83735; 84439; 84443; 85025

== ENCOUNTER → 2023-05-10 01:39 | Outpatient (CLI) | payer MEDICAID, SELFPAY ==
--- NOTE | 2023-05-10 | DI.MRI_ITS ---
Exam(s) MR BRAIN WO/W EXAM: MR BRAIN WO/W CLINICAL HISTORY: PRIMARY LUNG CA,C34.31,SECONDARY TO BRAIN,C79.31,RESTAGING EXAM,S/P WBRT TECHNIQUE: Multiplanar multisequence MRI of the brain was performed. CONTRAST MATERIAL: IV Contrast: 14 mL of Dotarem contrast administered. COMPARISON: MR MR BRAIN WO/W from 03/29/2023 FINDINGS: VENTRICLES AND EXTRA AXIAL SPACES: Normal in size and morphology for the patient's age. HEMORRHAGE: None. CEREBRAL PARENCHYMA: No focus of restricted diffusion to suggest acute infarct. No space-occupying le don identified. There are several areas of hyperintense signal seen in the white matter on the FLAIR and T2 weighted images consistent with small vessel ischemic disease. MIDLINE SHIFT: None. BRAINSTEM/CEREBELLUM: Normal. CALVARIUM: Normal. ENHANCEMENT: The right parietal nodule measures 5.5 x 7.2 mm compared to 5 mm on the prior examinatio n. The previously seen right temporal lobe lesion is not visualized on the current examination. No new parenchymal masses are seen. VISUALIZED PARANASAL SINUSES/MASTOIDS: There is hyperintense signal seen in the mastoid air cells art aterally suggesting mastoiditis. [facility]: Normal flow void. PITUITARY GLAND: Unremarkable. OTHER FINDINGS: IMPRESSION: 1. Right parietal metastasis measures 5.5 x 7.2 mm compared to 5 mm on the prior examination. 2. No new parenchymal metastases are seen. 3. The previously seen right temporal lobe lesion is not visualized on the current examination. DATA REPOSITORY:
[2023-05-10] MEDS: Gadoterate meglumine 20 ML SYRINGE IVP (08:37)
[2023-05-10] MEDS: Normal Saline Flush 10 ML SYR IJ (08:38)
== END ==
PROVIDERS: PCP Family Medicine; Visit Provider Internal Medicine Medical Oncology
DX: C34.31 Malignant neoplasm of lower lobe, right bronchus or lung (principal); C79.31 Secondary malignant neoplasm of brain
CPT/HCPCS: 70553

== ENCOUNTER → 2023-05-11 01:47 | Outpatient (CLI) | payer MEDICAID, SELFPAY ==
[2023-05-11] MEDS: Barium Sulfate 2% W/V-Creamy Vanilla Smoothie 450 ML BTL 900 ML PO (09:06)
[2023-05-11] MEDS: Normal Saline - Diluent 50 ML VIAL IJ (10:39)
[2023-05-11] MEDS: Omnipaque 350 MG/ML 500 ML BTL-Imaging package 100 ML IJ (10:40)
--- NOTE | 2023-05-11 10:45 | DI.CT_ITS ---
Exam(s) CT CHEST/ABD/PEL W EXAM: CT CHEST/ABD/PEL W CLINICAL HISTORY: LUNG CANCER C34.31 BRAIN CANCER C79.31 RESTAGING. TECHNIQUE: Imaging Protocol: Axial computed tomography images with coronal and sagittal reformatted images were created and reviewed CONTRAST MATERIAL: Intravenous: Omnipaque 350 Contrast volume:100 ml Oral: Yes. Oral contrast was also administered for bowel opacification. COMPARISON: CT CT CHEST W from 11/09/[address] CHEST/ABD/PEL W from 01/04/[address] CHEST/ABD/PEL W from 03/30/2023 FINDINGS: CHEST: Distal tip of the right supra clavi in Port-A-Cath is in the lower right atrium LUNGS: In the right lung the fissure based infiltrate in the posterior segment of the right upper lob e remains stable but there is now new significant infiltrate in the superior segment of the right low er lobe, not previously present. In addition, the previously described findings in the medial basal segment of the right lower lobe have increased, this infiltrate measuring approximately 4 by 1.6 cm. There is also some increasing nodular infiltrate in the lateral aspect of the right middle lobe. Th ere is no pleural effusion. In the opposite-left lung there is atelectasis in the lingular segment and lower lobe basal segments but no new nodules nor pleural effusions. There are no new findings in the trachea and mainstem bronchi.. MEDIASTINUM: The amount of adenopathy in the right hilum is unchanged. No adenopathy in the left hil um. The amount of subcarinal abnormal density is stable. There is no paratracheal adenopathy and no adenopathy in the anterior mediastinal fat. Visualized thyroid unremarkable. No supraclavicular ad enopathy. No axillary adenopathy. CARDIAC: Heart size is normal. There is no pericardial effusion.Caliber of the thoracic aorta is wit hin normal limits. OSSEOUS: No significant osseous lesions.No fractures.. ABDOMEN: There is no ascites. LIVER: There are no new focal hepatic lesions nor dilatation of intrahepatic ducts. Small benign cys t again noted. GALLBLADDER/BILIARY: No obvious gallbladder pathology. CBD is not dilated. PANCREAS: No evidence of pancreatic mass nor dilatation of the pancreatic duct. SPLEEN: Spleen size remains normal. Small benign cyst noted in the posterior spleen, unchanged. Spl enic and portal veins are patent. ADRENALS: There are no significant adrenal masses. KIDNEYS: No calculi nor hydronephrosis. No solid renal masses. No cysts evident. ABDOMINAL AORTA: Abdominal aorta is not enlarged. LYMPH NODES: There is no retroperitoneal nor paraaortic adenopathy. ABDOMINAL WALL: No evidence of significant anterior abdominal wall nor inguinal hernia. GI: There is no evidence of bowel obstruction. PELVIS: LYMPH NODES: There is no intrapelvic nor inguinal adenopathy. GI: No evidence of appendicitis.No evidence of sigmoid diverticulitis. URINARY BLADDER: Uniform bladder wall thickening is again noted, unchanged. REPRODUCTIVE: Retroverted uterus again noted. No new adnexal masses. Pelvic congestion syndrome aga in noted with dilated veins in the left side of the adnexa again noted. These drain into gonadal vei ns. OSSEOUS: No significant osseous lesions. IMPRESSION: 1. Compared to the prior CT scan of 03/30/2023 there has been some deterioration in the right lung wi th significant increasing infiltrates in the right lower lobe both involving the superior segment (wh ich is new) as well as increasing size density in the medial basal segment of the right lower lobe. The nodular infiltrate/lesion in the posterior segment of the right upper lobe contiguous with the up per major fissure is unchanged. There is no pleural effusion and the small amount of adenopathy in t he right hilum is unchanged. No new adenopathy evident. No new significant left lung findings. No pleural effusions on either side. 2. Continued stable findings in the abdomen pelvis as described above with no evidence of new metasta tic disease in the abdomen pelvis and there is no evidence of ascites. 3. No evidence of bowel obstruction, free air, nor abscess 4. No new osseous findings. RADIATION DOSE DELIVERED: Total DLP DATA REPOSITORY: All CT scans at this facility are submitted to the National Radiology Data Registry (NRDR) Dose Index Registry (DIR) with the [employer] (ACR). RADIATION OPTIMIZATION: All CT scans at this facility use at least one of these dose optimization te chniques: automated exposure control; mA and/or kV adjustment per patient size (includes targeted exa ms where dose is matched to clinical indication); or iterative reconstruction.
== END ==
PROVIDERS: PCP Family Medicine; Visit Provider Internal Medicine Medical Oncology
DX: C34.31 Malignant neoplasm of lower lobe, right bronchus or lung (principal); C79.31 Secondary malignant neoplasm of brain; R91.8 Other nonspecific abnormal finding of lung field
CPT/HCPCS: 74177; 71260

== ENCOUNTER 2023-05-11 02:21 | Outpatient (RCR) | payer MEDICAID, SELFPAY ==
[2023-04-26] MEDS: Normal Saline Flush 10 ML SYR IVP (08:58)
[2023-04-26 09:08] LABS: Abs Immature Grans 0.04 10^3/uL (0.0-0.06); Absolute Basophil Count 0.03 10^3/uL (0.0-0.2); Absolute Eosinophil Count 0.02 10^3/uL (0.0-0.7); Absolute Lymphocyte Count 0.71 10^3/uL (1.2-3.4); Absolute Neutrophil Count 1.34 10^3/uL (1.2-6.7); Basophils % 1.1; Eosinophils % 0.8; HCT 31.9 % (36.0-46.0); HGB 10.8 g/dL (11.2-15.7); Immature Grans % 1.5; Lymphocytes % 26.9; MCHC 33.9 % (32.0-36.0); MCV 92 fL (80-95); MPV 8.3 fL (8.0-11.0); Monocytes % 18.9; Neutrophils % 50.8; Platelet Count 188 10^3/uL (130-400); RBC 3.48 10^6/uL (3.93-5.22); RDW 13.3 % (11.7-14.6); RDW-SD 43.8 fL; WBC 2.64 10^3/uL (4.4-10.8)
[2023-04-26 09:34] LABS: ALT 19 U/L (14-59); AST 13 U/L (15-37); Albumin 3.7 g/dL (3.4-5.0); Alkaline Phosphatase 58 U/L (46-116); Anion Gap 8.2 mmol/L (3-11); BUN 12 mg/dL (7-18); Bilirubin, Total 0.3 mg/dL (0.2-1.0); CO2 27.8 mmol/L (21.0-32.0); Calcium 9.5 mg/dL (8.5-10.1); Chloride 105 mmol/L (98-107); FREE T4 1.01 ng/dL (0.76-1.46); Glucose 86 mg/dL (74-106); Magnesium 1.9 mg/dL (1.8-2.4); Sodium 141 mmol/L (136-145); TSH 5.96 uIU/mL (0.36-3.74); Total Protein 7.2 g/dL (6.4-8.2)
[2023-05-10] MEDS: Normal Saline Flush 10 ML SYR IVP (11:53)
[2023-05-11] MEDS: Normal Saline Flush 10 ML SYR IVP (11:05)
[2023-05-11] MEDS: Heparin 500 UNITS/5 ML SYRINGE IV (11:05)
== END 2023-05-23 23:59 | disposition home or self-care (01) ==
LOC: INF 02:21
PROVIDERS: PCP Family Medicine; Visit Provider Internal Medicine Medical Oncology
DX: C34.31 Malignant neoplasm of lower lobe, right bronchus or lung (principal); C79.31 Secondary malignant neoplasm of brain; Z45.2 Encounter for adjustment and management of vascular access device
CPT/HCPCS: 36591; 80053; 96523; 83735; 84439; 84443; 85025

== ENCOUNTER 2023-05-11 16:47 | Emergency (ER) | payer MEDICAID, SELFPAY ==
[2023-05-11] VITALS (28 sets, daily range): BP systolic 94–128; BP diastolic 47–84; PULSE 80–112; RESP 14–16; TEMP 36.8–37.2; O2SAT 92–98
--- NOTE | 2023-05-11 16:57 | ED.GENADUL_ITS ---
Discharge Plan Disposition Patient Disposition: Home Discharge Details Clinical Impression: Fever, Multifocal pneumonia Primary Care Provider: Kaci Garcia ED Provider: Marlon Greenberg Home Meds and New Rx's Prescriptions: New amoxicillin-pot clavulanate 875-125 mg tablet 1 tab PO BID 7 Days Qty: 14 0RF Continued triamcinolone acetonide 0.1 % ointment 1 applic topical BID amiodarone 200 mg tablet 200 mg PO DAILY Patient Comments: Per Dr. Palomino [facility] Xarelto 20 mg tablet 20 mg PO QPM Patient Comments: has not picked rx up yet multivitamin Capsule 1 cap PO DAILY calcium 500 mg Tablet 1,000 mg PO DAILY memantine 10 mg tablet 10 mg PO BID levetiracetam [Keppra] 500 mg tablet 500 mg PO DAILY cholecalciferol (vitamin D3) 25 mcg (1,000 unit) Tablet 1,000 unit PO DAILY polyethylene glycol 3350 17 gram Powder In Packet 17 g PO DAILY PRN PRN (Reason: Constipation) Qty: 0 0RF Discharge Instructions Instructions: Pneumonia (ED) Additional Instructions: You were seen in the emergency department for your fever. Your CAT scan showed a pneumonia for which you are receiving an antibiotic that you should take as directed. Please quarantine at home for 5 days as you may have COVID. Please test yourself every day for COVID. If you test positive for COVID please reach out to her oncology team as she may qualify for treatment. Please return to the emergency department as we discussed, if you cannot eat or drink if you develop nausea or vomiting or if you have any other concerns. Discharge Data Discharge Date/Time-TO BE ENTERED AT DEPARTURE: 05/11/23 20:41 HPI General Date/Time Provider Initiated Documentation: 05/11/23 16:57 . HPI Narrative: MDM This is a 63-year-old tachycardic but normothermic female with history of metastatic small cell lung cancer with prehospital fever URI symptoms with vomiting concerning for neutropenic fever. Neurologically intact and so my suspicion for meningitis is low so we will defer LP. No rashes to suggest cellulitis. No open sores to suggest risk for abscesses. Posterior oropharynx with no significant erythema so my suspicion is low for strep pharyngitis. Given URI symptoms and sick contacts we will swab for influenza RSV and COVID. Given nausea vomiting and diarrhea I was planning on obtaining a CT abdomen pelvis however the patient had a CT chest abdomen pelvis performed today with contrast. Her CT scan from today showed significantly in increasing infiltrates in the right lower lobe no pleural effusion. Stable abdominal pelvis findings with no new evidence of metastatic disease. No recent antibiotics to suggest increased risk for C. difficile. Will draw 2 sets of blood cultures treat empirically with cefepime and vancomycin check a lactate and provide 1 L of IV fluids. Patient right chest wall port does not show signs of superinfection. No dysuria nor frequency so I doubt UTI. No pain out of proportion to suggest necrotizing soft tissue infection. Will reassess following labs fluids and will obtain a single view chest x-ray. 6 PM Reassuring normal lactate. Venous blood gas with no acidemia nor hypercarbia. 6:52 PM Comprehensive metabolic panel showing very mild hyponatremia. Normal reassuring renal function with no ROSY. Very mild hypokalemia with a serum potassium of 3.1. Mild hyperglycemia but no anion gap and normal bicarbonate??not consistent with DKA. Very mild hypoalbuminemia. CBC showing leukopenia similar to prior dated earlier this month. Normocytic anemia slightly worse compared to prior. Percent neutrophils 63. Percent bands 6. Absolute neutrophil count 1849 cells per microliter not consistent with neutropenia. Portable chest x-ray showing multifocal pulmonary opacifications which may represent pneumonia versus metastatic disease. Negative troponin. Negative magnesium. Negative COVID influenza RSV. Will consult with heme-onc at [facility]. 8:26 PM I spoke with Dr. Jennie Jefferson from hematology at [facility] today. She reported that there is no indication for prophylactic Paxlovid as patient did not test positive for COVID. No hypoxia so no indication for dexamethasone. She did report that the patient's son-in-law had tested positive for COVID. She will help to arrange expedited outpatient follow-up. She advised having the patient quarantine at home. She reported that if the patient did not look toxic that she be appropriate for empiric trial of discharge with expectant outpatient management. She advised daily testing. I met with the patient. She was resting comfortably reading a book in no acute distress. She felt comfortable going home. I advised strict return for any worsening shortness of breath fevers or inability to tolerate p.o. Will discharge with 5-day course of amoxicillin clavulanic acid given pneumonia on x-ray. Chronic conditions affecting the care of the patient: Metastatic small cell lung cancer History obtained from an outside historian: N/A External record review: [facility] EMR [Diagnostic interpretations performed by me: Per my independent interpretation chest x-ray shows: Per my independent interpretation EKG shows: Narrow complex normal sinus rhythm at a rate of 95. Left axis deviation no signs of LVH based on voltage criteria in aVL. Intervals within normal limits. Suspect V2 V3 lead reversal. No acute injury pattern. Compared to prior dated earlier this year left axis is persistent. T wave flattening in aVL is persistent. Mild ST segment depressions V4 through V6 are more pronounced. ]Medications: Antibiotics fluids Social determinants of health affecting disposition: N/A Management discussed with: Heme-onc [facility] Treatment/interventions considered: Hospitalization but deferred based on patient's nontoxic appearance and her preference Response to therapies provided: Tachycardia resolved with IV fluids HPI This is a 63-year-old female with a history of stage IV small cell lung cancer with brain metastases arriving to the emergency department via private vehicle in the setting of fever. Patient reports that she was exposed to her son-in-law 3 days ago who had a cold. Subsequently she has had rhinorrhea. She had 4 episodes of explosive diarrhea today. She vomited once today. She is taken decreased p.o. over the past day and a half. No rashes. No pain in her right chest wall site. No recent antibiotics use. She had a temperature at home today temp orally to 100.4 ?F. She is having no abdominal pain. She has had shortness of breath of the past approximately 1 week but no productive sputum. No chest pain. Occasional alcohol use no routine tobacco nor illicits. No dysuria nor frequency. She had a CT scan of her chest abdomen pelvis as ordered by oncology earlier today. Exam General: Well-appearing in no acute distress speaking in complete sentences. Head: Normocephalic, atraumatic. Eye: Extraocular eye movements intact. No conjunctival injection. No scleral icterus. Ear, nose, mouth, throat: Grossly normal inspection. Normal voice, handling secretions normally. No significant posterior oropharynx erythema. Neck: Trachea midline. No nuchal rigidity. Cardiovascular: Well-perfused distal extremities. Regular rate and rhythm systolic ejection murmur. Chest wall: Right chest wall nontender nonerythematous. Respiratory: Nonlabored respiration. Decreased right-sided breath sounds. Gastrointestinal: Nondistended abdomen. Soft nontender abdomen. Musculoskeletal: No edema. Moving all 4 extremities spontaneously. Skin: Normal for age and race, grossly normal temperature and turgor. No acute rash. Neurologic: Alert and appropriate, no apparent acute deficits.GCS 15.Moving all 4 extremities spontaneously. Psychiatric: Mood and manner are appropriate. Grooming and personal hygiene are appropriate. Related Data Home Medications Medication Instructions Recorded Confirmed multivitamin 1 cap PO DAILY 06/04/19 10/20/22 triamcinolone acetonide 0.1 % 1 applic topical BID 06/20/21 10/20/22 topical ointment calcium 500 mg tablet 1,000 mg PO DAILY 07/31/22 10/20/22 rivaroxaban 20 mg tablet (Xarelto) 20 mg PO QPM 09/18/22 10/20/22 memantine 10 mg tablet 10 mg PO BID 09/22/22 10/20/22 levetiracetam 500 mg tablet 500 mg PO DAILY 09/24/22 10/20/22 (Keppra) cholecalciferol (vitamin D3) 25 1,000 unit PO DAILY 09/25/22 10/20/22 mcg (1,000 unit) tablet polyethylene glycol 3350 17 gram 17 g PO DAILY PRN PRN Constipation 09/27/22 10/20/22 oral powder packet #0 ea amiodarone 200 mg tablet 200 mg PO DAILY 03/23/23 amoxicillin 875 mg-potassium 1 tab PO BID 7 days #14 tabs 05/11/23 clavulanate 125 mg tablet Previous Rx's Medication Instructions Recorded polyethylene glycol 3350 17 gram 17 g PO DAILY PRN PRN Constipation 09/27/22 oral powder packet #0 ea amoxicillin 875 mg-potassium 1 tab PO BID 7 days #14 tabs 05/11/23 clavulanate 125 mg tablet Allergies Allergy/AdvReac Type Severity Reaction Status Date / Time No Known Allergies Allergy Verified 10/20/22 09:25 General RIVKA: 3 PFSH All Active Problems (Updated 05/11/23 @ 23:06 by Marlon Greenberg MD) Multifocal pneumonia (Acute) Fever (Acute) Abdominal pain (Acute) Metastatic neoplasm (Acute) Bradycardia (Acute) Small cell lung cancer (Acute) Paroxysmal atrial fibrillation (Acute) Atrial fibrillation with RVR (Acute) Arrhythmia (Acute) SESSILE SERATED ADENOMA (Acute ~03/20/22) stoiber, multiple, repeat 2 yrs Hx of adenomatous colonic polyps (Acute) Screening for colon cancer (Acute) LVE (left ventricular enlargement) (Acute) Syncope (Chronic) Medical History Cardiac arrhythmia Dermatitis DIVERTICULOSIS Herpes zoster Menopause Smoker Stress TUBULAR ADENOMA Surgical History Bone Graft & Pinning of Right Wrist Colonoscopy - IV Sedation (03/15/13) History of colonoscopy with polypectomy (~03/20/22) Lateral Retinacular Release, Open Right Family History Mother Heart disease Father Alcohol abuse Sister Heart disease Sister No problems noted. Brother No problems noted. Brother No problems noted. Social History Smoking/Tobacco Use Status: Former Tobacco Use Tobacco: How many years used: 29 Smoking risk assessment performed?: Yes Alcohol Intake: current Alcohol Intake frequency: a few times a month Alcohol type: wine Drug use: Never Substance use type: does not use Details: states no cigarette in 2 weeks since being sick Current gender identity: female What type of physical activity do you participate in: none Do you feel safe at home: Yes Do you feel safe in your relationship?: Yes
--- NOTE | 2023-05-11 17:15 | RT.EKG_ITS ---
APPROVED REPORT Exam: Resting ECG Reason for Exam: Tachycardic Patient Location: E HR:95 bpm ECG Measurements Heart Rate 95 AXIS MA 160 P 66 QRSd 90 QRS -27 QT 378 T 106 QTc 474 Conclusion Sinus rhythm...normal P axis, V-rate 60- 99 Nonspecific T abnormalities, lateral leads...T <-0.10mV, I aVL V5 V6 Narrow complex normal sinus rhythm at a rate of 95. Left axis deviation no signs of LVH based on vol tage criteria in aVL. Intervals within normal limits. Suspect V2 V3 lead reversal. No acute injury pattern. Compared to prior dated earlier this year left axis is persistent. T wave flattening in a VL is persistent. Mild ST segment depressions V4 through V6 are more pronounced.
[2023-05-11] MEDS: ACETAMINOPHEN 1,000 MG/100 ML BTL 400 MG IVPB (17:40)
[2023-05-11] MEDS: Normal Saline 1,000 ML 1000 ML IV (17:40)
[2023-05-11 17:44] LABS: BE (Venous) 2 mmol/L (-2-3); HCO3 (Venous) 26 mmol/L (23-28); O2 Sat (Venous) 75 %; TCO2 (Venous) 24 mmol/L (24-29); pCO2 (Venous) 37 mmHg (41-51); pH (Venous) 7.45 (7.31-7.41); pO2 (Venous) 39 mmHg
[2023-05-11 17:45] LABS: Lactate 0.6 mmol/L (0.6-1.4)
[2023-05-11 17:48] LABS: Abs Immature Grans 0.03 10^3/uL (0.0-0.06); HCT 28.5 % (36.0-46.0); HGB 9.8 g/dL (11.2-15.7); MCH 31.5 pg (27.0-33.0); MCHC 34.4 % (32.0-36.0); MCV 92 fL (80-95); MPV 8.5 fL (8.0-11.0); Platelet Count 213 10^3/uL (130-400); RBC 3.11 10^6/uL (3.93-5.22); RDW 13.5 % (11.7-14.6); RDW-SD 43.8 fL; WBC 2.68 10^3/uL (4.4-10.8)
[2023-05-11 17:53] LABS: COVID-19 PCR Negative (Negative); Influenza A PCR Negative (Negative); Influenza B PCR Negative (Negative); RSV PCR Negative (Negative)
[2023-05-11 18:00] LABS: Magnesium 1.9 mg/dL (1.8-2.4)
[2023-05-11] MEDS: CEFEPIME 2 GM in Normal Saline 100 ML IVPB (18:03)
--- NOTE | 2023-05-11 18:05 | DI.RAD_ITS ---
Exam(s) XR PORTABLE CHEST AP EXAM: XR PORTABLE CHEST AP CLINICAL HISTORY: Neutropenic fever TECHNIQUE: 2D digital imaging was performed of the chest. Two images were obtained. AP views were obtained. COMPARISON: CR,XR XR CHEST 2V PA LATERAL from 05/19/[address] CHEST/ABD/PEL W from 05/11/2023 FINDINGS: MEDIASTINUM: Normal. HEART: Normal. PULMONARY VASCULATURE: Normal. LUNGS: Opacities are seen in the right perihilar region in the left lung base laterally and medially. These correspond to opacity seen on the CT scan of the chest from earlier in the day. Infection sh ould be considered. Metastatic disease should also be considered in this patient. PLEURAL SPACE: No pleural effusion or pneumothorax. BONE:Within normal limits for the patient's age. OTHER FINDINGS:There is an [id number] type catheter in place. IMPRESSION: Multifocal pulmonary opacities which may represent pneumonia. Metastatic disease should also be cons idered. DATA REPOSITORY: RADIATION DOSE DELIVERED:
[2023-05-11 18:06] LABS: ALT 23 U/L (14-59); AST 16 U/L (15-37); Albumin 3.3 g/dL (3.4-5.0); Alkaline Phosphatase 66 U/L (46-116); Anion Gap 8.9 mmol/L (3-11); BUN 15 mg/dL (7-18); Bilirubin, Total 0.4 mg/dL (0.2-1.0); CO2 26.1 mmol/L (21.0-32.0); CREATININE 0.9 mg/dL (0.55-1.02); Calcium 9.2 mg/dL (8.5-10.1); Chloride 99 mmol/L (98-107); Estimated GFR 71.83 (mL/min/1.73m2); Glucose 109 mg/dL (74-106); Potassium 3.3 mmol/L (3.5-5.1); Sodium 134 mmol/L (136-145); Total Protein 7.2 g/dL (6.4-8.2); Troponin I < 50 ng/L (<or=60)
[2023-05-11 18:07] LABS: Source Nasopharynx
[2023-05-11 18:15] LABS: Absolute Lymphocyte Count 0.24 10^3/uL (1.2-3.4); Absolute Monocyte Count 0.59 10^3/uL (0.1-0.8); Absolute Neutrophil Count 1.85 10^3/uL (1.2-6.7); Atypical Lymphocytes % 1; Bands % 6
[2023-05-11 18:16] LABS: Diff Comment Diff Reviewed
[2023-05-11 18:17] LABS: Hypochromasia 1+
[2023-05-11] MEDS: VANCOMYCIN/WATER (PEG) 1.5 GM/300 ML BAG IVPB (18:25)
[2023-05-11] MEDS: Amoxicillin 875/Clav. 125 TAB PO (20:40)
== END 2023-05-11 20:41 | disposition home or self-care (01) ==
PROVIDERS: Emergency Provider Emergency Medicine; PCP Family Medicine
DX: J18.8 Other pneumonia, unspecified organism (principal); R94.31 Abnormal electrocardiogram [ECG] [EKG]; E87.1 Hypo-osmolality and hyponatremia; E87.6 Hypokalemia; C34.90 Malignant neoplasm of unspecified part of unspecified bronchus or lung; C79.31 Secondary malignant neoplasm of brain
CPT/HCPCS: 80053; 82805; 87040; 87637; 93005; 96365; 96367; 96375; 99284; 71045; 83605; 83735; 84484; 85025; 93010; J0131

== ENCOUNTER → 2023-06-08 03:14 | Outpatient (CLI) | payer MEDICAID, SELFPAY ==
[2023-06-08] MEDS: Normal Saline - Diluent 50 ML VIAL IJ (12:56)
[2023-06-08] MEDS: Omnipaque 350 MG/ML 500 ML BTL-Imaging package 70 ML IJ (12:57)
--- NOTE | 2023-06-08 13:05 | DI.CT_ITS ---
Exam(s) CT CHEST W EXAM: CT CHEST W CLINICAL HISTORY: F/U LUNG CA,C34.31,ASSESS TREATMENT RESPONSE,. TECHNIQUE: Multi planar reconstructions were performed. CONTRAST MATERIAL: Omnipaque 350; 75 cc COMPARISON: CT CT CHEST/ABD/PEL W from 05/11/2023 FINDINGS: CHEST: LUNGS: Fissure adjacent nodular infiltrate in the posterior segment of the right upper lobe is unchan ged. The infiltrate in the superior segment of the right lower lobe has increased. The masslike den sity in the posterior basal segment of the right lower lobe extending into the medial basal segment h as increased in size, presently measuring 5 cm wide by 4 cm AP by 5.5 cm craniocaudal. Previously me asured 3.5 cm AP by 3 cm wide by 5.5 cm craniocaudal. There is infiltrate also evident in the right middle lobe which appears slightly increased from previous. The previously described benign-appearin g increased markings-atelectasis in the lingular high segment of the left lung and posterior basal se gment remain unchanged. There are no pleural effusions on either side. MEDIASTINUM: There is no adenopathy in the anterior mediastinal fat and paratracheal region. The miller unt of subcarinal adenopathy appears slightly diminished. Amount of hilar adenopathy on the right si de may be slightly diminished. There is no significant adenopathy in the opposite-left hilum. Visua lized thyroid unremarkable. CARDIAC: Heart size is normal. There is no pericardial effusion.Caliber of the thoracic aorta is wit hin normal limits. Distal tip of the Port-A-Cath is in the right atrium. VISUALIZED UPPER ABDOMEN:There are no significant adrenal masses. Small cyst again noted in the post erior aspect of the nonenlarged spleen. Also again noted is a small cyst in the anterior aspect of t he liver measuring 1 cm size. OSSEOUS: No significant osseous lesions.No fractures.. IMPRESSION: 1. Compared to the prior CT scan of 05/11/2023 there appears to be some deterioration of the right jessie ng findings with increasing size mass infiltrate in the right lower lobe as detailed above. Also mil dly increased infiltrate in the right middle lobe. Stable smaller nodular infiltrate in the posterio r segment of the right upper lobe. 2. There are no pleural effusions. 3. The amount of adenopathy appears to have slightly decreased as described above. Distal tip of the Port-A-Cath is in the right atrium. No new significant osseous findings. RADIATION DOSE DELIVERED: 440.77mGy.cm Total DLP DATA REPOSITORY: All CT scans at this facility are submitted to the National Radiology Data Registry (NRDR) Dose Index Registry (DIR) with the [employer] (ACR). RADIATION OPTIMIZATION: All CT scans at this facility use at least one of these dose optimization te chniques: automated exposure control; mA and/or kV adjustment per patient size (includes targeted exa ms where dose is matched to clinical indication); or iterative reconstruction.
== END ==
PROVIDERS: PCP Family Medicine; Visit Provider Nurse Practitioner Family
DX: C34.31 Malignant neoplasm of lower lobe, right bronchus or lung (principal)
CPT/HCPCS: 71260

== ENCOUNTER 2023-06-09 08:48 | Emergency (ER) | payer MEDICAID, SELFPAY ==
[2023-06-09] VITALS (29 sets, daily range): BP systolic 117–142; BP diastolic 67–96; PULSE 66–81; RESP 12–21; TEMP 36.6; O2SAT 82–100
--- NOTE | 2023-06-09 09:00 | RT.EKG_ITS ---
APPROVED REPORT Exam: Resting ECG Reason for Exam: weakness Patient Location: E HR:67 bpm ECG Measurements Heart Rate 67 AXIS AZ 182 P 65 QRSd 92 QRS 1 QT 459 T 43 QTc 485 Conclusion Sinus rhythm...normal P axis, V-rate 60- 99
--- NOTE | 2023-06-09 09:00 | DI.MRI_ITS ---
Exam(s) MR BRAIN WO/W EXAM: MR BRAIN WO/W CLINICAL HISTORY: lung ca s/brain met, new onset rue tremor TECHNIQUE: Multiplanar multisequence MRI of the brain was performed. Both noninfused and contrast i nfused sequences were performed. IV Contrast injected was cc Dotarem. COMPARISON: MR MR BRAIN WO/W from 03/29/2023 MR MR BRAIN WO/W from 05/10/2023 FINDINGS: CEREBRAL PARENCHYMA: No evidence of intracranial hemorrhage. However, there is now a new ring-enhanc ing lesion in the right temporal lobe measuring 1.3 x 0.9 cm and with significant amount of surroundi ng white matter edema which was also not previously present. In addition, there is a new small enhan cing 3 millimeter lesion in the right-side of the sarah. The previously described small right parieta l lobe lesion is again noted, similar to previous. There are no new enhancing lesions in the left side of the brain. No new cerebellar findings. PITUITARY GLAND: No mass nor parasellar abnormality. No obvious abnormality in the cavernous sinuses. FLOW VOIDS: The expected flow void are noted. No evidence of obvious aneurysm nor obvious vascular ma lformation. PARANASAL SINUSES: The visualized paranasal sinuses appear unremarkable. ORBITS: No obvious abnormal findings. IMPRESSION: 1. Compared to the prior MRI studies listed above there is a new enhancing metastatic lesion in the r ight temporal lobe with moderate amount of surrounding edema and there is also new small 3 millimeter enhancing lesion in the right side of the sarah, also not previously present. Previously described right parietal lesion is again noted. This has not increased in size. Called by myself to ER provider. DATA REPOSITORY:
--- NOTE | 2023-06-09 09:31 | W.ED.GENAD ---
HPI General Date/Time Provider Initiated Documentation: 06/09/23 08:50. 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 Denies fever or chills. States she otherwise feels well. Denies any speech or headache change. Denies any falls or injuries. Denies history of tremor in the past. Denies any weakness, vision change. Related Data Home Medications Medication Instructions Recorded Confirmed multivitamin 1 cap PO DAILY 06/04/19 06/09/23 triamcinolone acetonide 0.1 % 1 applic topical BID PRN 06/20/21 06/09/23 topical ointment calcium 500 mg tablet 1,000 mg PO DAILY 07/31/22 06/09/23 rivaroxaban 20 mg tablet (Xarelto) 20 mg PO QPM 09/18/22 06/09/23 memantine 10 mg tablet 10 mg PO BID 09/22/22 06/09/23 levetiracetam 500 mg tablet 500 mg PO DAILY 09/24/22 06/09/23 (Keppra) cholecalciferol (vitamin D3) 25 1,000 unit PO DAILY 09/25/22 06/09/23 mcg (1,000 unit) tablet polyethylene glycol 3350 17 gram 17 g PO DAILY PRN PRN Constipation 09/27/22 06/09/23 oral powder packet #0 ea amiodarone 200 mg tablet 200 mg PO DAILY 03/23/23 06/09/23 apixaban 5 mg tablet (Eliquis) 5 mg PO BID 06/09/23 06/09/23 magnesium 200 mg tablet 200 mg PO DAILY 06/09/23 06/09/23 Previous Rx's Medication Instructions Recorded polyethylene glycol 3350 17 gram 17 g PO DAILY PRN PRN Constipation 09/27/22 oral powder packet #0 ea Allergies Allergy/AdvReac Type Severity Reaction Status Date / Time No Known Allergies Allergy Verified 10/20/22 09:25 General Stated Complaint: GenMedical RIVKA: 3 PFSH All Active Problems (Updated 06/09/23 @ 13:07 by GEOFF Borja) Intention tremor (Acute) Neutropenia (Acute) Lesion of brain (Acute) Multifocal pneumonia (Acute) Fever (Acute) Abdominal pain (Acute) Metastatic neoplasm (Acute) Bradycardia (Acute) Small cell lung cancer (Acute) Paroxysmal atrial fibrillation (Acute) Atrial fibrillation with RVR (Acute) Arrhythmia (Acute) SESSILE SERATED ADENOMA (Acute ~03/20/22) stoiber, multiple, repeat 2 yrs Hx of adenomatous colonic polyps (Acute) Screening for colon cancer (Acute) LVE (left ventricular enlargement) (Acute) Syncope (Chronic) Medical History Cardiac arrhythmia Dermatitis DIVERTICULOSIS Herpes zoster Menopause Smoker Stress TUBULAR ADENOMA Surgical History Bone Graft & Pinning of Right Wrist Colonoscopy - IV Sedation (03/15/13) History of colonoscopy with polypectomy (~03/20/22) Lateral Retinacular Release, Open Right Family History Mother Heart disease Father Alcohol abuse Sister Heart disease Sister No problems noted. Brother No problems noted. Brother No problems noted. Social History Smoking/Tobacco Use Status: Former Tobacco Use Tobacco: How many years used: 29 Smoking risk assessment performed?: Yes Alcohol Intake: current Alcohol Intake frequency: a few times a month Alcohol type: wine Drug use: Never Substance use type: does not use Details: states no cigarette in 2 weeks since being sick Housing: apartment Current gender identity: female What type of physical activity do you participate in: none Do you feel safe at home: Yes Do you feel safe in your relationship?: Yes PAWSS Have you Been Recently Intoxicated or Drunk Within the Last 30 days?: No Have you Ever Experienced Previous Episodes of Alcohol Withdrawal?: No Have you ever Experienced Withdrawal Seizures?: No Have you ever Experienced Delirium Tremens(DT)s?: No Have you ever undergone Alcohol Rehabilitation Treatment (i.e, inpt ot outpatient treatment programs)?: No Have you ever Experienced Blackouts?: No Have you ever Combined Alcohol with other Downers within the last 90 days?: No Have you ever Combined Alcohol with any other Substance of Abuse during the last 90 days?: No Positive Blood Alcohol level on Presentation? [PCS.BAL]: No Evidence of Increased Autonomic Activity (i.e. HR>120, tremor, sweating, agitation, nausea)?: No Result: 0 Course Vital Signs Vital signs: Vital Signs Temperature 36.6 C 06/09/23 08:50 Pulse 81 06/09/23 08:50 Respiratory Rate 16 06/09/23 08:50 Blood Pressure 130/96 H 06/09/23 08:50 Pulse Oximetry 100 06/09/23 08:50 Temperature 36.6 C 06/09/23 08:55 Temperature Source Oral 06/09/23 08:55 Pulse 81 06/09/23 08:55 Pulse 76 06/09/23 09:00 Respiratory Rate 15 06/09/23 09:01 Respiratory Effort Normal, Non-Labored 06/09/23 09:01 Respiratory Depth Normal 06/09/23 09:01 Respiratory Pattern Normal 06/09/23 09:01 Blood Pressure 130/96 H 06/09/23 08:55 Blood Pressure Position Sitting 06/09/23 08:55 Pulse Oximetry 94 06/09/23 09:00 Oxygen Delivery Method Room Air 06/09/23 08:55 Oxygen Flow Rate 0 06/09/23 08:55 Pain Level 0 06/09/23 08:55 Medical Decision Making 63-year-old female, alert and oriented, neutropenic, white count of 1, neutrophil count of 0.7 Vitals are stable Nonfocal neurological exam aside from tremor noted to right upper extremity more pronounced, left upper extremity mild identifier horse strength intact bilaterally, no lower extremity involvement, pupils equal round reactive to light and accommodation extraocular muscles intact, speech and sensation intact, alert and oriented x 4, cranial nerves II through XII intact negative [id number], negative [id number], negative pronator drift, Lungs clear to auscultation, cardiac rate rhythm regular MRI brain with and without contrast was ordered for further evaluation and there are 2 new lesions, will 1 in the temporal region with edema surrounding and 1 adjacent to the right sarah which are new from 05/10/2023 Oncology and neurosurgery were paged at approximately 11:00, still pending return call at 1245 for disposition Case discussed with Dr. Kathleen, neurosurgery at [facility], we reviewed the findings on MRI and he does not feel as though these new lesions are causing patient's tremor, he does not recommend any intervention aside from radiation at this time, patient is otherwise has a nonfocal neurological exam is alert and oriented and ambulatory steady gait Case was also discussed with Dr. Polanco, oncology [facility], we reviewed the neutropenia, she does not recommend Neupogen unless patient develops a fever, we have checked temperature on 3 separate occasions which has been afebrile throughout this encounter, no obvious evidence of neutropenic fever, no rigors At this time, patient is encouraged to call oncology for more urgent outpatient follow-up and is aware that she will likely need radiation and that she has increasing lesions on her brain MRI She will review the results of her CT thorax with her oncology at her next appointment She is discharged home ambulatory with steady gait She is encouraged to take several days off of work and to have her labs and evaluation reassessed with either oncology or primary care physician in the outpatient setting Given the neutropenia, she was encouraged to wear mask when out in public and to use caution secondary to her immunosuppressed state Quality:SDOH Health Related Social Needs: No Data to Display Discharge Plan Disposition Patient Disposition: Home Discharge Details Clinical Impression: Lesion of brain, Neutropenia, Intention tremor Primary Care Provider: Kaci Garcia ED Provider: Chelsea Schwartz Home Meds and New Rx's Prescriptions: Continued triamcinolone acetonide 0.1 % ointment 1 applic topical BID PRN amiodarone 200 mg tablet 200 mg PO DAILY Patient Comments: Per Dr. Palomino [facility] Xarelto 20 mg tablet 20 mg PO QPM Patient Comments: has not picked rx up yet multivitamin Capsule 1 cap PO DAILY calcium 500 mg Tablet 1,000 mg PO DAILY memantine 10 mg tablet 10 mg PO BID levetiracetam [Keppra] 500 mg tablet 500 mg PO DAILY cholecalciferol (vitamin D3) 25 mcg (1,000 unit) Tablet 1,000 unit PO DAILY polyethylene glycol 3350 17 gram Powder In Packet 17 g PO DAILY PRN PRN (Reason: Constipation) Qty: 0 0RF Eliquis 5 mg tablet 5 mg PO BID magnesium 200 mg tablet 200 mg PO DAILY Discharge Instructions Additional Instructions: Please follow-up with your oncologist regarding your MRI of your brain and your CT of your chest, I spoke with neurosurgery at [facility] and I think you likely need radiation of your brain I did call and see if your oncology appointment could be scheduled sooner than the Regular fluids and hydration You are neutropenic meaning your immune system is compromised, I recommend wearing a mask if you leave your house and using caution She developed speech, sensation change, weakness, fever I recommend emergent reassessment Referrals: Kaci Garcia [Primary Care Provider] - Tirso Rondon [ NON-[facility] STAFF PHYSICIAN] - 1 day
[2023-06-09 09:37] LABS: Abs Immature Grans 0.01 10^3/uL (0.0-0.06); Absolute Basophil Count 0.03 10^3/uL (0.0-0.2); HCT 29.4 % (36.0-46.0); HGB 9.9 g/dL (11.2-15.7); MCH 31.4 pg (27.0-33.0); MCHC 33.7 % (32.0-36.0); MCV 93 fL (80-95); MPV 8.4 fL (8.0-11.0); Platelet Count 173 10^3/uL (130-400); RBC 3.15 10^6/uL (3.93-5.22); RDW 14.8 % (11.7-14.6); RDW-SD 50.5 fL
[2023-06-09 09:44] LABS: WBC 1.65 10^3/uL (4.4-10.8)
[2023-06-09] MEDS: Normal Saline Flush 10 ML SYR IVP (09:46)
[2023-06-09] MEDS: Gadoterate meglumine 20 ML SYRINGE 14 ML IVP (09:48)
[2023-06-09 09:51] LABS: Absolute Eosinophil Count 0.03 10^3/uL (0.0-0.7); Absolute Lymphocyte Count 0.53 10^3/uL (1.2-3.4); Absolute Monocyte Count 0.33 10^3/uL (0.1-0.8); Absolute Neutrophil Count 0.73 10^3/uL (1.2-6.7); Diff Comment Manual Differential; RBC Morphology Normal
[2023-06-09 10:07] LABS: ALT 21 U/L (14-59); AST 11 U/L (15-37); Albumin 3.4 g/dL (3.4-5.0); Alkaline Phosphatase 61 U/L (46-116); Anion Gap 6.8 mmol/L (3-11); BUN 14 mg/dL (7-18); Bilirubin, Total 0.3 mg/dL (0.2-1.0); CO2 29.2 mmol/L (21.0-32.0); CREATININE 0.8 mg/dL (0.55-1.02); Calcium 9.4 mg/dL (8.5-10.1); Chloride 102 mmol/L (98-107); Estimated GFR 82.74 (mL/min/1.73m2); Glucose 94 mg/dL (74-106); Magnesium 2.1 mg/dL (1.8-2.4); Potassium 4.1 mmol/L (3.5-5.1); Sodium 138 mmol/L (136-145); TSH (W/Ref FT4) 4.41 uIU/mL (0.36-3.74); Total Protein 7.2 g/dL (6.4-8.2)
[2023-06-09 10:25] LABS: FREE T4 1.02 ng/dL (0.76-1.46)
[2023-06-09] MEDS: Heparin 500 UNITS/5 ML SYRINGE (13:31)
== END 2023-06-09 13:29 | disposition home or self-care (01) ==
PROVIDERS: Emergency Provider Physician Assistant; PCP Family Medicine
DX: G25.2 Other specified forms of tremor (principal); C34.90 Malignant neoplasm of unspecified part of unspecified bronchus or lung; C79.31 Secondary malignant neoplasm of brain; I48.0 Paroxysmal atrial fibrillation; Z79.01 Long term (current) use of anticoagulants; Z92.21 Personal history of antineoplastic chemotherapy; Z87.891 Personal history of nicotine dependence
CPT/HCPCS: 36415; 70553; 80053; 83690; 93005; 99284; 83735; 84439; 84443; 85025; 93010; J1642

== ENCOUNTER 2023-06-21 03:03 | Outpatient (RCR) | payer MEDICAID, SELFPAY ==
[2023-05-26] MEDS: Normal Saline Flush 10 ML SYR IVP (07:25)
[2023-05-26 08:24] LABS: Abs Immature Grans 0.03 10^3/uL (0.0-0.06); Absolute Basophil Count 0.05 10^3/uL (0.0-0.2); Absolute Eosinophil Count 0.06 10^3/uL (0.0-0.7); Absolute Lymphocyte Count 0.68 10^3/uL (1.2-3.4); Absolute Monocyte Count 0.61 10^3/uL (0.1-0.8); Absolute Neutrophil Count 2.06 10^3/uL (1.2-6.7); Basophils % 1.4; Eosinophils % 1.7; HGB 10.4 g/dL (11.2-15.7); Immature Grans % 0.9; Lymphocytes % 19.5; MCH 31.5 pg (27.0-33.0); MCHC 33.5 % (32.0-36.0); MCV 94 fL (80-95); MPV 8.7 fL (8.0-11.0); Monocytes % 17.5; Platelet Count 421 10^3/uL (130-400); RDW 14.6 % (11.7-14.6); RDW-SD 49.4 fL; WBC 3.49 10^3/uL (4.4-10.8)
[2023-05-26 08:50] LABS: ALT 16 U/L (14-59); AST 13 U/L (15-37); Albumin 3.3 g/dL (3.4-5.0); Alkaline Phosphatase 65 U/L (46-116); Anion Gap 9.9 mmol/L (3-11); BUN 13 mg/dL (7-18); Bilirubin, Total 0.3 mg/dL (0.2-1.0); CO2 29.1 mmol/L (21.0-32.0); Calcium 9.8 mg/dL (8.5-10.1); Chloride 103 mmol/L (98-107); FREE T4 0.97 ng/dL (0.76-1.46); Glucose 87 mg/dL (74-106); Magnesium 2.2 mg/dL (1.8-2.4); Potassium 4.1 mmol/L (3.5-5.1); Sodium 142 mmol/L (136-145); TSH 6.73 uIU/mL (0.36-3.74); Total Protein 7.4 g/dL (6.4-8.2)
[2023-06-08] MEDS: Normal Saline Flush 10 ML SYR IVP (12:52)
[2023-06-21] MEDS: Normal Saline Flush 10 ML SYR IVP (10:13)
[2023-06-21 10:28] LABS: Abs Immature Grans 0.61 10^3/uL (0.0-0.06); HCT 33.3 % (36.0-46.0); HGB 11.5 g/dL (11.2-15.7); MCH 32.1 pg (27.0-33.0); MCHC 34.5 % (32.0-36.0); MCV 93 fL (80-95); MPV 8.9 fL (8.0-11.0); Platelet Count 236 10^3/uL (130-400); RBC 3.58 10^6/uL (3.93-5.22); RDW 15.3 % (11.7-14.6)
[2023-06-21 10:57] LABS: ALT 24 U/L (14-59); AST 10 U/L (15-37); Albumin 3.5 g/dL (3.4-5.0); Alkaline Phosphatase 51 U/L (46-116); Anion Gap 8.4 mmol/L (3-11); BUN 30 mg/dL (7-18); Bilirubin, Total 0.2 mg/dL (0.2-1.0); CO2 27.6 mmol/L (21.0-32.0); CREATININE 0.9 mg/dL (0.55-1.02); Calcium 9.4 mg/dL (8.5-10.1); Chloride 101 mmol/L (98-107); Estimated GFR 71.83 (mL/min/1.73m2); FREE T4 0.78 ng/dL (0.76-1.46); Glucose 93 mg/dL (74-106); Magnesium 2.3 mg/dL (1.8-2.4); Potassium 4.2 mmol/L (3.5-5.1); Sodium 137 mmol/L (136-145); TSH 1.58 uIU/mL (0.36-3.74); Total Protein 7.1 g/dL (6.4-8.2)
[2023-06-21 11:02] LABS: Absolute Lymphocyte Count 1.17 10^3/uL (1.2-3.4); Absolute Monocyte Count 0.72 10^3/uL (0.1-0.8); Absolute Neutrophil Count 7.02 10^3/uL (1.2-6.7); Atypical Lymphocytes % 6; Bands % 0; Diff Comment Manual Differential; Myelocytes % 1; RBC Morphology Normal
== END 2023-06-23 23:59 | disposition home or self-care (01) ==
LOC: INF 03:03
PROVIDERS: PCP Family Medicine; Visit Provider Internal Medicine Medical Oncology
DX: C34.31 Malignant neoplasm of lower lobe, right bronchus or lung (principal); C79.31 Secondary malignant neoplasm of brain; Z45.2 Encounter for adjustment and management of vascular access device
CPT/HCPCS: 36591; 80053; 96523; 83735; 84439; 84443; 85025

== ENCOUNTER 2023-07-19 03:47 | Outpatient (RCR) | payer MEDICAID, SELFPAY ==
[2023-06-28] MEDS: Normal Saline Flush 10 ML SYR IVP (09:46)
[2023-06-28 09:55] LABS: Absolute Basophil Count 0.04 10^3/uL (0.0-0.2); Absolute Lymphocyte Count 0.37 10^3/uL (1.2-3.4); Absolute Neutrophil Count 5.67 10^3/uL (1.2-6.7); Basophils % 0.5; HCT 32.9 % (36.0-46.0); HGB 11.2 g/dL (11.2-15.7); Immature Grans % 8.2; Lymphocytes % 5.1; MCH 32.3 pg (27.0-33.0); MCV 95 fL (80-95); MPV 8.5 fL (8.0-11.0); Monocytes % 8.2; Platelet Count 269 10^3/uL (130-400); RBC 3.47 10^6/uL (3.93-5.22); RDW 15.3 % (11.7-14.6); RDW-SD 53.3 fL; WBC 7.28 10^3/uL (4.4-10.8)
[2023-06-28 10:16] LABS: ALT 28 U/L (14-59); AST 12 U/L (15-37); Albumin 3.2 g/dL (3.4-5.0); Alkaline Phosphatase 48 U/L (46-116); Anion Gap 4.2 mmol/L (3-11); BUN 28 mg/dL (7-18); Bilirubin, Total 0.2 mg/dL (0.2-1.0); CO2 29.8 mmol/L (21.0-32.0); CREATININE 0.8 mg/dL (0.55-1.02); Chloride 101 mmol/L (98-107); Estimated GFR 82.74 (mL/min/1.73m2); FREE T4 0.73 ng/dL (0.76-1.46); Glucose 94 mg/dL (74-106); Magnesium 2.2 mg/dL (1.8-2.4); Potassium 4.2 mmol/L (3.5-5.1); Sodium 135 mmol/L (136-145); TSH 1.42 uIU/mL (0.36-3.74); Total Protein 6.8 g/dL (6.4-8.2)
[2023-06-28 10:23] LABS: Diff Comment Diff Reviewed; RBC Morphology Normal
[2023-07-12] MEDS: Normal Saline Flush 10 ML SYR IVP (10:28)
[2023-07-12 10:33] LABS: Abs Immature Grans 0.21 10^3/uL (0.0-0.06); Absolute Basophil Count 0.04 10^3/uL (0.0-0.2); Absolute Eosinophil Count 0.01 10^3/uL (0.0-0.7); Absolute Lymphocyte Count 0.48 10^3/uL (1.2-3.4); Absolute Monocyte Count 0.56 10^3/uL (0.1-0.8); Basophils % 0.9; Eosinophils % 0.2; HCT 34.1 % (36.0-46.0); HGB 11.4 g/dL (11.2-15.7); Immature Grans % 4.7; Lymphocytes % 10.7; MCH 31.7 pg (27.0-33.0); MCHC 33.4 % (32.0-36.0); MCV 95 fL (80-95); MPV 8.2 fL (8.0-11.0); Monocytes % 12.4; Neutrophils % 71.1; Platelet Count 169 10^3/uL (130-400); RDW 15.8 % (11.7-14.6); RDW-SD 54.2 fL
[2023-07-12 10:56] LABS: ALT 34 U/L (14-59); AST 12 U/L (15-37); Albumin 3.5 g/dL (3.4-5.0); Alkaline Phosphatase 50 U/L (46-116); Anion Gap 7.8 mmol/L (3-11); BUN 20 mg/dL (7-18); Bilirubin, Total 0.3 mg/dL (0.2-1.0); CO2 28.2 mmol/L (21.0-32.0); CREATININE 0.9 mg/dL (0.55-1.02); Chloride 102 mmol/L (98-107); Estimated GFR 71.83 (mL/min/1.73m2); FREE T4 0.78 ng/dL (0.76-1.46); Glucose 91 mg/dL (74-106); Magnesium 2.1 mg/dL (1.8-2.4); Potassium 3.8 mmol/L (3.5-5.1); Sodium 138 mmol/L (136-145); TSH 2.06 uIU/mL (0.36-3.74); Total Protein 6.8 g/dL (6.4-8.2)
[2023-07-19 11:56] LABS: Abs Immature Grans 0.32 10^3/uL (0.0-0.06); HCT 32.9 % (36.0-46.0); MCH 32.3 pg (27.0-33.0); MCHC 33.4 % (32.0-36.0); MCV 97 fL (80-95); MPV 8.9 fL (8.0-11.0); Platelet Count 183 10^3/uL (130-400); RBC 3.41 10^6/uL (3.93-5.22); RDW 15.7 % (11.7-14.6); RDW-SD 55.6 fL
[2023-07-19 12:20] LABS: ALT 34 U/L (14-59); AST 17 U/L (15-37); Absolute Lymphocyte Count 0.43 10^3/uL (1.2-3.4); Absolute Monocyte Count 0.09 10^3/uL (0.1-0.8); Absolute Neutrophil Count 3.61 10^3/uL (1.2-6.7); Albumin 3.2 g/dL (3.4-5.0); Alkaline Phosphatase 57 U/L (46-116); Anion Gap 9.5 mmol/L (3-11); Atypical Lymphocytes % 3; BUN 19 mg/dL (7-18); Bands % 2; Bilirubin, Total 0.3 mg/dL (0.2-1.0); CO2 26.5 mmol/L (21.0-32.0); CREATININE 0.9 mg/dL (0.55-1.02); Calcium 8.7 mg/dL (8.5-10.1); Chloride 106 mmol/L (98-107); Estimated GFR 71.83 (mL/min/1.73m2); FREE T4 0.94 ng/dL (0.76-1.46); Glucose 143 mg/dL (74-106); Magnesium 1.9 mg/dL (1.8-2.4); Potassium 3.8 mmol/L (3.5-5.1); Sodium 142 mmol/L (136-145); TSH 2.72 uIU/mL (0.36-3.74); Total Protein 6.6 g/dL (6.4-8.2)
[2023-07-19 12:21] LABS: Diff Comment Manual Differential; Metamyelocytes % 1; Myelocytes % 3; Polychromasia Present
[2023-07-19] MEDS: Normal Saline Flush 10 ML SYR IVP (14:25)
== END 2023-07-22 23:59 | disposition home or self-care (01) ==
LOC: INF 03:47
PROVIDERS: PCP Family Medicine; Visit Provider Internal Medicine Medical Oncology
DX: C34.31 Malignant neoplasm of lower lobe, right bronchus or lung (principal); C79.31 Secondary malignant neoplasm of brain; Z45.2 Encounter for adjustment and management of vascular access device
CPT/HCPCS: 36591; 80053; 83735; 84439; 84443; 85025

== ENCOUNTER → 2023-07-26 04:17 | Outpatient (CLI) | payer MEDICAID, SELFPAY ==
--- NOTE | 2023-07-26 | DI.CT_ITS ---
Exam(s) CT CHEST/ABD/PEL W EXAM: CT CHEST/ABD/PEL W CLINICAL HISTORY: LUNG CANCER C34.31 BRAIN METS C79.31 RESTAGING. TECHNIQUE: Imaging Protocol: Axial computed tomography images with coronal and sagittal reformatted images were created and reviewed CONTRAST MATERIAL: Intravenous: Omnipaque 350 Contrast volume:100 ml Oral: / no COMPARISON: CT CT CHEST/ABD/PEL W from 05/11/[address] CHEST W from 06/08/2023 FINDINGS: CHEST: No evidence of pulmonary emboli. Tracheobronchial tree: Patent where visualized. Pulmonary parenchyma: Significant interval decrease in left lower lobe mass now difficult to measure any solid component. Stable infiltrates in the superior segment of the right lower lobe and right mi ddle lobe. New infiltrate seen anteriorly in the right upper lobe. Atelectasis at the left lung bas e. Pleura: No effusion or pneumothorax. Lymph nodes: Stable appearance of mild right hilar adenopathy. Stable mild subcarinal adenopathy. Aorta: Thoracic portion non-dilated. Heart: Not dilated. No pericardial effusion. Bones: Unremarkable for age. No lytic or blastic lesions.No compression fractures. Soft tissues: Port over right upper chest. Tip in right atrium. ABDOMEN and PELVIS: Liver: Normal density. No suspicious mass. Stable cyst anterior left lobe. Gallbladder and biliary tract: No evidence of stones or wall thickening. No biliary dilatation. Pancreas: Normal density, no abnormal calcifications or inflammatory process. Spleen: Stable tiny cyst. Kidneys: Normal size, contour and axis. No radiodense stones. No obstructive uropathy. No suspicious masses seen. Adrenal glands: No masses seen. Aorta: Abdominal portion non-dilated. Lymph nodes: Within normal limits. Soft tissues: Unremarkable. Bladder: Unremarkable. Bowel: No obstruction or bowel wall thickening. Peritoneal cavity: No ascites. No focal collection. No mesenteric inflammatory response. Bones: Unremarkable for age. No lytic or blastic lesions. Reproductive organs: Within normal limits. IMPRESSION: Significant interval decrease in left lower lobe mass. Stable infiltrates in the right lower and right middle lobe. New infiltrate in the right upper lobe. Stable mild adenopathy. No evidence of metastatic disease in the abdomen or pelvis. RADIATION DOSE DELIVERED: 1,958.21mGy.cm Total DLP DATA REPOSITORY: All CT scans at this facility are submitted to the National Radiology Data Registry (NRDR) Dose Index Registry (DIR) with the [employer] (A[employer]). RADIATION OPTIMIZATION: All CT scans at this facility use at least one of these dose optimization te chniques: automated exposure control; mA and/or kV adjustment per patient size (includes targeted exa ms where dose is matched to clinical indication); or iterative reconstruction.
[2023-07-26] MEDS: Barium Sulfate 2% W/V-Berry Smoothie 450 ML BTL PO ×2 (07:54→07:55)
[2023-07-26] MEDS: Normal Saline - Diluent 50 ML VIAL IJ (09:59)
[2023-07-26] MEDS: Omnipaque 350 MG/ML 500 ML BTL-Imaging package 100 ML IJ (10:01)
== END ==
PROVIDERS: PCP Family Medicine; Visit Provider Internal Medicine Medical Oncology
DX: C34.11 Malignant neoplasm of upper lobe, right bronchus or lung (principal); C79.31 Secondary malignant neoplasm of brain
CPT/HCPCS: 74177; 71260

== ENCOUNTER 2023-08-11 04:41 | Outpatient (RCR) | payer MEDICAID, SELFPAY ==
[2023-07-26] MEDS: Normal Saline Flush 10 ML SYR IVP (09:19)
[2023-08-04] MEDS: Normal Saline Flush 10 ML SYR IVP (11:33)
[2023-08-04 11:45] LABS: Abs Immature Grans 0.06 10^3/uL (0.0-0.06); Absolute Basophil Count 0.04 10^3/uL (0.0-0.2); Absolute Eosinophil Count 0.08 10^3/uL (0.0-0.7); Absolute Lymphocyte Count 0.47 10^3/uL (1.2-3.4); Absolute Monocyte Count 0.71 10^3/uL (0.1-0.8); Absolute Neutrophil Count 2.18 10^3/uL (1.2-6.7); Basophils % 1.1; Eosinophils % 2.3; HCT 30.1 % (36.0-46.0); HGB 9.9 g/dL (11.2-15.7); Immature Grans % 1.7; Lymphocytes % 13.3; MCH 31.4 pg (27.0-33.0); MCHC 32.9 % (32.0-36.0); MCV 96 fL (80-95); MPV 8.5 fL (8.0-11.0); Monocytes % 20.1; Neutrophils % 61.5; Platelet Count 308 10^3/uL (130-400); RBC 3.15 10^6/uL (3.93-5.22); RDW 14.7 % (11.7-14.6); RDW-SD 50.9 fL; WBC 3.54 10^3/uL (4.4-10.8)
[2023-08-04 12:17] LABS: ALT 19 U/L (14-59); AST 14 U/L (15-37); Alkaline Phosphatase 71 U/L (46-116); Anion Gap 11.1 mmol/L (3-11); BUN 13 mg/dL (7-18); Bilirubin, Total 0.3 mg/dL (0.2-1.0); CO2 25.9 mmol/L (21.0-32.0); CREATININE 0.9 mg/dL (0.55-1.02); Calcium 9.2 mg/dL (8.5-10.1); Chloride 105 mmol/L (98-107); Estimated GFR 71.83 (mL/min/1.73m2); FREE T4 1.11 ng/dL (0.76-1.46); Glucose 110 mg/dL (74-106); Potassium 3.7 mmol/L (3.5-5.1); Sodium 142 mmol/L (136-145); TSH 3.45 uIU/Ml (0.36-3.74); Total Protein 7.2 g/dL (6.4-8.2)
[2023-08-11] MEDS: Normal Saline Flush 10 ML SYR IVP (09:41)
[2023-08-11 09:47] LABS: Abs Immature Grans 0.14 10^3/uL (0.0-0.06); Absolute Basophil Count 0.05 10^3/uL (0.0-0.2); Absolute Eosinophil Count 0.23 10^3/uL (0.0-0.7); Absolute Lymphocyte Count 0.51 10^3/uL (1.2-3.4); Absolute Monocyte Count 0.63 10^3/uL (0.1-0.8); Absolute Neutrophil Count 2.86 10^3/uL (1.2-6.7); Basophils % 1.1; Eosinophils % 5.2; HCT 30.2 % (36.0-46.0); HGB 9.8 g/dL (11.2-15.7); Immature Grans % 3.2; Lymphocytes % 11.5; MCH 31.5 pg (27.0-33.0); MCHC 32.5 % (32.0-36.0); MCV 97 fL (80-95); MPV 8.5 fL (8.0-11.0); Monocytes % 14.3; Neutrophils % 64.7; Platelet Count 340 10^3/uL (130-400); RBC 3.11 10^6/uL (3.93-5.22); RDW 14.4 % (11.7-14.6); RDW-SD 51.4 fL; WBC 4.42 10^3/uL (4.4-10.8)
[2023-08-11 10:04] LABS: ALT 21 U/L (14-59); AST 15 U/L (15-37); Albumin 2.8 g/dL (3.4-5.0); Alkaline Phosphatase 74 U/L (46-116); Anion Gap 9.4 mmol/L (3-11); BUN 13 mg/dL (7-18); Bilirubin, Total 0.2 mg/dL (0.2-1.0); CO2 27.6 mmol/L (21.0-32.0); CREATININE 0.9 mg/dL (0.55-1.02); Calcium 9.2 mg/dL (8.5-10.1); Chloride 104 mmol/L (98-107); Estimated GFR 71.83 (mL/min/1.73m2); Glucose 115 mg/dL (74-106); Sodium 141 mmol/L (136-145); Total Protein 7.1 g/dL (6.4-8.2)
== END 2023-08-22 23:59 | disposition home or self-care (01) ==
LOC: INF 04:41
PROVIDERS: PCP Family Medicine; Visit Provider Internal Medicine Medical Oncology
DX: C34.31 Malignant neoplasm of lower lobe, right bronchus or lung (principal); C79.31 Secondary malignant neoplasm of brain; Z45.2 Encounter for adjustment and management of vascular access device
CPT/HCPCS: 36591; 80053; 96523; 83735; 84439; 84443; 85025

== ENCOUNTER 2023-08-19 17:20 | Emergency (ER) | payer MEDICAID, SELFPAY ==
[2023-08-19 17:27] VITALS: BP 102/62; PULSE 92; RESP 16; TEMP 37.2; O2SAT 95
--- NOTE | 2023-08-19 17:45 | RT.EKG_ITS ---
APPROVED REPORT Exam: Resting ECG Reason for Exam: Dyspnea Patient Location: E HR:81 bpm ECG Measurements Heart Rate 81 AXIS SD 160 P 1 QRSd 93 QRS 67 QT 405 T -81 QTc 470 Conclusion Sinus rhythm...normal P axis, V-rate 60- 99 Posterior infarct, old...prom R T, V1-V3 or Q >40mS, V7-V9
--- NOTE | 2023-08-19 17:45 | DI.CT_ITS ---
Exam(s) CT CHEST PE CTA EXAM: CT CHEST PE CTA CLINICAL HISTORY: shortness of breath, cancer patient. TECHNIQUE: Imaging Protocol: Axial CT angiography was performed with multi-slice acquisition and mu lti-planar reconstructions as well as axial, coronal and sagittal MIP reconstructions. CONTRAST MATERIAL: Intravenous: Omnipaque 350 Contrast volume:650 mL COMPARISON: CT CT CHEST/ABD/PEL W from 07/26/2023 FINDINGS: Pulmonary Arteries: No evidence of filling defect to suggest pulmonary emboli. Tracheobronchial tree: No mucous plugging. Mediastinum and Susi: Some interval increase in size of right paratracheal and subcarinal lymph nodes . Pulmonary parenchyma: Dense infiltrates in the right upper, lower and middle lobes with some sparing of the lung apex and lung base. Left basilar atelectasis. Pleura: No effusion or pneumothorax. Heart: The heart is mildly dilated. Mild coronary artery calcifications are seen. Aorta: Thoracic aorta non-dilated. No dissection. Upper abdomen: No acute findings. Bones: Scoliosis and degenerative changes. No compression fractures. No gross lytic or blastic lesi ons. Tubes, Catheters, and Lines: Port over right upper chest. Soft tissues: Unremarkable. IMPRESSION: No evidence of pulmonary embolism. Large infiltrates in the right lung. No discrete mass is visible. RADIATION DOSE DELIVERED: Total DLP DATA REPOSITORY: All CT scans at this facility are submitted to the National Radiology Data Registry (NRDR) Dose Index Registry (DIR) with the [employer] (ACR). RADIATION OPTIMIZATION: All CT scans at this facility use at least one of these dose optimization te chniques: automated exposure control; mA and/or kV adjustment per patient size (includes targeted exa ms where dose is matched to clinical indication); or iterative reconstruction.
--- NOTE | 2023-08-19 17:47 | W.ED.GENAD ---
Discharge Plan Disposition Patient Disposition: Home Condition: Stable Discharge Details Clinical Impression: Shortness of breath, Pneumonia Primary Care Provider: Kaci Garcia ED Provider: Tyler Alonzo Home Meds and New Rx's Prescriptions: New doxycycline hyclate 100 mg tablet 100 mg PO BID Qty: 14 0RF amoxicillin-pot clavulanate 875-125 mg tablet 1 tab PO BID Qty: 14 0RF Continued triamcinolone acetonide 0.1 % ointment 1 applic topical BID PRN amiodarone 200 mg tablet 200 mg PO DAILY Patient Comments: Per Dr. Palomino [facility] prochlorperazine maleate [Compazine] 5 mg tablet 5 mg PO DAILY ondansetron 4 mg tablet,disintegrating 4 mg PO BID-TID PRN multivitamin Capsule 1 cap PO DAILY calcium 500 mg Tablet 1,000 mg PO DAILY cholecalciferol (vitamin D3) 25 mcg (1,000 unit) Tablet 1,000 unit PO DAILY polyethylene glycol 3350 17 gram Powder In Packet 17 g PO DAILY PRN PRN (Reason: Constipation) Qty: 0 0RF Eliquis 5 mg tablet 5 mg PO BID magnesium 200 mg tablet 200 mg PO DAILY Discharge Instructions Additional Instructions: Your CAT scan did not show any blood clots but you do have an infiltrate which is concerning for possible pneumonia Will up a schedule with your oncologist on Wednesday You feel more ill, have worsening shortness of breath or severe chest pain return to the emergency department for reevaluation HPI General Date/Time Provider Initiated Documentation: 08/19/23 17:25. Limitations to Documentation: no limitations. Information obtained by: patient. History of Present Illness 63 year old F presents to the emergency department with the chief complaint of Low blood pressure at home, described as moderate, Patient started experiencing this hour(s) (2) and it has been intermittent. No relieving factors improve symptom(s), No exacerbating factors reported . Patient notes other (Chills, difficulty breathing). Patient did receive the following treatments prior to arrival, none Related Data Home Medications Medication Instructions Recorded Confirmed multivitamin 1 cap PO DAILY 06/04/19 08/19/23 triamcinolone acetonide 0.1 % 1 applic topical BID PRN 06/20/21 08/19/23 topical ointment calcium 500 mg tablet 1,000 mg PO DAILY 07/31/22 08/19/23 cholecalciferol (vitamin D3) 25 1,000 unit PO DAILY 09/25/22 08/19/23 mcg (1,000 unit) tablet polyethylene glycol 3350 17 gram 17 g PO DAILY PRN PRN Constipation 09/27/22 08/19/23 oral powder packet #0 ea amiodarone 200 mg tablet 200 mg PO DAILY 03/23/23 08/19/23 apixaban 5 mg tablet (Eliquis) 5 mg PO BID 06/09/23 08/19/23 magnesium 200 mg tablet 200 mg PO DAILY 06/09/23 08/19/23 amoxicillin 875 mg-potassium 1 tab PO BID #14 tabs 08/19/23 clavulanate 125 mg tablet doxycycline hyclate 100 mg tablet 100 mg PO BID #14 tabs 08/19/23 ondansetron 4 mg disintegrating 4 mg PO BID-TID PRN 08/19/23 08/19/23 tablet prochlorperazine maleate 5 mg 5 mg PO DAILY 08/19/23 08/19/23 tablet (Compazine) Previous Rx's Medication Instructions Recorded polyethylene glycol 3350 17 gram 17 g PO DAILY PRN PRN Constipation 09/27/22 oral powder packet #0 ea amoxicillin 875 mg-potassium 1 tab PO BID #14 tabs 08/19/23 clavulanate 125 mg tablet doxycycline hyclate 100 mg tablet 100 mg PO BID #14 tabs 08/19/23 Allergies Allergy/AdvReac Type Severity Reaction Status Date / Time No Known Allergies Allergy Verified 08/19/23 17:25 General Stated Complaint: SOB RIVKA: 2 Review of Systems All systems reviewed & are unremarkable except as noted in HPI and below Constitutional Constitutional: Reports chills and Denies fever(s) ENT Ears, Nose, Mouth, and Throat: Denies change in voice Cardiovascular Cardiovascular: Denies chest pain and Reports dyspnea Respiratory Respiratory: Denies cough and Reports dyspnea Gastrointestinal Gastrointestinal: Denies abdominal pain, Denies nausea and Denies vomiting Musculoskeletal Musculoskeletal: Denies joint swelling Exam Const General: no acute distress Orientation: alert HENMT Head: normal to inspection Ears: external ears normal General nose exam: external nose normal Mouth: moist mucous membranes Eyes General: appearance normal, both eyes and all related structures Neck Neck: normal visual inspection Resp Effort & Inspection: normal respiratory effort and able to speak in complete sentences Auscultation: clear to auscultation bilaterally Cardio Jugular venous pressure: no JVD Rate: regular rate Heart Sounds: no murmurs GI Palpation: soft and nontender Skin General skin exam: no rashes or lesions noted Neuro General: patient alert and patient oriented x3 Extrem General: normal to inspection Psych Mental Status: mental status grossly normal Course Vital Signs Vital signs: Vital Signs Temperature 37.2 C 08/19/23 17:27 Pulse 92 H 08/19/23 17:27 Respiratory Rate 16 08/19/23 17:27 Blood Pressure 102/62 08/19/23 17:27 Pulse Oximetry 95 08/19/23 17:27 Temperature 37.2 C 08/19/23 17:27 Temperature Source Temporal Artery Scan 08/19/23 17:27 Pulse 92 H 08/19/23 17:27 Respiratory Rate 16 08/19/23 17:27 Respiratory Effort Normal, Non-Labored, Short of Breath 08/19/23 17:30 Blood Pressure 102/62 08/19/23 17:27 Blood Pressure Position Sitting 08/19/23 17:27 Pulse Oximetry 95 08/19/23 17:27 Oxygen Delivery Method Room Air 08/19/23 17:27 Oxygen Flow Rate 0 08/19/23 17:27 Pain Level 5 08/19/23 17:27 Lab/Test Results Lab/Test Results: 08/19/23 17:37 Blood Blood Culture - Pending 08/19/23 17:37 Blood Blood Culture - Pending Medical Decision Making 63-year-old female with a history of small cell cell lung cancer with mets, A-fib, who comes in with complaints of 1 day of shortness of breath with exertion and chills. She states that she was checking her blood pressure at home and was in the 70s systolic. Denies any fevers, no chest pain, no abdominal pain, no vomiting. She is alert and oriented x 4 speaking clearly. She does states she is currently receiving chemotherapy last session was last week. She has clear lung sounds, no JVD, soft nontender abdomen, no leg swelling or calf tenderness. Given her complaints we will proceed with EKG/troponin, CBC, CMP, and CTA of the chest to evaluate for PE versus pneumonia versus pleural effusion. Stable, no neutropenia, procalcitonin negative, and CTA of the chest has no PE but does have a right-sided infiltrate which she has had on her CT earlier this month. Given her complaint of chills will initiate antibiotics, discussed admission versus outpatient management and patient feels well enough to go home. Given her stable vital signs and reassuring workup feel this is reasonable. When she is on amiodarone we will start her on Augmentin and doxycycline given the amiodarone interacts with both levofloxacin and azithromycin. She has follow-up with oncology on Wednesday, return precautions given Differential Diagnosis Differential Diagnosis: PE, pneumonia, anemia Medical Records Medical records reviewed: Yes I reviewed the patient's medical records. Imaging Data Radiologic Study: Attestation: I personally reviewed and interpreted this imaging study as follows: Imaging: CT Scan Radiologist's impression: right sided infiltrate, no PE Lab Data Lab results reviewed: Yes I reviewed the patient's lab results. ECG Data Attestation: I personally reviewed and interpreted this ECG (s) as follows: Prior ECG tracings: available for review Interpretation: sinus rate of 81, pr 160, no stemi Quality:SDOH Health Related Social Needs: No Data to Display [facility] All Active Problems (Updated 08/19/23 @ 19:28 by Tyler Alonzo MD) Pneumonia (Acute) Shortness of breath (Acute) Abdominal pain (Acute) Metastatic neoplasm (Acute) Bradycardia (Acute) Small cell lung cancer (Acute) Paroxysmal atrial fibrillation (Acute) Atrial fibrillation with RVR (Acute) Arrhythmia (Acute) SESSILE SERATED ADENOMA (Acute ~03/20/22) stoiber, multiple, repeat 2 yrs Hx of adenomatous colonic polyps (Acute) Screening for colon cancer (Acute) LVE (left ventricular enlargement) (Acute) Syncope (Chronic) Medical History Cardiac arrhythmia Dermatitis DIVERTICULOSIS Herpes zoster Menopause Smoker Stress TUBULAR ADENOMA Surgical History Bone Graft & Pinning of Right Wrist Colonoscopy - IV Sedation (03/15/13) History of colonoscopy with polypectomy (~03/20/22) Lateral Retinacular Release, Open Right Family History Mother Heart disease Father Alcohol abuse Sister Heart disease Sister No problems noted. Brother No problems noted. Brother No problems noted. Social History Smoking/Tobacco Use Status: Former Tobacco Use Tobacco: How many years used: 29 Smoking risk assessment performed?: Yes Alcohol Intake: current Alcohol Intake frequency: a few times a month Alcohol type: wine Drug use: Never Substance use type: does not use Details: states no cigarette in 2 weeks since being sick Housing: apartment Current gender identity: female What type of physical activity do you participate in: none Do you feel safe at home: Yes Do you feel safe in your relationship?: Yes
[2023-08-19 17:53] VITALS: RESP 16
[2023-08-19 18:30] LABS: Abs Immature Grans 0.04 10^3/uL (0.0-0.06); Absolute Basophil Count 0.02 10^3/uL (0.0-0.2); Absolute Eosinophil Count 0.19 10^3/uL (0.0-0.7); Basophils % 0.6; Eosinophils % 5.4; HGB 8.5 g/dL (11.2-15.7); Immature Grans % 1.1; Lymphocytes % 11.3; MCH 31.4 pg (27.0-33.0); MCHC 32.7 % (32.0-36.0); MCV 96 fL (80-95); MPV 8.6 fL (8.0-11.0); Monocytes % 14.1; Neutrophils % 67.5; Platelet Count 295 10^3/uL (130-400); RBC 2.71 10^6/uL (3.93-5.22); RDW 14.4 % (11.7-14.6); RDW-SD 49.9 fL; WBC 3.55 10^3/uL (4.4-10.8)
[2023-08-19] MEDS: Normal Saline Flush 10 ML SYR IVP (18:34)
[2023-08-19] MEDS: Normal Saline - Diluent 50 ML VIAL IJ (18:34)
[2023-08-19] MEDS: Omnipaque 350 MG/ML 100 ML BTL 65 ML IJ (18:35)
[2023-08-19 18:38] LABS: Bilirubin Negative (Negative); Blood Trace-intact (Negative); Clarity Sl Cloudy (Clear); Glucose Negative (Negative); Ketones Negative (Negative); Leukocyte Esterase Negative (Negative); Nitrite Negative (Negative); Urobilinogen 0.2 mg/dL (Up to 0.2)
[2023-08-19 18:45] LABS: Bacteria Rare HPF (Negative); C & S Indicated? No; Casts Negative LPF (Negative); Crystals Few Amorphous HPF (Negative); Epithelial Cells Rare HPF (Negative); Mucus Negative (Negative); WBC Negative HPF (0-5)
[2023-08-19 18:45] LABS: INR 1.1 (0.9-1.1); PTT Activated 32.9 sec (23.6-32.8); Prothrombin Time 11.2 sec (9.1-11.1)
[2023-08-19 18:51] LABS: ALT 17 U/L (14-59); AST 16 U/L (15-37); Albumin 2.4 g/dL (3.4-5.0); Alkaline Phosphatase 77 U/L (46-116); Anion Gap 8.9 mmol/L (3-11); BUN 12 mg/dL (7-18); Bilirubin, Total 0.2 mg/dL (0.2-1.0); CO2 27.1 mmol/L (21.0-32.0); CREATININE 0.9 mg/dL (0.55-1.02); Calcium 8.4 mg/dL (8.5-10.1); Chloride 103 mmol/L (98-107); Estimated GFR 71.83 (mL/min/1.73m2); Glucose 106 mg/dL (74-106); Magnesium 2.1 mg/dL (1.8-2.4); Potassium 3.6 mmol/L (3.5-5.1); Sodium 139 mmol/L (136-145); Total Protein 6.5 g/dL (6.4-8.2)
[2023-08-19 18:53] LABS: Troponin I < 50 ng/L (< or =60)
[2023-08-19 19:04] LABS: Procalcitonin < 0.1 ng/mL
[2023-08-19 19:17] LABS: COVID-19 PCR Negative (Negative); Influenza A PCR Negative (Negative); Influenza B PCR Negative (Negative); RSV PCR Negative (Negative)
[2023-08-19 19:20] LABS: Source NASOPHARYNX
[2023-08-19] MEDS: Amoxicillin 875/Clav. 125 TAB PO (19:45)
[2023-08-19] MEDS: Doxycycline Hyclate 100 MG CAP PO (19:45)
[2023-08-19 19:47] VITALS: BP 109/71; PULSE 80; RESP 18; O2SAT 90
[2023-08-19] MEDS: Heparin 500 UNITS/5 ML SYRINGE (19:47)
== END 2023-08-19 19:50 | disposition home or self-care (01) ==
PROVIDERS: Emergency Provider Emergency Medicine; PCP Family Medicine
DX: J18.9 Pneumonia, unspecified organism (principal); C79.89 Secondary malignant neoplasm of other specified sites; C34.90 Malignant neoplasm of unspecified part of unspecified bronchus or lung; I48.0 Paroxysmal atrial fibrillation; Z11.52 Encounter for screening for COVID-19; Z79.01 Long term (current) use of anticoagulants; Z92.21 Personal history of antineoplastic chemotherapy; Z87.891 Personal history of nicotine dependence
CPT/HCPCS: 36415; 71275; 80053; 84145; 87040; 87637; 93005; 99285; 81003; 81015; 83735; 84484; 85025; 85610; 85730; 93010; 99284; J1642; J3490

== ENCOUNTER → 2023-09-14 04:31 | Outpatient (CLI) | payer MEDICAID, SELFPAY ==
--- NOTE | 2023-09-14 | DI.CT_ITS ---
Exam(s) CT NECK CHEST W EXAM: CT NECK CHEST W CLINICAL HISTORY: RT LUNG CA,C34.31,RECENT PNEUMONITIS,WORSENING DYSPNEA,? SVC SYNDROME. TECHNIQUE: Multi planar reconstructions were performed. CONTRAST MATERIAL: Omnipaque 350; 75 cc COMPARISON: MR MR BRAIN WO/W from 06/09/[address] CHEST PE CTA from 08/19/2023 FINDINGS: CT CHEST: LUNGS: Decreased right hemithoracic volume is again noted with previously described prominent infiltr ate throughout the right lung again noted although this appears to be somewhat decreased when compare d to the CT scan of 08/19/2023. However, there is now a new right pleural effusion-moderate size. T here are no new significant focal findings in the opposite-left lung. Some atelectasis in the lingul ar segment of the left lung is again noted. No pleural fluid evident on the left side. MEDIASTINUM: There is no increasing hilar adenopathy. Density in the subcarinal region probably repr esents some adenopathy. There is, however, further increase in pre and paratracheal adenopathy. Lar gest lymph node on the left side is between the left common carotid and left subclavian arteries and measures 3.7 x 2.5 cm. On the right side there is an enlarged lymph node measuring 2.2 by 2 cm which is compressing the right jugular vein just above the level where the right-sided Port-A-Cath enters. The thyroid gland itself appears unremarkable. CARDIAC: Heart size upper normal but there is now pericardial effusion which was not previously evide nt. Anteriorly the pericardial effusion thickness is 5 mm. Over the left side of the heart it measu res up to 1.2 cm thick.Caliber of the thoracic aorta is within normal limits. VISUALIZED UPPER ABDOMEN:There is a 1.3 by 1.5 cm nodule in the right adrenal gland now evident. Pos sibly metastatic. Also small nodule in the left adrenal gland measuring 1.0 x 1.0 cm, possibly metas tatic. Benign cyst in the anterior aspect of the liver again noted. OSSEOUS: No significant osseous lesions.No fractures.. CT SOFT TISSUES NECK: Lowermost images of this study reveal significant increase in amount of adenopathy in the upper media stinum. On the right side the largest abnormal lymph node measures approximately 2.2 by 2.0 by 3.5 c m and this compresses the lower aspect of the right internal jugular vein. This is just above the Po rt-A-Cath entrance. There is also increasing adenopathy in the right paratracheal region with some c ompression of the SVC. Similar increase in amount of lymphadenopathy is seen in the left upper media stinum and supraclavicular region. On the right side there is also similar increasing adenopathy mor e laterally located and most probably palpable subcutaneously. There is no prominent lymphadenopathy higher up in the neck. Incidentally noted is an enhancing lesion in the right temporal lobe of the brain measuring approxima tely 3.5 x 2.0 cm which is larger than prior measurements of MRI of 06/09/2023. Also more peripheral lesion seen in the right temporal lobe anteriorly. Is note that only part of the brain is included in part of this neck study. Nasopharynx appears unremarkable. Oropharynx unremarkable. Hypopharynx unremarkable. Vocal cords a nd immediate subglottic airway unremarkable. However, the lower trachea is now somewhat impressed up on by enlarged lymph nodes posteriorly and to the right. Parotid and submandibular glands appear unremarkable. Visualized paranasal sinuses appear unremarkable. IMPRESSION: 1. Although the size of the large right lung infiltrate has somewhat decreased, there has been signif icant increase in amount of pathologic adenopathy in the mediastinum, superior mediastinum, supraclav icular, and lower neck. Some of the largest lymph nodes are compressing the right internal jugular v ein in the lower lack as well as the SVC. This could be causing an element of SVC syndrome. 2. There is now a moderate size right pleural effusion and there is a small-moderate size pericardial effusion, both not previously present. 3. The left lung is unchanged with no new findings nor pleural fluid on the left side. 4. New small adrenal nodules evident which are probably metastatic. 5. Increasing size right temporal lobe brain lesions when compared to MRI scan of 06/09/2023. 6. No significant osseous lesions in the field of view of this study. No fractures. RADIATION DOSE DELIVERED: 746.24mGy.cm Total DLP DATA REPOSITORY: All CT scans at this facility are submitted to the National Radiology Data Registry (NRDR) Dose Index Registry (DIR) with the [employer] (ACR). RADIATION OPTIMIZATION: All CT scans at this facility use at least one of these dose optimization te chniques: automated exposure control; mA and/or kV adjustment per patient size (includes targeted exa ms where dose is matched to clinical indication); or iterative reconstruction.
[2023-09-14] MEDS: Normal Saline - Diluent 50 ML VIAL IJ (08:42)
[2023-09-14] MEDS: Normal Saline Flush 10 ML SYR IJ (08:43)
[2023-09-14] MEDS: Omnipaque 350 MG/ML 500 ML BTL-Imaging package IJ (09:06)
== END ==
PROVIDERS: PCP Family Medicine; Visit Provider Internal Medicine Medical Oncology
DX: C34.31 Malignant neoplasm of lower lobe, right bronchus or lung (principal)
CPT/HCPCS: 70491; 71260

== ENCOUNTER 2023-09-15 13:30 | Outpatient (RCR) | payer MEDICAID, SELFPAY ==
[2023-08-23] MEDS: Normal Saline Flush 10 ML SYR IVP (11:33)
[2023-08-23 11:34] LABS: Abs Immature Grans 0.08 10^3/uL (0.0-0.06); Absolute Basophil Count 0.03 10^3/uL (0.0-0.2); Absolute Eosinophil Count 0.52 10^3/uL (0.0-0.7); Absolute Lymphocyte Count 0.54 10^3/uL (1.2-3.4); Absolute Monocyte Count 0.68 10^3/uL (0.1-0.8); Absolute Neutrophil Count 3.63 10^3/uL (1.2-6.7); Basophils % 0.5; Eosinophils % 9.5; HCT 26.4 % (36.0-46.0); HGB 8.7 g/dL (11.2-15.7); Immature Grans % 1.5; Lymphocytes % 9.9; MCH 31.2 pg (27.0-33.0); MCV 95 fL (80-95); Monocytes % 12.4; Neutrophils % 66.2; Platelet Count 386 10^3/uL (130-400); RBC 2.79 10^6/uL (3.93-5.22); RDW 14.5 % (11.7-14.6); RDW-SD 50.5 fL; WBC 5.48 10^3/uL (4.4-10.8)
[2023-08-23 11:54] LABS: ALT 22 U/L (14-59); AST 20 U/L (15-37); Albumin 2.2 g/dL (3.4-5.0); Alkaline Phosphatase 94 U/L (46-116); Anion Gap 9.5 mmol/L (3-11); BUN 11 mg/dL (7-18); Bilirubin, Total 0.2 mg/dL (0.2-1.0); CO2 27.5 mmol/L (21.0-32.0); CREATININE 0.7 mg/dL (0.55-1.02); Calcium 9.1 mg/dL (8.5-10.1); Chloride 103 mmol/L (98-107); Estimated GFR 97.12 (mL/min/1.73m2); Glucose 102 mg/dL (74-106); Magnesium 1.7 mg/dL (1.8-2.4); Potassium 3.6 mmol/L (3.5-5.1); Sodium 140 mmol/L (136-145); Total Protein 6.8 g/dL (6.4-8.2)
[2023-09-13] MEDS: Normal Saline Flush 10 ML SYR IVP (11:34)
[2023-09-13 12:13] LABS: Absolute Basophil Count 0.04 10^3/uL (0.0-0.2); Absolute Lymphocyte Count 0.43 10^3/uL (1.2-3.4); Absolute Monocyte Count 0.21 10^3/uL (0.1-0.8); Basophils % 0.3; HCT 34.8 % (36.0-46.0); Immature Grans % 3.4; Lymphocytes % 3.6; MCH 30.3 pg (27.0-33.0); MCHC 31.6 % (32.0-36.0); MCV 96 fL (80-95); MPV 8.9 fL (8.0-11.0); Monocytes % 1.8; Neutrophils % 90.9; Platelet Count 316 10^3/uL (130-400); RBC 3.63 10^6/uL (3.93-5.22); RDW 15.9 % (11.7-14.6); RDW-SD 56.5 fL; WBC 11.81 10^3/uL (4.4-10.8)
[2023-09-13 12:14] LABS: Absolute Neutrophil Count 10.74 10^3/uL (1.2-6.7)
[2023-09-13 13:10] LABS: ALT 26 U/L (14-59); AST 16 U/L (15-37); Alkaline Phosphatase 67 U/L (46-116); Anion Gap 10.1 mmol/L (3-11); BUN 22 mg/dL (7-18); Bilirubin, Total 0.2 mg/dL (0.2-1.0); CO2 29.9 mmol/L (21.0-32.0); Chloride 104 mmol/L (98-107); Glucose 109 mg/dL (74-106); Magnesium 2.4 mg/dL (1.8-2.4); Potassium 3.5 mmol/L (3.5-5.1); Sodium 144 mmol/L (136-145)
[2023-09-14] MEDS: Normal Saline Flush 10 ML SYR IVP (08:35)
[2023-09-15] MEDS: Normal Saline Flush 10 ML SYR IVP (13:53)
[2023-09-15 14:17] LABS: Abs Immature Grans 0.32 10^3/uL (0.0-0.06); Absolute Basophil Count 0.03 10^3/uL (0.0-0.2); Absolute Neutrophil Count 9.18 10^3/uL (1.2-6.7); Basophils % 0.3; HCT 36.2 % (36.0-46.0); HGB 11.6 g/dL (11.2-15.7); Immature Grans % 3.2; MCH 30.4 pg (27.0-33.0); MCV 95 fL (80-95); MPV 9.2 fL (8.0-11.0); Neutrophils % 91.5; Platelet Count 336 10^3/uL (130-400); RBC 3.81 10^6/uL (3.93-5.22); RDW 16.2 % (11.7-14.6); RDW-SD 56.8 fL; WBC 10.03 10^3/uL (4.4-10.8)
[2023-09-15 14:31] LABS: ALT 27 U/L (14-59); AST 17 U/L (15-37); Albumin 3.1 g/dL (3.4-5.0); Alkaline Phosphatase 70 U/L (46-116); Anion Gap 12.7 mmol/L (3-11); BUN 24 mg/dL (7-18); Bilirubin, Total 0.2 mg/dL (0.2-1.0); CO2 28.3 mmol/L (21.0-32.0); CREATININE 1.3 mg/dL (0.55-1.02); Calcium 8.9 mg/dL (8.5-10.1); Chloride 104 mmol/L (98-107); Estimated GFR 46.21 (mL/min/1.73m2); Glucose 201 mg/dL (74-106); Magnesium 2.5 mg/dL (1.8-2.4); Potassium 3.5 mmol/L (3.5-5.1); Sodium 145 mmol/L (136-145); Total Protein 7.1 g/dL (6.4-8.2)
== END 2023-09-21 23:59 | disposition home or self-care (01) ==
LOC: INF 13:30
PROVIDERS: PCP Family Medicine; Visit Provider Internal Medicine Medical Oncology
DX: C34.31 Malignant neoplasm of lower lobe, right bronchus or lung (principal); C79.31 Secondary malignant neoplasm of brain
CPT/HCPCS: 36591; 80053; 96523; 83735; 85025

== ENCOUNTER 2023-10-11 13:58 | Inpatient (IN) | payer MEDICAID, SELFPAY ==
[2023-10-11] VITALS (59 sets, daily range): BP systolic 118–151; BP diastolic 62–95; PULSE 74–93; RESP 10–37; TEMP 36.5–36.9; O2SAT 90–96
--- NOTE | 2023-10-11 14:00 | RT.EKG_ITS ---
APPROVED REPORT Exam: Resting ECG Reason for Exam: SOB Patient Location: E HR:81 bpm ECG Measurements Heart Rate 81 AXIS ID 138 P 50 QRSd 80 QRS -28 QT 385 T 60 QTc 446 Conclusion Sinus rhythm...normal P axis, V-rate 60- 99 Inferior infarct, old...Q >35mS, II III aVF Narrow complex normal sinus rhythm at a rate of 81. Left axis deviation no signs of LVH. Intervals within normal limits. New chest wall ST segment depressions V2 through V6. No ST segment elevations . Low voltage chest wall leads. Low voltage appears similar to prior. Prior dated July 2023.
--- NOTE | 2023-10-11 14:00 | W.ED.GENAD ---
Discharge Plan Disposition Patient Disposition: Admit to [facility] Discharge Details Clinical Impression: Pneumonia involving right lung, Pericardial effusion Admit Date/Time: 10/11/23 19:05 Admit Provider: Fredy Wen Attending Provider: Fredy Wen Primary Care Provider: Kaci Garcia ED Provider: Marlon Greenberg Discharge Data Discharge Date/Time-TO BE ENTERED AT DEPARTURE: 10/11/23 20:40 HPI General Date/Time Provider Initiated Documentation: 10/11/23 14:00. HPI Narrative: MDM This is a normothermic and not tachycardic 63-year-old with metastatic small cell lung cancer and shortness of breath concerning for the possibility of pneumonitis, pneumonia, pulmonary embolism, and SVC syndrome for which patient will undergo labs and CT angiogram of her chest. She is not hypotensive to suggest benefit from stress dose steroids. She does have constipation but has not been vomiting and she has a soft nontender abdomen with no abdominal pain so I am not concerned for SBO. Patient does have what appears to be a new small pericardial effusion for which she will receive formal echocardiogram. She is not hypotensive nor tachycardic to suggest tamponade and her voltage appears similar on ECG. Given that she is not an extremis no indication for pericardiocentesis. No fevers nor right lower quadrant tenderness to suggest appendicitis. Pneumonia certainly in the differential given productive cough. No left lower quadrant tenderness to suggest diverticulitis. No pain out of proportion to suggest necrotizing soft tissue infection. Patient does not have bilateral B-lines nor any lower extremity edema so my suspicion for acute heart failure is low so I do not feel that the patient requires assessment of a proBNP nor diuresis. Given her shortness of breath and her ST segment depressions will plan on obtaining a single troponin to assess for myocardial injury. I considered sepsis and neutropenic fever however in the absence of fevers I did not draw blood cultures treat empirically with broad-spectrum antibiotics nor check a lactate. No dysuria nor frequency so doubt UTI. No rash to chest to suggest zoster. Patient has not had black nor bloody stools so my suspicion for acute blood loss anemia is low so I did not send a type and screen. I considered subsequent brain metastases causing seizures however in the absence of any tonic-clonic activity in the absence of any focal neurological deficits I did not complete a CT head. Patient is not altered to suggest TTP. Oxygen saturation at triage was 90% however at rest patient's oxygen saturation is 92%. Patient will require ambulatory trial if she is to be discharged. Given that she does take irinotecan it is certainly possible that she is having shortness of breath secondary to cytotoxic chemotherapy. Will follow-up with patient following labs and imaging. 3:20 PM CBC with no leukocytosis. No leukopenia. No neutropenia. Mild macrocytic anemia slightly worse compared to prior. No thrombocytopenia. Venous blood gas lacks acidemia and has mild alkalosis. No CO2 retention. 3:45 PM Comprehensive metabolic panel showing no ROSY. Mild hyperglycemia but no anion gap. Normal bicarbonate??not consistent with DKA. No LFT abnormalities. Negative troponin. 4:41 PM CTA chest read as negative for PE. Patient does have interval worsening of adenopathy and worsening of right-sided pulmonary consolidation and upper middle and lower lobes. Patient also has bilateral pleural effusions and left-sided pericardial effusion. Given productive cough and infiltrates will initiate treatment with Augmentin and doxycycline given that patient is tolerating p.o. 6:50pm I spoke to Dr. Wen who agreed to accept patient for hospitalization. He request Unasyn. Chronic conditions affecting the care of the patient: Metastatic lung cancer History obtained from an outside historian: Patient's friend External record review: [facility] [place] [facility] [place] Diagnostic interpretations performed by me: Per my independent interpretation EKG shows: Narrow complex normal sinus rhythm at a rate of 81. Left axis deviation no signs of LVH. Intervals within normal limits. New chest wall ST segment depressions V2 through V6. No ST segment elevations. Low voltage chest wall leads. Low voltage appears similar to prior. Prior dated July 2023. ]Medications: Amoxicillin clavulanic acid doxycycline Social determinants of health affecting disposition: N/A Management discussed with: Dr. Wen Treatment/interventions considered: N/A Response to therapies provided: N/A HPI This is a 63-year-old female with a history of metastatic lung cancer on chemotherapy arrived to the emergency department via private vehicle in the setting of shortness of breath and productive cough with green sputum. Patient reports that she has been more short of breath with exertion for the past approximately 1 month. She continues taking her daily prednisone 40 mg. She reportedly had an oxygen saturation which dropped to 88% while ambulating. She has a history of atrial fibrillation for which she takes apixaban. She has not had any fevers. She has been sleeping in a recliner recently. She tells me that she has not had a bowel movement in the past 5 or 6 days. She has not been vomiting. She is not having any abdominal pain. She occasionally feels nauseous. She has not had any mental status changes. She denies chest pain. No history of recent tobacco ethanol no illicits. She does feel her shortness of breath is worse when she lies flat on her back. Exam General: Chronically ill-appearing in no acute distress speaking in complete sentences. Head: Normocephalic, atraumatic. Eye: Extraocular eye movements intact. No conjunctival injection. No scleral icterus. Ear, nose, mouth, throat: Grossly normal inspection. Normal voice, handling secretions normally. Neck: Trachea midline. She does have some dilated neck veins. Cardiovascular: Well-perfused distal extremities. Regular rate and rhythm. Chest wall: Right chest wall port in place. No signs of superinfection. No fluctuance. No erythema. Some dilated chest wall veins. Respiratory: Nonlabored respiration. Gastrointestinal: Nondistended abdomen. Musculoskeletal: No lower extremity pitting edema. Moving all 4 extremities spontaneously. Skin: Normal for age and race, grossly normal temperature and turgor. No acute rash. Neurologic: Alert and appropriate, no apparent acute deficits. Psychiatric: Mood and manner are appropriate. Grooming and personal hygiene are appropriate. Related Data Home Medications Medication Instructions Recorded Confirmed multivitamin 1 cap PO DAILY 06/04/19 10/11/23 triamcinolone acetonide 0.1 % 1 applic topical BID PRN 06/20/21 10/11/23 topical ointment calcium 500 mg tablet 1,000 mg PO DAILY 07/31/22 10/11/23 cholecalciferol (vitamin D3) 25 1,000 unit PO DAILY 09/25/22 10/11/23 mcg (1,000 unit) tablet polyethylene glycol 3350 17 gram 17 g PO DAILY PRN PRN Constipation 09/27/22 10/11/23 oral powder packet #0 ea apixaban 5 mg tablet (Eliquis) 5 mg PO BID 06/09/23 10/11/23 magnesium 200 mg tablet 200 mg PO DAILY 06/09/23 10/11/23 ondansetron 4 mg disintegrating 4 mg PO BID-TID PRN 08/19/23 10/11/23 tablet prochlorperazine maleate 5 mg 5 mg PO DAILY 08/19/23 10/11/23 tablet (Compazine) Previous Rx's Medication Instructions Recorded polyethylene glycol 3350 17 gram 17 g PO DAILY PRN PRN Constipation 09/27/22 oral powder packet #0 ea Allergies Allergy/AdvReac Type Severity Reaction Status Date / Time No Known Allergies Allergy Verified 10/11/23 16:10 General RIVKA: 2 Medical Decision Making Quality:SDOH Health Related Social Needs: No Data to Display PFSH All Active Problems (Updated 10/11/23 @ 19:33 by Fredy Wen) Macrocytic anemia (Chronic) Malignant pericardial effusion (Acute) Postobstructive pneumonia (Acute) Abdominal pain (Acute) Metastatic neoplasm (Acute) Bradycardia (Acute) Small cell lung cancer (Acute) Paroxysmal atrial fibrillation (Acute) Atrial fibrillation with RVR (Acute) Arrhythmia (Acute) SESSILE SERATED ADENOMA (Acute ~03/20/22) stoiber, multiple, repeat 2 yrs Hx of adenomatous colonic polyps (Acute) Screening for colon cancer (Acute) LVE (left ventricular enlargement) (Acute) Syncope (Chronic) Medical History Herpes zoster Smoker Menopause Cardiac arrhythmia TUBULAR ADENOMA Dermatitis Stress DIVERTICULOSIS Surgical History History of colonoscopy with polypectomy (~03/20/22) Lateral Retinacular Release, Open Right Colonoscopy - IV Sedation (03/15/13) Bone Graft & Pinning of Right Wrist Family History Mother Heart disease Father Alcohol abuse Sister Heart disease Sister No problems noted. Brother No problems noted. Brother No problems noted. Social History Smoking/Tobacco Use Status: Former Tobacco Use Tobacco: How many years used: 29 Smoking risk assessment performed?: Yes Alcohol Intake: current Alcohol Intake frequency: a few times a month Alcohol type: wine Drug use: Never Substance use type: does not use Details: states no cigarette in 2 weeks since being sick Housing: apartment Current gender identity: female What type of physical activity do you participate in: none Do you feel safe at home: Yes Do you feel safe in your relationship?: Yes POCUS Exam (ED) Limited Cardiac Exam DATE OF EXAM: 10/11/23 TIME OF EXAM: 14:38 PROVIDER THAT PERFORMED THE STUDY: Marlon Greenberg IS THIS A REPEAT EXAM DURING THIS ENCOUNTER: no REASON FOR EXAM: Dyspnea VISUALIZED STRUCTURES: Four Chambers, Left ventricle, LVOT and Other structure: Bilateral lungs VIEW OBTAINED: Apical 4-Chamber, Parasternal long-axis and Subxiphoid PERTINENT FINDINGS/IMPRESSION: Pericardial effusion and Other; No RV dilation DIFFERENTIAL DIAGNOSES: Aortic outflow track less than 4 cm, good squeeze, RV less than LV, mild pericardial effusion. Right-sided B-lines. No left-sided B-lines. Exam complete
--- NOTE | 2023-10-11 14:15 | DI.CT_ITS ---
Exam(s) CT CHEST PE CTA EXAM: CT CHEST PE CTA CLINICAL HISTORY: Shortness of breath. TECHNIQUE: Imaging Protocol: Axial CT angiography was performed with multi-slice acquisition and mu lti-planar reconstructions as well as axial, coronal and sagittal MIP reconstructions. CONTRAST MATERIAL: Intravenous: Omnipaque 350 Contrast volume:100 ml COMPARISON: CT CT NECK CHEST W from 09/14/2023 FINDINGS: Pulmonary Arteries: No evidence of filling defect to suggest pulmonary emboli. Tracheobronchial tree: No mucous plugging. Mediastinum and Susi: Increased superior mediastinal adenopathy. Increased right paratracheal and yuen bcarinal adenopathy. Pulmonary parenchyma: Left basilar atelectasis. Worsening of consolidation in the right upper, middl e and right lower lobes. Pleura: Moderate right and small left pleural effusion. Heart: The heart is not dilated. No coronary artery calcifications are seen. Pericardial fluid again noted on the left, increasing from prior, measuring and 17 millimeters in thickness. Aorta: Thoracic aorta non-dilated. No dissection. Upper abdomen: No acute findings. Bones: Scoliosis and degenerative changes. Tubes, Catheters, and Lines: Port over right pectoral muscle. Soft tissues: Unremarkable. IMPRESSION: No evidence of pulmonary embolism. Interval worsening of adenopathy and worsening of right sided pulmonary consolidation in the upper, m iddle and lower lobes. Enlargement of bilateral pleural effusions and left-sided pericardial effusion. RADIATION DOSE DELIVERED: 353.37mGy.cm Total DLP DATA REPOSITORY: All CT scans at this facility are submitted to the National Radiology Data Registry (NRDR) Dose Index Registry (DIR) with the [employer] (ACR). RADIATION OPTIMIZATION: All CT scans at this facility use at least one of these dose optimization te chniques: automated exposure control; mA and/or kV adjustment per patient size (includes targeted exa ms where dose is matched to clinical indication); or iterative reconstruction.
[2023-10-11 14:57] LABS: BE (Venous) 8 mmol/L (-2-3); HCO3 (Venous) 31 mmol/L (23-28); O2 Sat (Venous) 74 %; TCO2 (Venous) 29 mmol/L (24-29); pCO2 (Venous) 44 mmHg (41-51); pH (Venous) 7.46 (7.31-7.41); pO2 (Venous) 39 mmHg
[2023-10-11 15:01] LABS: Abs Immature Grans 0.11 10^3/uL (0.0-0.06); Absolute Basophil Count 0.02 10^3/uL (0.0-0.2); Absolute Lymphocyte Count 0.31 10^3/uL (1.2-3.4); Absolute Monocyte Count 0.15 10^3/uL (0.1-0.8); Absolute Neutrophil Count 8.11 10^3/uL (1.2-6.7); Basophils % 0.2 %; HCT 32.3 % (36.0-46.0); HGB 10.2 g/dL (11.2-15.7); Immature Grans % 1.3 %; Lymphocytes % 3.6 %; MCH 30.4 pg (27.0-33.0); MCHC 31.6 % (32.0-36.0); MCV 96 fL (80-95); MPV 8.7 fL (8.0-11.0); Monocytes % 1.7 %; Neutrophils % 93.2 %; Platelet Count 239 10^3/uL (130-400); RBC 3.35 10^6/uL (3.93-5.22); RDW 16.5 % (11.7-14.6)
[2023-10-11 15:24] LABS: ALT 32 U/L (14-59); AST 24 U/L (15-37); Alkaline Phosphatase 54 U/L (46-116); Anion Gap 8.7 mmol/L (3-11); BUN 25 mg/dL (7-18); Bilirubin, Total 0.3 mg/dL (0.2-1.0); CO2 30.3 mmol/L (21.0-32.0); Calcium 8.8 mg/dL (8.5-10.1); Chloride 104 mmol/L (98-107); Glucose 113 mg/dL (74-106); Potassium 4.3 mmol/L (3.5-5.1); Sodium 143 mmol/L (136-145); Total Protein 6.5 g/dL (6.4-8.2); Troponin I < 50 ng/L (< or =60)
[2023-10-11] MEDS: Omnipaque 350 MG/ML 100 ML BTL 70 ML IJ (15:48)
[2023-10-11] MEDS: Normal Saline - Diluent 50 ML VIAL IJ (15:49)
[2023-10-11] MEDS: Doxycycline Hyclate 100 MG CAP PO (16:49)
[2023-10-11] MEDS: Amoxicillin 875/Clav. 125 TAB PO (16:50)
--- NOTE | 2023-10-11 18:53 | W.PM.HP.N ---
Date of service: 10/11/23 Time of Service: 18:53 Assessment and Plan Assessment and plan (1) Postobstructive pneumonia: Start date: 10/11/23 Status: Acute Assessment and plan: This is a 63-year-old lady with probable worsening postobstructive infiltrates on the right side which most likely is associated with her small cell lung cancer. She also has worsening lymphadenopathy. She has clear effusions and small pericardial effusion which needs further follow-up with echocardiogram. She was placed on Unasyn with doxycycline and this was continued for converted to oral therapy if she is stable. Long-term she needs follow-up with oncology and pulmonology. She has exertional hypoxemia which has been present for months but with her cough and production of sputum it appears to be more symptomatic and we should consider home oxygen therapy with exertion. She is a full code. (2) Malignant pericardial effusion: Start date: 10/11/23 Status: Acute Assessment and plan: No evidence of tamponade or cardiovascular compromise with restrictive disease. Echocardiogram in the morning. (3) Small cell lung cancer: Status: Chronic Assessment and plan: Continue follow-up with oncology with Dr. Rondon. Oncology can be called to update clinical status before discharge with plan for follow-up and prednisone weaning. Oncology may be able to coordinate further evaluation for obstructive disease from the tumor. (4) Paroxysmal atrial fibrillation: Status: Chronic Assessment and plan: Patient is in sinus rhythm and adequately on Eliquis for prevention of embolic event. This will be continued with heparin to be held. (5) Macrocytic anemia: Status: Chronic Assessment and plan: Check for deficiencies and supplement as needed. This appears stable. (6) Pneumonitis: Status: Chronic Assessment and plan: Patient is on prednisone weaning dose which will be held at present dose of 40 mg daily for now. Stress steroids do not appear to be necessary the patient appears to have not been on this treatment for longer than 1 month. History of Present Illness History of Present Illness Chief Complaint: 1 week of increased shortness of breath and cough with production of sputum Narrative: This is a 63-year-old female patient who has had several month history of small cell carcinoma on treatment with chemotherapy having a accessible port over her right chest. She has been having exertional hypoxemia throughout her course but oncology felt that this was not significant for home O2. The patient has had a 1 week history of worsening cough with productive sputum but no hemoptysis and denies fever or chills. We did call her oncology triage which she does frequently, they advised evaluation in the ED. In the ED she had full evaluation with CTA of the chest revealing no PE but progressive right consolidation and progressive adenopathy with bilateral pleural effusions and pericardial effusion which appears small. EKG and troponins were unrevealing. She had no evidence of cardiac tamponade and no intervention was taken. The patient was initiated on antibiotic therapy with Unasyn and doxycycline with oxygen supplementation which mostly was needed when exerting herself. When I saw the patient she was on room air and oxygenating well with pulse oximeter above 90%. The patient did have some constipation by history but no evidence of bowel obstruction. She did have a history of possible pneumonitis with prednisone initiated 2-4 weeks prior to this admission and has been having swelling in her neck which she thought was from the prednisone. She has been weaned from 80 mg daily and now is on 40 mg daily. She was admitted for observation since she did not have fever or elevated MVC but is compromised with her small cell carcinoma of the lung and chemotherapy. Patient does have paroxysmal atrial fibrillation and is on Eliquis with adequate anticoagulation especially with increased risk with her cancer. She has a chronic antiemetics. She has had minimal weight loss reported during exam. She is a full code. Review of Systems Narrative: 13 point review of systems otherwise unrevealing or stable. PFSH All Active Problems (Updated 10/12/23 @ 09:42 by Fredy Wen) Pneumonitis (Chronic) Macrocytic anemia (Chronic) Malignant pericardial effusion (Acute) Postobstructive pneumonia (Acute) Abdominal pain (Acute) Metastatic neoplasm (Acute) Bradycardia (Acute) Small cell lung cancer (Chronic) Paroxysmal atrial fibrillation (Chronic) Atrial fibrillation with RVR (Acute) Arrhythmia (Acute) SESSILE SERATED ADENOMA (Acute ~03/20/22) stoiber, multiple, repeat 2 yrs Hx of adenomatous colonic polyps (Acute) Screening for colon cancer (Acute) LVE (left ventricular enlargement) (Acute) Syncope (Chronic) Medical History Herpes zoster Smoker Menopause Cardiac arrhythmia TUBULAR ADENOMA Dermatitis Stress DIVERTICULOSIS Surgical History History of colonoscopy with polypectomy (~03/20/22) Lateral Retinacular Release, Open Right Colonoscopy - IV Sedation (03/15/13) Bone Graft & Pinning of Right Wrist Family History Mother Heart disease Father Alcohol abuse Sister Heart disease Sister No problems noted. Brother No problems noted. Brother No problems noted. Social History Smoking/Tobacco Use Status: Former Tobacco Use Tobacco: How many years used: 29 Smoking risk assessment performed?: Yes Alcohol Intake: current Alcohol Intake frequency: a few times a month Alcohol type: wine Drug use: Never Substance use type: does not use Details: states no cigarette in 2 weeks since being sick Housing: apartment Current gender identity: female What type of physical activity do you participate in: none Do you feel safe at home: Yes Do you feel safe in your relationship?: Yes Meds Allergies and Home Medications Allergies Allergy/AdvReac Type Severity Reaction Status Date / Time No Known Allergies Allergy Verified 10/11/23 16:10 Home Medications Medication Instructions Recorded Confirmed Type multivitamin 1 cap PO DAILY 06/04/19 10/11/23 History triamcinolone acetonide 0.1 % 1 applic topical BID PRN 06/20/21 10/11/23 History topical ointment calcium 500 mg tablet 1,000 mg PO DAILY 07/31/22 10/11/23 History cholecalciferol (vitamin D3) 25 1,000 unit PO DAILY 09/25/22 10/11/23 History mcg (1,000 unit) tablet polyethylene glycol 3350 17 gram 17 g PO DAILY PRN PRN Constipation 09/27/22 10/11/23 Rx oral powder packet #0 ea apixaban 5 mg tablet (Eliquis) 5 mg PO BID 06/09/23 10/11/23 History magnesium 200 mg tablet 200 mg PO DAILY 06/09/23 10/11/23 History ondansetron 4 mg disintegrating 4 mg PO BID-TID PRN 08/19/23 10/11/23 History tablet prochlorperazine maleate 5 mg 5 mg PO DAILY 08/19/23 10/11/23 History tablet (Compazine) Exam Narrative Exam Narrative: General: The patient appears older than stated age, flat affect with depressed mood and very soft speech with slowed tiesha. Alert and oriented x 3. Moderate distress from her cough. HEENT: Normocephalic, eyes with pupils equal and reactive to light symmetrically, extraocular movement intact and sclera anicteric. Oropharynx with dry mucosa and fair dentition. Neck: Supple without JVD. There is a fullness over the neck with slight saenz facies but over mostly lower face. Back: Stooped posture without CVA tenderness. Lungs: Decreased aeration both bases with egophony over the upper right lung field and no focalizing rales or rhonchi. No expiratory wheeze. Fair aeration over the other lung bhatt. Breast: Exam deferred. Chest: PICC line over right chest. Heart: Regular rate and rhythm with no appreciable murmur or gallop. Abdomen: Normal contour, soft nontender to palpation no palpable hepatosplenomegaly. No focalizing guarding or rebound. Bowel sounds are positive in all quadrants. Genitalia/rectal: Exam deferred. Extremities: Without clubbing, cyanosis or grossly pitting edema. Fair capillary refill. Skin: Pale, warm and dry. Actinic changes over sun exposed areas. Neuro: Cranial nerves II to XII gross intact, no focal motor deficits. No tremor. Psych: Flattened affect and depressed mood. No normal thought processes. Remote and recent memory grossly intact. Results Imaging Imaging Studies: CT CHEST PE CTA EXAM: CT CHEST PE CTA CLINICAL HISTORY: Shortness of breath. TECHNIQUE: Imaging Protocol: Axial CT angiography was performed with multi-slice acquisition and multi-planar reconstructions as well as axial, coronal and sagittal MIP reconstructions. CONTRAST MATERIAL: Intravenous: Omnipaque 350 Contrast volume:100 ml COMPARISON: CT CT NECK CHEST W from 09/14/2023 FINDINGS: Pulmonary Arteries: No evidence of filling defect to suggest pulmonary emboli. Tracheobronchial tree: No mucous plugging. Mediastinum and Susi: Increased superior mediastinal adenopathy. Increased right paratracheal and subcarinal adenopathy. Pulmonary parenchyma: Left basilar atelectasis. Worsening of consolidation in the right upper, middle and right lower lobes. Pleura: Moderate right and small left pleural effusion. Heart: The heart is not dilated. No coronary artery calcifications are seen. Pericardial fluid again noted on the left, increasing from prior, measuring and 17 millimeters in thickness. Aorta: Thoracic aorta non-dilated. No dissection. Upper abdomen: No acute findings. Bones: Scoliosis and degenerative changes. Tubes, Catheters, and Lines: Port over right pectoral muscle. Soft tissues: Unremarkable. IMPRESSION: No evidence of pulmonary embolism. Interval worsening of adenopathy and worsening of right sided pulmonary consolidation in the upper, middle and lower lobes. Enlargement of bilateral pleural effusions and left-sided pericardial effusion. Labs 10/12/23 06:40 10/12/23 06:40 Labs: Laboratory Results - last 24 hr 10/11/23 10/11/23 14:11 14:53 WBC 8.70 RBC 3.35 L Hgb 10.2 L Hct 32.3 L MCV 96 H MCH 30.4 MCHC 31.6 L RDW 16.5 H Plt Count 239 MPV 8.7 Immature Gran % 1.3 Neutrophils % 93.2 Lymphocytes % 3.6 Monocytes % 1.7 Eosinophils % 0.0 Basophils % 0.2 Nucleated RBC % 0.0 Absolute Neutrophils 8.11 H Absolute Lymphocytes 0.31 L Absolute Monocytes 0.15 Absolute Eosinophils 0.00 Absolute Basophils 0.02 VBG pH 7.46 H VBG pCO2 44 VBG pO2 39 VBG HCO3 31 H VBG Total CO2 29 VBG O2 Saturation 74 VBG Base Excess 8 H Sodium 143 Potassium 4.3 Chloride 104 Carbon Dioxide 30.3 Anion Gap 8.7 BUN 25 H Creatinine 1.0 Est GFR (CKD-EPI 2020) 63.30 Glucose 113 H Calcium 8.8 Total Bilirubin 0.3 AST 24 ALT 32 Alkaline Phosphatase 54 Troponin I < 50 NT-Pro-B Natriuret Pep Cancelled Total Protein 6.5 Albumin 3.0 L Last Vital Signs Temp 36.7 C 10/11/23 14:07 Pulse 86 10/11/23 17:01 Resp 20 10/11/23 18:30 BP 129/81 10/11/23 17:01 Pulse Ox 93 10/11/23 18:30 Time Spent Time spent with Patient: >75 minutes Time was spent: preparing to see the patient(eg.review tests), obtaining and/or reviewing separately otained hiistory, ordering medications,tests, procedures, referring, communicating with other health healthcare interpreter, indepentently interpreting results, counseling the patient and care coordination
[2023-10-11] MEDS: AMPICILLIN/SULBACTAM 1.5 GM in Normal Saline 50 ML IVPB ×2 (19:26→20:15)
[2023-10-11 19:54] LABS: Iron 30 ug/dL (50-170)
[2023-10-11 20:05] LABS: Troponin I < 50 ng/L (< or =60)
[2023-10-11 20:11] LABS: Bilirubin Negative (Negative); Blood Trace-intact (Negative); Clarity Cloudy (Clear); Glucose Negative (Negative); Ketones Negative (Negative); Leukocyte Esterase Negative (Negative); Nitrite Negative (Negative); Specific Gravity 1.015 (1.005-1.025); Urobilinogen 0.2 mg/dL (Up to 0.2); pH 8.5 (5-8)
[2023-10-11 20:15] LABS: Magnesium 2.3 mg/dL (1.8-2.4)
[2023-10-11 20:21] LABS: Bacteria Negative HPF (Negative); C & S Indicated? No; Casts Negative LPF (Negative); Crystals Many Amorphous HPF (Negative); Epithelial Cells Rare HPF (Negative); Mucus Negative (Negative); RBC 0-2 HPF (0-2); WBC 0-2 HPF (0-5)
[2023-10-11 20:59] LABS: Ferritin 681 ng/mL (8-252); Vitamin B12 581 pg/mL (193-986)
[2023-10-11 21:00] LABS: Folate > 20.0 ng/mL (8.6-20.0)
[2023-10-11] MEDS: Milk of Magnesia 30 ML CUP PO (21:25)
[2023-10-11] MEDS: Apixaban 5 MG TAB PO (21:25)
[2023-10-11] MEDS: Docusate Sodium 100 MG CAP PO (21:25)
[2023-10-11] MEDS: Normal Saline Flush 10 ML SYR IVP (21:27)
--- NOTE | 2023-10-11 21:37 | W.PC.ACHO ---
Registration Status: ADM SANTI Primary Language: Preferred Language: [place] Citizen ED Information & Data Chief Complaint RespSymp 10/11/23 14:07 Chief Complaint RespSymp 10/11/23 14:02 Other Complaint GenMedical 10/11/23 14:02 Triage Note Increase of SOB. Productive 10/11/23 14:02 cough, green sputum. Increased weakness. Constipation Last 48 hours. Medical / Surgical History (Last Reviewed 10/11/23 @ 18:54 by Fredy Wen) Herpes zoster Smoker Menopause Cardiac arrhythmia TUBULAR ADENOMA Dermatitis Stress DIVERTICULOSIS (Last Reviewed 10/11/23 @ 18:54 by Fredy Wen) History of colonoscopy with polypectomy (~03/20/22) Lateral Retinacular Release, Open Colonoscopy - IV Sedation (03/15/13) Bone Graft & Pinning of Right Wrist Most Recent Vital Signs Temperature 36.9 C 10/11/23 20:54 Temperature Source Temporal Artery Scan 10/11/23 20:54 Pulse 80 10/11/23 20:54 Pulse Rhythm Irregular 10/11/23 20:41 Pulse 79 10/11/23 20:10 Respiratory Rate 16 10/11/23 20:54 Respiratory Effort Short of Breath, Incrsd Work of Breathing 10/11/23 20:41 Blood Pressure 134/91 H 10/11/23 20:54 Blood Pressure Mean 93 10/11/23 20:16 Blood Pressure Position Sitting 10/11/23 14:07 Pulse Oximetry 92 10/11/23 20:54 Oxygen Delivery Method Room Air 10/11/23 20:54 Oxygen Flow Rate 0 10/11/23 20:54 Pain Level 0 10/11/23 20:41 Allergies No Known Allergies Allergy (Verified 10/11/23 16:10) Active Medications Generic Name Dose Route Start Last Admin Trade Name Freq PRN Reason Stop Dose Admin Apixaban 5 mg 10/11/23 20:00 10/11/23 21:25 Apixaban 5 Mg Tab PO 5 mg BID YVONNE Administration Docusate Sodium 100 mg 10/11/23 19:10 10/11/23 21:25 Docusate Sodium 100 Mg Cap PO 100 mg TID PRN PRN Administration Iohexol 70 ml 10/11/23 16:00 10/11/23 15:48 Omnipaque 350 Mg/Ml 100 Ml Btl IJ 11/10/23 23:59 70 ml DIRECTED YVONNE Administration Magnesium Hydroxide 30 ml 10/11/23 19:10 10/11/23 21:25 Milk Of Magnesia 30 Ml Cup PO 30 ml DAILY PRN PRN Administration Sodium Chloride 50 ml 10/11/23 16:00 10/11/23 15:49 Normal Saline - Diluent 50 Ml Vial IJ 50 ml .FOR DI USE YVONNE Administration Sodium Chloride 0 ml 10/11/23 20:00 10/11/23 21:27 Normal Saline Flush 10 Ml Syr IVP 10 ml BID YVONNE Administration IV IV Catheter Type [Proximal Port-a-cath (single) Port] Diet Orders Category Date Time Status Regular/Normal [DIET] Nutrition 10/11/23 Dinner Active Diagnostics 10/11/23 10/11/23 10/11/23 Range/Units 23:30 20:00 19:42 WBC (4.4-10.8) 10^3/uL RBC (3.93-5.22) 10^6/uL Hgb (11.2-15.7) g/dL Hct (36.0-46.0) % MCV (80-95) fL MCH (27.0-33.0) pg MCHC (32.0-36.0) % RDW (11.7-14.6) % Plt Count (130-400) 10^3/uL MPV (8.0-11.0) fL Immature Gran % % Neutrophils % % Lymphocytes % % Monocytes % % Eosinophils % % Basophils % % Nucleated RBC % (0.0-0.3) % Absolute Neutrophils (1.2-6.7) 10^3/uL Absolute Lymphocytes (1.2-3.4) 10^3/uL Absolute Monocytes (0.1-0.8) 10^3/uL Absolute Eosinophils (0.0-0.7) 10^3/uL Absolute Basophils (0.0-0.2) 10^3/uL VBG pH (7.31-7.41) VBG pCO2 (41-51) mmHg VBG pO2 mmHg VBG HCO3 (23-28) mmol/L VBG Total CO2 (24-29) mmol/L VBG O2 Saturation % VBG Base Excess (-2-3) mmol/L Sodium (136-145) mmol/L Potassium (3.5-5.1) mmol/L Chloride (98-107) mmol/L Carbon Dioxide (21.0-32.0) mmol/L Anion Gap (3-11) mmol/L BUN (7-18) mg/dL Creatinine (0.55-1.02) mg/dL Est GFR (CKD-EPI 2020) (mL/min/1.73m2) Glucose (74-106) mg/dL Calcium (8.5-10.1) mg/dL Magnesium 2.3 (1.8-2.4) mg/dL Iron (50-170) ug/dL Ferritin 681 H (8-252) ng/mL Total Bilirubin (0.2-1.0) mg/dL AST (15-37) U/L ALT (14-59) U/L Alkaline Phosphatase (46-116) U/L Troponin I Pending < 50 (< or =60) ng/L NT-Pro-B Natriuret Pep Total Protein (6.4-8.2) g/dL Albumin (3.4-5.0) g/dL Vitamin B12 581 (193-986) pg/mL Folate > 20.0 H (8.6-20.0) ng/mL Urine Color Yellow (Yellow) Urine Clarity Cloudy (Clear) Urine pH 8.5 H (5-8) Ur Specific [employer] 1.015 (1.005-1.025) Urine Protein Negative (Neg-Trace) mg/dL Urine Ketones Negative (Negative) mg/dL Urine Blood Trace-intact H (Negative) Urine Nitrite Negative (Negative) Urine Bilirubin Negative (Negative) Urine Urobilinogen 0.2 (Up to 0.2) mg/dL Ur Leukocyte Esterase Negative (Negative) Urine RBC 0-2 (0-2) HPF Urine WBC 0-2 (0-5) HPF Ur Epithelial Cells Rare (Negative) HPF Urine Crystals Many Amorphous (Negative) HPF Urine Bacteria Negative (Negative) HPF Urine Casts Negative (Negative) LPF Urine Mucus Negative (Negative) Ur Culture Indicated? No Urine Glucose Negative (Negative) mg/dL COVID-19 Source SARS-CoV-2 (PCR) Influenza Type A (PCR) Influenza Type B (PCR) RSV (PCR) 10/11/23 10/11/23 Range/Units 14:53 14:11 WBC 8.70 (4.4-10.8) 10^3/uL RBC 3.35 L (3.93-5.22) 10^6/uL Hgb 10.2 L (11.2-15.7) g/dL Hct 32.3 L (36.0-46.0) % MCV 96 H (80-95) fL MCH 30.4 (27.0-33.0) pg MCHC 31.6 L (32.0-36.0) % RDW 16.5 H (11.7-14.6) % Plt Count 239 (130-400) 10^3/uL MPV 8.7 (8.0-11.0) fL Immature Gran % 1.3 % Neutrophils % 93.2 % Lymphocytes % 3.6 % Monocytes % 1.7 % Eosinophils % 0.0 % Basophils % 0.2 % Nucleated RBC % 0.0 (0.0-0.3) % Absolute Neutrophils 8.11 H (1.2-6.7) 10^3/uL Absolute Lymphocytes 0.31 L (1.2-3.4) 10^3/uL Absolute Monocytes 0.15 (0.1-0.8) 10^3/uL Absolute Eosinophils 0.00 (0.0-0.7) 10^3/uL Absolute Basophils 0.02 (0.0-0.2) 10^3/uL VBG pH 7.46 H (7.31-7.41) VBG pCO2 44 (41-51) mmHg VBG pO2 39 mmHg VBG HCO3 31 H (23-28) mmol/L VBG Total CO2 29 (24-29) mmol/L VBG O2 Saturation 74 % VBG Base Excess 8 H (-2-3) mmol/L Sodium 143 (136-145) mmol/L Potassium 4.3 (3.5-5.1) mmol/L Chloride 104 (98-107) mmol/L Carbon Dioxide 30.3 (21.0-32.0) mmol/L Anion Gap 8.7 (3-11) mmol/L BUN 25 H (7-18) mg/dL Creatinine 1.0 (0.55-1.02) mg/dL Est GFR (CKD-EPI 2020) 63.30 (mL/min/1.73m2) Glucose 113 H (74-106) mg/dL Calcium 8.8 (8.5-10.1) mg/dL Magnesium (1.8-2.4) mg/dL Iron 30 L (50-170) ug/dL Ferritin (8-252) ng/mL Total Bilirubin 0.3 (0.2-1.0) mg/dL AST 24 (15-37) U/L ALT 32 (14-59) U/L Alkaline Phosphatase 54 (46-116) U/L Troponin I < 50 (< or =60) ng/L NT-Pro-B Natriuret Pep Cancelled Total Protein 6.5 (6.4-8.2) g/dL Albumin 3.0 L (3.4-5.0) g/dL Vitamin B12 (193-986) pg/mL Folate (8.6-20.0) ng/mL Urine Color (Yellow) Urine Clarity (Clear) Urine pH (5-8) Ur Specific [employer] (1.005-1.025) Urine Protein (Neg-Trace) mg/dL Urine Ketones (Negative) mg/dL Urine Blood (Negative) Urine Nitrite (Negative) Urine Bilirubin (Negative) Urine Urobilinogen (Up to 0.2) mg/dL Ur Leukocyte Esterase (Negative) Urine RBC (0-2) HPF Urine WBC (0-5) HPF Ur Epithelial Cells (Negative) HPF Urine Crystals (Negative) HPF Urine Bacteria (Negative) HPF Urine Casts (Negative) LPF Urine Mucus (Negative) Ur Culture Indicated? Urine Glucose (Negative) mg/dL COVID-19 Source Pending SARS-CoV-2 (PCR) Pending Influenza Type A (PCR) Pending Influenza Type B (PCR) Pending RSV (PCR) Pending Intake and Output - 24 Hour Total 10/11/23 13:58 thru 10/11/23 21:09 Intake Total 100 Balance 100 Weight 72.3 kg Intake: IV 100 Falls Risk Assessment History of Falls Previous History 10/11/23 20:41 Contributing Factors Unstable,Impairments, 10/11/23 20:41 Incontinence,Medications Ambulatory Aids Uses ambulatory device 10/11/23 20:41 Tubes/Lines With any additional score 10/11/23 20:41 Gait Evaluation W/any additional score 10/11/23 20:41 Cognition No cognitive impairment 10/11/23 20:41 Fall Total Score 82 10/11/23 20:41 Level of Risk Maximum Risk 10/11/23 20:41 Problems (Last Reviewed 10/11/23 @ 18:54 by Fredy Wen) Macrocytic anemia (Chronic) Malignant pericardial effusion (Acute) Postobstructive pneumonia (Acute) Small cell lung cancer (Acute) Paroxysmal atrial fibrillation (Acute) v v v v v v v v v Sending and/or Receiving Nurses: Please use comment section below to note any information pertinent to the patient hand-off not included above. Information / Comments: Report received from:
[2023-10-11 23:58] LABS: Troponin I < 50 ng/L (< or =60)
--- NOTE | 2023-10-12 | DI.US_ITS ---
APPROVED REPORT EXAM: Comprehensive 2D, Doppler, and color-flow Echocardiogram Patient Location: In-Patient Room/Bed: 225 Locomotive Mechanic: Grace Curtis RDCS (AE) Indications: SCLC with pericardial effusion, PAF Other Information Study Quality: Fair. Technically limited study due to body habitus, lung disease, inability to positi on patient exam done supine and in sitting position.. Conclusion Technically difficult study Left ventricle appears grossly normal in size and systolic function. Ejection fraction is 55%. Ther e are no segmental wall motion abnormalities Normal right ventricular size and function Both atria are normal in size There is no significant valvular disease Moderate circumferential pericardial effusion without findings to suggest cardiac tamponade Wall motion Left Ventricle Technically limited parasternal imaging due to body habitus, lung disease. The overall left ventricul ar systolic function appears normal. There is no ventricular septal defect visualized. LVEF is 55%. Right Ventricle Right ventricle is grossly normal in size. Right ventricular systolic function is grossly normal. Atria The left atrium size is normal. The right atrium size is normal. The interatrial septum is intact wit h no evidence for an atrial septal defect. Aortic Valve The aortic valve is normal in structure. Number of aortic valve leaflets could not be assessed. There is no aortic valvular stenosis. Trace aortic regurgitation. Mitral Valve The mitral valve is normal in structure. No evidence of mitral valve stenosis. Mild mitral regurgitat ion. Tricuspid Valve The tricuspid valve is normal in structure. There is no tricuspid valve stenosis. Trace tricuspid reg urgitation. The RVSP is 23.2 mmHg. Pulmonic Valve Pulmonic valve is not well visualized. There is no pulmonic valvular stenosis. There is no pulmonic v alvular regurgitation. Great Vessels The aortic root is normal in size. Ascending aorta is not well visualized. Aortic arch is not well vi sualized. IVC is normal in size and collapses >50% with inspiration. Pericardium Moderate anterior pericardial effusion. 2D Dimensions IVSD d PLAX 0.88 cm F: 0.6-1.0 Ao Root d 3.03 cm F: 2.7 - 3.3 LVPW d PLAX 0.88 cm F: 0.6 - 1.0 LVID d PLAX 4.05 cm F: 3.8 - 5.2 LVDs 3.02 cm F: 2.2 - 3.5 LV EF Teichholz 50.7 % FS 25.45 % LV EDV (Teich) 72.0 mL LV ESV (Teich) 35.5 mL Auto EF LV EDV A4C 116.1 mL LV EDV A2C 99.0 mL LV EDV BP 107.0 mL LV ESV A4C 54.9 mL LV ESV A2C 49.7 mL LV ESV BP 52.5 mL LVEF(%) A4C 52.7 % LVEF(%) A2C 49.7 % LVEF(%) BP 51.0 % LV SV A4C 61.1 ml LV SV A2C 49.2 ml LV SV BP 54.5 ml LV CO A4C 4.8 L/min LV CO A2C 3.9 L/min LV CO BP 4.4 L/min HR A4C 78.74 BPM HR A2C 79.83 BPM LV EDV Index (BP) LV Diastology MV E' medial 0.104 (>0.07 m/s) MV E Vmax 0.62 (0.4-1.3 m/s) MV E/E' MED 5.92 (<14) MV A Vmax 0.65 (0.4-1.3 m/s) MV E' lateral 0.073 (>0.1 m/s) E/A Ratio 1.0 MV E/E' LAT 8.45 (<14) MV E' Average 0.089 m/s MV E/E'(average) 6.96 Aortic Valve AoV Vmax 1.31 m/s LVOT Vmax 0.91 m/s AoV Peak Grad 6.8 mmHg LVOT Peak Grad 3.3 mmHg AoV Area (Vmax) 1.90 cm2 LVOT VTI 0.171 m AoV VTI 0.251 m LVOT Mean Grad 1.5 mmHg AoV Mean Rashel. 0.82 m/s LVOT SV 46.74 mL AoV Mean Grad 3.2 mmHg LVOT Diam s 1.85 cm AoV Area (VTI) 1.86 cm2 Velocity Ratio 0.69 Mitral Valve MV DT 206 (160-240 msec) MV Vmax TIPS 0.84 m/s MV Mean Grad 1.1 (<2mmHg) MV VTI 0.244 m Pulmonary Valve PV Vmax 0.72 (0.5-1.5 m/s) RVOT Vmax 0.57 m/s PV Peak Grad 2.1 mmHg RVOT Peak Gr. 1.3 mmHg PV Mean Rashel 0.57 m/s RVOT VTI 0.100 m PV Mean Grad 1.4 mmHg RVOT Mean Gr. 0.7 mmHg Tricuspid Valve RA Pressure 3.00 mmHg TR Vmax 2.25 m/s TR Peak Grad 20.1 mmHg RVSP (TR) 23.2 mmHg
[2023-10-12] MEDS: AMPICILLIN/SULBACTAM 3 GM in Normal Saline 100 ML IVPB ×4 (00:11→17:31)
[2023-10-12] MEDS: Normal Saline Flush 10 ML SYR IVP ×4 (00:12→19:59)
[2023-10-12 00:16] LABS: COVID-19 PCR Negative (Negative); Influenza A PCR Negative (Negative); Influenza B PCR Negative (Negative); RSV PCR Negative (Negative)
[2023-10-12 00:24] LABS: Source Nasopharynx
[2023-10-12 02:43] VITALS: BP 110/74; PULSE 77; RESP 16; TEMP 36.9; O2SAT 94
[2023-10-12] MEDS: Acetaminophen 325 MG TAB PO ×3 (04:51→22:37)
[2023-10-12] MEDS: DOXYCYCLINE 100 MG in Normal Saline 100 ML IVPB ×2 (06:45→18:13)
[2023-10-12 06:52] LABS: HCT 31.8 % (36.0-46.0); HGB 9.8 g/dL (11.2-15.7); MCH 29.6 pg (27.0-33.0); MCHC 30.8 % (32.0-36.0); MCV 96 fL (80-95); MPV 8.6 fL (8.0-11.0); Platelet Count 236 10^3/uL (130-400); RBC 3.31 10^6/uL (3.93-5.22); RDW 16.4 % (11.7-14.6); WBC 7.19 10^3/uL (4.4-10.8)
[2023-10-12 07:07] LABS: ALT 28 U/L (14-59); AST 25 U/L (15-37); Albumin 2.8 g/dL (3.4-5.0); Alkaline Phosphatase 52 U/L (46-116); Anion Gap 4.4 mmol/L (3-11); BUN 24 mg/dL (7-18); Bilirubin, Total 0.3 mg/dL (0.2-1.0); CO2 32.6 mmol/L (21.0-32.0); Calcium 8.5 mg/dL (8.5-10.1); Chloride 107 mmol/L (98-107); Glucose 86 mg/dL (74-106); Magnesium 2.4 mg/dL (1.8-2.4); Potassium 3.6 mmol/L (3.5-5.1); Sodium 144 mmol/L (136-145); Total Protein 6.1 g/dL (6.4-8.2)
[2023-10-12 07:26] VITALS: BP 128/84; PULSE 77; RESP 17; TEMP 36.6; O2SAT 94
[2023-10-12] MEDS: Magnesium Oxide 400 MG TAB 200 MG PO (08:03)
[2023-10-12] MEDS: Multivitamin TAB 1 TAB PO (08:04)
[2023-10-12] MEDS: Prochlorperazine 5 MG TAB PO (08:04)
[2023-10-12] MEDS: Cholecalciferol (Vitamin D3) 1,000 UNIT TAB 1000 UNITS PO (08:04)
[2023-10-12] MEDS: Apixaban 5 MG TAB PO ×2 (08:04→19:59)
[2023-10-12] MEDS: Calcium Carbonate *TUMS* 500 MG CHEW 1000 MG PO (08:04)
[2023-10-12] MEDS: Docusate Sodium 100 MG CAP PO ×3 (08:25→20:00)
[2023-10-12] MEDS: Polyethylene Glycol 3350 17 GM PACKET PO (08:25)
--- NOTE | 2023-10-12 09:06 | PGE_ITS ---
Date of Service Date of service: 10/12/23 Time of Service: 09:06 Assessment and Plan Assessment and plan (1) Postobstructive pneumonia: Start date: 10/11/23 Status: Acute Assessment and plan: Continue Unasyn and Doxycycline Monitor efficay Convert to oral therapy for discharge CBC in AM (2) Malignant pericardial effusion: Start date: 10/11/23 Status: Acute Assessment and plan: Echo: LVEF 55% with overall normal left ventricular systolic function. -RVSP 23.2 mmHg -IVC collapse over 50% with inspiration Continue close monitoring for decompensation Cardiology consult pending (3) Small cell lung cancer: Status: Chronic Assessment and plan: On outpatient treatment with lurbinectedin IV infusion, last around 10/06/2023 On room air with sat 92-96 at rest Nursing to monitor for desaturation with ADLs Considering exercise oximetry test if patient becomes hypoxic during ADLs (4) Paroxysmal atrial fibrillation: Status: Chronic Assessment and plan: Continue telemetry SA HR 77 On Eliquis (5) Macrocytic anemia: Status: Chronic (6) Bilateral pleural effusion: Status: Acute Assessment and plan: More prominent on the left side as per CT Most likely d/t malignancy with drain the most likely option if the patient was to become severely symptomatic If surgical consult for thoracentesis consider sampling for micro/pathology/Light's criteria Might not respond to diuresis Considerer pleuredesis longer term option via pulmonary medicine Palliative care consult ordered (7) On deep vein thrombosis (DVT) prophylaxis: Status: Acute Assessment and plan: Continue SCD's On Eliquis d/t parosyxmal atrial-fibrillation (8) Discharge planning issues: Status: Acute Assessment and plan: Palliative care consult completed by Dr. Whipple -GILA -Now a DNR/DNI -Advanced directives PT recommended Might need home O2 if hypoxic during ADL's -ambulated with PT and Dr. Whipple in the room sat dropped to 87% Will order exercise oximetry prior to d/c to determine home O2 requirement as per pt's wish Discussed w Dr. Abad Subjective Subjective Patient reports: no new complaints, voiding w/o difficulty, flatus, bowel movement (after 7 days), shortness of breath and other; denies still having pain, diarrhea, blood in stool, nausea, vomiting or fever Exam Narrative Exam Narrative: Constitutional The patient resting in bed comfortable but fatigued without acute distress HENMT: Facial structures with normal appearance Neuro:alert and oriented to self, person, place, time and situation. No neurological focal deficit Chest:Chest is symmetrical ,iv access via port to right chest Resp: left posterior lung w coarse basilar crackles, right base is diminished with fine crackles, clear bilat upper lungs Cardio: regular rhythm, S1, S2, bilateral radial and dorsalis pedis pulses are positive, palpable GI: Abdomen is not distended, soft and non tender, bowel sounds are present : Negative Costovertebral angle tenderness Back/spine/Pelvis: No back tenderness, normal alignment Integumentary: No skin lesions or rash Psych: RASS 0, congruent mood and initially sad but normal affect s/p interaction. Objective Last Vital Signs Temp 36.6 C 10/12/23 07:26 Pulse 77 10/12/23 07:26 Resp 17 10/12/23 07:26 BP 128/84 10/12/23 07:26 Pulse Ox 94 10/12/23 07:26 Laboratory Results - last 24 hr 10/11/23 10/11/23 10/11/23 14:11 14:53 19:42 WBC 8.70 RBC 3.35 L Hgb 10.2 L Hct 32.3 L MCV 96 H MCH 30.4 MCHC 31.6 L RDW 16.5 H Plt Count 239 MPV 8.7 Immature Gran % 1.3 Neutrophils % 93.2 Lymphocytes % 3.6 Monocytes % 1.7 Eosinophils % 0.0 Basophils % 0.2 Nucleated RBC % 0.0 Absolute Neutrophils 8.11 H Absolute Lymphocytes 0.31 L Absolute Monocytes 0.15 Absolute Eosinophils 0.00 Absolute Basophils 0.02 VBG pH 7.46 H VBG pCO2 44 VBG pO2 39 VBG HCO3 31 H VBG Total CO2 29 VBG O2 Saturation 74 VBG Base Excess 8 H Sodium 143 Potassium 4.3 Chloride 104 Carbon Dioxide 30.3 Anion Gap 8.7 BUN 25 H Creatinine 1.0 Est GFR (CKD-EPI 2020) 63.30 Glucose 113 H Calcium 8.8 Magnesium 2.3 Iron 30 L Ferritin 681 H Total Bilirubin 0.3 AST 24 ALT 32 Alkaline Phosphatase 54 Troponin I < 50 < 50 NT-Pro-B Natriuret Pep Cancelled Total Protein 6.5 Albumin 3.0 L Vitamin B12 581 Folate > 20.0 H Urine Color Urine Clarity Urine pH Ur Specific [place] Urine Protein Urine Ketones Urine Blood Urine Nitrite Urine Bilirubin Urine Urobilinogen Ur Leukocyte Esterase Urine RBC Urine WBC Ur Epithelial Cells Urine Crystals Urine Bacteria Urine Casts Urine Mucus Ur Culture Indicated? Urine Glucose COVID-19 Source SARS-CoV-2 (PCR) Influenza Type A (PCR) Influenza Type B (PCR) RSV (PCR) 10/11/23 10/11/23 10/12/23 20:00 23:30 06:40 WBC 7.19 RBC 3.31 L Hgb 9.8 L Hct 31.8 L MCV 96 H MCH 29.6 MCHC 30.8 L RDW 16.4 H Plt Count 236 MPV 8.6 Immature Gran % Neutrophils % Lymphocytes % Monocytes % Eosinophils % Basophils % Nucleated RBC % Absolute Neutrophils Absolute Lymphocytes Absolute Monocytes Absolute Eosinophils Absolute Basophils VBG pH VBG pCO2 VBG pO2 VBG HCO3 VBG Total CO2 VBG O2 Saturation VBG Base Excess Sodium 144 Potassium 3.6 Chloride 107 Carbon Dioxide 32.6 H Anion Gap 4.4 BUN 24 H Creatinine 1.0 Est GFR (CKD-EPI 2020) 63.30 Glucose 86 Calcium 8.5 Magnesium 2.4 Iron Ferritin Total Bilirubin 0.3 AST 25 ALT 28 Alkaline Phosphatase 52 Troponin I < 50 NT-Pro-B Natriuret Pep Total Protein 6.1 L Albumin 2.8 L Vitamin B12 Folate Urine Color Yellow Urine Clarity Cloudy Urine pH 8.5 H Ur Specific [place] 1.015 Urine Protein Negative Urine Ketones Negative Urine Blood Trace-intact H Urine Nitrite Negative Urine Bilirubin Negative Urine Urobilinogen 0.2 Ur Leukocyte Esterase Negative Urine RBC 0-2 Urine WBC 0-2 Ur Epithelial Cells Rare Urine Crystals Many Amorphous Urine Bacteria Negative Urine Casts Negative Urine Mucus Negative Ur Culture Indicated? No Urine Glucose Negative COVID-19 Source Nasopharynx SARS-CoV-2 (PCR) Negative Influenza Type A (PCR) Negative Influenza Type B (PCR) Negative RSV (PCR) Negative Time Spent with Patient Time Spent with Patient: >50 minutes Time was spent: preparing to see the patient(eg.review tests), obtaining and/or reviewing separately otained hiistory, ordering medications,tests, procedures, referring, communicating with other health field care coordinator, indepentently interpreting results, counseling the patient and care coordination
[2023-10-12] MEDS: predniSONE 20 MG TAB 40 MG PO (11:23)
[2023-10-12 11:24] VITALS: BP 113/87; PULSE 77; RESP 17; TEMP 36.6; O2SAT 95
--- NOTE | 2023-10-12 14:29 | IN_ITS ---
PT Notes Visit Reasons: postobstructive pneumonia with hypoxmia,SCLC,PAF Physical Therapy Inpatient Initial Evaluation Date: 10/12/2023 Referring Doctor: Elly England NP PT Orders: PT CONSULT: Safety Consult for D/C Precautions: Fall. Standard. Activity as tolerated. Patient Profile/Admitting Diagnosis: Mary is a 63-year-old female with small cell carcinoma currently on chemotherapy with port on right chest who presented to the ED on 10/11/2023 due to shortness of breath and constipation. Patient was subsequently admitted to acute level of care for management of postobstructive pneumonia, malignant pericardial effusion, small cell lung carcinoma, PAF, microcytic anemia, and pneumonitis. PT consulted for discharge recommendantions and equipment needs for safety at home. PMHX: All Active Problems (Updated 10/12/23 @ 09:42 by Fredy Wen) Pneumonitis (Chronic) Macrocytic anemia (Chronic) Malignant pericardial effusion (Acute) Postobstructive pneumonia (Acute) Abdominal pain (Acute) Metastatic neoplasm (Acute) Bradycardia (Acute) Small cell lung cancer (Chronic) Paroxysmal atrial fibrillation (Chronic) Atrial fibrillation with RVR (Acute) Arrhythmia (Acute) SESSILE SERATED ADENOMA (Acute ~03/20/22) Stoiber, multiple, repeat 2 yrsHx of adenomatous colonic polyps (Acute) Screening for colon cancer (Acute) LVE (left ventricular enlargement) (Acute) Syncope (Chronic) Medical History Herpes zoster Smoker Menopause Cardiac arrhythmia TUBULAR ADENOMA Dermatitis Stress DIVERTICULOSIS Surgical History History of colonoscopy with polypectomy (~03/20/22) Lateral Retinacular Release, Open Right Colonoscopy - IV Sedation (03/15/13) Bone Graft & Pinning of Right Wrist Social History/Home Situation: 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 She has been modified independent with all mobility ADL performance without an assistive device although she has had some slowing down and odifications of ambulation performance to tolerance since she started with her cancer treatment. Equipment Owned/DME: 4WW Subjective: PT was invited by Nurse Moran to join in and assist with mobility assessment as planned mak. Agreeable with finding out how her oxygen changes with mobility performance. Dr Whipple was monitoring her oxygen saturation while PT assisted with ambulation performance. Friend came along to help with wheelchair follow. Appeared fatigued and short of breath after each short walking trip in the hallway. Objective: General Observation: Seated at edge of bed. Telemetry monitoring in place. Mental Status: Alert and oriented as to person, place, time, and purpose. Able to pay attention, focus, and respond appropriately. Pain: None reported Vital Signs: Oxygen saturation lowes of 87% on room air during the first 50-60 feet; oxygen saturation highest of 93% after patient has rested in sitting ROM: Right Upper Extremity: Shoulder Flexion WFL. Shoulder abduction WFL. Elbow flexion WFL. Wrist flexion WFL. Functional opening and closing of hand WFL. Left Upper Extremity: Shoulder Flexion WFL. Shoulder abduction WFL. Elbow flexion WFL. Wrist flexion WFL. Functional opening and closing of hand WFL. Right Lower Extremity: Hip flexion WFL. Hip abduction WFL. Knee flexion WFL. Ankle dorsiflexion WFL. Ankle plantarflexion WFL. Left Lower Extremity: Hip flexion WFL. Hip abduction WFL. Knee flexion WFL. Ankle dorsiflexion WFL. Ankle plantarflexion WFL. Strength: Right Upper Extremity: Grossly 3+/5 Left Upper Extremity:Grossly 3+/5 Right Lower Extremity: Grossly 4-/5 Left Lower Extremity: Grossly 4-/5 Bed Mobility/Transfers: Minimal cueing provided for use of B hands as needed for support, movement sequence, AD management, and posture to reduce fall risk and minimize pain report Supine to sit contact guard assist with HOB at 30 degrees. Sit to supine contact guard assist Sit to stand contact guard assist with FWW Stand to sit contact guard assist with FWW Bed to reclining chair contact guard assist with FWW Gait: Facilitated safe and correct as a level surface ambulation covering a distance of 60 feet +30 feet +40 feet using front wheeled walker with step through gait pattern. Mattie decreased. Demonstrated minimal to moderate SOB and fatigue requiring seated rest of at least 3-5 minutes each. Desaturated down to 87% on room air with 3 saturation back to 92 to 93% after about 5 minutes of seated rest. Balance: Static Sitting: Normal Dynamic Sitting: Fair Static Standing: Fair Dynamic Standing: Fair Special Tests: Mobility Limitations Standardized Measure [facility] AM-PAC 6 clicks Basic Mobility Inpatient Short Form: Raw Score: 18 CMS Score: 47% deficit 4-Stage Balance Test: Deferred Informed Consent/Education: Patient was instructed in purpose of PT consult and plan of care. Agreeable to proceed with established PT POC to achieve personal goals. ASSESSMENT: Patient will only need to cover about 30 feet of indoor ambulation and has a transport chair as well as 4WW as needed. Activity tolerance decreased. Will require use of front-wheeled walker for energy conservation and for fall reduction. Further activity was deferred as patient was too fatigued and needed to lie back down in bed to rest. Patient presents with clinical signs and symptoms consistent with current/admitting diagnoses that have resulted to mobility limitations, gait instability, generalized weakness, and overall ADL decline as demonstrated by the following impairment level findings: 1. Decreased strength to B UE/LE major muscle groups 2. Impaired sitting/standing balance 3. Impaired activity tolerance 4. Shortness of breath Impairments are contributing to the following functional limitations: 1. Decline in bed mobility skills 2. Decline in transfer skills 3. Difficulty with ambulation without assistive device and physical assistance 4. Increased completion time for mobility ADL performance 5. Increased risk for falls 6. Difficulty with managing steps alone safely [place] 76570 moderate complexity based on the following: History: 63-year-old female with past medical history as indicated above Examination: Demonstrable impairment in strength, balance, and mobility level with underlying impairments and functional limitations as exhibited above as well as deficit score of 47% utilizing the [facility] Mobility Inpatient Short Form Presentation: Evolving Decision Makin moderate complexity Goals: Goals X1 week 1. Supine-Sit independent 2. Sit-Supine independent 3. Sit-Stand independent 4. Stand-Sit independent with 4WW 5. Bed-Chair independent with 4WW 6. Chair-Bed independent with 4WW 7. Independent gait on level surface with use of 4WW for at least 30 feet without report of pain nor dyspnea 8. Independent stair negotiation while holding onto B rails for at least 3 steps without report of pain nor dyspnea 9. Independent with home exercise program 10. Good static and dynamic standing balance/tolerance Plan of Care/Treatment Plan: 1-2x/day, 7 days/week x 1 week. Plan of care has been reviewed with the CHAIN REPAIRER providing the service under Physical Therapy direction. Initiate Physical Therapy intervention for pain management as needed, strengthening, bed mobility, transfers, gait, stairs, balance training, and use of assistive device. - Assess for safety of 4WW use while monitoring oxygen saturation levels during ambulation. -Provide seated B LE and B UE exercises DISCHARGE RECOMMENDATIONS: [] Home with no services [] [X] Home with services. Patient will benefit from home health PT services in order to progress mobility level using least restrictive assistive ambulatory device, assess home safety, identify additional equipment needs, and establish a functional maintenance program that will increase ability of patient to remain at home. [] Home with outpatient PT [] [] SNF for continued rehabilitation [] [] Penitentiary Care [] [] SNF versus LTC based on ability to participate and progress [] TREATMENT CODE/TIME: 81408 x 25 minutes for 1 unit (14:29-14:59). Thank you for the opportunity to participate in the care of this patient. Lesly Taveras PT, DPT, CLT [facility] [place], [place]
--- NOTE | 2023-10-12 14:45 | PDOC.CMIN ---
Date of service: 10/12/23 Time of Service: 14:46 Care Management Initial Assmt Initial Assessment Reason for Hospitalization: post obstructive pneumonia Functional Status/Living Situation Town of Residence: [place] Resides with: Alone Significant Other/Family: Out of area Natural Supports: Irma has a daughter, Dhara, who lives in [facility], and a son, Quang, who lives in [place]. They are both supportive of Mary. Mary also has many friends and co workers who are local and supportive. Employment Status: Unemployed (Worked for [employer] for many years; she stopped working after receiving her cancer diagnosis.) Instrumental Activities of Daily Living (ADLs): Independent Medications Medication Management: No Issues/Barriers identified Physical Functioning/Mobility Assistive Device: None Advance Directives Advance Directives: Do you have an Advance Directive: N 05/01/21 13:37 AD On File at [facility]: N 05/01/21 13:37 Date Asked 10/11/23 10/11/23 22:13 AD Date Reviewed COLST On File at [facility] COLST Date Scanned Comment: Irma met with palliative care today and completed both a COLST and a healthcare agent form; Dhara is listed as HCA. Code Status Resuscitation Status Full Code Insurance Coverage/Financial Issues Insurance: [facility] ACO Member: No Care Team Visit Care Team Role Provider Type Kaci Garcia Primary Care Provider NON-[facility] STAFF PHYSICIAN InPatient Rafa Blackburn Other Providers OTHER Marlon Greenberg MD Emergency Provider [facility] STAFF PHYSICIAN Fredy Wen Admit Provider NON-[facility] STAFF PHYSICIAN Attending Provider Discharge Potential Discharge Needs: Consult Consult Services Needed: Palliative (completed today), PT Evaluation (completed today; recommends HH PT) and PCP F/U Appt Anticipated Barriers to Discharge: None Identified Patient/Family Education Needs: Review discharge instructions, discuss Ask Me Three Transportation: Private vehicle (by a friend) Plan: Anticipate Irma will return home once medically cleared. She will have new orders for HH PT, and may require new home O2. Her friend will drive home via private vehicle. She will follow up with her PCP and discharge plan of care. CM will continue to follow. PFSH All Active Problems (Updated 10/12/23 @ 14:26 by Elly England APRN) On deep vein thrombosis (DVT) prophylaxis (Acute) Discharge planning issues (Acute) Bilateral pleural effusion (Acute) Pneumonitis (Chronic) Macrocytic anemia (Chronic) Malignant pericardial effusion (Acute) Postobstructive pneumonia (Acute) Abdominal pain (Acute) Metastatic neoplasm (Acute) Bradycardia (Acute) Small cell lung cancer (Chronic) Paroxysmal atrial fibrillation (Chronic) Atrial fibrillation with RVR (Acute) Arrhythmia (Acute) SESSILE SERATED ADENOMA (Acute ~03/20/22) stoiber, multiple, repeat 2 yrs Hx of adenomatous colonic polyps (Acute) Screening for colon cancer (Acute) LVE (left ventricular enlargement) (Acute) Syncope (Chronic) Medical History Herpes zoster Smoker Menopause Cardiac arrhythmia TUBULAR ADENOMA Dermatitis Stress DIVERTICULOSIS Surgical History History of colonoscopy with polypectomy (~03/20/22) Lateral Retinacular Release, Open Right Colonoscopy - IV Sedation (03/15/13) Bone Graft & Pinning of Right Wrist Family History Mother Heart disease Father Alcohol abuse Sister Heart disease Sister No problems noted. Brother No problems noted. Brother No problems noted. Social History Smoking/Tobacco Use Status: Former Tobacco Use Tobacco: How many years used: 29 Smoking risk assessment performed?: Yes Alcohol Intake: current Alcohol Intake frequency: a few times a month Alcohol type: wine Drug use: Never Substance use type: does not use Details: states no cigarette in 2 weeks since being sick Housing: apartment Current gender identity: female What type of physical activity do you participate in: none Do you feel safe at home: Yes Do you feel safe in your relationship?: Yes SDOH(Care Management) Screening Will the Patient Participate in the Screening?: Yes Do you worry about having a steady place to live?: no In the past 12 months, have you had to go without electric, gas, oil or water in your home?: no Have you or anyone in your house had to go without enough food to eat?: no Has lack of transportation kept you from medical appointments or from doing things needed for daily living?: no Has anyone in your support network made you feel unsafe for any reason?: no Anticipated HH Services Anticipated HH Services at Discharge [facility] Needed, PT. Anticipated Date of Discharge: 10/13/23. Following Provider: Kaci Garcia.
[2023-10-12 15:09] VITALS: BP 118/85; PULSE 82; RESP 17; TEMP 36.6; O2SAT 92
--- NOTE | 2023-10-12 17:17 | CHAPLAIN ---
I had a brief visit with Irma. She was in bed, and a friend was visiting. I explained my role and offered support. She did not seem to be interested in further conversation. According to Care Management notes, Irma worked at [employer] and was diagnosed with small cell lung cancer a few months ago. Today Dr. Whipple met with Irma for Palliative Care consult.
[2023-10-12 19:49] VITALS: BP 135/85; PULSE 79; RESP 18; TEMP 36.7; O2SAT 92
[2023-10-12 23:10] VITALS: BP 116/93; PULSE 81; PULSE 82; RESP 19; TEMP 36.4; O2SAT 94
[2023-10-13] VITALS (8 sets, daily range): BP systolic 92–135; BP diastolic 50–87; PULSE 60–108; RESP 15–22; TEMP 36.3–38.1; O2SAT 92–96
[2023-10-13] MEDS: AMPICILLIN/SULBACTAM 3 GM in Normal Saline 100 ML IVPB ×4 (00:09→17:16)
[2023-10-13] MEDS: Acetaminophen 325 MG TAB PO (05:06)
[2023-10-13] MEDS: DOXYCYCLINE 100 MG in Normal Saline 100 ML IVPB ×2 (05:22→18:16)
[2023-10-13 06:19] LABS: Abs Immature Grans 0.11 10^3/uL (0.0-0.06); Absolute Basophil Count 0.04 10^3/uL (0.0-0.2); Absolute Eosinophil Count 0.02 10^3/uL (0.0-0.7); Absolute Lymphocyte Count 0.76 10^3/uL (1.2-3.4); Absolute Monocyte Count 0.47 10^3/uL (0.1-0.8); Basophils % 0.6 %; Eosinophils % 0.3 %; HCT 31.3 % (36.0-46.0); HGB 9.8 g/dL (11.2-15.7); Immature Grans % 1.5 %; Lymphocytes % 10.7 %; MCHC 31.3 % (32.0-36.0); MCV 96 fL (80-95); MPV 8.7 fL (8.0-11.0); Monocytes % 6.6 %; Neutrophils % 80.3 %; Platelet Count 229 10^3/uL (130-400); RBC 3.27 10^6/uL (3.93-5.22); RDW 16.4 % (11.7-14.6)
[2023-10-13 06:33] LABS: Anion Gap 7.5 mmol/L (3-11); BUN 20 mg/dL (7-18); CO2 30.5 mmol/L (21.0-32.0); Calcium 8.7 mg/dL (8.5-10.1); Chloride 104 mmol/L (98-107); Glucose 82 mg/dL (74-106); Potassium 3.6 mmol/L (3.5-5.1); Sodium 142 mmol/L (136-145)
[2023-10-13] MEDS: Normal Saline Flush 10 ML SYR IVP (07:53)
[2023-10-13] MEDS: Calcium Carbonate *TUMS* 500 MG CHEW 1000 MG PO (07:53)
[2023-10-13] MEDS: Prochlorperazine 5 MG TAB PO (07:54)
[2023-10-13] MEDS: Apixaban 5 MG TAB PO ×2 (07:54→20:06)
[2023-10-13] MEDS: Magnesium Oxide 400 MG TAB 200 MG PO (07:54)
[2023-10-13] MEDS: Cholecalciferol (Vitamin D3) 1,000 UNIT TAB 1000 UNITS PO (07:55)
[2023-10-13] MEDS: Docusate Sodium 100 MG CAP PO ×2 (07:55→13:53)
[2023-10-13] MEDS: Multivitamin TAB 1 TAB PO (07:55)
[2023-10-13] MEDS: predniSONE 20 MG TAB 40 MG PO (07:55)
--- NOTE | 2023-10-13 09:51 | PGE_ITS ---
Date of Service Date of service: 10/13/23 Time of Service: 09:51 Assessment and Plan Assessment and plan (1) Postobstructive pneumonia: Start date: 10/11/23 Status: Acute Assessment and plan: On Unasyn and Doxycycline day 2 Monitor efficacy Convert to oral therapy for discharge CBC in AM (2) Malignant pericardial effusion: Start date: 10/11/23 Status: Acute Assessment and plan: Echo: LVEF 55% with overall normal left ventricular systolic function. -RVSP 23.2 mmHg -IVC collapse over 50% with inspiration Continue close monitoring for decompensation Cardiology consult reordered and pending (3) Small cell lung cancer: Status: Chronic Assessment and plan: Was on outpatient treatment with lurbinectedin IV infusion, last around 10/06/2023 Sat 87% with activity, sat 92-96 at rest on RA Exercise oximetry test prior to d/c [facility] [place] oncology consult (4) Paroxysmal atrial fibrillation: Status: Chronic Assessment and plan: Continue telemetry SR HR 78 On Eliquis No beta-dhaval or CCB on records (5) Macrocytic anemia: Status: Chronic Assessment and plan: H&H 9.8 & 31.3 similar to 10/11 with MCV 96 Vit B12 level is 581and mid-range : Might benefit from supplementation as B12 is an acute phase reactant : Will start cyanocobalamin 500mg PO daily Folate> 20 (6) Bilateral pleural effusion: Status: Acute Assessment and plan: More prominent on the left side as per CT Discussed management with [facility] pulmonology consult [facility] [place] oncology consult Options discussed w patient and Most likely d/t malignancy with drain the most likely option if the patient was to become severely symptomatic If surgical consult for thoracentesis consider sampling for micro/pathology/Light's criteria Might not respond to diuresis Considerer pleuredesis longer term option via pulmonary medicine Palliative care consult ordered (7) On deep vein thrombosis (DVT) prophylaxis: Status: Acute Assessment and plan: Continue SCD's On Eliquis d/t parosyxmal atrial-fibrillation (8) Discharge planning issues: Status: Acute Assessment and plan: Palliative care consult completed by Dr. Whipple on 10/11 -[facility] - DNR/DNI -Advanced directives filled PT recommended HH nursing is goes home with a pleurex drain Home O2 : -ambulated with PT and Dr. Whipple in the room sat dropped to 87% -exercise oximetry prior to d/c to determine home O2 requirement as per pt's wish Discussed w Dr. Godoy Subjective Subjective Patient reports: tolerating liquids well, tolerating a regular diet, voiding w/o difficulty and shortness of breath; denies feels better, diarrhea, nausea, vomiting or fever Exam Narrative Exam Narrative: Constitutional The patient appears less fatigue than on 10/11 Neuro:alert and oriented to self, person, place, time and situation. No n eurological focal deficit Chest:Chest is symmetrical ,iv access via port to right chest Resp: left posterior lung w coarse basilar crackles, right base is diminished, clear bilat upper lungs Cardio: regular rhythm, S1, S2, positive pulses X4 GI: Abdomen is not distended, soft and non tender, bowel sounds are present : Negative Costovertebral angle tenderness Psych: RASS 0, congruent mood and initially sad but normal affect s/p interaction. Objective Last Vital Signs Temp 36.9 C 10/13/23 07:50 Pulse 76 10/13/23 07:50 Resp 15 10/13/23 07:50 BP 135/82 10/13/23 07:50 Pulse Ox 93 10/13/23 07:50 Laboratory Results - last 24 hr 10/13/23 05:40 WBC 7.10 RBC 3.27 L Hgb 9.8 L Hct 31.3 L MCV 96 H MCH 30.0 MCHC 31.3 L RDW 16.4 H Plt Count 229 MPV 8.7 Immature Gran % 1.5 Neutrophils % 80.3 Lymphocytes % 10.7 Monocytes % 6.6 Eosinophils % 0.3 Basophils % 0.6 Nucleated RBC % 0.0 Absolute Neutrophils 5.70 Absolute Lymphocytes 0.76 L Absolute Monocytes 0.47 Absolute Eosinophils 0.02 Absolute Basophils 0.04 Sodium 142 Potassium 3.6 Chloride 104 Carbon Dioxide 30.5 Anion Gap 7.5 BUN 20 H Creatinine 1.0 Est GFR (CKD-EPI 2020) 63.30 Glucose 82 Calcium 8.7 Time Spent with Patient Time Spent with Patient: >50 minutes Time was spent: preparing to see the patient(eg.review tests), obtaining and/or reviewing separately otained hiistory, ordering medications,tests, procedures, referring, communicating with other health daycare director, indepentently interpreting results, counseling the patient and care coordination
--- NOTE | 2023-10-13 10:40 | PDOC.CMPRO ---
Date of service: 10/13/23 Time of Service: 10:41 Care Management Progress Note Progress Note Text Progress Note Text: S/O: Mary was sitting up in bed when CM met with her. Her friend, Renetta was in the room visiting. Mary was on the phone briefly, cancelling an eye appointment tomorrow morning, as she is not medically cleared for discharge today. Per report, she will have a cardiology consult tomorrow. [facility] [place] oncology were consulted as well to discuss to option of having a thoracentesis if she does not respond to diuresis. Mary has stated that she would like to return home as soon as she can, but she is comfortable remaining at this time. CM will continue to follow. A: Irma is a 63 year old female admitted to [facility] on 10/11/23 with postobstructive pneumonia with hypoxemia, SCLC, PAF. Discharge Potential Discharge Needs: Consult Consult Services Needed: Palliative (completed 10/11), Imaging/labs (echo completed 10/11), PT Evaluation (HH PT) and PCP F/U Appt Anticipated Barriers to Discharge: None Identified Patient/Family Education Needs: Review discharge instructions, discuss Ask Me Three Transportation: Private vehicle (friend will tranpsort) Plan: Anticipate Irma will return home once medically cleared. She will have new orders for HH PT, and may require new home O2. Her friend will drive home via private vehicle. She will follow up with her PCP and discharge plan of care. CM will continue to follow. SDOH(Care Management) Screening Will the Patient Participate in the Screening?: Yes Do you worry about having a steady place to live?: no In the past 12 months, have you had to go without electric, gas, oil or water in your home?: no Have you or anyone in your house had to go without enough food to eat?: no Has lack of transportation kept you from medical appointments or from doing things needed for daily living?: no Has anyone in your support network made you feel unsafe for any reason?: no Anticipated HH Services Anticipated HH Services at Discharge [facility]. Anticipated Date of Discharge: 10/14/23. Following Provider: Kaci Garcia.
--- NOTE | 2023-10-13 11:14 | PTTR_ITS ---
PT Notes Visit Reasons: postobstructive pneumonia with hypoxmia,SCLC,PAF Date: 10/13/23 PRECAUTIONS: Fall. Standard. Activity as tolerated. SUBJECTIVE: Pt sleeping in bed when approached for therapy, pt agreed to participating with therapy after pt woke up. OBJECTIVE: Telemetry monitoring in place.? PAIN: none reported ? Therapeutic Activities 15612: Direct one-on-one instruction in dynamic activities to improve functional performance. ?? BED MOBILITY/TRANSFERS? Rolling L/R: min A Supine-sit: ?min A? Sit-supine: ?min A? Sit-stand: ?CGA ? Stand-sit: ?? CGA? Bed-Chair:? ? CGA? Chair-bed: CGA Provided skilled cues and instruction on performance and technique throughout. Gait Training 60099: Direct one-on-one instruction and skilled instruction in: Employing an assistive device Modified weight-bearing status Movement sequencing Turning and movement with proper form Provided verbal cues for equipment management and technique Provided instruction in gait pattern Patient education regarding pacing and breathing techniques to maximize activity tolerance? GAIT? Assistive Device: ??4WW ? Weight bearing: FWB Assist: ?CGA ? Distance:?? ?15', 10', 30', 45' seated rest break in between distance, SA02 monitored during rest beaks, WC follow for safety.? Deviation: ? Slow tiesha speed, stoop forward posture, low step height, short step length.? 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 trialled 02 supoort on the last desaturation after walking 45' with pt sa02 going up from 845 to 93% with 2L O2 support almost instantly. PLAN: Continue with balance training, global strengthening and general conditioning for improved safety, mobility and activity tolerance until pt is ready for DC. TREATMENT CODE/TIME: [id number], [id number] 55mins ( 10:20-11:15am)
[2023-10-13 12:53] LABS: Lab Add On Test DONE
--- NOTE | 2023-10-13 12:59 | PHA.REVIEW2 ---
Pharmacy Admission Review Admission Clinical Review Admission Pharmacy Review: (Updated 10/12/23 @ 17:08 by Caty Whipple MD) On deep vein thrombosis (DVT) prophylaxis (Acute) Discharge planning issues (Acute) Bilateral pleural effusion (Acute) Malignant pericardial effusion (Acute) Postobstructive pneumonia (Acute) No Known Allergies Allergy (Verified 10/11/23 16:10) Resuscitation Status DNR/DNI Height 5 ft 10 in Weight 71.4 kg Pharmacy Admission Review Renal Dosing Renal Dosing: BUN 20 mg/dL (7-18) H 10/13/23 05:40 Creatinine 1.0 mg/dL (0.55-1.02) 10/13/23 05:40 Medications needing adjustments: Reviewed (CrCl 64.6 mL/min) List of meds needing interventions: Current medications are okay Anticoagulation Anticoagulation: Hgb 9.8 g/dL (11.2-15.7) L 10/13/23 05:40 Hct 31.3 % (36.0-46.0) L 10/13/23 05:40 Plt Count 229 10^3/uL (130-400) 10/13/23 05:40 Creatinine 1.0 mg/dL (0.55-1.02) 10/13/23 05:40 DVT Prophylaxis: Reviewed (SCDs) Medications: Apixaban (5mg PO BID) Relevant Labs Relevant Labs: Sodium 142 mmol/L (136-145) 10/13/23 05:40 Potassium 3.6 mmol/L (3.5-5.1) 10/13/23 05:40 Chloride 104 mmol/L (98-107) 10/13/23 05:40 Magnesium 2.4 mg/dL (1.8-2.4) 10/12/23 06:40 Electrolytes, C-Reactive P, ESR: Reviewed (Hgb 9.8) Cardiac Review Cardiac Review: Troponin I < 50 ng/L (< or =60) 10/11/23 23:30 NT-Pro-B Natriuret Pep Cancelled 10/11/23 14:11 BP, HR, EF%: Reviewed (BP and HR WNL) QTc Review QTc: Reviewed (446 from 10/10) IV to PO Switch IV Medications: Reviewed (Doxycycline and Unasyn) Home Meds Home Med List reviewed: Reviewed Current Meds Current Medication Order Review: Reviewed Pharmacy Antibiotic Review Relevant Labs: WBC 7.10 10^3/uL (4.4-10.8) 10/13/23 05:40 Temperature 37.8 C Temperature 36.9 C Temperature 36.5 C Comments: Patient is on doxycycline and Unasyn, day 2, for postobstructive pneumonia. Elevated temperature of 37.8 at 1156 today.
[2023-10-13] MEDS: Cyanocobalamin 500 MCG TAB PO (13:53)
[2023-10-13 15:43] LABS: Iron 47 ug/dL (50-170); Total Iron Binding Capacity 205 ug/dL (250-450); Transferrin Sat 23 % (15-50)
[2023-10-14] VITALS (9 sets, daily range): BP systolic 88–148; BP diastolic 50–100; PULSE 73–146; RESP 14–24; TEMP 35.8–36.6; O2SAT 92–97
[2023-10-14] MEDS: Acetaminophen 325 MG TAB PO ×2 (00:13→03:02)
[2023-10-14] MEDS: AMPICILLIN/SULBACTAM 3 GM in Normal Saline 100 ML IVPB ×3 (00:15→12:06)
[2023-10-14] MEDS: Normal Saline Flush 10 ML SYR IVP ×5 (01:48→16:01)
[2023-10-14] MEDS: Metoprolol 25 MG TAB PO (03:03)
--- NOTE | 2023-10-14 04:00 | RT.EKG_ITS ---
APPROVED REPORT Exam: Resting ECG Reason for Exam: AFIB Patient Location: I HR:137 bpm ECG Measurements Heart Rate 137 AXIS MD [id number] P [id number] QRSd 84 QRS -21 QT 335 T 187 QTc 506 Conclusion Atrial fibrillation...V-rate 94-165, irreg A-activity Ventricular premature complex...V complex w/ short R-R interval Diffuse nonspecific ST-T abnormalities
[2023-10-14] MEDS: Metoprolol 5 MG/5 ML VIAL 2.5 MG IVP (04:38)
[2023-10-14 05:10] LABS: Abs Immature Grans 0.16 10^3/uL (0.0-0.06); Absolute Basophil Count 0.05 10^3/uL (0.0-0.2); Absolute Eosinophil Count 0.03 10^3/uL (0.0-0.7); Absolute Lymphocyte Count 0.88 10^3/uL (1.2-3.4); Absolute Monocyte Count 0.57 10^3/uL (0.1-0.8); Absolute Neutrophil Count 5.77 10^3/uL (1.2-6.7); Basophils % 0.7 %; Eosinophils % 0.4 %; HCT 31.1 % (36.0-46.0); HGB 9.8 g/dL (11.2-15.7); Immature Grans % 2.1 %; Lymphocytes % 11.8 %; MCH 30.1 pg (27.0-33.0); MCHC 31.5 % (32.0-36.0); MCV 95 fL (80-95); MPV 8.7 fL (8.0-11.0); Monocytes % 7.6 %; Neutrophils % 77.4 %; Platelet Count 244 10^3/uL (130-400); RBC 3.26 10^6/uL (3.93-5.22); RDW 16.9 % (11.7-14.6); RDW-SD 58.6 fL; WBC 7.46 10^3/uL (4.4-10.8)
[2023-10-14 05:24] LABS: Magnesium 1.9 mg/dL (1.8-2.4)
[2023-10-14 05:25] LABS: ALT 28 U/L (14-59); AST 21 U/L (15-37); Albumin 2.7 g/dL (3.4-5.0); Alkaline Phosphatase 52 U/L (46-116); Anion Gap 8.5 mmol/L (3-11); BUN 22 mg/dL (7-18); Bilirubin, Total 0.2 mg/dL (0.2-1.0); CO2 30.5 mmol/L (21.0-32.0); CREATININE 0.9 mg/dL (0.55-1.02); Calcium 8.5 mg/dL (8.5-10.1); Chloride 107 mmol/L (98-107); Estimated GFR 71.83 (mL/min/1.73m2); Glucose 101 mg/dL (74-106); Sodium 146 mmol/L (136-145)
[2023-10-14] MEDS: Normal Saline 250 ML IV (05:27)
[2023-10-14 05:33] LABS: Troponin I < 50 ng/L (< or =60)
--- NOTE | 2023-10-14 06:19 | W.EVENT ---
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 He went into atrial fibrillation which is a known problem with paroxysmal atrial fibrillation on Eliquis. Difficult to control in the past and had amiodarone with cardioversion. She was asymptomatic with her atrial fibrillation with rapid ventricular response and did receive a dose of metoprolol tartrate 25 mg by mouth. Her heart rate remained around 120-140 with variable rate. She was again was asymptomatic. The patient was being repositioned in bed when she was laid flat and had a brief episode of unconsciousness with her eyes rolling back but no actual seizure activity. When her head was raised she immediately awakened and had no postictal episode. This appears to be a vagal response and she states that she would do this at home if she laid flat. She does apparently have stimulation of her vagal nerve with her tumor load. Because of continued tachycardia the patient was given an IV dose of metoprolol 2.5 mg with a heart rate slowed from 140s to the 120s to lower but still over 100. Blood pressure did drop to systolic below 195/50 and she was given a 250 cc bolus of normal saline. Labs were checked and EKG was checked. Labs were significant for a sodium of 146 with a slightly high possibly indicating some dehydration and potassium 3.0 creatinine was normal. Troponin was negative. EKG did show some inferior lateral strain with ST segment depressions. It was atrial fibrillation with tachycardia. Upon admission to the ED the patient EKG did show sinus rhythm with a similar pattern but less severe with a slow heart rate. Physical exam was stable with lung findings except for heart exam revealing irregular irregular rhythm with tachycardia. There was no rubs. Assessment/plan: Patient has recurrent atrial fibrillation with tachycardia not responsive to medical therapy in the past and is asymptomatic with lab only significant for potassium which will be replaced with IV potassium. She also may need some hydration with her hyponatremia. Plans were [place] [facility] [place] and this will take place within the next several hours with the patient needing higher level care than this hospital can provide. She is not ICU level care presently with her recurrent atrial fibrillation but does need heart rate control. Time Spent with Patient Time spent in critical care(minutes): 30 minutes Time Spent Included: Coordination of care, Chart review, Documenting critically ill care, Time at immediate bedside and Discussing critically ill care with other medical staff
[2023-10-14] MEDS: DOXYCYCLINE 100 MG in Normal Saline 100 ML IVPB (06:25)
[2023-10-14] MEDS: POTASSIUM CHLORIDE 10 MEQ/100 ML BAG 100 MEQ IVINF (07:44)
[2023-10-14] MEDS: Ondansetron O.D.T. 4 MG TABEF PO (08:08)
[2023-10-14] MEDS: Prochlorperazine 5 MG TAB PO (08:48)
[2023-10-14] MEDS: Magnesium Oxide 400 MG TAB 200 MG PO (08:49)
[2023-10-14] MEDS: Cyanocobalamin 500 MCG TAB PO (08:49)
[2023-10-14] MEDS: predniSONE 20 MG TAB 40 MG PO (08:50)
[2023-10-14] MEDS: Apixaban 5 MG TAB PO (08:50)
[2023-10-14] MEDS: Cholecalciferol (Vitamin D3) 1,000 UNIT TAB 1000 UNITS PO (08:51)
[2023-10-14] MEDS: Multivitamin TAB 1 TAB PO (08:51)
--- NOTE | 2023-10-14 09:38 | PCPN_ITS ---
Date of service: 10/14/23 Time of Service: 08:15 Assessment and Plan Assessment and plan (1) Encounter for hospice care discussion: Status: Acute Assessment and plan: Long discussion with Mary, her daughter Dhara who is her health care agent, her good friends /colleagues. She wants to go home, maximize her quality time, see her brother and sister and grandchildren. Hospice care is consistent with her stated goals of care. (2) SVC (superior vena cava obstruction): Status: Acute Assessment and plan: Given the rapidity of her tumor growth over the last 48 hrs, unsure if she would be able to tolerate/survive an intervention with strong chance of coming home. Opted against transfer to [facility] [place]. No guarantee of improved QOL, (probably not), with trachea stent in place. Understands that her trachea and SVC could become occluded at any time. (3) Generalized weakness: Status: Acute Assessment and plan: Much weaker than she was 2 days ago. Likely will be completely bedbound in the ext 24-48 hrs (4) Hypoxemia: Status: Acute Assessment and plan: Qualifies for oxygen now with drops in saturation down to the 70s over the last 48 hrs. On 2L/min now. Makes her feel better. (5) Brain metastases: Status: Acute Assessment and plan: Cause of her am nausea and HAHN. Dexamethasone to restart, replacing her prednisone. May need to increase dexamethasone dose soon. (6) Headache: Status: Acute (7) Metastasis to adrenal gland: Status: Acute (8) Counseling regarding advance directives and goals of care: Status: Acute (9) Malignant pericardial effusion: Status: Acute (10) Postobstructive pneumonia: Status: Acute Assessment and plan: Continued on her IV abx while inpatient. Stopped abx on transfer home as she is not acutely ill. (11) Small cell lung cancer: Status: Chronic (12) Paroxysmal atrial fibrillation: Status: Chronic Subjective Subjective Patient reports: still having pain, nausea and shortness of breath; denies feels better or pain is less Interval history since last seen: I saw Mary this morning. She was accompanied by two close co-workers and her best friend from . Her daughter Dhara was on speaker phone. Mary had an event last night when she became unresponsive when her the head of her bed was put down. Her morning nausea and headache is worse. She is now requiring oxygen even at rest. She is a 2 person assist to get OOB to the commode (She was independent with this on Wednesday). Her lymph nodes in her neck are visible now; they were not 2 days ago Her Small Cell Lung Cancer is very rapidly growing now. It is compressing both her trachea and her superior vena cava. There had been discussion about going down to [facility] [place] [place] for possible interventions of tracheal stenting and SVC stenting. This morning, however, Mary was clear that she did not want to in the hospital. She was able to acknowledge that her tumors are visibly growing and she is much weaker than she had been prior to this admission. She has friends and family that will stay with her 14/12. Her PPS has dropped from 40-50% to 30-40% in 2 days. She would not be able to tolerate cancer treatment in her current condition, and it is very unlikely to help her in any way. We discussed going back on dexamethasone for her brain mets. She also might benefit from an increase in her dose. She had been on prednisone 40 mg. Dexamethasone may be may effective for the swelling associated with her neck and mediastinal and supraclavicular nodes. It's worth trying. Once she made the decision to enroll in hospice, Mary stated she wanted to go home EDDA. Orders were put in for her to go home by hospital later this afternoon. Exam Narrative Exam Narrative: Very weak, exhausted appearing, surrounded by loving friends, daughter on phone. Neck visibly enlarged LNs, worse on right side of neck than left heent hearing intact, mm are a little dry, encouraged hydration lungs surprisingly CTAB, she is wearing oxygen now, no increased WOB cv irregular today (NSR 2 days ago; has PAF) abd soft NT ND ext cool to the touch, but no mottling, trace edema bilateral feet/ankles neuro able to understand her options and make her own medical decisions at this time, alert and oriented x 3, though very weak and tired, slow speech, slow movement psych sad, but not anxious or depressed, understands that the length of her life is quite limited now Objective Last Vital Signs Temp 96.6 F L 10/14/23 08:09 Pulse 89 10/14/23 08:09 Resp 16 10/14/23 08:09 BP 88/60 L 10/14/23 08:09 Pulse Ox 97 10/14/23 08:09 Laboratory Results - last 24 hr 10/13/23 10/13/23 10/14/23 05:40 12:53 04:30 WBC 7.46 RBC 3.26 L Hgb 9.8 L Hct 31.1 L MCV 95 MCH 30.1 MCHC 31.5 L RDW 16.9 H Plt Count 244 MPV 8.7 Immature Gran % 2.1 Neutrophils % 77.4 Lymphocytes % 11.8 Monocytes % 7.6 Eosinophils % 0.4 Basophils % 0.7 Nucleated RBC % 0.0 Absolute Neutrophils 5.77 Absolute Lymphocytes 0.88 L Absolute Monocytes 0.57 Absolute Eosinophils 0.03 Absolute Basophils 0.05 Sodium 146 H Potassium 3.0 L Chloride 107 Carbon Dioxide 30.5 Anion Gap 8.5 BUN 22 H Creatinine 0.9 Est GFR (CKD-EPI 2020) 71.83 Glucose 101 Calcium 8.5 Magnesium 1.9 Iron 47 L TIBC 205 L Transferrin % Sat 23 Total Bilirubin 0.2 AST 21 ALT 28 Alkaline Phosphatase 52 Troponin I < 50 Total Protein 6.0 L Albumin 2.7 L Add-On Test Request DONE 10/14/23 05:35 WBC RBC Hgb Hct MCV MCH MCHC RDW Plt Count MPV Immature Gran % Neutrophils % Lymphocytes % Monocytes % Eosinophils % Basophils % Nucleated RBC % Absolute Neutrophils Absolute Lymphocytes Absolute Monocytes Absolute Eosinophils Absolute Basophils Sodium Cancelled Potassium Cancelled Chloride Cancelled Carbon Dioxide Cancelled Anion Gap Cancelled BUN Cancelled Creatinine Cancelled Est GFR (CKD-EPI 2020) Cancelled Glucose Cancelled Calcium Cancelled Magnesium Iron TIBC Transferrin % Sat Total Bilirubin AST ALT Alkaline Phosphatase Troponin I Total Protein Albumin Add-On Test Request
[2023-10-14] MEDS: Dexamethasone 4 MG/ML VIAL 6 MG IVP (09:41)
--- NOTE | 2023-10-14 11:40 | NT_ITS ---
PT Notes Visit Reasons: postobstructive pneumonia with hypoxmia,SCLC,PAF Discharge to home with plan to go on hospice as of today. Has all the equipment she has. [facility] following.
--- NOTE | 2023-10-14 14:34 | W.PM.DS.N ---
Date of service: 10/14/23 Time of Service: 10:00 DS: Diagnosis Discharge Diagnosis (1) Postobstructive pneumonia: Status: Acute (2) Malignant pericardial effusion: Status: Acute (3) Small cell lung cancer: Status: Chronic (4) Paroxysmal atrial fibrillation: Status: Chronic (5) Macrocytic anemia: Status: Chronic (6) Bilateral pleural effusion: Status: Acute (7) On deep vein thrombosis (DVT) prophylaxis: Status: Acute (8) Discharge planning issues: Status: Acute Discharge Plan Disposition Patient Disposition: Home Condition: Poor Discharge Details Reason For Visit: postobstructive pneumonia with hypoxmia,SCLC,PAF Admit Date/Time: 10/13/23 17:05 Admit Provider: Fredy Wen Attending Provider: Fredy Wen Primary Care Provider: K[facility] Course Hospital Course: This 63 years old female patient with a past medical history of 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 At the time the patient reported increased shortness of breath with exertion starting a month ago with saturation dropping to 88% with ambulation and sleeping in a recliner; she had been on daily prednisone taper. Workup in the ED showed no leukocytosis no leukopenia and no neutropenia with mild microcytic anemia. The VBG showed mild alkalosis without CO2 retention. The CT was negative for pulmonary embolism but showed worsening of adenopathy and worsening of right-sided upper middle and lower lobes pulmonary consolidation as well as bilateral pleural effusion and left-sided pericardial effusion. EKG showed new ST segment depression V2 through V6, no ST segment elevations. Treatment was initiated in the ED with doxycycline and Augmentin orally. 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 Unasyn was initiated as requested by hospitalist. Palliative care consult was initiated and the patient saw Dr. Jackson and changed her CODE STATUS to DNR/DNI .During the stay, the patient had desaturations to 87% with minimal exertion such as transfer to bedside commode, ambulation and required oxygen supplementation of 2 L/min with activity. Treatment continued with Unasyn and IV doxycycline. Cardiology consult was initiated.Echocardiogram showed LVEF of 55% with normal left ventricular systolic function, RVSP of 23.2 mmHg and IVC collapse over 50% with inspiration.After discussion with the patient concerning options on how to approach the pleural effusions, the patient agrees that she would undergo drainage and permanent Pleurex drain placement if recommended by [facility]. Pulmonology, and oncology consultations at [facility] or the patient has been followed for treatment of her small cell cancer were initiated. Dr. Ferrell from pulmonology recommended initial tapping of the right-sided effusion and evaluation of relief of symptoms before proceeding with any permanent drain and also recommended consultation with interventional radiology. Dr. Pagan from pulmonology determined that the CT showed partial proximal tracheal obstruction in addition to other findings on the CT performed on admission. Dr. Pagan recommended stent placement for SVC syndrome as well as evaluation of the tracheal obstruction with bronchoscopy as well as transfer for further evaluation and procedures. The patient agrees with proceeding to transfer on 10/13/2023 around 1830. [facility] transfer center was contacted but could not accommodate the transfer and recommended for follow-up on 10/14/2023 for bed availability.This morning, the patient had an episode of atrial fibrillation with rapid ventricular response for which metoprolol 25 mg oral was given. The patient experienced transient hypotension then conversion to sinus rhythm in late morning with improved blood pressures. The patient also met with Dr. Whipple from palliative care again and decided to go home on hospice. The patient was transition to higher-dose steroids, prednisone was converted to dexamethasone. The patient will be discharge home today to be readmitted to hospice. [facility] pulmonology services called to follow-up on patient and were informed of the patient's decision. Discussed with Dr. Godoy. Home Meds and New Rx's Prescriptions: New acetaminophen 500 mg Tablet 1,000 mg PO Q6H PRN PRNQty: 240 0RF bisacodyl 10 mg Suppository 10 mg OH DAILY PRN PRNQty: 30 0RF dexamethasone 6 mg tablet 12 mg PO DAILY Qty: 60 0RF Continued morphine concentrate 100 mg/5 mL (20 mg/mL) solution See Rx Instructions PO Q1H MDD 120 mg PRN (Reason: pain) Qty: 30 0RF Rx Instructions: 0.25-1.0 mg orally every 1 hour PRN; HOSPICE lorazepam 1 mg tablet 1 mg PO Q4H PRN (Reason: anxiety) Qty: 7 1RF Rx Instructions: hospice triamcinolone acetonide 0.1 % ointment 1 applic topical BID PRN prochlorperazine maleate [Compazine] 5 mg tablet 5 mg PO DAILY ondansetron 4 mg tablet,disintegrating 4 mg PO BID-TID PRN polyethylene glycol 3350 17 gram Powder In Packet 17 g PO DAILY PRN PRN (Reason: Constipation) Qty: 0 0RF Eliquis 5 mg tablet 5 mg PO BID Discharge Instructions Stand Alone Forms: Nursing Discharge Form Activity:: Activity as Tolerated Equipment/Supplies:: Oxygen (L/min Below) Diet:: As Tolerated DS: Summary Time Spent with Patient providing and/or coordinating discharge services: Greater than 30 minutes Status at Discharge Functional status at discharge: uses cane/walker Overall status at discharge: patient is not back to baseline Mental Status: mental status grossly normal Speech and Movement: slowed movement Mood: congruent mood Affect: normal affect and sad Quality:SDOH Health Related Social Needs: No Data to Display Referrals and interventions: [facility] ([place]) AND SISTER ([facility]) STAYED WITH PATIENT IN PAST WEEKS STEP SON AND GF LIVES UPSTAIRS FROM PATIENT AND THEY HELP WITH ADLS Exam Narrative Exam Narrative: Constitutional The patient appears fatigue, more engorged and reddened neck soft tissue and neck veins noticed today compare to 10/12 Neuro:alert and oriented to self, person, place, time and situation. No neurological focal deficit Chest:Chest is symmetrical ,iv access via port to right chest Resp: left posterior lung clear and dimished , right base is diminished, clear bilat upper lungs Cardio: HR 75 SR in late AM, regular rhythm, S1, S2, positive pulses X4 GI: Abdomen is not distended, soft and non tender, bowel sounds are present Psych: RASS 0, congruent mood and calm affect Psych Mental Status: mental status grossly normal Speech and Movement: slowed movement Mood: congruent mood Affect: normal affect and sad DS: Data Vitals/I&O Vitals and I&O: Vital Signs Temperature 35.9 C L 10/14/23 11:20 Temperature Source Tympanic 10/14/23 11:20 Pulse 76 05/23/24 11:20 Pulse Rhythm Regular 10/14/23 10:44 Pulse 79 10/11/23 20:10 Respiratory Rate 14 10/14/23 11:20 Respiratory Effort Normal, Non-Labored 10/14/23 10:44 Respiratory Depth Normal 10/14/23 10:44 Respiratory Pattern Normal 10/14/23 10:44 Blood Pressure 93/71 L 10/14/23 11:20 Blood Pressure Mean 93 10/11/23 20:16 Blood Pressure Position Sitting 10/11/23 14:07 Pulse Oximetry 97 10/14/23 11:20 Oxygen Delivery Method Nasal Cannula 10/14/23 11:20 Oxygen Flow Rate 1 10/14/23 11:20 Pain Level 0 10/14/23 11:20 Comment RN notified of vitals 10/14/23 08:09 Intake & Output 10/13/23 10/14/23 10/14/23 23:59 11:59 23:59 Intake Total 600 / 1100 400 / 400 Output Total 200 / 400 400 / 700 300 / 700 Balance 400 / 700 0 / -300 -300 / -300 Intake: IV 300 / 800 400 / 400 Oral 300 / 300 Output: Urine 200 / 400 400 / 700 300 / 700 Other: Urine Color Yellow Yellow Straw Urine Appearance Clear Clear Cloudy Urine Odor None Stool Size Large Smear Stool Characteristics Formed Soft Brown Brown Voiding Methods Bedside Commode Bedside Commode Bedside Commode Data Completed and Pending Labs on day of discharge: Labs from last 24 hours 10/14/23 10/14/23 10/13/23 05:35 04:30 05:40 WBC 7.46 RBC 3.26 L Hgb 9.8 L Hct 31.1 L MCV 95 MCH 30.1 MCHC 31.5 L RDW 16.9 H Plt Count 244 MPV 8.7 Immature Gran % 2.1 Neutrophils % 77.4 Lymphocytes % 11.8 Monocytes % 7.6 Eosinophils % 0.4 Basophils % 0.7 Nucleated RBC % 0.0 Absolute Neutrophils 5.77 Absolute Lymphocytes 0.88 L Absolute Monocytes 0.57 Absolute Eosinophils 0.03 Absolute Basophils 0.05 Sodium Cancelled 146 H Potassium Cancelled 3.0 L Chloride Cancelled 107 Carbon Dioxide Cancelled 30.5 Anion Gap Cancelled 8.5 BUN Cancelled 22 H Creatinine Cancelled 0.9 Est GFR (CKD-EPI 2020) Cancelled 71.83 Glucose Cancelled 101 Calcium Cancelled 8.5 Magnesium 1.9 Iron 47 L TIBC 205 L Transferrin % Sat 23 Total Bilirubin 0.2 AST 21 ALT 28 Alkaline Phosphatase 52 Troponin I < 50 Total Protein 6.0 L Albumin 2.7 L PFSH All Active Problems (Updated 10/14/23 @ 09:43 by Caty Whipple MD) Encounter for hospice care discussion (Acute) SVC (superior vena cava obstruction) (Acute) not completely occluded Generalized weakness (Acute) Hypoxemia (Acute) Brain metastases (Acute) Metastasis to adrenal gland (Acute) Headache (Acute) in the ams with mild nausea likely due to cerebral edema DNI (do not intubate) (Acute) DNR (do not resuscitate) (Acute) Counseling regarding advance directives and goals of care (Acute) On deep vein thrombosis (DVT) prophylaxis (Acute) Discharge planning issues (Acute) Bilateral pleural effusion (Acute) Pneumonitis (Chronic) Macrocytic anemia (Chronic) Malignant pericardial effusion (Acute) Postobstructive pneumonia (Acute) Abdominal pain (Acute) Metastatic neoplasm (Acute) Bradycardia (Acute) Small cell lung cancer (Chronic) Paroxysmal atrial fibrillation (Chronic) Atrial fibrillation with RVR (Acute) Arrhythmia (Acute) SESSILE SERATED ADENOMA (Acute ~03/20/22) stoiber, multiple, repeat 2 yrs Hx of adenomatous colonic polyps (Acute) Screening for colon cancer (Acute) LVE (left ventricular enlargement) (Acute) Syncope (Chronic) Medical History Herpes zoster Smoker Menopause Cardiac arrhythmia TUBULAR ADENOMA Dermatitis Stress DIVERTICULOSIS Surgical History History of colonoscopy with polypectomy (~03/20/22) Lateral Retinacular Release, Open Right Colonoscopy - IV Sedation (03/15/13) Bone Graft & Pinning of Right Wrist Family History Mother Heart disease Father Alcohol abuse Sister Heart disease Sister No problems noted. Brother No problems noted. Brother No problems noted. 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 Do you need help understanding health information?: Often 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 Daughter Dhara is her health care agent; sister Radha is back up. 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 Very close to her co-workers. Lots of support in community, people willing to have her live with them, or to stay over with her in her place. Time Spent with Patient Time Spent with Patient: >85 minutes Time was spent: preparing to see the patient(eg.review tests), obtaining and/or reviewing separately otained hiistory, ordering medications,tests, procedures, referring, communicating with other health career services director, indepentently interpreting results, counseling the patient and care coordination
--- NOTE | 2023-10-14 14:56 | PDOC.CMDIS ---
Date of service: 10/14/23 Time of Service: 14:56 LACE Index Scoring Tool Questions: Length of Stay (in days): 1 Was the patient admitted via the E.D.?: Yes Comorbidities: Metastatic Solid Tumor E.D. Visits: 3 Answers: Total Score: 12 Risk of Readmission: High Risk Care Management Discharge Plan Reason for Hospitalization: post obstructive pneumonia Discharge Plan: Irma will be discharged home and admitted to hospice later today. Her hospital bed and home oxygen were delivered by [facility] this afternoon. She will follow up with the hospice team and transport via EMS coordinated by CM. Patient/Family Education Needs: review of discharge instructions, expectations, limitations, follow up plan. Services Needed at Discharge: Home Health Care Services SDOH Health Related Social Needs: No Data to Display Referrals and interventions: DTR ([place]IVES IN [place]) AND SISTER ([facility]) STAYED WITH PATIENT IN PAST WEEKS STEP SON AND GF LIVES UPSTAIRS FROM PATIENT AND THEY HELP WITH ADLS Care Management Referrals: Other (being admitted to hospice)
[2023-10-14] MEDS: Heparin 500 UNITS/5 ML SYRINGE IV (16:01)
== END 2023-10-14 16:15 | disposition home or self-care (01) | DRG 194 ==
LOC: ER 18:55 → MS 22:13
PROVIDERS: Nurse Practitioner Acute Care; Admitting Provider Family Medicine; Emergency Provider Emergency Medicine; PCP Family Medicine; Visit Provider Family Medicine
DX: J18.9 Pneumonia, unspecified organism (principal); C34.91 Malignant neoplasm of unspecified part of right bronchus or lung; I31.31 Malignant pericardial effusion in diseases classified elsewhere; I87.1 Compression of vein; C79.31 Secondary malignant neoplasm of brain; C79.70 Secondary malignant neoplasm of unspecified adrenal gland; J91.8 Pleural effusion in other conditions classified elsewhere; E87.1 Hypo-osmolality and hyponatremia; I48.0 Paroxysmal atrial fibrillation; D53.9 Nutritional anemia, unspecified; Z79.899 Other long term (current) drug therapy; R53.1 Weakness; R09.02 Hypoxemia; Z66 Do not resuscitate; Z95.828 Presence of other vascular implants and grafts; Z87.891 Personal history of nicotine dependence; Z79.01 Long term (current) use of anticoagulants; R59.0 Localized enlarged lymph nodes; R51.9 Headache, unspecified
CPT/HCPCS: 00123; 71275; 80048; 80053; 82805; 85027; 87637; 93005; 93308; 96365; 96366; 96368; 97116; 97162; 97530; 99285; 81003; 81015; 82607; 82728; 82746; 83540; 83550; 83735; 83880; 84484; 85025; 93010; 93306; 94667; 99223; 99233; 99239; 99291; G0378; J0295; J1100; J1642; J3480; J3490; J7512

== ENCOUNTER 2023-10-19 01:12 | Outpatient (RCR) | payer MEDICAID, SELFPAY ==
[2023-10-04] MEDS: Normal Saline Flush 10 ML SYR IVP (12:15)
[2023-10-04 12:24] LABS: HGB 11.1 g/dL (11.2-15.7); MCH 30.7 pg (27.0-33.0); MCHC 32.6 % (32.0-36.0); MCV 94 fL (80-95); MPV 8.7 fL (8.0-11.0); Platelet Count 261 10^3/uL (130-400); RBC 3.62 10^6/uL (3.93-5.22); RDW 16.6 % (11.7-14.6); RDW-SD 57.8 fL
[2023-10-04 12:49] LABS: ALT 24 U/L (14-59); AST 16 U/L (15-37); Absolute Lymphocyte Count 0.95 10^3/uL (1.2-3.4); Absolute Monocyte Count 0.44 10^3/uL (0.1-0.8); Absolute Neutrophil Count 4.85 10^3/uL (1.2-6.7); Albumin 3.2 g/dL (3.4-5.0); Alkaline Phosphatase 53 U/L (46-116); Anion Gap 9.4 mmol/L (3-11); Atypical Lymphocytes % 7 %; BUN 22 mg/dL (7-18); Bilirubin, Total 0.3 mg/dL (0.2-1.0); CO2 28.6 mmol/L (21.0-32.0); CREATININE 1.1 mg/dL (0.55-1.02); Calcium 8.9 mg/dL (8.5-10.1); Chloride 106 mmol/L (98-107); Diff Comment Manual Differential; Estimated GFR 56.46 (mL/min/1.73m2); Glucose 84 mg/dL (74-106); Magnesium 2.3 mg/dL (1.8-2.4); Metamyelocytes % 1; Potassium 4.1 mmol/L (3.5-5.1); RBC Morphology Normal; Sodium 144 mmol/L (136-145); Total Protein 6.5 g/dL (6.4-8.2)
[2023-10-06] MEDS: Normal Saline Flush 10 ML SYR IVP (13:00)
== END 2023-10-22 23:59 | disposition home or self-care (01) ==
LOC: INF 01:12
PROVIDERS: PCP Family Medicine; Visit Provider Internal Medicine Medical Oncology
DX: C34.31 Malignant neoplasm of lower lobe, right bronchus or lung (principal); C79.31 Secondary malignant neoplasm of brain; Z45.2 Encounter for adjustment and management of vascular access device
CPT/HCPCS: 36591; 80053; 96523; 83735; 85025